=== PATIENT | male | born 1945 | race Caucasian/White ===

== ENCOUNTER 2020-02-16 16:58 | Inpatient (IN) ==
[2020-02-16] MEDS ORDERED: 0.9 % SODIUM CHLORIDE 1,000 ML IV ONE (18:05)
[2020-02-16 18:06] LABS: Basophils # (Auto) 0.07 K/mcL (0.00-0.20); Basophils % (Auto) 0.3 % (0.0-2.0); Eosinophils # (Auto) 0.01 K/mcL (0.00-0.70); Eosinophils % (Auto) 0 % (0.0-7.0); Hematocrit 28.8 % (41.0-55.0); Hemoglobin 9.1 g/dL (13.5-16.5); Lymphocytes # (Auto) 0.69 K/mcL (1.50-4.80); Lymphocytes % (Auto) 2.6 % (15.0-49.0); Mean Cell Volume 87.8 fL (80.0-100.0); Mean Corpuscular HGB Conc 31.6 g/dL (31.0-36.0); Mean Platelet Volume 9.1 fL (7.4-10.4); Monocytes # (Auto) 1.33 K/mcL (0.10-0.90); Neutrophils % (Auto) 92.1 % (38.0-78.0); Platelet Count 455 K/mcL (140-440); RBC 3.28 M/mcL (4.50-5.90); Red Cell Distribution Width 14.2 % (11.5-14.5); WBC 26.4 K/mcL (4.5-11.0)
[2020-02-16] MEDS ORDERED: ACETAMINOPHEN 325 MG TABLET PO ONE (18:09)
[2020-02-16 18:35] LABS: Appearance,Urine CLEAR (Clear); Bilirubin,Urine Negative (Negative); Color,Urine STRAW; Culture Indicated,Urine No; Glucose,Urine (UA) Negative (Negative); Ketones,Urine Negative (Negative); Leukocyte Esterase,Urine Negative /ug (Negative); Mucus,Urine FEW /hpf; Nitrate,Urine Negative (Negative); Protein,Urine Negative (Negative); Specific Gravity,Urine 1.012 (1.000-1.035); Urine Blood 0.03 mg/dL (Negative); Urine RBC < 1 /hpf (0-1); Urine Squamous Epithelial Cell 0 /hpf (0-4); Urine Transitional Epi Cells < 1 /hpf (0-2); Urine WBC 1 /hpf (0-4); Urobilinogen,Urine Negative
--- NOTE | 2020-02-16 18:44 | XRay Report ---
CLINICAL INFORMATION: fever, cough; hx lung ca COMPARISON: 02/03/2020 FINDINGS: Heart size, mediastinum and pulmonary vessels are normal. 11 cm pleural-based mass in the left apex is unchanged underlying COPD noted. IMPRESSION: No change in the 11 cm pleural-based mass left lung apex presumably representing lung cancer. No acute disease Interpreted and Authenticated by: Rocky Wild 02/16/20
[2020-02-16] MEDS ORDERED: cefTRIAXone 1 GM VIAL IV ONE (18:51)
--- NOTE | 2020-02-16 18:52 | Emergency Department Note ---
Weakness HPI General Chief complaint: Weakness Stated complaint: weakness, confusion, dizziness Time Seen by Provider: 02/16/20 17:29 Source: patient and family Mode of arrival: ambulatory Limitations: no limitations History of Present Illness HPI Narrative: Narrative: This pleasant 74-year-old was brought in with family with complaint of him being weak and dizzy at times and seemingly confused. Yesterday he seemed to be doing fine or well and then worsened as time went on. He has a diagnosis of a left upper lobe lung cancer. He has had at least several ER admissions for IV fluids due to dehydration/nausea, etc. He denies current nausea vomiting diarrhea or coughing. For his cancer care he goes to the cancer care [facility] [place] in [place] or [place]. He reports that he has had 5 or 6 Covid test that were negative. His story is including "fuzzy in my head" has been going on and that he has had trouble "cannot stand up" and then refers to possibly cancer in his brain. Reports that he did have an MRI of his brain at [facility]. He is supposed to be starting chemotherapy in the near future but has not had any at this point. He admits to a poor appetite but denies fevers, chills, sweats. Related Data Home Medications Medication Instructions Recorded Confirmed omega-3 fatty acids 500 mg capsule 1,500 mg PO QDAY cap 11/08/15 02/17/20 ibuprofen 200 mg PO Q6 01/07/20 02/17/20 loratadine 10 mg tablet 10 mg PO QDAY 01/07/20 02/17/20 acetaminophen 1,000 mg PO Q6H PRN 02/17/20 02/17/20 Previous Rx's Medication Instructions Recorded hydrocodone 5 mg-acetaminophen 325 1 tab PO BID PRN 30 Days #60 tab 01/25/20 mg tablet potassium chloride 20 meq PO BID #30 tab 02/03/20 Allergies Allergy/AdvReac Type Severity Reaction Status Date / Time No Known Drug Allergies Allergy Verified 02/16/20 17:04 Review of Systems ROS ROS Narrative: Narrative: No blurry vision or double vision No sore throat runny nose No chest pain Has had some cough for 1 week that is worsened. No shortness of breath No abdominal pain nausea vomiting diarrhea constipation hematochezia No dysuria. Does have frequency. No headaches. Does generally feel weak. Denies dizziness Has chronic anxiety. Denies depression Feels sleepy/fatigued No easy bleeding or easy bruising. He is not on any blood thinners. [facility] Narrative Patient History Narrative: Narrative: DENIES: Anticoagulation, myocardial infarction, CVA, TIA. Medical/Surgical/Family History All Active Problems (Updated 02/17/20 @ 01:05 by Ruddy Canales DO) Fever (Acute) Elevated WBC count (Acute) Acute confusion (Acute) Acute renal failure (ARF) (Acute) Hypercalcemia (Acute) Hypercalcemia (Chronic) Lymphedema (Chronic) Chronic hypokalemia (Chronic) Hemorrhoids (Chronic) Diverticulosis (Chronic ~02/02/20) Lung cancer (Chronic) Cavitating mass in left upper lung lobe (Chronic) Urinary hesitancy (Chronic) Cough (Chronic) Acute URI (Chronic) Polyp of colon (Chronic) Diverticulitis large intestine w/o perforation or abscess w/o bleeding (Chronic) Encounter for Health Maintenance Examination in Adult (Chronic) Hx of colonoscopy (Chronic) History of tobacco use (Chronic) Mixed hyperlipidemia (Chronic) Low back pain (Chronic) Keratoderma, acquired (Chronic) Medical History (Updated 02/17/20 @ 01:05 by Ruddy Canales DO) Cavitating mass in left upper lung lobe (Chronic) Chronic hypokalemia (Chronic) Cough (Chronic) Diverticulosis (Chronic ~02/02/20) Encounter for Health Maintenance Examination in Adult (Chronic) Hemorrhoids (Chronic) History of tobacco use (Chronic) ex-smoker, discontinuation 12/2005. Follow ekgs Hypercalcemia (Chronic) Keratoderma, acquired (Chronic) pigmenting keratosis, left mid-back. Derm review 07/26/09-Dr Nunez Low back pain (Chronic) h/o low back pain, h/o ruptured disc, distant past Lung cancer (Chronic) Lymphedema (Chronic) Mixed hyperlipidemia (Chronic) mixed hyperlipidemia, primarily triglycerides. On intermittent fish oil. EKG updated 08/07/11 Urinary hesitancy (Chronic) Surgical History (Updated 02/11/20 @ 09:56 by Elvia Garnett) Hx of colonoscopy (Chronic) 02/02/2020-Dr. Garcia: Hemorrhoids; Diverticulosis, Polyp 12/25/2006-Dr. morgan-transverse adenmoatous polyp; rectum hyperplastic p olyps, 5-year sequence. 01/01/[address] Morgan--Polypoid fragment w/minute submucosal lymphoid aggregate; 3 fragments of hyperplastic polyps. Social History Smoking Status: Former smoker Alcohol Intake Frequency: a few times a month (Denies any intake for 5 months (02/16/2020).) Substance Use: does not use Exam Narrative Narrative: Narrative: General Limitations: no limitations General appearance: Present alert, in no apparent distress and nontoxic Head Head: Present atraumatic and normocephalic Eye Eye: Present normal appearance, PERRL and EOMI ENT ENT: Present normal oropharynx and mucous membranes moist Neck Neck: Present trachea midline; Absent lymphadenopathy and thyromegaly Chest Chest: Present symmetric chest wall rise Respiratory Respiratory: Present normal lung sounds bilaterally; Absent respiratory distress, rales/crackles, wheezes, stridor, accessory muscle use and prolonged expiratory phase Cardiovascular Cardiovascular: Present regular rate, normal rhythm and tachycardia (mild); Absent systolic murmur and diastolic murmur Adbominal Abdominal: Present soft; Absent distention, tenderness, guarding, rebound, rigidity, organomegaly and mass Extremities Extremities: Absent pedal edema, pretibial edema, calf tenderness and cyanosis Back Back: Absent CVA tenderness (R), CVA tenderness (L) and spinous process tenderness Neurological Neurological: Present alert and other (Nursing later found him at the sink with towels and he seemed to be cleaning things. When asked what he was doing he reported "just cleaning up". This seemed out of context for appropriateness of the circumstance since he was in a hospital emergency room that was already quite clean.) Psychiatric Psychiatric: Present normal affect, polite and pleasant; Absent depressed, agitated, anxious and poor eye contact Skin Skin: Present warm (WNL) and dry; Absent cyanosis and pallor Course Vital Signs Vital signs: Vital Signs Temperature 99.3 F H 02/16/20 16:59 Pulse Rate 97 H 02/16/20 16:59 Respiratory Rate 02/16/20 16:59 Blood Pressure 137/73 02/16/20 16:59 Pulse Oximetry (%) 98 02/16/20 16:59 Temperature 98.9 F 02/17/20 04:05 Pulse Rate 98 H 02/17/20 04:05 Respiratory Rate 16 02/17/20 04:05 Blood Pressure 156/88 02/17/20 04:05 Pulse Oximetry (%) 97 02/17/20 04:05 [facility] MDM Narrative Medical decision making narrative: Narrative: 5:44 PM - interviewed and examined. Fever with some cough for a week with a history of lung cancer. We will need to do a general work-up and basic imaging for now. 6:48 PM EKG demonstrates nonspecific ST flattening in the inferior leads. V1-V3 right bundle branch block appearance. 7:00 PM - labs as below with markedly elevated white count at 26.4. Low-grade anemia persists and similar to past. Lactic acid 1.6 Electrolytes unremarkable Except for mildly low or slightly low chloride. Creatinine is mildly elevated again at 1.7 with BUN of 32 demonstrating prerenal azotemia. CRP is 11.0 which is significantly elevated. Urine unremarkable with a specific gravity 1.012. Chest x-ray: "No change in the 11 cm pleural-based mass left lung apex presumably representing lung cancer. No acute disease." 10:40 PM - spoke with hospitalist at [facility], Dr. Bandar Benjamin, who points out the patient's near future catheter placement will be delayed until he has no further infectious major signs or symptoms as they would not want the catheter to get infected. Patient has an appointment at 8:00 in the morning with Dr. Valencia (sp.) As a preop for that catheter placement but this will have to be delayed. Multiple attempts were made to speak with the oncologist, Dr. West or Erik (sp.), With no return call. 12:02 AM - I spoke with the hospitalist, Dr. Olivera, who is willing to accept this patient. He recommends going ahead with the azithromycin for the additional treatment for community-acquired pneumonia, make sure there was a second liter of fluid given, and transition orders. We suggest going ahead and ordering a pro calcitonin, labs in the morning. paint department supervisor, Minerva, was able to find biopsy on 01/12/2020 at [facility] that showed a non-small cell cancer, biopsy done of the left upper lobe mass. Discussion with Dr. Olivera included how to treat his hypercalcemia at this point we will go with fluids only but may need a bisphosphonate in the future. MRI of the brain was also done on 02/15/2020 which was negative for metastatic disease. Lab Data Result diagrams: 02/16/20 17:20 02/16/20 17:20 Labs: Lab Results 02/16/20 02/16/20 02/16/20 Range/Units 17:20 17:20 17:20 WBC 26.4 H (4.5-11.0) K/mcL RBC 3.28 L (4.50-5.90) M/mcL Hgb 9.1 L (13.5-16.5) g/dL Hct 28.8 L (41.0-55.0) % MCV 87.8 (80.0-100.0) fL MCH 27.7 (26.0-34.0) pg MCHC 31.6 (31.0-36.0) g/dL RDW 14.2 (11.5-14.5) % Plt Count 455 H (140-440) K/mcL MPV 9.1 (7.4-10.4) fL Neut % (Auto) 92.1 H (38.0-78.0) % Lymph % (Auto) 2.6 L (15.0-49.0) % [place] % (Auto) 5.0 (1.0-12.0) % Eos % (Auto) 0 (0.0-7.0) % Baso % (Auto) 0.3 (0.0-2.0) % Lymph # (Auto) 0.69 L (1.50-4.80) K/mcL [place] # (Auto) 1.33 H (0.10-0.90) K/mcL Eos # (Auto) 0.01 (0.00-0.70) K/mcL Baso # (Auto) 0.07 (0.00-0.20) K/mcL Absolute Neutrophils 24.25 H (1.80-8.00) K/mcL VBG Lactic Acid 1.6 (0.5-2.0) mmol/L Sodium 133 (133-145) mmol/L Potassium 4.0 (3.3-5.1) mmol/L Chloride 95 L (96-108) mmol/L Carbon Dioxide 25 (22-30) mmol/L Anion Gap 13.0 (8.0-16.0) BUN 32 H (8-23) mg/dL Creatinine 1.7 H (0.7-1.2) mg/dL GFR Calculation 39 Glucose 102 (70-105) mg/dL Calcium 13.3 H* (8.6-10.4) mg/dL Total Bilirubin 0.4 (0.1-1.0) mg/dL AST 17 (<40) U/L ALT 14 (<40) U/L Alkaline Phosphatase 109 (39-117) U/L Troponin T (<0.03) ng/mL C-Reactive Protein (0.03-0.80) mg/dL Total Protein 6.6 (5.9-8.4) gm/dL Albumin 2.9 L (3.2-5.2) gm/dL Globulin 3.7 (2.2-3.7) gm/dL Albumin/Globulin Ratio 0.8 L (1.0-2.3) Procalcitonin (<0.10) ng/mL Urine Color Urine Appearance (Clear) Urine pH (5.0-9.0) Ur Specific [place] (1.000-1.035) Urine Protein (Negative) mg/dL Urine Glucose (UA) (Negative) mg/dL Urine Ketones (Negative) mg/dL Urine Occult Blood (Negative) mg/dL Urine Nitrate (Negative) Urine Bilirubin (Negative) mg/dL Urine Urobilinogen mg/dL Ur Leukocyte Esterase (Negative) /ug Urine RBC (0-1) /hpf Urine WBC (0-4) /hpf Ur Squamous Epith Cells (0-4) /hpf Ur Transition Epith Cell (0-2) /hpf Urine Bacteria (0) /hpf Urine Mucus (None) /hpf Ur Culture Indicated? 02/16/20 02/16/20 02/16/20 Range/Units 17:20 17:20 17:20 WBC (4.5-11.0) K/mcL RBC (4.50-5.90) M/mcL Hgb (13.5-16.5) g/dL Hct (41.0-55.0) % MCV (80.0-100.0) fL MCH (26.0-34.0) pg MCHC (31.0-36.0) g/dL RDW (11.5-14.5) % Plt Count (140-440) K/mcL MPV (7.4-10.4) fL Neut % (Auto) (38.0-78.0) % Lymph % (Auto) (15.0-49.0) % [place] % (Auto) (1.0-12.0) % Eos % (Auto) (0.0-7.0) % Baso % (Auto) (0.0-2.0) % Lymph # (Auto) (1.50-4.80) K/mcL [place] # (Auto) (0.10-0.90) K/mcL Eos # (Auto) (0.00-0.70) K/mcL Baso # (Auto) (0.00-0.20) K/mcL Absolute Neutrophils (1.80-8.00) K/mcL VBG Lactic Acid (0.5-2.0) mmol/L Sodium (133-145) mmol/L Potassium (3.3-5.1) mmol/L Chloride (96-108) mmol/L Carbon Dioxide (22-30) mmol/L Anion Gap (8.0-16.0) BUN (8-23) mg/dL Creatinine (0.7-1.2) mg/dL GFR Calculation Glucose (70-105) mg/dL Calcium (8.6-10.4) mg/dL Total Bilirubin (0.1-1.0) mg/dL AST (<40) U/L ALT (<40) U/L Alkaline Phosphatase (39-117) U/L Troponin T < 0.01 (<0.03) ng/mL C-Reactive Protein 11.00 H (0.03-0.80) mg/dL Total Protein (5.9-8.4) gm/dL Albumin (3.2-5.2) gm/dL Globulin (2.2-3.7) gm/dL Albumin/Globulin Ratio (1.0-2.3) Procalcitonin 0.14 H (<0.10) ng/mL Urine Color Urine Appearance (Clear) Urine pH (5.0-9.0) Ur Specific [place] (1.000-1.035) Urine Protein (Negative) mg/dL Urine Glucose (UA) (Negative) mg/dL Urine Ketones (Negative) mg/dL Urine Occult Blood (Negative) mg/dL Urine Nitrate (Negative) Urine Bilirubin (Negative) mg/dL Urine Urobilinogen mg/dL Ur Leukocyte Esterase (Negative) /ug Urine RBC (0-1) /hpf Urine WBC (0-4) /hpf Ur Squamous Epith Cells (0-4) /hpf Ur Transition Epith Cell (0-2) /hpf Urine Bacteria (0) /hpf Urine Mucus (None) /hpf Ur Culture Indicated? 02/16/20 Range/Units 17:40 WBC (4.5-11.0) K/mcL RBC (4.50-5.90) M/mcL Hgb (13.5-16.5) g/dL Hct (41.0-55.0) % MCV (80.0-100.0) fL MCH (26.0-34.0) pg MCHC (31.0-36.0) g/dL RDW (11.5-14.5) % Plt Count (140-440) K/mcL MPV (7.4-10.4) fL Neut % (Auto) (38.0-78.0) % Lymph % (Auto) (15.0-49.0) % [place] % (Auto) (1.0-12.0) % Eos % (Auto) (0.0-7.0) % Baso % (Auto) (0.0-2.0) % Lymph # (Auto) (1.50-4.80) K/mcL [place] # (Auto) (0.10-0.90) K/mcL Eos # (Auto) (0.00-0.70) K/mcL Baso # (Auto) (0.00-0.20) K/mcL Absolute Neutrophils (1.80-8.00) K/mcL VBG Lactic Acid (0.5-2.0) mmol/L Sodium (133-145) mmol/L Potassium (3.3-5.1) mmol/L Chloride (96-108) mmol/L Carbon Dioxide (22-30) mmol/L Anion Gap (8.0-16.0) BUN (8-23) mg/dL Creatinine (0.7-1.2) mg/dL GFR Calculation Glucose (70-105) mg/dL Calcium (8.6-10.4) mg/dL Total Bilirubin (0.1-1.0) mg/dL AST (<40) U/L ALT (<40) U/L Alkaline Phosphatase (39-117) U/L Troponin T (<0.03) ng/mL C-Reactive Protein (0.03-0.80) mg/dL Total Protein (5.9-8.4) gm/dL Albumin (3.2-5.2) gm/dL Globulin (2.2-3.7) gm/dL Albumin/Globulin Ratio (1.0-2.3) Procalcitonin (<0.10) ng/mL Urine Color Straw Urine Appearance Clear (Clear) Urine pH 6.0 (5.0-9.0) Ur Specific [place] 1.012 (1.000-1.035) Urine Protein Negative (Negative) mg/dL Urine Glucose (UA) Negative (Negative) mg/dL Urine Ketones Negative (Negative) mg/dL Urine Occult Blood 0.03 (Negative) mg/dL Urine Nitrate Negative (Negative) Urine Bilirubin Negative (Negative) mg/dL Urine Urobilinogen Negative mg/dL Ur Leukocyte Esterase Negative (Negative) /ug Urine RBC < 1 (0-1) /hpf Urine WBC 1 (0-4) /hpf Ur Squamous Epith Cells 0 (0-4) /hpf Ur Transition Epith Cell < 1 (0-2) /hpf Urine Bacteria None (0) /hpf Urine Mucus Few A (None) /hpf Ur Culture Indicated? No Discharge Plan Patient/Caregiver Discharge Instructions Pt seen by RANGE SCIENTIST/PA only: No Clinical Impression: Fever, Elevated WBC count, Acute confusion, Acute renal failure (ARF), Lung cancer, Hypercalcemia Patient Disposition: Xfer As Inpt ([facility]) Discharge Date/Time: 02/17/20 01:36
[2020-02-16 18:59] LABS: ALT/SGPT 14 U/L (<40); AST/SGOT 17 U/L (<40); Albumin 2.9 gm/dL (3.2-5.2); Albumin/Globulin Ratio 0.8 (1.0-2.3); Alkaline Phosphatase 109 U/L (39-117); Bilirubin,Total 0.4 mg/dL (0.1-1.0); Blood Urea Nitrogen 32 mg/dL (8-23); Calcium 13.3 mg/dL (8.6-10.4); Carbon Dioxide 25 mmol/L (22-30); Chloride 95 mmol/L (96-108); Globulin 3.7 gm/dL (2.2-3.7); Glomerular Filtration Rate 39; Glucose 102 mg/dL (70-105)
[2020-02-17] MEDS ORDERED: AZITHROMYCIN 500 MG in DEXTROSE 5% IN WATER 250 ML IV ONE (00:15)
[2020-02-17] MEDS ORDERED: ACETAMINOPHEN 325 MG TABLET PO PRN (00:56)
[2020-02-17] MEDS ORDERED: 0.9 % SODIUM CHLORIDE 1,000 ML IV SCH (01:00)
[2020-02-17] MEDS: 0.9 % SODIUM CHLORIDE 1,000 ML IV SCH ×2 (05:46→19:44)
[2020-02-17 06:47] LABS: Parathyroid Hormone Intact-SO < 1.2 pg/mL (15-65)
[2020-02-17 06:57] LABS: Basophils # (Auto) 0.06 K/mcL (0.00-0.20); Basophils % (Auto) 0.3 % (0.0-2.0); Eosinophils # (Auto) 0.01 K/mcL (0.00-0.70); Eosinophils % (Auto) 0 % (0.0-7.0); Hematocrit 27.1 % (41.0-55.0); Hemoglobin 8.5 g/dL (13.5-16.5); Lymphocytes % (Auto) 3.2 % (15.0-49.0); Mean Cell Volume 86.9 fL (80.0-100.0); Mean Corpuscular HGB Conc 31.4 g/dL (31.0-36.0); Mean Platelet Volume 8.9 fL (7.4-10.4); Monocytes # (Auto) 1.36 K/mcL (0.10-0.90); Monocytes % (Auto) 6.3 % (1.0-12.0); Neutrophils % (Auto) 90.2 % (38.0-78.0); Platelet Count 418 K/mcL (140-440); RBC 3.12 M/mcL (4.50-5.90); Red Cell Distribution Width 14.3 % (11.5-14.5); WBC 21.7 K/mcL (4.5-11.0)
[2020-02-17 08:28] LABS: ALT/SGPT 11 U/L (<40); AST/SGOT 15 U/L (<40); Albumin 2.8 gm/dL (3.2-5.2); Albumin/Globulin Ratio 0.9 (1.0-2.3); Alkaline Phosphatase 100 U/L (39-117); Bilirubin,Direct < 0.2 mg/dL (<0.3); Bilirubin,Total 0.4 mg/dL (0.1-1.0); Blood Urea Nitrogen 23 mg/dL (8-23); Carbon Dioxide 27 mmol/L (22-30); Chloride 100 mmol/L (96-108); Globulin 3.2 gm/dL (2.2-3.7); Glomerular Filtration Rate 73; Glucose 101 mg/dL (70-105); Lactate Dehydrogenase 92 U/L (135-225); Phosphorous 2.7 mg/dL (2.5-4.5); Triglycerides 92 mg/dL (<150); Uric Acid 4.6 mg/dL (2.5-8.0)
[2020-02-17] MEDS ORDERED: POTASSIUM CHLORIDE 20 MEQ TABLET PO ONE (09:07)
[2020-02-17] MEDS ORDERED: PAMIDRONATE 90 MG in 0.9 % SODIUM CHLORIDE 500 ML IV ONE (09:12)
[2020-02-17] MEDS ORDERED: ACETAMINOPHEN 500 MG TABLET PO PRN (17:40)
--- NOTE | 2020-02-17 17:43 | Internal Med History&Physical ---
HPI History of Present Illness Patient information: Note initiated : 02/17/20 at 5:42 pm Service Date, if different from initiated Date: [] Patient: Jovan Elizabeth 74 y/o M admitted on 02/17/20 for weakness, confusion, dizziness. Chief Complaint: [] History of present illness: Mr. Elizabeth is a 74 year old male with recently diagnosed lung cancer (reportedly SCC) who presented to the ED for generalized weakness and confusion. He had a fever in the ED prompted a sepsis workup which did not show a clear source of infection however in the setting of significant leukocytosis he was started on treatment for presumed pneumonia. ED workup also showed hypercalcemia which is likely secondary to malignancy. Constitutional Constitutional: Present lethargy and weakness Cardiovascular Cardiovascular: Absent chest pain and dyspnea Gastrointestinal Gastrointestinal: Present constipation; Absent abdominal pain Musculoskeletal Musculoskeletal: Absent muscle cramps Neurological Neurological: Present behavioral changes and dizziness Psychiatric Psychiatric: Absent anxiety PFSH PFSH All Active Problems (Updated 02/17/20 @ 01:05 by Ruddy Canales DO) Fever (Acute) Elevated WBC count (Acute) Acute confusion (Acute) Acute renal failure (ARF) (Acute) Hypercalcemia (Acute) Hypercalcemia (Chronic) Lymphedema (Chronic) Chronic hypokalemia (Chronic) Hemorrhoids (Chronic) Diverticulosis (Chronic ~02/02/20) Lung cancer (Chronic) Cavitating mass in left upper lung lobe (Chronic) Urinary hesitancy (Chronic) Cough (Chronic) Acute URI (Chronic) Polyp of colon (Chronic) Diverticulitis large intestine w/o perforation or abscess w/o bleeding (Chronic) Encounter for Health Maintenance Examination in Adult (Chronic) Hx of colonoscopy (Chronic) History of tobacco use (Chronic) Mixed hyperlipidemia (Chronic) Low back pain (Chronic) Keratoderma, acquired (Chronic) Medical History (Updated 02/17/20 @ 01:05 by Ruddy Canales DO) Cavitating mass in left upper lung lobe (Chronic) Chronic hypokalemia (Chronic) Cough (Chronic) Diverticulosis (Chronic ~02/02/20) Encounter for Health Maintenance Examination in Adult (Chronic) Hemorrhoids (Chronic) History of tobacco use (Chronic) ex-smoker, discontinuation 12/2005. Follow ekgs Hypercalcemia (Chronic) Keratoderma, acquired (Chronic) pigmenting keratosis, left mid-back. Derm review 07/26/09-Dr Nunez Low back pain (Chronic) h/o low back pain, h/o ruptured disc, distant past Lung cancer (Chronic) Lymphedema (Chronic) Mixed hyperlipidemia (Chronic) mixed hyperlipidemia, primarily triglycerides. On intermittent fish oil. EKG updated 08/07/11 Urinary hesitancy (Chronic) Surgical History (Updated 02/11/20 @ 09:56 by Elvia Garnett) Hx of colonoscopy (Chronic) 02/02/2020-Dr. Garcia: Hemorrhoids; Diverticulosis, Polyp 12/25/2006-Dr. morgan-transverse adenmoatous polyp; rectum hyperplastic polyps, 5-year sequence. 01/01/[address] Morgan--Polypoid fragment w/minute submucosal lymphoid aggregate; 3 fragments of hyperplastic polyps. 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 smoking status: Former smoker quit date: 03/04/01 pack-years: 12 alcohol intake frequency: a few times a month (Denies any intake for 5 months (02/16/2020).) substance use type: does not use MEDS/ALLERGIES Home Medications and Allergies Home Medications Medication Instructions Recorded Confirmed Type omega-3 fatty acids 500 mg capsule 1,500 mg PO QDAY cap 11/08/15 02/17/20 History ibuprofen 200 mg PO Q6 01/07/20 02/17/20 History loratadine 10 mg tablet 10 mg PO QDAY 01/07/20 02/17/20 History hydrocodone 5 mg-acetaminophen 325 1 tab PO BID PRN 30 Days #60 tab 01/25/20 02/17/20 Rx mg tablet potassium chloride 20 meq PO BID #30 tab 02/03/20 02/17/20 Rx acetaminophen 1,000 mg PO Q6H PRN 02/17/20 02/17/20 History Allergies Allergy/AdvReac Type Severity Reaction Status Date / Time No Known Drug Allergies Allergy Verified 02/16/20 17:04 EXAM Constitutional Vitals: Temp Pulse Resp BP Pulse Ox 98.6 F 85 16 139/74 94 02/17/20 16:00 02/17/20 16:00 02/17/20 16:00 02/17/20 16:00 02/17/20 16:00 Head Head exam: Present atraumatic and normal inspection Neck Neck exam: Present full ROM; Absent tenderness Respiratory Respiratory exam: Absent accessory muscle use, respiratory distress and wheezes Cardiovascular Cardiovascular exam: Present normal rate and rhythm GI/Abdominal GI/Abdominal exam: Present soft; Absent distended and tenderness Extremities Exam Extremities exam: Present full ROM and normal inspection Neurological Exam Neurological exam: Present CN II-XII intact and oriented X3 Skin Skin exam: Present normal color and warm DATA Data Completed and Pending Labs: Labs from last 24 hours 02/17/20 02/17/20 02/17/20 09:50 05:48 05:48 WBC 21.7 H RBC 3.12 L Hgb 8.5 L Hct 27.1 L MCV 86.9 MCH 27.2 MCHC 31.4 RDW 14.3 Plt Count 418 MPV 8.9 Neut % (Auto) 90.2 H Lymph % (Auto) 3.2 L [place] % (Auto) 6.3 Eos % (Auto) 0 Baso % (Auto) 0.3 Lymph # (Auto) 0.70 L [place] # (Auto) 1.36 H Eos # (Auto) 0.01 Baso # (Auto) 0.06 Absolute Neutrophils 19.54 H VBG Lactic Acid Sodium 138 Potassium 3.1 L Chloride 100 Carbon Dioxide 27 Anion Gap 11.0 BUN 23 Creatinine 1.0 GFR Calculation 73 Glucose 101 Uric Acid 4.6 Calcium 13.0 H* Phosphorus 2.7 Magnesium 1.6 Total Bilirubin 0.4 Direct Bilirubin < 0.2 GGT 74 H AST 15 ALT 11 Alkaline Phosphatase 100 Lactate Dehydrogenase 92 L Troponin T C-Reactive Protein Total Protein 6.0 Albumin 2.8 L Globulin 3.2 Albumin/Globulin Ratio 0.9 L Triglycerides 92 Procalcitonin PTH Intact PTH Related Protein Pending Urine Color Urine Appearance Urine pH Ur Specific [place] Urine Protein Urine Glucose (UA) Urine Ketones Urine Occult Blood Urine Nitrate Urine Bilirubin Urine Urobilinogen Ur Leukocyte Esterase Urine RBC Urine WBC Ur Squamous Epith Cells Ur Transition Epith Cell Urine Bacteria Urine Mucus Ur Culture Indicated? 02/16/20 02/16/20 02/16/20 17:40 17:20 17:20 WBC RBC Hgb Hct MCV MCH MCHC RDW Plt Count MPV Neut % (Auto) Lymph % (Auto) [place] % (Auto) Eos % (Auto) Baso % (Auto) Lymph # (Auto) [place] # (Auto) Eos # (Auto) Baso # (Auto) Absolute Neutrophils VBG Lactic Acid Sodium Potassium Chloride Carbon Dioxide Anion Gap BUN Creatinine GFR Calculation Glucose Uric Acid Calcium Phosphorus Magnesium Total Bilirubin Direct Bilirubin GGT AST ALT Alkaline Phosphatase Lactate Dehydrogenase Troponin T C-Reactive Protein Total Protein Albumin Globulin Albumin/Globulin Ratio Triglycerides Procalcitonin 0.14 H PTH Intact < 1.2 L PTH Related Protein Urine Color Straw Urine Appearance Clear Urine pH 6.0 Ur Specific [place] 1.012 Urine Protein Negative Urine Glucose (UA) Negative Urine Ketones Negative Urine Occult Blood 0.03 Urine Nitrate Negative Urine Bilirubin Negative Urine Urobilinogen Negative Ur Leukocyte Esterase Negative Urine RBC < 1 Urine WBC 1 Ur Squamous Epith Cells 0 Ur Transition Epith Cell < 1 Urine Bacteria None Urine Mucus Few A Ur Culture Indicated? No 02/16/20 02/16/20 02/16/20 17:20 17:20 17:20 WBC RBC Hgb Hct MCV MCH MCHC RDW Plt Count MPV Neut % (Auto) Lymph % (Auto) [place] % (Auto) Eos % (Auto) Baso % (Auto) Lymph # (Auto) [place] # (Auto) Eos # (Auto) Baso # (Auto) Absolute Neutrophils VBG Lactic Acid 1.6 Sodium Potassium Chloride Carbon Dioxide Anion Gap BUN Creatinine GFR Calculation Glucose Uric Acid Calcium Phosphorus Magnesium Total Bilirubin Direct Bilirubin GGT AST ALT Alkaline Phosphatase Lactate Dehydrogenase Troponin T < 0.01 C-Reactive Protein 11.00 H Total Protein Albumin Globulin Albumin/Globulin Ratio Triglycerides Procalcitonin PTH Intact PTH Related Protein Urine Color Urine Appearance Urine pH Ur Specific [place] Urine Protein Urine Glucose (UA) Urine Ketones Urine Occult Blood Urine Nitrate Urine Bilirubin Urine Urobilinogen Ur Leukocyte Esterase Urine RBC Urine WBC Ur Squamous Epith Cells Ur Transition Epith Cell Urine Bacteria Urine Mucus Ur Culture Indicated? 02/16/20 02/16/20 17:20 17:20 WBC 26.4 H RBC 3.28 L Hgb 9.1 L Hct 28.8 L MCV 87.8 MCH 27.7 MCHC 31.6 RDW 14.2 Plt Count 455 H MPV 9.1 Neut % (Auto) 92.1 H Lymph % (Auto) 2.6 L [place] % (Auto) 5.0 Eos % (Auto) 0 Baso % (Auto) 0.3 Lymph # (Auto) 0.69 L [place] # (Auto) 1.33 H Eos # (Auto) 0.01 Baso # (Auto) 0.07 Absolute Neutrophils 24.25 H VBG Lactic Acid Sodium 133 Potassium 4.0 Chloride 95 L Carbon Dioxide 25 Anion Gap 13.0 BUN 32 H Creatinine 1.7 H GFR Calculation 39 Glucose 102 Uric Acid Calcium 13.3 H* Phosphorus Magnesium Total Bilirubin 0.4 Direct Bilirubin GGT AST 17 ALT 14 Alkaline Phosphatase 109 Lactate Dehydrogenase Troponin T C-Reactive Protein Total Protein 6.6 Albumin 2.9 L Globulin 3.7 Albumin/Globulin Ratio 0.8 L Triglycerides Procalcitonin PTH Intact PTH Related Protein Urine Color Urine Appearance Urine pH Ur Specific [place] Urine Protein Urine Glucose (UA) Urine Ketones Urine Occult Blood Urine Nitrate Urine Bilirubin Urine Urobilinogen Ur Leukocyte Esterase Urine RBC Urine WBC Ur Squamous Epith Cells Ur Transition Epith Cell Urine Bacteria Urine Mucus Ur Culture Indicated? A/P Narrative A/P Narrative: Assessment: 74 year old male recently diagnosed with lung cancer presents with generalized weakness and fatigue likely secondary to hypercalcemia of malignancy and possibly pneumonia. Parathyroid hormone was low-this is likely hypercalcemia of malignancy especially if the cancer diagnosis is squamous cell carcinoma. #Hypercalcemia of malignancy #Generalized weakness #Constipation #Fatigue Plan: Continue IV fluid, follow urine output, calcitonin SQ is not formulary, Pamidronate IV given, following calcium levels. Follow PTH-rp. #Possible pneumonia - fever and increased leukocytosis in the ED, chest xray does not show a new infiltrate however with new constitutional changes will treat for community acquired pneumonia. #Lung cancer - reportedly squamous cell carcinoma, the current plan is to start chemotherapy on 02/[address] Matta in [place] then radiation therapy in [place]. #DVT prophylaxis - Lovenox SQ Time Spent With Patient Time: Total time spent is greater than 50% in coordination of care (as documented) at patient's floor/unit and/or counseling patient: Total time spent with greater than 50% in coordination of care (as documented) at patient's floor/unit and/or counseling patient:: Greater than 35 minutes QUALITY VTE Deep Vein Thrombosis/Pulmonary Embolism Present on Admission: No
[2020-02-17] MEDS: POTASSIUM CHLORIDE 20 MEQ TABLET PO SCH (18:27)
[2020-02-17] MEDS: POLYETHYLENE GLYCOL 3350 17 GM PACKET PO SCH (18:27)
[2020-02-17] MEDS: AZITHROMYCIN 500 MG in DEXTROSE 5% IN WATER 250 ML IV SCH (18:27)
[2020-02-17] MEDS: cefTRIAXone 1 GM VIAL IV SCH (18:28)
[2020-02-17] MEDS ORDERED: traMADol 50 MG TABLET PO PRN (19:05)
[2020-02-17] MEDS: ENOXAPARIN 40 MG/0.4 ML SYRINGE SQ SCH (19:44)
[2020-02-17] MEDS ORDERED: CALCITONIN 400 UNIT/2 ML VIAL SC SCH (21:00)
[2020-02-17] MEDS: SENNOSIDES 8.8 MG/5 ML ML PT SCH (22:05)
[2020-02-18] MEDS: 0.9 % SODIUM CHLORIDE 1,000 ML IV SCH ×2 (02:07→04:08)
[2020-02-18 07:42] LABS: ALT/SGPT 12 U/L (<40); AST/SGOT 14 U/L (<40); Albumin 2.7 gm/dL (3.2-5.2); Albumin/Globulin Ratio 0.9 (1.0-2.3); Alkaline Phosphatase 88 U/L (39-117); Bilirubin,Direct < 0.2 mg/dL (<0.3); Bilirubin,Total 0.3 mg/dL (0.1-1.0); Blood Urea Nitrogen 21 mg/dL (8-23); Calcium 12.2 mg/dL (8.6-10.4); Carbon Dioxide 28 mmol/L (22-30); Chloride 103 mmol/L (96-108); Glomerular Filtration Rate 83; Glucose 113 mg/dL (70-105); Lactate Dehydrogenase 94 U/L (135-225); Phosphorous 2.1 mg/dL (2.5-4.5); Triglycerides 80 mg/dL (<150); Uric Acid 4.8 mg/dL (2.5-8.0)
[2020-02-18] MEDS: ENOXAPARIN 40 MG/0.4 ML SYRINGE SQ SCH (08:09)
[2020-02-18] MEDS: POLYETHYLENE GLYCOL 3350 17 GM PACKET PO SCH (08:09)
[2020-02-18] MEDS: POTASSIUM CHLORIDE 20 MEQ TABLET PO SCH ×2 (08:09→16:40)
[2020-02-18] MEDS: SENNOSIDES 8.8 MG/5 ML ML PT SCH ×3 (08:23→21:28)
[2020-02-18 08:56] LABS: Hematocrit 24.7 % (41.0-55.0); Hemoglobin 7.7 g/dL (13.5-16.5); Lymphocytes % 6 % (15-49); Mean Cell Volume 87.9 fL (80.0-100.0); Mean Corpuscular HGB Conc 31.2 g/dL (31.0-36.0); Monocytes % (Manual) 8 % (1-12); Platelet Count 363 K/mcL (140-440); Platelet Estimate NORMAL (Normal); RBC 2.81 M/mcL (4.50-5.90); RBC Morphology NORMAL (Normal); Red Cell Distribution Width 14.2 % (11.5-14.5); Segmented Neutrophils % 86 % (38-78); WBC 19.8 K/mcL (4.5-11.0)
[2020-02-18] MEDS ORDERED: POTASSIUM CHLORIDE 20 MEQ TABLET PO ONE (09:21)
[2020-02-18] MEDS: cefTRIAXone 1 GM VIAL IV SCH (09:36)
[2020-02-18] MEDS: AZITHROMYCIN 500 MG in DEXTROSE 5% IN WATER 250 ML IV SCH (09:37)
[2020-02-18] MEDS ORDERED: 0.9 % SODIUM CHLORIDE 1,000 ML IV SCH ×2 (11:00→11:01)
--- NOTE | 2020-02-18 11:00 | Internal Med Progress Note ---
SUBJECTIVE Subjective Patient information: Note initiated : 02/18/20 at 10:56 am Service Date, if different from initiated Date: [] Patient: Jovan Elizabeth 74 y/o M admitted on 02/17/20 for weakness, confusion, dizziness. Chief Complaint: [weakness, confusion] History of present illness: Mr. Elizabeth is a 74 year old male with recently diagnosed lung cancer (reportedly SCC) who presented to the ED for generalized weakness and confusion. He had a fever in the ED prompted a sepsis workup which did not show a clear source of infection however in the setting of significant leukocytosis he was started on treatment for presumed pneumonia. ED workup also showed hypercalcemia which is likely secondary to malignancy. PT was low lending further evidence this is hypercalcemia of malignancy. The patient was started on IV fluid and given a dose of IV Pamidronate. Calcitonin was not formulary. D iscussed with the patient's oncologist, Dr. Matta. She plans to see the patient in clinic 02/21. 02/17-calcium level improving, continue IV fluid. H/H downtrending, probably dilutional. PT and OT consulted. Constitutional Vitals: Vital Signs Temp Pulse Resp BP Pulse Ox 97.8 F 84 18 129/78 95 02/18/20 07:52 02/18/20 08:00 02/18/20 07:52 02/18/20 07:52 02/18/20 07:52 Period Temp Pulse Resp BP Sys/Nielsen Pulse Ox Last 24 Hr 97.8 F-98.8 F 81-93 16-18 126-145/71-79 94-96 Intake and Output 02/17/20 02/18/20 02/18/20 21:59 05:59 13:59 Intake Total 1250 2040 480 Output Total 330 202 200 Balance 920 1838 280 Weight 80.966 kg Intake & Output: Intake & Output 02/17/20 02/18/20 02/18/20 21:59 05:59 13:59 Intake Total 1250 2040 480 Output Total 330 202 200 Balance 920 1838 280 Weight 80.966 kg Intake: IV 1250 840 Sodium Chloride 0.9% 1,000 ml @ 1000 840 100 mls/hr IV .Q10H [facility] Rx#: [id number] Zithromax 500 mg In Dextrose 5% 250 in Water 250 ml @ 250 mls/hr IV Q24H [facility] Rx#:[id number] Oral 1200 480 Output: Void Amount 325 200 200 # of times incontinent of urine 5 2 Other: Meal Breakfast Percent of Meal Consumed 75% Feeding Ability Independent Urine Appearance Clear Clear Urine Color Bright Yellow Bright Yellow Urine Odor Normal Stool Size Moderate Stool Color Brown Stool Consistency Dry and Hard Formed # Voids 1 3 # Bowel Movements 2 Exam: Malnourished. Head Head exam: Present atraumatic and normal inspection Eye Eye exam: Present normal appearance ENT ENT exam: Present mucous membranes moist, normal exam and normal external ear exam Neck Neck exam: Present normal inspection Respiratory Respiratory exam: Present normal respiratory exam Cardiovascular Cardiovascular exam: Present normal rate and rhythm GI/Abdominal GI/Abdominal exam: Present normal bowel sounds Back Exam Back exam: Present normal inspection Neurological Exam Neurological exam: Present alert and oriented X3 Skin Skin exam: Present intact and warm OBJ DATA Labs CBC & Chem 7: 02/18/20 05:39 02/18/20 05:39 Labs: Abnormal Lab Results 02/18/20 02/18/20 02/17/20 05:39 05:39 05:48 WBC 19.8 H RBC 2.81 L Hgb 7.7 L Hct 24.7 L Plt Count Neut % (Auto) Lymph % (Auto) Lymph # (Auto) [place] # (Auto) Seg Neutrophils % 86 H Lymphocytes % 6 L Absolute Neutrophils Potassium 3.2 L 3.1 L Chloride BUN Creatinine Glucose 113 H Calcium 12.2 H 13.0 H* Phosphorus 2.1 L GGT 64 H 74 H Lactate Dehydrogenase 94 L 92 L C-Reactive Protein Total Protein 5.7 L Albumin 2.7 L 2.8 L Albumin/Globulin Ratio 0.9 L 0.9 L Procalcitonin PTH Intact Urine Mucus 02/17/20 02/16/20 02/16/20 05:48 17:40 17:20 WBC 21.7 H RBC 3.12 L Hgb 8.5 L Hct 27.1 L Plt Count Neut % (Auto) 90.2 H Lymph % (Auto) 3.2 L Lymph # (Auto) 0.70 L [place] # (Auto) 1.36 H Seg Neutrophils % Lymphocytes % Absolute Neutrophils 19.54 H Potassium Chloride BUN Creatinine Glucose Calcium Phosphorus GGT Lactate Dehydrogenase C-Reactive Protein Total Protein Albumin Albumin/Globulin Ratio Procalcitonin PTH Intact < 1.2 L Urine Mucus Few A 02/16/20 02/16/20 02/16/20 17:20 17:20 17:20 WBC RBC Hgb Hct Plt Count Neut % (Auto) Lymph % (Auto) Lymph # (Auto) [place] # (Auto) Seg Neutrophils % Lymphocytes % Absolute Neutrophils Potassium Chloride 95 L BUN 32 H Creatinine 1.7 H Glucose Calcium 13.3 H* Phosphorus GGT Lactate Dehydrogenase C-Reactive Protein 11.00 H Total Protein Albumin 2.9 L Albumin/Globulin Ratio 0.8 L Procalcitonin 0.14 H PTH Intact Urine Mucus 02/16/20 17:20 WBC 26.4 H RBC 3.28 L Hgb 9.1 L Hct 28.8 L Plt Count 455 H Neut % (Auto) 92.1 H Lymph % (Auto) 2.6 L Lymph # (Auto) 0.69 L [place] # (Auto) 1.33 H Seg Neutrophils % Lymphocytes % Absolute Neutrophils 24.25 H Potassium Chloride BUN Creatinine Glucose Calcium Phosphorus GGT Lactate Dehydrogenase C-Reactive Protein Total Protein Albumin Albumin/Globulin Ratio Procalcitonin PTH Intact Urine Mucus Meds: Medications Acetaminophen (Tylenol) 1,000 mg PO Q6HP PRN; Protocol PRN Reason: Pain Ceftriaxone Sodium (Rocephin) 1 gm IV Q24H [facility]; Protocol Last Admin: 02/18/20 09:36 Dose: 1 gm Documented by: Enoxaparin Sodium (Lovenox) 40 mg SQ DAILY [facility] Last Admin: 02/18/20 08:09 Dose: 40 mg Documented by: Sodium Chloride (Sodium Chloride 0.9%) 1,000 mls @ 100 mls/hr IV .Q10H [facility] Last Admin: 02/18/20 04:08 Dose: 100 mls/hr Documented by: Azithromycin 500 mg/ Dextrose 250 mls @ 250 mls/hr IV Q24H [facility]; Protocol Last Admin: 02/18/20 09:37 Dose: 250 mls/hr Documented by: Polyethylene Glycol (Miralax) 17 gm PO DAILY [facility] Last Admin: 02/18/20 08:09 Dose: 17 gm Documented by: Potassium Chloride (Kdur) 20 meq PO BIDCC [facility] Last Admin: 02/18/20 08:09 Dose: 20 meq Documented by: Potassium/Phosphorus/Sodium (Neutra Phos) 2 packet PO BID [facility] Stop: 02/19/20 08:00 Senna (Senna) 17.6 mg PT BID [facility] Last Admin: 02/18/20 08:23 Dose: 17.6 mg Documented by: Tramadol HCl (Ultram) 50 mg PO Q4HP PRN; Protocol PRN Reason: Pain A/P Narrative A/P Narrative: Assessment: 74 year old male recently diagnosed with lung cancer presents with generalized weakness and fatigue likely secondary to hypercalcemia of malignancy and possibly pneumonia. Parathyroid hormone was low-this is likely hypercalcemia of malignancy especially if the cancer diagnosis is squamous cell carcinoma. #Hypercalcemia of malignancy #Generalized weakness #Constipation #Fatigue Plan: Continue IV fluid, follow urine output, calcitonin SQ not in formulary, Pamidronate IV given 02/16, calcium level improving. Parathyroid hormone low, follow pending PTH-rp. #Possible pneumonia - fever and increased leukocytosis in the ED-improving, chest xray did not show a new infiltrate however with new constitutional changes will treat w/ Ceftriaxone and Azithromycin. #Anemia - appears to be acute on chronic, likely dilutional as there is no evidence of bleeding but significantly lower today, will trend hemoglobin today. Guaiac stool. Will need RBC transfusion if hemoglobin trends below 7. #Hypokalemia - replaced PO-follow. #Hypophosphatemia - replaced PO-follow. #Lung cancer - reportedly squamous cell carcinoma, the current plan is to start chemotherapy on 02/[address] Matta in [place] then radiation therapy in [place]. #DVT prophylaxis - Lovenox SQ - hold if hemoglobin trends down. Time Spent With Patient Time: Total time spent is greater than 50% in coordination of care (as documented) at patient's floor/unit and/or counseling patient: QUALITY VTE Deep Vein Thrombosis/Pulmonary Embolism Present on Admission: No
--- NOTE | 2020-02-18 13:29 | Internal Med Progress Note ---
SUBJECTIVE Subjective Patient information: Note initiated : 02/18/20 at 1:25 pm Service Date, if different from initiated Date: [] Patient: Jovan Elizabeth 74 y/o M admitted on 02/17/20 for weakness, confusion, dizziness. Chief Complaint: [] Interval history: History of present illness: Mr. Elizabeth is a 74 year old male with recently diagnosed lung cancer (reportedly SCC) who presented to the ED for generalized weakness and confusion. He had a fever in the ED prompted a sepsis workup which did not show a clear source of infection however in the setting of significant leukocytosis he was started on treatment for presumed pneumonia. ED workup also showed hypercalcemia which is likely secondary to malignancy. PT was low lending further evidence this is hypercalcemia of malignancy. The patient was started on IV fluid and given a dose of IV Pamidronate. Calcitonin was not formulary. Discussed with the patient's oncologist, Dr. Matta. She plans to see the patient in clinic 02/21. 02/17-calcium level improving, continue IV fluid. H/H downtrending, probably dilutional. PT and OT consulted. 02/18 Constitutional Vitals: Vital Signs Temp Pulse Resp BP Pulse Ox 98.7 F 92 H 18 142/73 100 02/18/20 12:00 02/18/20 12:00 02/18/20 12:00 02/18/20 12:00 02/18/20 12:00 Period Temp Pulse Resp BP Sys/Nielsen Pulse Ox Last 24 Hr 97.8 F-98.7 F 84-93 - 126-142/72-79 94-100 Intake and Output 02/17/20 02/18/20 02/18/20 21:59 05:59 13:59 Intake Total 1250 2040 480 Output Total 330 202 200 Balance 920 1838 280 Weight 80.966 kg Intake & Output: Intake & Output 02/17/20 02/18/20 02/18/20 21:59 05:59 13:59 Intake Total 1250 2040 480 Output Total 330 202 200 Balance 920 1838 280 Weight 80.966 kg Intake: IV 1250 840 Sodium Chloride 0.9% 1,000 ml @ 1000 840 100 mls/hr IV .Q10H [facility] Rx#: [id number] Zithromax 500 mg In Dextrose 5% 250 in Water 250 ml @ 250 mls/hr IV Q24H [facility] Rx#:[id number] Oral 1200 480 Output: Void Amount 325 200 200 # of times incontinent of urine 5 2 Other: Meal Breakfast Percent of Meal Consumed 75% Feeding Ability Independent Urine Appearance Clear Clear Urine Color Bright Yellow Bright Yellow Urine Odor Normal Stool Size Moderate Stool Color Brown Stool Consistency Dry and Hard Formed # Voids 1 3 # Bowel Movements 2 Exam: General: Alert, Awake, No acute Distress Eyes/N/T: EOMI, Head/Neck: neck supple, CV: RRR, No murmurs, Pulm: Clear b/l, no wheezing/rhonchi/rales Abd: soft, nontender, +BS x4 Ext: no clubbing/cyanosis/edema Neuro: Alert, no focal deficits, moves all extremities, Skin: warm/dry OBJ DATA Labs CBC & Chem 7: 02/18/20 19:58 02/18/20 05:39 Labs: Abnormal Lab Results 02/18/20 02/18/20 02/17/20 05:39 05:39 05:48 WBC 19.8 H RBC 2.81 L Hgb 7.7 L Hct 24.7 L Plt Count Neut % (Auto) Lymph % (Auto) Lymph # (Auto) [place] # (Auto) Seg Neutrophils % 86 H Lymphocytes % 6 L Absolute Neutrophils Potassium 3.2 L 3.1 L Chloride BUN Creatinine Glucose 113 H Calcium 12.2 H 13.0 H* Phosphorus 2.1 L GGT 64 H 74 H Lactate Dehydrogenase 94 L 92 L C-Reactive Protein Total Protein 5.7 L Albumin 2.7 L 2.8 L Albumin/Globulin Ratio 0.9 L 0.9 L Procalcitonin PTH Intact Urine Mucus 02/17/20 02/16/20 02/16/20 05:48 17:40 17:20 WBC 21.7 H RBC 3.12 L Hgb 8.5 L Hct 27.1 L Plt Count Neut % (Auto) 90.2 H Lymph % (Auto) 3.2 L Lymph # (Auto) 0.70 L [place] # (Auto) 1.36 H Seg Neutrophils % Lymphocytes % Absolute Neutrophils 19.54 H Potassium Chloride BUN Creatinine Glucose Calcium Phosphorus GGT Lactate Dehydrogenase C-Reactive Protein Total Protein Albumin Albumin/Globulin Ratio Procalcitonin PTH Intact < 1.2 L Urine Mucus Few A 02/16/20 02/16/20 02/16/20 17:20 17:20 17:20 WBC RBC Hgb Hct Plt Count Neut % (Auto) Lymph % (Auto) Lymph # (Auto) [place] # (Auto) Seg Neutrophils % Lymphocytes % Absolute Neutrophils Potassium Chloride 95 L BUN 32 H Creatinine 1.7 H Glucose Calcium 13.3 H* Phosphorus GGT Lactate Dehydrogenase C-Reactive Protein 11.00 H Total Protein Albumin 2.9 L Albumin/Globulin Ratio 0.8 L Procalcitonin 0.14 H PTH Intact Urine Mucus 02/16/20 17:20 WBC 26.4 H RBC 3.28 L Hgb 9.1 L Hct 28.8 L Plt Count 455 H Neut % (Auto) 92.1 H Lymph % (Auto) 2.6 L Lymph # (Auto) 0.69 L [place] # (Auto) 1.33 H Seg Neutrophils % Lymphocytes % Absolute Neutrophils 24.25 H Potassium Chloride BUN Creatinine Glucose Calcium Phosphorus GGT Lactate Dehydrogenase C-Reactive Protein Total Protein Albumin Albumin/Globulin Ratio Procalcitonin PTH Intact Urine Mucus Meds: Medications Acetaminophen (Tylenol) 1,000 mg PO Q6HP PRN; Protocol PRN Reason: Pain Ceftriaxone Sodium (Rocephin) 1 gm IV Q24H [facility]; Protocol Stop: 02/22/20 23:59 Last Admin: 02/18/20 09:36 Dose: 1 gm Documented by: Enoxaparin Sodium (Lovenox) 40 mg SQ DAILY [facility] Last Admin: 02/18/20 08:09 Dose: 40 mg Documented by: Azithromycin 500 mg/ Dextrose 250 mls @ 250 mls/hr IV Q24H [facility]; Protocol Stop: 02/20/20 23:59 Last Admin: 02/18/20 09:37 Dose: 250 mls/hr Documented by: Sodium Chloride (Sodium Chloride 0.9%) 1,000 mls @ 100 mls/hr IV .Q10H [facility] Polyethylene Glycol (Miralax) 17 gm PO DAILY [facility] Last Admin: 02/18/20 08:09 Dose: 17 gm Documented by: [facility] Last Admin: 02/18/20 08:09 Dose: 20 meq Documented by: Potassium/Phosphorus/Sodium (Neutra Phos) 2 packet PO BID [facility] Stop: 02/19/20 08:00 Senna (Senna) 17.6 mg PT BID [facility] Last Admin: 02/18/20 08:23 Dose: 17.6 mg Documented by: Tramadol HCl (Ultram) 50 mg PO Q4HP PRN; Protocol PRN Reason: Pain A/P Narrative A/P Narrative: A: *Hypercalcemia of malignancy: *Generalized weakness/fatigue *Constipation *Possible pneumonia - fever and increased leukocytosis in the ED. improving -cxray did not show new infiltrate however with new constitutional changes will treat w/ Ceftriaxone and Azithromycin. *Anemia, acute on chronic: likely dilutional as there is no evidence of bleeding but significantly lower today #Hypokalemia/Hypophosphatemia *Lung cancer (reportedly squamous cell carcinoma): current plan is to start chemotherapy on 02/[address] Matta in [place] then radiation therapy in [place]. Plan: -hold IV fluids for now, prn lasix -calcitonin SQ not in formulary, Pamidronate IV given 02/16 -Parathyroid hormone low, follow pending PTH-rp. -Ceftriaxone and Azithromycin. -will trend hemoglobin today. Guaiac stool. Will need RBC transfusion if hemoglobin trends below 7. -case discussed with hemotologist/oncologist (Dr. Matta). current plan is to start chemotherapy in [place] then radiation therapy in [place]. -pt/to -CM for placement needs -f/u with Dr. Matta -DVT prophylaxis: Lovenox SQ (hold if hemoglobin trends down) full code Time Spent With Patient Time: Total time spent is greater than 50% in coordination of care (as documented) at patient's floor/unit and/or counseling patient: QUALITY VTE Deep Vein Thrombosis/Pulmonary Embolism Present on Admission: No
[2020-02-18] MEDS ORDERED: FUROSEMIDE 40 MG/4 ML VIAL IV ONE (13:45)
[2020-02-18] MEDS ORDERED: NEUTRA PHOS 1 PACKET PO SCH (21:00)
[2020-02-18] MEDS: 0.9 % SODIUM CHLORIDE 10 ML SYRINGE IV SCH (21:18)
--- NOTE | 2020-02-19 07:51 | Internal Med Progress Note ---
SUBJECTIVE Subjective Patient information: Note initiated : 02/19/20 at 7:51 am Service Date, if different from initiated Date: [] Patient: Jovan Elizabeth 74 y/o M admitted on 02/17/20 for weakness, confusion, dizziness. Chief Complaint: [] Interval history: History of present illness: Mr. Elizabeth is a 74 year old male with recently diagnosed lung cancer (reportedly SCC) who presented to the ED for generalized weakness and confusion. He had a fever in the ED prompted a sepsis workup which did not show a clear source of infection however in the setting of significant leukocytosis he was started on treatment for presumed pneumonia. ED workup also showed hypercalcemia which is likely secondary to malignancy. PT was low lending further evidence this is hypercalcemia of malignancy. The patient was started on IV fluid and given a dose of IV Pamidronate. Calcitonin was not formulary. Discussed with the patient's oncologist, Dr. Matta. She plans to see the patient in clinic 02/21. 02/17-calcium level improving, continue IV fluid. H/H downtrending, probably dilutional. PT and OT consulted. 02/18 Restless overnight. No complaints this morning. Waiting follow-up labs. Review of Systems: denies headache/fever/chills/nausea/vomiting/chest or abdominal pain/cough/dyspnea/diarrhea. Otherwise see above. Constitutional Vitals: Vital Signs Temp Pulse Resp BP Pulse Ox 98.2 F 92 H 16 110/63 98 02/19/20 06:55 02/19/20 06:55 02/19/20 06:55 02/19/20 06:55 02/19/20 06:55 Period Temp Pulse Resp BP Sys/Nielsen Pulse Ox Last 24 Hr 97.8 F-100.2 F 84-96 - 99-142/56-82 95-100 Intake and Output 02/18/20 02/19/20 02/19/20 21:59 05:59 13:59 Intake Total 2740 Output Total 450 2 Balance 2290 -2 Weight 80.195 kg Intake & Output: Intake & Output 02/18/20 02/19/20 02/19/20 21:59 05:59 13:59 Intake Total 2740 Output Total 450 2 Balance 2290 -2 Weight 80.195 kg Intake: IV 1000 Sodium Chloride 0.9% 1,000 ml @ 1000 100 mls/hr IV .Q10H [facility] Rx#: [id number] Oral 1740 Output: Void Amount 450 # of times incontinent of urine 2 Other: Meal Dinner Percent of Meal Consumed 100% Feeding Ability Assist with Tray Set Up Urine Appearance Clear Clear Urine Color Bright Yellow Bright Yellow Stool Size Moderate Smear Stool Color Brown Brown Stool Consistency Soft Soft Formed # Voids 1 # Bowel Movements 1 1 Exam: General: Alert, Awake, No acute Distress Eyes/N/T: EOMI, Head/Neck: neck supple, CV: RRR, No murmurs, Pulm: Clear b/l, no wheezing/rhonchi/rales Abd: soft, nontender, +BS x4 Ext: no clubbing/cyanosis/edema Neuro: Alert, no focal deficits, moves all extremities, Skin: warm/dry OBJ DATA Labs CBC & Chem 7: 02/18/20 19:58 02/18/20 05:39 Labs: Abnormal Lab Results 02/18/20 02/18/20 02/18/20 19:58 14:00 05:39 WBC RBC Hgb 8.5 L 8.9 L Hct Plt Count Neut % (Auto) Lymph % (Auto) Lymph # (Auto) [place] # (Auto) Seg Neutrophils % Lymphocytes % Absolute Neutrophils Potassium 3.2 L Chloride BUN Creatinine Glucose 113 H Calcium 12.2 H Phosphorus 2.1 L GGT 64 H Lactate Dehydrogenase 94 L C-Reactive Protein Total Protein 5.7 L Albumin 2.7 L Albumin/Globulin Ratio 0.9 L Procalcitonin PTH Intact Urine Mucus 02/18/20 02/17/20 02/17/20 05:39 05:48 05:48 WBC 19.8 H 21.7 H RBC 2.81 L 3.12 L Hgb 7.7 L 8.5 L Hct 24.7 L 27.1 L Plt Count Neut % (Auto) 90.2 H Lymph % (Auto) 3.2 L Lymph # (Auto) 0.70 L [place] # (Auto) 1.36 H Seg Neutrophils % 86 H Lymphocytes % 6 L Absolute Neutrophils 19.54 H Potassium 3.1 L Chloride BUN Creatinine Glucose Calcium 13.0 H* Phosphorus GGT 74 H Lactate Dehydrogenase 92 L C-Reactive Protein Total Protein Albumin 2.8 L Albumin/Globulin Ratio 0.9 L Procalcitonin PTH Intact Urine Mucus 02/16/20 02/16/20 02/16/20 17:40 17:20 17:20 WBC RBC Hgb Hct Plt Count Neut % (Auto) Lymph % (Auto) Lymph # (Auto) [place] # (Auto) Seg Neutrophils % Lymphocytes % Absolute Neutrophils Potassium Chloride BUN Creatinine Glucose Calcium Phosphorus GGT Lactate Dehydrogenase C-Reactive Protein Total Protein Albumin Albumin/Globulin Ratio Procalcitonin 0.14 H PTH Intact < 1.2 L Urine Mucus Few A 02/16/20 02/16/20 02/16/20 17:20 17:20 17:20 WBC 26.4 H RBC 3.28 L Hgb 9.1 L Hct 28.8 L Plt Count 455 H Neut % (Auto) 92.1 H Lymph % (Auto) 2.6 L Lymph # (Auto) 0.69 L [place] # (Auto) 1.33 H Seg Neutrophils % Lymphocytes % Absolute Neutrophils 24.25 H Potassium Chloride 95 L BUN 32 H Creatinine 1.7 H Glucose Calcium 13.3 H* Phosphorus GGT Lactate Dehydrogenase C-Reactive Protein 11.00 H Total Protein Albumin 2.9 L Albumin/Globulin Ratio 0.8 L Procalcitonin PTH Intact Urine Mucus Meds: Medications Acetaminophen (Tylenol) 1,000 mg PO Q6HP PRN; Protocol PRN Reason: Pain Ceftriaxone Sodium (Rocephin) 1 gm IV Q24H [facility]; Protocol Stop: 02/22/20 23:59 Last Admin: 02/18/20 09:36 Dose: 1 gm Documented by: Enoxaparin Sodium (Lovenox) 40 mg SQ DAILY [facility] Last Admin: 02/18/20 08:09 Dose: 40 mg Documented by: Azithromycin 500 mg/ Dextrose 250 mls @ 250 mls/hr IV Q24H [facility]; Protocol Stop: 02/20/20 23:59 Last Infusion: 02/18/20 10:45 Dose: Infused Documented by: Polyethylene Glycol (Miralax) 17 gm PO DAILY [facility] Last Admin: 02/18/20 08:09 Dose: 17 gm Documented by: Potassium [facility] ([facility]) [facility] Last Admin: 02/18/20 16:40 Dose: 20 meq Documented by: Potassium/Phosphorus/Sodium (Neutra Phos) 2 packet PO BID [facility] Stop: 02/19/20 08:00 Last Admin: 02/18/20 21:18 Dose: 2 packet Documented by: [place] (Senna) 17.6 mg PT BID [facility] Last Admin: 02/18/20 21:28 Dose: Not Given Documented by: Sodium Chloride (Saline Flush) 10 ml IV Q12 [facility] Last Admin: 02/18/20 21:18 Dose: 10 ml Documented by: Tramadol HCl (Ultram) 50 mg PO Q4HP PRN; Protocol PRN Reason: Pain A/P Narrative A/P Narrative: A: *Hypercalcemia of malignancy: *Generalized weakness/fatigue *Constipation *Possible pneumonia - fever and increased leukocytosis in the ED. improving -cxray did not show new infiltrate however with new constitutional changes will treat w/ Ceftriaxone and Azithromycin. *Anemia, acute on chronic: likely dilutional as there is no evidence of bleeding but significantly lower today #Hypokalemia/Hypophosphatemia *Lung cancer (reportedly squamous cell carcinoma): current plan is to start chemotherapy on 02/[address] Matta in [place] then radiation therapy in [place]. Plan: -hold IV fluids for now, prn lasix -calcitonin SQ not in formulary, Pamidronate IV given 02/16 -Parathyroid hormone low, follow pending PTH-rp. -Ceftriaxone and Azithromycin. -will trend hemoglobin today. Guaiac stool. Will need RBC transfusion if hemoglobin trends below 7. -case discussed with hemotologist/oncologist (Dr. Matta). current plan is to start chemotherapy in [place] then radiation therapy in [place]. -pt/to -CM for placement needs -f/u with Dr. Matta -DVT prophylaxis: Lovenox SQ (hold if hemoglobin trends down) full code Time Spent With Patient Time: Total time spent is greater than 50% in coordination of care (as documented) at patient's floor/unit and/or counseling patient: QUALITY VTE Deep Vein Thrombosis/Pulmonary Embolism Present on Admission: No
[2020-02-19] MEDS: POLYETHYLENE GLYCOL 3350 17 GM PACKET PO SCH (08:09)
[2020-02-19] MEDS: ENOXAPARIN 40 MG/0.4 ML SYRINGE SQ SCH (08:09)
[2020-02-19] MEDS: POTASSIUM CHLORIDE 20 MEQ TABLET PO SCH ×2 (08:09→17:34)
[2020-02-19] MEDS: AZITHROMYCIN 500 MG in DEXTROSE 5% IN WATER 250 ML IV SCH (10:10)
[2020-02-19] MEDS: cefTRIAXone 1 GM VIAL IV SCH (10:10)
[2020-02-19] MEDS: 0.9 % SODIUM CHLORIDE 10 ML SYRINGE IV SCH ×2 (10:11→22:37)
[2020-02-19] MEDS: SENNOSIDES 8.8 MG/5 ML ML PT SCH ×2 (10:11→20:12)
--- NOTE | 2020-02-19 10:59 | Discharge Summary ---
Discharge Provider Provider Patient information: Note initiated : 02/19/20 at 10:58 am Service Date, if different from initiated Date: [] Patient: Jovan Elizabeth 74 y/o M admitted on 02/17/20 for weakness, confusion, dizziness. Chief Complaint: [] Date of admission: 02/17/20 01:36 Discharge date: 02/20/20 Primary care physician: Ricky Youssef M.D., F.A.A.F.P. Consults: 02/17/20 Consult to Physician [CONS] Stat Comment: Consulting Provider: Frantz Olivera Reason For Exam: Physician to Consult Discharge Meds Discharge Medications Home Medications omega-3 fatty acids 500 mg capsule 1,500 mg PO QDAY cap 11/08/15 [History Confirmed 02/17/20 Last Taken 01/10/20] loratadine 10 mg tablet 10 mg PO QDAY 01/07/20 [History Confirmed 02/17/20 Last Taken 02/16/20] hydrocodone 5 mg-acetaminophen 325 mg tablet 1 tab PO BID PRN 30 Days #60 tab 01/25/20 [Rx Confirmed 02/17/20 Last Taken Unknown] potassium chloride 20 meq PO BID #30 tab 02/03/20 [Rx Confirmed 02/17/20 Last Taken 02/16/20] acetaminophen 1,000 mg PO Q6H PRN 02/17/20 [History Confirmed 02/17/20 Last Taken 02/16/20] cefdinir 300 mg PO Q12H #8 cap 02/19/20 [Rx Last Taken Unknown] COURSE Hospital Course Hospital course: History of present illness: Mr. Elizabeth is a 74 year old male with recently diagnosed lung cancer (reportedly SCC) who presented to the ED for generalized weakness and confusion. He had a fever in the ED prompted a sepsis workup which did not show a clear source of infection however in the setting of significant leukocytosis he was started on treatment for presumed pneumonia. ED workup also showed hypercalcemia which is likely secondary to malignancy. PT was low lending further evidence this is hypercalcemia of malignancy. The patient was started on IV fluid and given a dose of IV Pamidronate. Calcitonin was not formulary. Discussed with the patient's oncologist, Dr. Matta. She plans to see the patient in clinic 02/21. 02/17-calcium level improving, continue IV fluid. H/H downtrending, probably dilutional. PT and OT consulted. 02/18 Restless overnight. No complaints this morning. Waiting follow-up labs. 02/19 Doing well. Stable for discharge. Calcium within normal limits. Chronic leukocytosis since early January. Follow-up with hematology/oncology closely. A: *Hypercalcemia of malignancy: *Generalized weakness/fatigue *Constipation *Possible pneumonia - fever and increased leukocytosis in the ED. improving -cxray did not show new infiltrate however with new constitutional changes will treat w/ Ceftriaxone and Azithromycin. *Anemia, acute on chronic: likely dilutional as there is no evidence of bleeding but significantly lower today #Hypokalemia/Hypophosphatemia *Lung cancer (reportedly squamous cell carcinoma): current plan is to start chemotherapy on 02/[address] Matta in [place] then radiation therapy in [place]. Discharge diagnosis: Hypercalcemia of malignancy generalized weakness fatigue Secondary discharge diagnosis: Possible pneumonia constipation chronic anemia electrolyte abnormalities lung cancer Time Spent with Patient Time attestation: Total time spent providing and/or coordinating discharge services: Time spent: Greater than 30 minutes EXAM Constitutional Vitals: Temp Pulse Resp BP Pulse Ox 98.2 F 92 H 16 110/63 98 02/19/20 06:55 02/19/20 06:55 02/19/20 06:55 02/19/20 06:55 02/19/20 06:55 Discharge Data Data Completed and Pending Labs on day of discharge: Labs from last 24 hours 02/19/20 02/19/20 02/18/20 05:18 05:18 19:58 WBC Pending RBC Pending Hgb Pending 8.5 L Hct Pending MCV Pending MCH Pending MCHC Pending RDW Pending Plt Count Pending MPV Pending Platelet Estimate Pending RBC Morphology Pending Sodium Pending Potassium Pending Chloride Pending Carbon Dioxide Pending Anion Gap Pending BUN Pending Creatinine Pending GFR Calculation Pending Glucose Pending Uric Acid Pending Calcium Pending Phosphorus Pending Magnesium Pending Total Bilirubin Pending Direct Bilirubin Pending GGT Pending AST Pending ALT Pending Alkaline Phosphatase Pending Lactate Dehydrogenase Pending Total Protein Pending Albumin Pending Globulin Pending Albumin/Globulin Ratio Pending Triglycerides Pending 02/18/20 14:00 WBC RBC Hgb 8.9 L Hct MCV MCH MCHC RDW Plt Count MPV Platelet Estimate RBC Morphology Sodium Potassium Chloride Carbon Dioxide Anion Gap BUN Creatinine GFR Calculation Glucose Uric Acid Calcium Phosphorus Magnesium Total Bilirubin Direct Bilirubin GGT AST ALT Alkaline Phosphatase Lactate Dehydrogenase Total Protein Albumin Globulin Albumin/Globulin Ratio Triglycerides Preliminary micro results at discharge 02/16/20 18:40 Blood Culture - Preliminary Blood 02/16/20 18:37 Blood Culture - Preliminary Blood Discharge Plan Patient/Caregiver Discharge Instructions Activity: increase activity as tolerated Diet: Regular Diet Prescriptions: New cefdinir 300 mg capsule 300 mg PO Q12H Qty: 8 RF: 0 Continued hydrocodone-acetaminophen 5-325 mg tablet 1 tab PO BID PRN (Reason: Cancer pain) 30 Days Qty: 60 RF: 0 omega-3 fatty acids 500 mg capsule 1,500 mg PO QDAY RF: 0 umeclidinium-vilanterol [Anoro Ellipta] 62.5-25 mcg/actuation blister with device 1 inh inhalation RF: 0 loratadine [Allerclear] 10 mg tablet 10 mg PO QDAY RF: 0 potassium chloride 20 mEq tablet extended release 20 meq PO BID Qty: 30 RF: 0 acetaminophen 500 mg Tablet 1,000 mg PO Q6H PRN (Reason: Pain) RF: 0 Discontinued ibuprofen 200 mg PO Q6 RF: 0 Follow Up Plan Follow up with: Ricky Youssef MD, FAAFP [Primary Care Provider] - Shaan Matta MD [Physician] - Patient Disposition: Home, Self-Care Prognosis: Undetermined Overall status at discharge: patient is progressing back to baseline Discharge Orders: Discharge Order (Routine); Ordered 02/20/20 Ordered By: Nathan Snyder [facility] VTE Deep Vein Thrombosis/Pulmonary Embolism Present on Admission: No
[2020-02-19] MEDS: PHOSPHORUS 250 MG TABLET PO SCH ×2 (13:22→20:13)
[2020-02-19 13:46] LABS: ALT/SGPT 15 U/L (<40); AST/SGOT 17 U/L (<40); Albumin 2.6 gm/dL (3.2-5.2); Albumin/Globulin Ratio 0.8 (1.0-2.3); Alkaline Phosphatase 84 U/L (39-117); Bilirubin,Direct 0.2 mg/dL (<0.3); Bilirubin,Total 0.3 mg/dL (0.1-1.0); Blood Urea Nitrogen 19 mg/dL (8-23); Calcium 10.8 mg/dL (8.6-10.4); Carbon Dioxide 27 mmol/L (22-30); Chloride 105 mmol/L (96-108); Globulin 3.2 gm/dL (2.2-3.7); Glomerular Filtration Rate 83; Glucose 108 mg/dL (70-105); Lactate Dehydrogenase 114 U/L (135-225); Phosphorous 1.9 mg/dL (2.5-4.5); Triglycerides 75 mg/dL (<150)
[2020-02-19 14:01] LABS: Hematocrit 25.3 % (41.0-55.0); Hemoglobin 7.9 g/dL (13.5-16.5); Mean Cell Volume 88.5 fL (80.0-100.0); Mean Corpuscular HGB Conc 31.2 g/dL (31.0-36.0); Mean Platelet Volume 9.2 fL (7.4-10.4); Platelet Count 402 K/mcL (140-440); RBC 2.86 M/mcL (4.50-5.90); Red Cell Distribution Width 14.5 % (11.5-14.5); WBC 21.2 K/mcL (4.5-11.0)
[2020-02-20 06:32] LABS: Hematocrit 27.4 % (41.0-55.0); Hemoglobin 8.6 g/dL (13.5-16.5); Mean Cell Volume 88.7 fL (80.0-100.0); Mean Corpuscular HGB Conc 31.4 g/dL (31.0-36.0); Platelet Count 452 K/mcL (140-440); RBC 3.09 M/mcL (4.50-5.90); Red Cell Distribution Width 14.4 % (11.5-14.5); WBC 22.3 K/mcL (4.5-11.0)
[2020-02-20 06:54] LABS: ALT/SGPT 22 U/L (<40); AST/SGOT 24 U/L (<40); Albumin 2.8 gm/dL (3.2-5.2); Albumin/Globulin Ratio 0.9 (1.0-2.3); Alkaline Phosphatase 90 U/L (39-117); Bilirubin,Direct < 0.2 mg/dL (<0.3); Bilirubin,Total 0.3 mg/dL (0.1-1.0); Blood Urea Nitrogen 20 mg/dL (8-23); Calcium 10.3 mg/dL (8.6-10.4); Carbon Dioxide 27 mmol/L (22-30); Chloride 99 mmol/L (96-108); Globulin 3.2 gm/dL (2.2-3.7); Glomerular Filtration Rate 83; Glucose 101 mg/dL (70-105); Lactate Dehydrogenase 104 U/L (135-225); Triglycerides 75 mg/dL (<150); Uric Acid 4.7 mg/dL (2.5-8.0)
[2020-02-20 07:41] LABS: Anisocytosis FEW (None Seen); Band Neutrophils % 2 % (0-10); Lymphocytes % 2 % (15-49); Monocytes % (Manual) 4 % (1-12); Ovalocytes FEW (None Seen); Platelet Estimate NORMAL (Normal); RBC Morphology ABNORMAL (Normal); Reactive Lymphocytes 1 % (0-2); Segmented Neutrophils % 91 % (38-78)
[2020-02-20 07:44] LABS: Lymphocytes % 2 % (15-49); Monocytes % (Manual) 2 % (1-12); Platelet Estimate INCREASED (Normal); RBC Morphology NORMAL (Normal); Segmented Neutrophils % 47 % (38-78)
[2020-02-20] MEDS: 0.9 % SODIUM CHLORIDE 1,000 ML IV SCH (09:00)
[2020-02-20] MEDS: POTASSIUM CHLORIDE 20 MEQ TABLET PO SCH (09:01)
[2020-02-20] MEDS: ENOXAPARIN 40 MG/0.4 ML SYRINGE SQ SCH (09:01)
[2020-02-20] MEDS: SENNOSIDES 8.8 MG/5 ML ML PT SCH (09:02)
[2020-02-20] MEDS: 0.9 % SODIUM CHLORIDE 10 ML SYRINGE IV SCH (09:02)
[2020-02-20] MEDS: POLYETHYLENE GLYCOL 3350 17 GM PACKET PO SCH (09:02)
[2020-02-20] MEDS: AZITHROMYCIN 500 MG in DEXTROSE 5% IN WATER 250 ML IV SCH (09:02)
[2020-02-20] MEDS: cefTRIAXone 1 GM VIAL IV SCH (09:02)
== END 2020-02-20 15:33 | disposition home or self-care (01) | DRG 640 ==
LOC: ED 16:58 → MEDSUR 02-17 01:36
PROVIDERS: ADMIT Internal Medicine; ATTEND Internal Medicine

== ENCOUNTER 2021-01-05 16:50 | Inpatient (IN) ==
[2021-01-05] MEDS ORDERED: 0.9 % SODIUM CHLORIDE 1,000 ML IV ONE (17:17)
[2021-01-05] MEDS ORDERED: CEFEPIME 1 GM VIAL IV ONE (17:17)
[2021-01-05] MEDS ORDERED: AZITHROMYCIN 500 MG in DEXTROSE 5% IN WATER 250 ML IV ONE (17:17)
--- NOTE | 2021-01-05 17:38 | Emergency Department Note ---
HPI General Chief complaint: Recheck/Abnormal Lab/Rx Stated complaint: Needs IV Fluids Time Seen by Provider: 01/05/21 17:04 Source: patient Mode of arrival: ambulatory Limitations: no limitations History of Present Illness HPI Narrative: Narrative: 75-year-old male presents the emergency department for hypercalcemia and possible pneumonia. Patient is a cancer patient he does have history of lung cancer. He did not undergo chemotherapy or radiation treatment digested immunotherapy he actually stopped the immunotherapy about a month ago. He has been following with [facility] and they did a CAT scan they noticed that the mass in his chest was getting little bit larger and they wonder if it is paraneoplastic syndrome they are actually consulting the outpatient setting endocrinology for further plan and treatment. They said that he does quite often need IV fluid rehydration as he is has not been eating and recently and almost having a nearly failure to thrive. They still want to undergo everything at this time. They had labs drawn today and they noticed that the calcium was elevated at 13.6 creatinine was 1.5 he also had more elevated white count than previously where it went from 16-20.9 today with a left shift. Patient status has felt weak and tired. He had a CT scan done 2 days ago that did show a pneumonia as well. Patient just has weakness no pain. Denying any other symp toms otherwise. Said he has felt feverish but they have not actually gotten a fever. Related Data Home Medications Medication Instructions Recorded Confirmed loratadine 10 mg tablet 10 mg PO QDAY 01/07/20 01/03/21 acetaminophen 1,000 mg PO Q6H PRN 02/17/20 01/03/21 aspirin 81 mg tablet,delayed 81 mg PO QDAY 10/07/20 01/03/21 release amlodipine 5 mg tablet 5 mg PO QDAY 10/19/20 01/03/21 atorvastatin 10 mg tablet 10 mg PO QDAY 10/19/20 01/03/21 Previous Rx's Medication Instructions Recorded pregabalin 75 mg capsule 75 mg PO QHS #30 cap 11/18/20 methocarbamol 750 mg tablet 750 mg PO QHS #30 tab 12/05/20 tramadol 50 mg tablet 50 mg PO QHS PRN #30 tab 12/16/20 tramadol 50 mg tablet 50 mg PO BID PRN #60 tab 12/26/20 Allergies Allergy/AdvReac Type Severity Reaction Status Date / Time No Known Drug Allergies Allergy Verified 01/05/21 16:54 Review of Systems ROS ROS Narrative: Narrative: All systems ED: reviewed and negative except as stated. [facility] Narrative Patient History Narrative: Narrative: Medical/Surgical/Family History All Active Problems (Updated 01/05/21 @ 17:48 by Ben Benjamin DO) Community acquired pneumonia (Acute) Hypercalcemia (Acute) Dehydration (Acute) Acute confusion (Acute) Radiculopathy, thoracic region (Acute) Radiculopathy of lumbar region (Acute) Myofascial pain (Acute) Chest pain (Acute) Fever (Acute) Elevated WBC count (Acute) Acute confusion (Acute) Acute renal failure (ARF) (Acute) Hypercalcemia (Acute) Hypercalcemia (Chronic) Lymphedema (Chronic) Chronic hypokalemia (Chronic) Hemorrhoids (Chronic) Diverticulosis (Chronic ~02/02/20) Lung cancer (Chronic) Cavitating mass in left upper lung lobe (Chronic) Urinary hesitancy (Chronic) Cough (Chronic) Acute URI (Chronic) Polyp of colon (Chronic) Diverticulitis large intestine w/o perforation or abscess w/o bleeding (Chronic) Encounter for Health Maintenance Examination in Adult (Chronic) Hx of colonoscopy (Chronic) History of tobacco use (Chronic) Mixed hyperlipidemia (Chronic) Low back pain (Chronic) Keratoderma, acquired (Chronic) Medical History Cavitating mass in left upper lung lobe Chest pain Chronic hypokalemia Cough Diverticulosis (~02/02/20) Encounter for Health Maintenance Examination in Adult Hemorrhoids History of tobacco use ex-smoker, discontinuation 12/2005. Follow ekgs Hypercalcemia Keratoderma, acquired pigmenting keratosis, left mid-back. Derm review 07/26/09-Dr Nunez Low back pain h/o low back pain, h/o ruptured disc, distant past Lung cancer Lymphedema Mixed hyperlipidemia mixed hyperlipidemia, primarily triglycerides. On intermittent fish oil. EKG updated 08/07/11 Radiculopathy, thoracic region Urinary hesitancy Surgical History History of left heart catheterization (10/10/20) Hx of colonoscopy 02/02/2020-Dr. Garcia: Hemorrhoids; Diverticulosis, Polyp 12/25/2006-Dr. morgan-transverse adenmoatous polyp; rectum hyperplastic polyps, 5-year sequence. 01/01/[address] Morgan--Polypoid fragment w/minute submucosal lymphoid aggregate; 3 fragments of hyperplastic polyps. Family History half brother Acute myocardial infarction [place] age 57 Social History Smoking Status: Former smoker Alcohol Intake Frequency: a few times a month (Denies any intake for 5 months (02/16/2020).) Substance Use: does not use Exam Narrative Narrative: Narrative: Vital signs noted General: Awake. Alert. No distress. Skin: Warm. Dry. No rash. HEENT: NCAT. PERRL. EOMI. No conjunctivitis. No nystagmus. No pharyngitis. Membranes moist. Neck: No PTP. Good ROM. No meningeal signs. No stridor. No thyromegaly. No JVD. Cardiovascular: RRR. No murmur. No rubs. No gallops. Respiratory: No respiratory distress. Breath sounds equal. Lungs clear. Gastrointestinal: Abdomen soft. No tenderness. No distention. Normal bowel sounds. No palpable organomegaly or masses. Back: No deformity. No CVAT. Musculoskeletal: No tenderness. No swelling. No erythema. No edema. Good peripheral pulses x 4 Lymphatic: No palpable adenopathy. Neurological: No focal neurological deficits observed. General Limitations: no limitations Course Vital Signs Vital signs: Vital Signs Temperature 97.8 F 01/05/21 16:50 Pulse Rate 94 H 01/05/21 16:50 Respiratory Rate 18 01/05/21 16:50 Blood Pressure 108/65 01/05/21 16:50 Pulse Oximetry (%) 99 01/05/21 16:50 Temperature 97.8 F 01/05/21 16:50 Pulse Rate 94 H 01/05/21 16:50 Respiratory Rate 18 01/05/21 16:50 Blood Pressure 108/65 01/05/21 16:50 Pulse Oximetry (%) 99 01/05/21 16:50 [facility] MDM Narrative Medical decision making narrative: Narrative: Patient looks well on exam he is mildly cachectic. I did review the labs which were done at [facility] at approximately 3:00 this afternoon. His white blood cell count was 20.9, red blood cells 2.67, hemoglobin seven-point crit 23.8, platelets are 458, neutrophil percent is 87.9 lymphocyte percent is 3.3 basophils are 0.3, absolute neutrophil count was 18.35. His CMP shows a random glucose of 98, BUN 33, creatinine 1.5, sodium 13 5, potassium 3.6, chloride 102, bicarb is 25, anion gap 8, calcium 13.6. Based on these patient does have hypercalcemia so I did give him 1 L of IV fluids. Did get an EKG which has no acute findings. This was interpreted by myself. I did review the CAT scan that was done 2 days ago that does show a right lobe pneumonia. I am going to start patient on cefepime and azithromycin for commune acquired pneumonia and also get blood cultures. I spoke with Dr. Snyder this patient does need IV antibiotics for his pneumonia especially with the cancer diagnosis. And he is okay to admit the patient to the hospitalist service. Patient and family are okay with this plan. He is admitted in stable condition. EKG interpretation: EKG done at 1719 interpreted by myself shows sinus rhythm rate 89, [place] 168, QRS 105, QTc 426. There is no acute ST changes no acute T wave changes no other signs of ischemia. No signs of hypertrophy, heart strain, heart block. No WPW/Brugada/HOCM. Impression is normal sinus EKG with no ischemia Discharge Plan Patient/Caregiver Discharge Instructions Pt seen by ENDOSCOPY REGISTERED NURSE/PA only: No Clinical Impression: Community acquired pneumonia, Hypercalcemia Patient Disposition: Xfer As Outpt/Obs ([facility]) Condition: Good Follow up with: Ricky Youssef MD, FAAFP [Primary Care Provider] - Prescriptions: No Action methocarbamol 750 mg tablet 750 mg PO QHS Qty: 30 RF: 2 tramadol 50 mg tablet 50 mg PO QHS PRN (Reason: pain) Qty: 30 RF: 0 aspirin 81 mg tablet,delayed release (DR/EC) 81 mg PO QDAY RF: 0 amlodipine 5 mg tablet 5 mg PO QDAY RF: 0 atorvastatin [Lipitor] 10 mg tablet 10 mg PO QDAY RF: 0 pregabalin [Lyrica] 75 mg capsule 75 mg PO QHS Qty: 30 RF: 2 tramadol 50 mg tablet 50 mg PO BID PRN (Reason: pain) Qty: 60 RF: 0 loratadine [Allerclear] 10 mg tablet 10 mg PO QDAY RF: 0 acetaminophen 500 mg Tablet 1,000 mg PO Q6H PRN (Reason: Pain) RF: 0
--- NOTE | 2021-01-05 18:15 | Internal Med History&Physical ---
HPI History of Present Illness Patient information: Note initiated : 01/05/21 at 6:03 pm Service Date, if different from initiated Date: [] Patient: Jovan Elizabeth a 75 y/o M admitted on for Needs IV Fluids. Chief Complaint: [] History of present illness: Mr. Elizabeth is a 75 year old M Presents the ED sent in by his oncologist for IV fluids and also found to be hypercalcemic. Patient has history of squamous cell lung carcinoma which is shown to to be progressing on recent CT. CT was recently ordered by his oncologist and also labs were ordered which showed a calcium of 13.6. Patient has felt weaker more fatigue lately. CT was also concerning for postobstructive pneumonia. Patient denies overt fevers but feels chills. Denies cough. Has chronic leukocytosis and had a 17 few days ago and now 20. He was diagnosed with cancer last year and received chemo therapy and radiation earlier this year. Has been on immunotherapy since. Review of Systems: Pertinent positives as above. Denies headache/fever/chills/nausea/vomiting/chest or abdominal pain/cough/dyspnea/diarrhea. Main 10 point review of system reviewed negative PFSH PFSH All Active Problems (Updated 01/05/21 @ 17:48 by Ben Benjamin DO) Community acquired pneumonia (Acute) Hypercalcemia (Acute) Dehydration (Acute) Acute confusion (Acute) Radiculopathy, thoracic region (Acute) Radiculopathy of lumbar region (Acute) Myofascial pain (Acute) Chest pain (Acute) Fever (Acute) Elevated WBC count (Acute) Acute confusion (Acute) Acute renal failure (ARF) (Acute) Hypercalcemia (Acute) Hypercalcemia (Chronic) Lymphedema (Chronic) Chronic hypokalemia (Chronic) Hemorrhoids (Chronic) Diverticulosis (Chronic ~02/02/20) Lung cancer (Chronic) Cavitating mass in left upper lung lobe (Chronic) Urinary hesitancy (Chronic) Cough (Chronic) Acute URI (Chronic) Polyp of colon (Chronic) Diverticulitis large intestine w/o perforation or abscess w/o bleeding (Chronic) Encounter for Health Maintenance Examination in Adult (Chronic) Hx of colonoscopy (Chronic) History of tobacco use (Chronic) Mixed hyperlipidemia (Chronic) Low back pain (Chronic) Keratoderma, acquired (Chronic) Medical History Cavitating mass in left upper lung lobe Chest pain Chronic hypokalemia Cough Diverticulosis (~02/02/20) Encounter for Health Maintenance Examination in Adult Hemorrhoids History of tobacco use ex-smoker, discontinuation 12/2005. Follow ekgs Hypercalcemia Keratoderma, acquired pigmenting keratosis, left mid-back. Derm review 07/26/09-Dr Nunez Low back pain h/o low back pain, h/o ruptured disc, distant past Lung cancer Lymphedema Mixed hyperlipidemia mixed hyperlipidemia, primarily triglycerides. On intermittent fish oil. EKG updated 08/07/11 Radiculopathy, thoracic region Urinary hesitancy Surgical History History of left heart catheterization (10/10/20) Hx of colonoscopy 02/02/2020-Dr. Garcia: Hemorrhoids; Diverticulosis, Polyp 12/25/2006-Dr. morgan-transverse adenmoatous polyp; rectum hyperplastic polyps, 5-year sequence. 01/01/[address] Morgan--Polypoid fragment w/minute submucosal lymphoid aggregate; 3 fragments of hyperplastic polyps. 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 alcohol intake frequency: a few times a month (Denies any intake for 5 months (02/16/2020).) substance use type: does not use MEDS/ALLERGIES Home Medications and Allergies Home Medications Medication Instructions Recorded Confirmed Type loratadine 10 mg tablet 10 mg PO QDAY 01/07/20 01/03/21 History acetaminophen 1,000 mg PO Q6H PRN 02/17/20 01/03/21 History aspirin 81 mg tablet,delayed 81 mg PO QDAY 10/07/20 01/03/21 History release amlodipine 5 mg tablet 5 mg PO QDAY 10/19/20 01/03/21 History atorvastatin 10 mg tablet 10 mg PO QDAY 10/19/20 01/03/21 History pregabalin 75 mg capsule 75 mg PO QHS #30 cap 11/18/20 01/03/21 Rx methocarbamol 750 mg tablet 750 mg PO QHS #30 tab 12/05/20 01/03/21 Rx tramadol 50 mg tablet 50 mg PO QHS PRN #30 tab 12/16/20 01/03/21 Rx tramadol 50 mg tablet 50 mg PO BID PRN #60 tab 12/26/20 01/03/21 Rx Allergies Allergy/AdvReac Type Severity Reaction Status Date / Time No Known Drug Allergies Allergy Verified 01/05/21 16:54 EXAM Constitutional Vitals: Temp Pulse Resp BP Pulse Ox 97.8 F 86 18 124/64 98 01/05/21 16:50 01/05/21 17:46 01/05/21 16:50 01/05/21 17:46 01/05/21 17:46 Exam: General: Alert, Awake, No acute Distress Eyes/N/T: EOMI, PERRL, dry MM Head/Neck: neck supple, normocephalic atraumatic CV: RRR, No murmurs, normal s1/s2 Pulm: Diminished b/l, no wheezing/rhonchi/rales Abd: soft, nontender, +BS x4 Ext: no clubbing/cyanosis. trace b/l LE edema Neuro: Alert, no focal deficits, moves all extremities, CN 2-12 grossly intact, symmetrical strength b/l upper/lower, sensations intact b/l upper/lower Skin: warm/dry A/P Narrative A/P Narrative: A: *Hypercalcemia of malignancy: corrected calcium 14.5 *Generalized weakness/fatigue: *Squamous cell lung cancer with progression: follow with cancer center -had chemo-rads beginning of year, now on immunotherapy *Possible pneumonia: per CT and with leukocytosis (although leukocytosis seems chronic) *Anemia, chronic: Received blood transfusion and treatment a week ago for hgb<7. will decrease with IVF. 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 -RBC transfusion if hemoglobin trends below 7 -f/u with oncologist for disease progression -pt/to -bowel regimen -Medication reconciliation -CM for placement needs -DVT prophylaxis: Lovenox SQ (hold if hemoglobin trends down) DNR Time Spent With Patient Time: Total time spent is greater than 50% in coordination of care (as documented) at patient's floor/unit and/or counseling patient:
[2021-01-05 19:27] LABS: Band Neutrophils % 1 % (0-10); Hypochromasia 1+ (None Seen); Lymphocytes % 6 % (15-49); Metamyelocytes % 2 %; Monocytes % (Manual) 7 % (1-12); Platelet Estimate INCREASED (Normal); RBC Morphology ABNORMAL (Normal); Segmented Neutrophils % 84 % (38-78)
[2021-01-05] MEDS ORDERED: POLYETHYLENE GLYCOL 3350 17 GM PACKET PO PRN (20:04)
[2021-01-05] MEDS ORDERED: SENNOSIDES 1 TABLET PO PRN (20:04)
[2021-01-05] MEDS ORDERED: MAGNESIUM SULFATE 2 GM/50 ML BAG IV PRN (20:04)
[2021-01-05] MEDS ORDERED: ACETAMINOPHEN 325 MG TABLET PO PRN (20:04)
[2021-01-05] MEDS ORDERED: IPRATROPIUM/ALBUTEROL 3 ML AMPUL.NEB NEB PRN (20:04)
[2021-01-05] MEDS ORDERED: POTASSIUM CHLORIDE 40 MEQ in DEXTROSE 5% IN WATER 500 ML IV PRN (20:04)
[2021-01-05] MEDS ORDERED: POTASSIUM CHLORIDE 20 MEQ TABLET PO PRN ×2 (20:04)
[2021-01-05] MEDS ORDERED: 0.9 % SODIUM CHLORIDE 1,000 ML IV SCH ×2 (20:04→20:14)
[2021-01-05] MEDS ORDERED: LABETALOL 5 MG/ML ML IV PRN (20:12)
[2021-01-05] MEDS: 0.9 % SODIUM CHLORIDE 10 ML SYRINGE IV SCH (21:11)
[2021-01-05] MEDS: traMADol 50 MG TABLET PO PRN (21:11)
[2021-01-05] MEDS: DOCUSATE SODIUM 100 MG CAPSULE PO SCH (21:11)
[2021-01-05] MEDS: METHOCARBAMOL 750 MG TABLET PO PRN (21:15)
[2021-01-05] MEDS ORDERED: ZOLEDRONIC ACID/WATER 5 MG/100 ML BOTTLE IV ONE (21:15)
[2021-01-06] MEDS: 0.9 % SODIUM CHLORIDE 10 ML SYRINGE IV SCH ×3 (05:26→20:50)
[2021-01-06] MEDS: 0.9 % SODIUM CHLORIDE 1,000 ML IV SCH ×4 (07:02→23:06)
[2021-01-06 07:10] LABS: Hematocrit 28.3 % (40.1-51.0); Hemoglobin 8.5 g/dL (13.7-17.5); Mean Cell Volume 92.8 fL (80.0-100.0); Mean Platelet Volume 8.9 fL (7.4-10.4); Platelet Count 546 K/mcL (140-440); RBC 3.05 M/mcL (4.63-6.08); Red Cell Distribution Width 14.1 % (11.5-14.5); WBC 28.2 K/mcL (4.5-11.0)
[2021-01-06] MEDS: ACETAMINOPHEN 500 MG TABLET PO PRN ×2 (07:29→16:36)
--- NOTE | 2021-01-06 07:50 | Internal Med Progress Note ---
SUBJECTIVE Subjective Patient information: Note initiated : 01/06/21 at 7:46 am Service Date, if different from initiated Date: [] Patient: Jovan Elizabeth a 75 y/o M admitted on 01/05/21 for Needs IV Fluids. Chief Complaint: [] Interval history: History of present illness: Mr. Elizabeth is a 75 year old M Presents the ED sent in by his oncologist for IV fluids and also found to be hypercalcemic. Patient has history of squamous cell lung carcinoma which is shown to to be progressing on recent CT. CT was recently ordered by his oncologist and also labs were ordered which showed a calcium of 13.6. Patient has felt weaker more fatigue lately. CT was also concerning for postobstructive pneumonia. Patient denies overt fevers but feels chills. Denies cough. Has chronic leukocytosis and had a 17 few days ago and now 20. He was diagnosed with cancer last year and received chemo therapy and radiation earlier this year. Has been on immunotherapy since. 01/06 Patient slept all right last night patient states he does feel better today. Ca lcium is higher today but bisphosphonate takes 2 to 4 days. We will try to get calcitonin from another hospital. Aggressive IV fluid and monitor urine output. Review of Systems: denies headache/fever/chills/nausea/vomiting/chest or abdominal pain/cough/dyspnea/diarrhea. Otherwise see above. Constitutional Vitals: Vital Signs Temp Pulse Resp BP Pulse Ox 98.4 F 97 H 14 133/72 95 01/06/21 00:00 01/05/21 20:06 01/06/21 04:57 01/06/21 02:01 01/06/21 02:01 Period Temp Pulse Resp BP Sys/Nielsen Pulse Ox Last 24 Hr 97.8 F-98.5 F 86-97 13-20 101-150/60-78 94-99 Intake and Output 01/05/21 01/06/21 01/06/21 21:59 05:59 13:59 Intake Total 1250 Output Total 1 128 50 Balance -1 1122 -50 Weight 74.571 kg Intake & Output: Intake & Output 01/05/21 01/06/21 01/06/21 21:59 05:59 13:59 Intake Total 1250 Output Total 1 128 50 Balance -1 1122 -50 Weight 74.571 kg Intake: IV 1250 Sodium Chloride 0.9% 1,000 ml @ 1000 Wide Open IV BOLUS ONE Rx#: [id number] Zithromax 500 mg In Dextrose 5% 250 in Water 250 ml @ 250 mls/hr IV ONCE ONE Rx#:[id number] Output: Void Amount 125 50 # of times incontinent of urine 1 3 Other: Urine Appearance Clear Urine Color Pale # Voids 1 Exam: General: Alert, Awake, No acute Distress Eyes/N/T: EOMI, Head/Neck: neck supple, CV: RRR, No murmurs, Pulm: Diminished b/l, no wheezing/rhonchi/rales Abd: soft, nontender, +BS x4 Ext: no clubbing/cyanosis. trace b/l LE edema Neuro: Alert, no focal deficits, moves all extremities, Skin: warm/dry OBJ DATA Labs CBC & Chem 7: 01/06/21 05:20 01/06/21 05:20 Labs: Abnormal Lab Results 01/06/21 01/05/21 01/05/21 05:20 20:15 17:42 WBC 28.2 H RBC 3.05 L Hgb 8.5 L Hct 28.3 L MCHC 30.0 L Plt Count 546 H Seg Neutrophils % Lymphocytes % Platelet Estimate RBC Morphology Hypochromasia C-Reactive Protein 20.10 H Procalcitonin 0.22 H 01/05/21 17:40 WBC RBC Hgb Hct MCHC Plt Count Seg Neutrophils % 84 H Lymphocytes % 6 L Platelet Estimate Increased A RBC Morphology Abnormal A Hypochromasia 1+ A C-Reactive Protein Procalcitonin Meds: Medications Acetaminophen (Acetaminophen 500 Mg Tablet) 1,000 mg PO Q6HP PRN; Protocol PRN Reason: Pain Last Admin: 01/06/21 07:29 Dose: 1,000 mg Documented by: Albuterol/Ipratropium (Ipratropium/Albuterol 3 Ml Ampul.Neb) 3 ml NEB Q4HP PRN PRN Reason: Shortness Of Breath Amlodipine Besylate (Amlodipine 5 Mg Tablet) 5 mg PO QDAY [facility] Atorvastatin Calcium (Atorvastatin 10 Mg Tablet) 10 mg PO QDAY [facility] Cefepime HCl (Cefepime 1 Gm Vial) 1 gm IV Q12H SYLVIA; Protocol Docusate Sodium (Docusate Sodium 100 Mg Capsule) 100 mg PO BID SYLVIA Last Admin: 01/05/21 21:11 Dose: Not Given Documented by: Enoxaparin Sodium (Enoxaparin 40 Mg/0.4 Ml Syringe) 40 mg SQ DAILY [facility] Potassium Chloride 40 meq/ (Dextrose) 520 mls @ 130 mls/hr IV UD PRN PRN Reason: Potassium < 3 Magnesium Sulfate (Magnesium Sulfate) 2 gm in 50 mls @ 50 mls/hr IV UD PRN PRN Reason: Magnesium </= 1.6 Azithromycin 500 mg/ Dextrose 250 mls @ 250 mls/hr IV Q24H [facility]; Protocol Stop: 01/08/21 10:59 Sodium Chloride (Sodium Chloride 0.9%) 1,000 mls @ 100 mls/hr IV .Q10H [facility] Last Admin: 01/06/21 07:02 Dose: Not Given Documented by: Labetalol HCl (Labetalol 5 Mg/Ml Ml) 0 mg IV Q2HP PRN PRN Reason: Hypertension Methocarbamol (Methocarbamol 750 Mg Tablet) 750 mg PO QHS PRN PRN Reason: Muscle Spasm Last Admin: 01/05/21 21:15 Dose: 750 mg Documented by: Ondansetron HCl (Ondansetron 4 Mg/2 Ml Vial) 4 mg IV Q4HP PRN PRN Reason: Nausea And Vomiting Polyethylene Glycol (Polyethylene Glycol 3350 17 Gm Packet) 17 gm PO DAILYP PRN PRN Reason: Constipation Potassium Chloride (Potassium Chloride 20 Meq Tablet) 40 meq PO UD PRN PRN Reason: Potssium is 3-3.5 Potassium Chloride (Potassium Chloride 20 Meq Tablet) 40 meq PO UD PRN PRN Reason: Potassium < 3 Senna (Sennosides 1 Tablet) 2 tab PO DAILYP PRN PRN Reason: Constipation Sodium Chloride (0.9 % Sodium Chloride 10 Ml Syringe) 10 ml IV Q8 [facility] Last Admin: 01/06/21 05:26 Dose: Not Given Documented by: Tramadol HCl (Tramadol 50 Mg Tablet) 50 mg PO BID PRN; Protocol PRN Reason: Pain Last Admin: 01/05/21 21:11 Dose: 50 mg Documented by: A/P Narrative A/P Narrative: A: *Hypercalcemia of malignancy: ZA will take several days to show effectiveness *Generalized weakness/fatigue: *Squamous cell lung cancer with progression: follow with cancer [facility] [place] -had chemo-rads beginning of year, now on immunotherapy *Possible pneumonia: per CT and with leukocytosis (although leukocytosis seems chronic) -leukocytosis chronic likely malignancy related, no bandemia, PCT low *Anemia, chronic: Received blood transfusion and treatment a week ago for hgb<7. will decrease with IVF. 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: *Constipation: Plan: -IV fluids, monitor UOP -calcitonin SQ not in formulary, s/p IV Zoledronic Acid (01/05), will try to get calcitonin from [facility] -Patient will likely need regular bisphosphonate or denosumab outpatient -Cefepime/Azithromycin pending SC/BC -RBC transfusion if hemoglobin trends below 7 -f/u with oncologist for disease progression -pt/to -bowel regimen -CM for placement needs -DVT prophylaxis: Lovenox SQ (hold if hemoglobin trends down) DNR Time Spent With Patient Time: Total time spent is greater than 50% in coordination of care (as documented) at patient's floor/unit and/or counseling patient:
[2021-01-06 08:18] LABS: Eosinophils % (Manual) 2 % (0-7); Lymphocytes % 3 % (15-49); Monocytes % (Manual) 5 % (1-12); Platelet Estimate INCREASED (Normal); RBC Morphology NORMAL (Normal); Segmented Neutrophils % 90 % (38-78)
[2021-01-06 08:26] LABS: ALT/SGPT 9 U/L (<40); AST/SGOT 15 U/L (<40); Albumin 3.2 gm/dL (3.2-5.2); Albumin/Globulin Ratio 0.7 (1.0-2.3); Alkaline Phosphatase 84 U/L (39-117); Bilirubin,Direct < 0.2 mg/dL (0-0.3); Bilirubin,Total 0.2 mg/dL (0.1-1.0); Blood Urea Nitrogen 27 mg/dL (8-23); Calcium 13.4 mg/dL (8.6-10.4); Carbon Dioxide 22 mmol/L (22-30); Chloride 103 mmol/L (96-108); Globulin 4.3 gm/dL (2.2-3.7); Glomerular Filtration Rate 58; Glucose 90 mg/dL (70-105); Lactate Dehydrogenase 189 U/L (135-225); Phosphorous 2.5 mg/dL (2.5-4.5); Triglycerides 117 mg/dL (<150); Uric Acid 5.1 mg/dL (2.5-8.0)
[2021-01-06] MEDS: CEFEPIME 1 GM VIAL IV SCH ×2 (08:51→20:50)
[2021-01-06] MEDS: ENOXAPARIN 40 MG/0.4 ML SYRINGE SQ SCH (08:52)
[2021-01-06] MEDS: ATORVASTATIN 10 MG TABLET PO SCH (08:52)
[2021-01-06] MEDS: amLODIPine 5 MG TABLET PO SCH (08:52)
[2021-01-06] MEDS: DOCUSATE SODIUM 100 MG CAPSULE PO SCH ×2 (08:52→20:49)
[2021-01-06] MEDS ORDERED: POTASSIUM CHLORIDE 20 MEQ TABLET PO ONE (09:04)
[2021-01-06] MEDS ORDERED: FUROSEMIDE 20 MG/2 ML VIAL IV ONE (09:05)
[2021-01-06] MEDS ORDERED: 0.9 % SODIUM CHLORIDE 1,000 ML IV SCH (09:15)
[2021-01-06] MEDS: AZITHROMYCIN 500 MG in DEXTROSE 5% IN WATER 250 ML IV SCH (10:30)
[2021-01-06] MEDS ORDERED: LIDOCAINE 2% URO-JET 10 ML JEL.PF.APP UR ONE (10:41)
[2021-01-06] MEDS ORDERED: CALCITONIN 400 UNIT/2 ML VIAL SC ONE (12:00)
[2021-01-06] MEDS: traMADol 50 MG TABLET PO PRN ×2 (12:25→20:49)
[2021-01-06] MEDS: ONDANSETRON 4 MG/2 ML VIAL IV PRN (13:33)
[2021-01-06 17:19] LABS: Blood Urea Nitrogen 23 mg/dL (8-23); Calcium 11.9 mg/dL (8.6-10.4); Carbon Dioxide 24 mmol/L (22-30); Chloride 103 mmol/L (96-108); Glomerular Filtration Rate 58; Glucose 109 mg/dL (70-105)
[2021-01-06] MEDS ORDERED: POTASSIUM CHLORIDE 20 MEQ/10 ML VIAL IV ONE (17:26)
[2021-01-06] MEDS: METHOCARBAMOL 750 MG TABLET PO PRN (20:49)
[2021-01-06] MEDS: MEGESTROL ACETATE 400 MG/10 ML ORAL.SUSP PO SCH (20:50)
[2021-01-07] MEDS: 0.9 % SODIUM CHLORIDE 1,000 ML IV SCH ×2 (01:35→11:31)
[2021-01-07] MEDS: 0.9 % SODIUM CHLORIDE 10 ML SYRINGE IV SCH ×3 (05:57→21:36)
[2021-01-07 06:50] LABS: Hematocrit 22.4 % (40.1-51.0); Hemoglobin 7.1 g/dL (13.7-17.5); Mean Cell Volume 90.7 fL (80.0-100.0); Mean Corpuscular HGB Conc 31.7 g/dL (31.0-36.0); Mean Platelet Volume 8.6 fL (7.4-10.4); Platelet Count 417 K/mcL (140-440); RBC 2.47 M/mcL (4.63-6.08)
[2021-01-07] MEDS ORDERED: LACTULOSE 20 GM/30 ML ORAL.SOL PO ONE (07:51)
[2021-01-07] MEDS ORDERED: SENNOSIDES 1 TABLET PO ONE (07:52)
--- NOTE | 2021-01-07 07:54 | Internal Med Progress Note ---
SUBJECTIVE Subjective Patient information: Note initiated : 01/07/21 at 7:50 am Service Date, if different from initiated Date: [] Patient: Jovan Elizabeth a 75 y/o M admitted on 01/05/21 for Needs IV Fluids. Chief Complaint: [] Interval history: History of present illness: Mr. Elizabeth is a 75 year old M Presents the ED sent in by his oncologist for IV fluids and also found to be hypercalcemic. Patient has history of squamous cell lung carcinoma which is shown to to be progressing on recent CT. CT was recently ordered by his oncologist and also labs were ordered which showed a calcium of 13.6. Patient has felt weaker more fatigue lately. CT was also concerning for postobstructive pneumonia. Patient denies overt fevers but feels chills. Denies cough. Has chronic leukocytosis and had a 17 few days ago and now 20. He was diagnosed with cancer last year and received chemo therapy and radiation earlier this year. Has been on immunotherapy since. 01/06 Patient slept all right last night patient states he does feel better today. Ca lcium is higher today but bisphosphonate takes 2 to 4 days. We will try to get calcitonin from another hospital. Aggressive IV fluid and monitor urine output. 01/07 No overnight events or new complaints. Calcium much improved. Hypophosphatemia and magnesium. Will replace. Review of Systems: denies headache/fever/chills/nausea/vomiting/chest or abdominal pain/cough/dyspnea/diarrhea. Otherwise see above. Constitutional Vitals: Vital Signs Temp Pulse Resp BP Pulse Ox 98.2 F 86 18 141/83 97 01/07/21 04:00 01/06/21 22:00 01/07/21 04:00 01/07/21 04:00 01/07/21 04:00 Period Temp Pulse Resp BP Sys/Nielsen Pulse Ox Last 24 Hr 97.7 F-98.7 F 86-102 18-20 102-153/60-83 93-99 Intake and Output 01/06/21 01/07/21 01/07/21 21:59 05:59 13:59 Intake Total 988 520 Output Total 3628 1196 190 Balance -935 -676 -190 Weight 76.612 kg Intake & Output: Intake & Output 01/06/21 01/07/21 01/07/21 21:59 05:59 13:59 Intake Total 988 520 Output Total 1923 1196 190 Balance -935 -676 -190 Weight 76.612 kg Intake: IV 868 520 Sodium Chloride 0.9% 1,000 ml @ 868 100 mls/hr IV .Q10H SYLVIA Rx#: [id number] Potassium Chloride 40 Meq In 520 Dextrose 5% in Water 500 ml @ 130 mls/hr IV UD PRN Rx#: [id number] Oral 120 0 Output: Urine Catheter Amount 1922 1070 190 Void Amount 126 Other: Meal Nourishment/Supplement Nourishment/Supplement name ensure enlive Urine Appearance Clear Clear Clear Uretheral (Mello) Clear Clear Urine Color Bright Yellow Pale Pale Uretheral (Mello) Pale Pale Urine Odor Normal Exam: General: Alert, Awake, No acute Distress Eyes/N/T: EOMI, Head/Neck: neck supple, CV: RRR, No murmurs, Pulm: Diminished b/l, no wheezing/rhonchi/rales Abd: soft, nontender, +BS x4 Ext: no clubbing/cyanosis. trace b/l LE edema Neuro: Alert, no focal deficits, moves all extremities, Skin: warm/dry OBJ DATA Labs CBC & Chem 7: 01/07/21 05:39 01/07/21 05:38 Labs: Abnormal Lab Results 01/07/21 01/07/21 01/06/21 05:39 05:38 16:06 WBC 21.0 H RBC 2.47 L Hgb 7.1 L Hct 22.4 L MCHC Plt Count Seg Neutrophils % Lymphocytes % Platelet Estimate RBC Morphology Hypochromasia Potassium 2.9 L* BUN Glucose 109 H Calcium 11.9 H C-Reactive Protein 15.50 H Globulin Albumin/Globulin Ratio Procalcitonin 01/06/21 01/06/21 01/05/21 05:20 05:20 20:15 WBC 28.2 H RBC 3.05 L Hgb 8.5 L Hct 28.3 L MCHC 30.0 L Plt Count 546 H Seg Neutrophils % 90 H Lymphocytes % 3 L Platelet Estimate Increased A RBC Morphology Hypochromasia Potassium 3.0 L BUN 27 H Glucose Calcium 13.4 H* C-Reactive Protein 20.10 H Globulin 4.3 H Albumin/Globulin Ratio 0.7 L Procalcitonin 01/05/21 01/05/21 17:42 17:40 WBC RBC Hgb Hct MCHC Plt Count Seg Neutrophils % 84 H Lymphocytes % 6 L Platelet Estimate Increased A RBC Morphology Abnormal A Hypochromasia 1+ A Potassium BUN Glucose Calcium C-Reactive Protein Globulin Albumin/Globulin Ratio Procalcitonin 0.22 H Meds: Medications Acetaminophen (Acetaminophen 500 Mg Tablet) 1,000 mg PO Q6HP PRN; Protocol PRN Reason: Pain Last Admin: 01/06/21 16:36 Dose: 1,000 mg Documented by: Albuterol/Ipratropium (Ipratropium/Albuterol 3 Ml Ampul.Neb) 3 ml NEB Q4HP PRN PRN Reason: Shortness Of Breath Amlodipine Besylate (Amlodipine 5 Mg Tablet) 5 mg PO QDAY [facility] Last Admin: 01/06/21 08:52 Dose: 5 mg Documented by: Atorvastatin Calcium (Atorvastatin 10 Mg Tablet) 10 mg PO QDAY [facility] Last Admin: 01/06/21 08:52 Dose: 10 mg Documented by: Cefepime HCl (Cefepime 1 Gm Vial) 1 gm IV Q12H [facility]; Protocol Last Admin: 01/06/21 20:50 Dose: 1 gm Documented by: Docusate Sodium (Docusate Sodium 100 Mg Capsule) 100 mg PO BID [facility] Last Admin: 01/06/21 20:49 Dose: 100 mg Documented by: Enoxaparin Sodium (Enoxaparin 40 Mg/0.4 Ml Syringe) 40 mg SQ DAILY [facility] Last Admin: 01/06/21 08:52 Dose: 40 mg Documented by: Potassium Chloride 40 meq/ (Dextrose) 520 mls @ 130 mls/hr IV UD PRN PRN Reason: Potassium < 3 Last Infusion: 01/07/21 01:36 Dose: Infused Documented by: Magnesium Sulfate (Magnesium Sulfate) 2 gm in 50 mls @ 50 mls/hr IV UD PRN PRN Reason: Magnesium </= 1.6 Azithromycin 500 mg/ Dextrose 250 mls @ 250 mls/hr IV Q24H [facility]; Protocol Stop: 01/08/21 10:59 Last Infusion: 01/06/21 11:30 Dose: Infused Documented by: Sodium Chloride (Sodium Chloride 0.9%) 1,000 mls @ 100 mls/hr IV .Q10H [facility] Last Admin: 01/07/21 01:35 Dose: Not Given Documented by: Labetalol HCl (Labetalol 5 Mg/Ml Ml) 0 mg IV Q2HP PRN PRN Reason: Hypertension Lidocaine (Lidocaine Patch) 1 patch TOPICAL DAILY@1000 [facility] Megestrol Acetate (Megestrol Acetate 400 Mg/10 Ml Oral.Susp) 200 mg PO DAILY [facility] Last Admin: 01/06/21 20:50 Dose: 200 mg Documented by: Methocarbamol (Methocarbamol 750 Mg Tablet) 750 mg PO QHS PRN PRN Reason: Muscle Spasm Last Admin: 01/06/21 20:49 Dose: 750 mg Documented by: Ondansetron HCl (Ondansetron 4 Mg/2 Ml Vial) 4 mg IV Q4HP PRN PRN Reason: Nausea And Vomiting Last Admin: 01/06/21 13:33 Dose: 4 mg Documented by: Polyethylene Glycol (Polyethylene Glycol 3350 17 Gm Packet) 17 gm PO DAILYP PRN PRN Reason: Constipation Last Admin: 01/06/21 14:57 Dose: 17 gm Documented by: Potassium Chloride (Potassium Chloride 20 Meq Tablet) 40 meq PO UD PRN PRN Reason: Potssium is 3-3.5 Potassium Chloride (Potassium Chloride 20 Meq Tablet) 40 meq PO UD PRN PRN Reason: Potassium < 3 Last Admin: 01/06/21 17:38 Dose: 40 meq Documented by: Senna (Sennosides 1 Tablet) 2 tab PO DAILYP PRN PRN Reason: Constipation Sodium Chloride (0.9 % Sodium Chloride 10 Ml Syringe) 10 ml IV Q8 [facility] Last Admin: 01/07/21 05:57 Dose: Not Given Documented by: Tramadol HCl (Tramadol 50 Mg Tablet) 50 mg PO BID PRN; Protocol PRN Reason: Pain Last Admin: 01/06/21 20:49 Dose: 50 mg Documented by: A/P Narrative A/P Narrative: A: *Hypercalcemia of malignancy: ZA will take several days to show effectiveness, *Generalized weakness/fatigue: *Squamous cell lung cancer with progression: follow with cancer center -had chemo-rads beginning of year, now on immunotherapy *Possible pneumonia: per CT and with leukocytosis (although leukocytosis appears chronic) -leukocytosis chronic likely malignancy related, no bandemia, PCT low *Anemia, chronic: Received blood transfusion and treatment a week ago for hgb<7. will decrease with IVF. *Volume depletion: improved *SURI on CKD II: resolved *Hypokalemia *Constipation: Plan: -IV fluids d/c later today, monitor UOP -was able to get 1 dose of calcitonin from outside facility (01/06), s/p IV Zoledronic Acid (01/05) -Patient will likely need regular bisphosphonate or denosumab outpatient -Cefepime/Azithromycin pending SC/BC -RBC transfusion if hemoglobin trends below 7, may need especially after IV hydration -f/u with oncologist for disease progression -pt/to -bowel regimen -CM for placement needs -DVT prophylaxis: Lovenox SQ DNR Time Spent With Patient Time: Total time spent is greater than 50% in coordination of care (as documented) at patient's floor/unit and/or counseling patient:
[2021-01-07] MEDS: ONDANSETRON 4 MG/2 ML VIAL IV PRN (08:04)
[2021-01-07 08:19] LABS: ALT/SGPT 9 U/L (<40); AST/SGOT 16 U/L (<40); Albumin 2.6 gm/dL (3.2-5.2); Albumin/Globulin Ratio 0.7 (1.0-2.3); Alkaline Phosphatase 71 U/L (39-117); Bilirubin,Direct < 0.2 mg/dL (0-0.3); Bilirubin,Total 0.2 mg/dL (0.1-1.0); Blood Urea Nitrogen 21 mg/dL (8-23); Calcium 10.8 mg/dL (8.6-10.4); Carbon Dioxide 22 mmol/L (22-30); Chloride 105 mmol/L (96-108); Globulin 3.9 gm/dL (2.2-3.7); Glomerular Filtration Rate 58; Glucose 111 mg/dL (70-105); Lactate Dehydrogenase 193 U/L (135-225); Phosphorous 1.3 mg/dL (2.5-4.5); Triglycerides 89 mg/dL (<150); Uric Acid 4.9 mg/dL (2.5-8.0)
[2021-01-07] MEDS: DOCUSATE SODIUM 100 MG CAPSULE PO SCH ×2 (08:19→21:35)
[2021-01-07] MEDS: ATORVASTATIN 10 MG TABLET PO SCH (08:19)
[2021-01-07] MEDS: ENOXAPARIN 40 MG/0.4 ML SYRINGE SQ SCH (08:20)
[2021-01-07] MEDS: ACETAMINOPHEN 500 MG TABLET PO PRN ×2 (08:20→15:26)
[2021-01-07] MEDS: amLODIPine 5 MG TABLET PO SCH (08:20)
[2021-01-07] MEDS: MEGESTROL ACETATE 400 MG/10 ML ORAL.SUSP PO SCH (08:20)
[2021-01-07] MEDS: traMADol 50 MG TABLET PO PRN ×2 (08:21→21:53)
[2021-01-07] MEDS: CEFEPIME 1 GM VIAL IV SCH ×2 (08:24→21:54)
[2021-01-07 08:25] LABS: Lymphocytes % 3 % (15-49); Monocytes % (Manual) 5 % (1-12); Myelocytes % 1 %; Platelet Estimate NORMAL (Normal); RBC Morphology NORMAL (Normal); Segmented Neutrophils % 91 % (38-78)
[2021-01-07] MEDS ORDERED: MAGNESIUM SULFATE 2 GM/50 ML BAG IV ONE (08:35)
[2021-01-07] MEDS ORDERED: MAGNESIUM SULFATE 2 GM/50 ML BAG IV PRN ×2 (08:41→16:40)
[2021-01-07] MEDS ORDERED: POLYETHYLENE GLYCOL 3350 17 GM PACKET PO SCH (09:00)
[2021-01-07] MEDS ORDERED: NEUTRA PHOS 1 PACKET PO SCH ×2 (09:00→21:00)
[2021-01-07] MEDS ORDERED: POTASSIUM PHOSPHATE 40 MEQ in DEXTROSE 5% IN WATER 500 ML IV ONE (09:00)
--- NOTE | 2021-01-07 09:14 | Discharge Summary ---
Discharge Provider Provider Patient information: Note initiated : 01/07/21 at 9:13 am Service Date, if different from initiated Date: [] Patient: Jovan Elizabeth 75 y/o M admitted on 01/05/21 for Needs IV Fluids. Chief Complaint: [] Date of admission: 01/05/21 20:02 Discharge date: 01/08/21 Primary care physician: Ricky Youssef M.D., F.A.A.F.P. Consults: 01/05/21 Consult to Physician [CONS] Stat Comment: Consulting Provider: Nathan Snyder Reason For Exam: Physician to Consult Discharge Meds Discharge Medications Home Medications loratadine 10 mg tablet 10 mg PO QDAY 01/07/20 [History Confirmed 01/05/21 Last Taken 02/16/20] acetaminophen 1,000 mg PO Q6H PRN 02/17/20 [History Confirmed 01/05/21 Last Taken 02/16/20] aspirin 81 mg tablet,delayed release 81 mg PO QDAY 10/07/20 [History Confirmed 01/05/21 Last Taken Unknown] amlodipine 5 mg tablet 5 mg PO QDAY 10/19/20 [History Confirmed 01/05/21 Last Taken 01/05/21] atorvastatin 10 mg tablet 10 mg PO QDAY 10/19/20 [History Confirmed 01/05/21 Last Taken Unknown] methocarbamol 750 mg tablet 750 mg PO QHS #30 tab 12/05/20 [Rx Confirmed 01/05/21 Last Taken 01/04/21] tramadol 50 mg PO BID PRN 01/05/21 [History Confirmed 01/05/21 Last Taken 01/04/21] cefpodoxime 200 mg PO BID #8 tab 01/07/21 [Rx Last Taken Unknown] COURSE Hospital Course Hospital course: History of present illness: Mr. Elizabeth is a 75 year old M Presents the ED sent in by his oncologist for IV fluids and also found to be hypercalcemic. Patient has history of squamous cell lung carcinoma which is shown to to be progressing on recent CT. CT was recently ordered by his oncologist and also labs were ordered which showed a calcium of 13.6. Patient has felt weaker more fatigue lately. CT was also concerning for postobstructive pneumonia. Patient denies overt fevers but feels chills. Denies cough. Has chronic leukocytosis and had a 17 few days ago and now 20. He was diagnosed with cancer last year and received chemo therapy and radiation earlier this year. Has been on immunotherapy since. 01/06 Patient slept all right last night patient states he does feel better today. Calcium is higher today but bisphosphonate takes 2 to 4 days. We will try to get calcitonin from another hospital. Aggressive IV fluid and monitor urine output. 01/07 No overnight events or new complaints. Calcium much improved. Hypophosphatemia and magnesium. Will replace. 01/08 Hemoglobin stable. Calcium within normal limits now. Phos little bit low will give some supplementation this morning. Patient will go home with home health. Guarded prognosis given progression of cancer Patient extremely high risk for readmission given age and comorbidities specifically progression of cancer, long-term prognosis guarded A: *Hypercalcemia of malignancy: *Generalized weakness/fatigue: *Squamous cell lung cancer with progression: follow with cancer [facility] [place] -had chemo-rads beginning of year, now on immunotherapy *Possible pneumonia: per CT and with leukocytosis (although leukocytosis appears chronic) -leukocytosis chronic likely malignancy related, no bandemia, PCT low *Anemia, chronic: Received blood transfusion and treatment a week ago for hgb<7. will decrease with IVF. *Volume depletion: improved *SURI on CKD II: resolved *Hypokalemia *Constipation: Discharge diagnosis: Hypercalcemia of malignancy generalized weakness fatigue possible pneumonia Secondary discharge diagnosis: Squamous cell lung cancer anemia volume depletion acute kidney injury hypokalemia constipation Time Spent with Patient Time attestation: Total time spent providing and/or coordinating discharge services: Time spent: Greater than 30 minutes EXAM Constitutional Vitals: Temp Pulse Resp BP Pulse Ox 98.4 F 86 16 129/75 98 01/07/21 08:03 01/06/21 22:00 01/07/21 08:03 01/07/21 08:03 01/07/21 08:03 Discharge Data Data Completed and Pending Labs on day of discharge: Labs from last 24 hours 01/07/21 01/07/21 01/06/21 05:39 05:38 16:06 WBC 21.0 H RBC 2.47 L Hgb 7.1 L Hct 22.4 L MCV 90.7 MCH 28.7 MCHC 31.7 RDW 14.0 Plt Count 417 MPV 8.6 Seg Neutrophils % 91 H Lymphocytes % 3 L Monocytes % (Manual) 5 Myelocytes % 1 Platelet Estimate Normal RBC Morphology Normal Sodium 137 138 Potassium 3.6 2.9 L* Chloride 105 103 Carbon Dioxide 22 24 Anion Gap 10.0 11.0 BUN 21 23 Creatinine 1.2 1.2 GFR Calculation 58 58 Glucose 111 H 109 H Uric Acid 4.9 Calcium 10.8 H 11.9 H Phosphorus 1.3 L Magnesium 1.5 L Total Bilirubin 0.2 Direct Bilirubin < 0.2 GGT 41 AST 16 ALT 9 Alkaline Phosphatase 71 Lactate Dehydrogenase 193 C-Reactive Protein 15.50 H Total Protein 6.5 Albumin 2.6 L Globulin 3.9 H Albumin/Globulin Ratio 0.7 L Triglycerides 89 Preliminary micro results at discharge 01/05/21 18:00 Blood Culture - Preliminary Blood 01/05/21 17:49 Blood Culture - Preliminary Blood Discharge Plan Patient/Caregiver Discharge Instructions Activity: increase activity as tolerated Diet: Regular Diet Activity Restrictions/Additional Instructions: Follow-up with oncologist as soon as possible Prescriptions: New cefpodoxime 200 mg tablet 200 mg PO BID Qty: 8 RF: 0 Continued methocarbamol 750 mg tablet 750 mg PO QHS Qty: 30 RF: 2 aspirin 81 mg tablet,delayed release (DR/EC) 81 mg PO QDAY RF: 0 amlodipine 5 mg tablet 5 mg PO QDAY RF: 0 atorvastatin [Lipitor] 10 mg tablet 10 mg PO QDAY RF: 0 loratadine [Allerclear] 10 mg tablet 10 mg PO QDAY RF: 0 acetaminophen 500 mg Tablet 1,000 mg PO Q6H PRN (Reason: Pain) RF: 0 tramadol 50 mg tablet 50 mg PO BID PRN (Reason: pain) RF: 0 Follow Up Plan Follow up with: Ricky Youssef MD, FAAFP [Primary Care Provider] - Patient Disposition: Home, Self-Care Prognosis: Serious Overall status at discharge: patient is progressing back to baseline Discharge Orders: Discharge Order (Routine); Ordered 01/08/21 Ordered By: Nathan Snyder
[2021-01-07] MEDS: AZITHROMYCIN 500 MG in DEXTROSE 5% IN WATER 250 ML IV SCH (09:39)
[2021-01-07] MEDS ORDERED: ONDANSETRON 4 MG/2 ML VIAL IV PRN (16:40)
[2021-01-07] MEDS ORDERED: POTASSIUM CHLORIDE 40 MEQ in DEXTROSE 5% IN WATER 500 ML IV PRN (16:40)
[2021-01-07] MEDS ORDERED: LABETALOL 5 MG/ML ML IV PRN (16:40)
[2021-01-07] MEDS ORDERED: 0.9 % SODIUM CHLORIDE 1,000 ML IV SCH (16:40)
[2021-01-07] MEDS ORDERED: SENNOSIDES 1 TABLET PO PRN (16:40)
[2021-01-07] MEDS ORDERED: POTASSIUM CHLORIDE 20 MEQ TABLET PO PRN ×2 (16:40)
[2021-01-07] MEDS ORDERED: IPRATROPIUM/ALBUTEROL 3 ML AMPUL.NEB NEB PRN (16:40)
[2021-01-07] MEDS ORDERED: LIDOCAINE PATCH TOPICAL SCH (17:27)
[2021-01-07 19:29] LABS: Phosphorous 1.8 mg/dL (2.5-4.5)
[2021-01-07 19:32] LABS: Hematocrit 23.4 % (40.1-51.0); Hemoglobin 7.3 g/dL (13.7-17.5)
[2021-01-07] MEDS ORDERED: PHOSPHORUS 250 MG TABLET PO ONE (19:43)
[2021-01-07] MEDS ORDERED: METHOCARBAMOL 750 MG TABLET PO PRN (21:00)
[2021-01-07] MEDS: LIDOCAINE PATCH TOPICAL SCH (21:34)
[2021-01-08] MEDS: 0.9 % SODIUM CHLORIDE 10 ML SYRINGE IV SCH (05:46)
[2021-01-08 06:35] LABS: Hematocrit 23.9 % (40.1-51.0); Hemoglobin 7.3 g/dL (13.7-17.5)
[2021-01-08 07:16] LABS: ALT/SGPT 10 U/L (<40); AST/SGOT 13 U/L (<40); Albumin 2.5 gm/dL (3.2-5.2); Albumin/Globulin Ratio 0.6 (1.0-2.3); Alkaline Phosphatase 73 U/L (39-117); Bilirubin,Direct < 0.2 mg/dL (0-0.3); Bilirubin,Total 0.2 mg/dL (0.1-1.0); Blood Urea Nitrogen 20 mg/dL (8-23); Calcium 9.9 mg/dL (8.6-10.4); Carbon Dioxide 22 mmol/L (22-30); Chloride 104 mmol/L (96-108); Globulin 4.1 gm/dL (2.2-3.7); Glomerular Filtration Rate 65; Glucose 107 mg/dL (70-105); Lactate Dehydrogenase 156 U/L (135-225); Phosphorous 1.4 mg/dL (2.5-4.5); Triglycerides 93 mg/dL (<150); Uric Acid 3.6 mg/dL (2.5-8.0)
[2021-01-08] MEDS ORDERED: NEUTRA PHOS 1 PACKET PO ONE (07:36)
[2021-01-08] MEDS: ACETAMINOPHEN 500 MG TABLET PO PRN ×2 (08:03→13:47)
[2021-01-08] MEDS: DOCUSATE SODIUM 100 MG CAPSULE PO SCH (08:03)
[2021-01-08] MEDS: traMADol 50 MG TABLET PO PRN (08:04)
[2021-01-08] MEDS: CEFEPIME 1 GM VIAL IV SCH (08:10)
[2021-01-08] MEDS ORDERED: ATORVASTATIN 10 MG TABLET PO SCH (09:00)
[2021-01-08] MEDS ORDERED: ENOXAPARIN 40 MG/0.4 ML SYRINGE SQ SCH (09:00)
[2021-01-08] MEDS ORDERED: POTASSIUM PHOSPHATE 40 MEQ in DEXTROSE 5% IN WATER 500 ML IV ONE (09:00)
[2021-01-08] MEDS ORDERED: amLODIPine 5 MG TABLET PO SCH (09:00)
[2021-01-08] MEDS ORDERED: AZITHROMYCIN 500 MG in DEXTROSE 5% IN WATER 250 ML IV SCH (09:00)
[2021-01-08] MEDS ORDERED: POLYETHYLENE GLYCOL 3350 17 GM PACKET PO SCH (09:00)
[2021-01-08] MEDS ORDERED: MEGESTROL ACETATE 400 MG/10 ML ORAL.SUSP PO SCH (09:00)
[2021-01-08] MEDS: LIDOCAINE PATCH TOPICAL SCH (09:43)
--- NOTE | 2021-01-08 17:04 | EKG ---
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
== END 2021-01-08 14:45 | disposition home or self-care (01) | DRG 640 ==
LOC: ED 16:50 → ICU 20:00
PROVIDERS: ADMIT Internal Medicine; ATTEND Internal Medicine

== ENCOUNTER 2021-02-13 13:45 | Inpatient (IN) ==
--- NOTE | 2021-02-13 14:13 | Emergency Department Note ---
HPI <Jeffrey Barragan PA-C - Last Filed: 02/13/21 19:31> General Chief complaint: Weakness Stated complaint: weakness, low bp, black stools, pale Time Seen by Provider: 02/13/21 13:57 Source: patient Mode of arrival: ambulatory Limitations: no limitations History of Present Illness HPI Narrative: Narrative: 75 y/o male brought to ED by after he was in the lab today for pre-op labs for intrathecal pain pump implantation scheduled for this Saturday when told pre-op staff pt was weak, not eating, and has black stool. Pt dx with Lung CA approx Dec 2019. Had EGD 6 days ago for persistent recurrent anemia requiring transfusion, during EGD found ulcer and dorota infection. After EGD pt started with black tarry stools, evaluated by GI nurse practitioner who advised to observe and call back on Saturday if black stool persisted. Pt and states loose black stool stopped on Sat and appears to now just be yellow loose stool. Per spouse, pt had PET scan Jan 2021 which showed return of multiple nodules in left lung and possible increased activity in stomach consistent with ulcer. Pt with poor oral intake for months, frequently requires blood transfusion for anemia, and has had 70+ lb weight loss in past 6 months. NO fever. No URI sx. No abd pain nausea or vomiting. Pt double vaccinated for covid. Minimally ambulatory at home normally. Related Data Home Medications Medication Instructions Recorded Confirmed loratadine 10 mg tablet 10 mg PO QDAY 01/07/20 02/13/21 (Allerclear) acetaminophen 500 mg tablet 1,000 mg PO Q6H PRN 02/17/20 02/13/21 omeprazole magnesium 20 mg 20 mg PO QDAY 02/09/21 02/13/21 tablet,delayed release (Prilosec OTC) fluconazole 200 mg tablet 200 - 400 mg PO QDAY 02/13/21 02/13/21 Previous Rx's Medication Instructions Recorded megestrol 400 mg/10 mL (10 mL) 200 mg (5 mL) PO QDAY #200 ml 01/08/21 oral suspension methocarbamol 750 mg tablet 750 mg PO QHS #30 tab 02/03/21 tramadol 50 mg tablet 50 mg PO BID PRN #60 tab 02/10/21 Allergies Allergy/AdvReac Type Severity Reaction Status Date / Time No Known Drug Allergies Allergy Verified 02/13/21 13:13 Review of Systems <Jeffrey Barragan PA-C - Last Filed: 02/13/21 19:31> ROS ROS Narrative: Narrative: Constitutional: Denies fever or chills ENT ED: Denies throat pain or congestion Cardiovascular: Denies chest pain, dyspnea on exertion or orthopnea Respiratory: Denies shortness of breath or cough Gastrointestinal: Reports melena; Denies abdominal pain, nausea, vomiting or diarrhea Genitourinary: Denies dysuria Musculoskeletal: Reports back pain (Chronic) Integumentary: Denies rash Neurological: Reports weakness; Denies headache or numbness Psychiatric: Denies anxiety Endocrine: Reports fatigue PFSH <Jeffrey Barragan PA-C - Last Filed: 02/13/21 19:31> Narrative Patient History Narrative: Narrative: Medical/Surgical/Family History All Active Problems (Updated 02/13/21 @ 19:29 by Jeffrey Braragan PA-C) Leukocytosis (Acute) Anemia, normocytic normochromic (Acute) Dorota albicans infection (Acute) Leukocytosis (Acute) Esophageal lesion (Acute) Adenocarcinoma of lung (Acute) Cancer related pain (Acute) Community acquired pneumonia (Acute) Hypercalcemia (Acute) Constipation (Acute) Dehydration (Acute) Acute confusion (Acute) Radiculopathy, thoracic region (Acute) Radiculopathy of lumbar region (Acute) Myofascial pain (Acute) Chest pain (Acute) Fever (Acute) Elevated WBC count (Acute) Acute confusion (Acute) Acute renal failure (ARF) (Acute) Hypercalcemia (Acute) Hypercalcemia (Chronic) Lymphedema (Chronic) Chronic hypokalemia (Chronic) Hemorrhoids (Chronic) Diverticulosis (Chronic ~02/02/20) Lung cancer (Chronic) Cavitating mass in left upper lung lobe (Chronic) Urinary hesitancy (Chronic) Cough (Chronic) Acute URI (Chronic) Polyp of colon (Chronic) Diverticulitis large intestine w/o perforation or abscess w/o bleeding (Chronic) Encounter for Health Maintenance Examination in Adult (Chronic) Hx of colonoscopy (Chronic) History of tobacco use (Chronic) Mixed hyperlipidemia (Chronic) Low back pain (Chronic) Keratoderma, acquired (Chronic) Medical History Adenocarcinoma of lung Cancer related pain Cavitating mass in left upper lung lobe Chest pain Chronic hypokalemia Cough Diverticulosis (~02/02/20) Encounter for Health Maintenance Examination in Adult Esophageal lesion Hemorrhoids History of tobacco use ex-smoker, discontinuation 12/2005. Follow ekgs Hypercalcemia Keratoderma, acquired pigmenting keratosis, left mid-back. Derm review 07/26/09-Dr Nunez Low back pain h/o low back pain, h/o ruptured disc, distant past Lung cancer Lymphedema Mixed hyperlipidemia mixed hyperlipidemia, primarily triglycerides. On intermittent fish oil. EKG updated 08/07/11 Radiculopathy, thoracic region Urinary hesitancy Surgical History History of left heart catheterization (10/10/20) Hx of colonoscopy 02/02/2020-Dr. Garcia: Hemorrhoids; Diverticulosis, Polyp 12/25/2006-Dr. morgan-transverse adenmoatous polyp; rectum hyperplastic polyps, 5-year sequence. 01/01/[address] Morgan--Polypoid fragment w/minute submucosal lymphoid aggregate; 3 fragments of hyperplastic polyps. Family History half brother Acute myocardial infarction [place] age 57 Social History Smoking Status: Former smoker Alcohol Intake Frequency: a few times a month (Denies any intake for 5 months (02/16/2020).) Substance Use: does not use Exam <Jeffrey Barragan PA-C - Last Filed: 02/13/21 19:31> Narrative Narrative: Narrative: General Limitations: no limitations General appearance: Present alert, cachectic and in no apparent distress Head Head: Present atraumatic and normocephalic Eye Eye: Present normal appearance and EOMI ENT ENT: Present normal exam and normal oropharynx Neck Neck: Present normal inspection and full ROM Chest Chest: Present symmetric chest wall rise Respiratory Respiratory: Present decreased breath sounds (left lung); Absent respiratory distress or rales/crackles Cardiovascular Cardiovascular: Present regular rate, normal rhythm and normal heart sounds Adbominal Abdominal: Present soft and normal bowel sounds; Absent distention or tenderness Extremities Extremities: Present normal inspection and full ROM; Absent pedal edema Back Back: Present normal inspection; Absent CVA tenderness (R) or CVA tenderness (L) Neurological Neurological: Present alert and oriented X3 Psychiatric Psychiatric: Present normal affect, normal mood and flat affect Skin Skin: Present warm (WNL) and dry Course <Jeffrey Barragan PA-C - Last Filed: 02/13/21 19:31> Vital Signs Vital signs: Vital Signs Pulse Rate 97 H 02/13/21 13:57 Pulse Oximetry (%) 98 02/13/21 13:57 Temperature 98.8 F 02/14/21 07:24 Pulse Rate 80 02/14/21 07:24 Respiratory Rate 12 02/14/21 07:24 Blood Pressure 117/71 02/14/21 07:24 Pulse Oximetry (%) 100 02/14/21 07:24 MDM <Jeffrey Barragan PA-C - Last Filed: 02/13/21 19:31> MDM Narrative Medical decision making narrative: Narrative: Pt appears chronically ill and pale. Suspect acute anemia requiring transfusion. Will check labs, crossmatch for 2 units[address] Yanez, oncology [phone]. Uncertain if pt has re ceived Neupogen. If pt has received Neupogen then expect elevated WBC. If not, then obtain urine culture, CXR, Blood culture and discharge on broad spectrum abx. 1621 Dr. Yanez called back and stated that he has not received Neupogen and pt should be admitted for observation and covered with broad spectrum abx. [address] Mckeon, hospitalist, will evaluate pt. Requests we contact him with UA results to help guide antibiotic therapy. Medical Records Medical records reviewed: Yes I reviewed the patient's medical records. Medical records narrative: PET scan 01/22 shows 12cm x 9 cm mass left lung Lab Data Result diagrams: 02/14/21 05:26 02/14/21 05:26 Labs: Lab Results 02/13/21 02/13/21 02/13/21 Range/Units 14:27 14:27 14:27 WBC 37.5 H* (4.5-11.0) K/mcL RBC 2.86 L (4.63-6.08) M/mcL Hgb 8.5 L (13.7-17.5) g/dL Hct 25.9 L (40.1-51.0) % POC Hct 25 L (41-55) % MCV 90.6 (80.0-100.0) fL MCH 29.7 (26.0-34.0) pg MCHC 32.8 (31.0-36.0) g/dL RDW 14.8 H (11.5-14.5) % Plt Count 782 H (140-440) K/mcL MPV 8.4 (7.4-10.4) fL Neut % (Auto) 87.3 H (38.0-78.0) % Lymph % (Auto) 1.9 L (15.5-49.0) % [place] % (Auto) 10.3 (1.0-12.0) % Eos % (Auto) 0 (0.0-7.0) % Baso % (Auto) 0.5 (0.0-2.0) % Lymph # (Auto) 0.70 L (1.50-4.80) K/mcL [place] # (Auto) 3.85 H (0.10-0.90) K/mcL Eos # (Auto) 0.01 (0.00-0.70) K/mcL Baso # (Auto) 0.19 (0.00-0.30) K/mcL Absolute Neutrophils 32.70 H (1.80-8.00) K/mcL POC Sodium 139 (133-145) mEq/L POC Potassium 3.1 L (3.3-5.1) mEql/L POC Chloride 104 (96-108) mEq/L POC Total CO2 22 (22-30) mmol/L POC BUN 13 (6-20) mg/dL POC Creatinine 0.8 (0.6-1.2) mg/dL POC Glucose 115 H (70-105) mg/dL POC WB Ioniz Calcium 1.32 (1.16-1.32) mmEq/L Procalcitonin 0.16 H (<0.10) ng/mL Discharge Plan Patient/Caregiver Discharge Instructions Pt seen by JAVA USER INTERFACE DEVELOPER/PA only: Yes Clinical Impression: Leukocytosis, Adenocarcinoma of lung Patient Disposition: Xfer As Inpt ([facility]) Condition: Fair Discharge Date/Time: 02/13/21 20:32
[2021-02-13] MEDS: 0.9 % SODIUM CHLORIDE 1,000 ML IV SCH ×3 (14:42→21:56)
[2021-02-13 14:45] LABS: POC Blood Urea Nitrogen 13 mg/dL (6-20); POC CO2 22 mmol/L (22-30); POC Calcium, Ionized 1.32 mmEq/L (1.16-1.32); POC Chloride 104 mEq/L (96-108); POC Creatinine 0.8 mg/dL (0.6-1.2); POC Glucose, Random 115 mg/dL (70-105); POC Hematocrit 25 % (41-55); POC Potassium 3.1 mEql/L (3.3-5.1); POC Sodium 139 mEq/L (133-145)
[2021-02-13 15:15] LABS: Basophils # (Auto) 0.19 K/mcL (0.00-0.30); Basophils % (Auto) 0.5 % (0.0-2.0); Eosinophils # (Auto) 0.01 K/mcL (0.00-0.70); Eosinophils % (Auto) 0 % (0.0-7.0); Hematocrit 25.9 % (40.1-51.0); Hemoglobin 8.5 g/dL (13.7-17.5); Lymphocytes % (Auto) 1.9 % (15.5-49.0); Mean Cell Volume 90.6 fL (80.0-100.0); Mean Corpuscular HGB Conc 32.8 g/dL (31.0-36.0); Mean Platelet Volume 8.4 fL (7.4-10.4); Monocytes # (Auto) 3.85 K/mcL (0.10-0.90); Monocytes % (Auto) 10.3 % (1.0-12.0); Neutrophils % (Auto) 87.3 % (38.0-78.0); Platelet Count 782 K/mcL (140-440); RBC 2.86 M/mcL (4.63-6.08); Red Cell Distribution Width 14.8 % (11.5-14.5); WBC 37.5 K/mcL (4.5-11.0)
--- NOTE | 2021-02-13 17:51 | XRay Report ---
CLINICAL INFORMATION: Lung cancer COMPARISON: 12/19/2020 TECHNIQUE: PA and Lateral views FINDINGS: The heart size, mediastinum and pulmonary vessels are unremarkable. 12 cm mass in the left upper lobe as increased in size and density since the previous exam. It does partially erode the underlying third and fourth ribs. It also retracts the left hilum superiorly. It results in partial atelectasis of the left upper lobe. Underlying COPD noted. IMPRESSION: 12 cm left upper lobe mass increasing in size and density when compared to the x-ray two months prior. Findings palpable with progression of lung cancer Interpreted and Authenticated by: Rocky Wild 02/13/21
--- NOTE | 2021-02-13 18:40 | Internal Med History&Physical ---
HPI History of Present Illness Patient information: Note initiated : 02/13/21 at 6:37 pm Service Date, if different from initiated Date: [] Patient: Jovan Elizabeth a 75 y/o M admitted on for weakness, low bp, black stools, pale. Chief Complaint: [weakness, leukocytosis] Chief complaint: weakness, leukocytosis History of present illness: Mr. 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 Yanez [phone]. He had EGD 6 days ago for persistent recurrent anemia that required blood transfusion and was being diagnosed with gastric ulcer and michelle infection. He was supposed to received intrathecal pain this coming Saturday02/17/21 by his pain specialist, so this morning he had some pre- procedure lab works, an it indicated leukocytosis with WBC 37.5 with a left shift neutrophile % of 87.3. Did not received any neuprogen recently. H/H 8.5 and 25.9, respectively. Serum lactic acid normal. UA does not reveal any signs of urinary infection. CXR showing 12cm left upper lobe mass increasing in size relative to last study, consistent with the history of lung cancer. Patient is c/o general body weakness, as well as left sided chest pain and back pain. Denies any SOB, cough, sputum production, or respiratory wheezing. Denies any urinary symptoms such as dysuria or change in urinary frequency or urgency. Denies fever, chills, or sweating. Constitutional Constitutional: Present fatigue and weakness; Absent chills, excessive sweating or fever(s) EENT Eyes: Absent blurry vision, change in vision, loss of vision or other visual disturbances Ears: Absent decreased hearing or tinnitus Nose, mouth and throat: Absent abnormal hearing, dry mouth, headache(s), nasal congestion or sore throat Cardiovascular Cardiovascular: Absent chest pain, chest pain at rest, edema, irregular heart rhythm or palpatations Respiratory Respiratory: Absent cough, dyspnea or wheezing Gastrointestinal Gastrointestinal: Absent abdominal pain, constipation, diarrhea, nausea or vomiting Musculoskeletal Musculoskeletal: Absent back pain, deformity, limited range of motion, muscle cramps, muscle weakness or numbness Integumentary Integumentary: Absent lesions, rash or wounds Neurological Neurological: Absent focal weakness, headache(s) or numbness Psychiatric Psychiatric: Absent anxiety, depression or hallucinations PFSH PFSH All Active Problems (Updated 02/13/21 @ 18:55 by Ravi Mckeon MD) Anemia, normocytic normochromic (Acute) Michelle albicans infection (Acute) Leukocytosis (Acute) Esophageal lesion (Acute) Adenocarcinoma of lung (Acute) Cancer related pain (Acute) Community acquired pneumonia (Acute) Hypercalcemia (Acute) Constipation (Acute) Dehydration (Acute) Acute confusion (Acute) Radiculopathy, thoracic region (Acute) Radiculopathy of lumbar region (Acute) Myofascial pain (Acute) Chest pain (Acute) Fever (Acute) Elevated WBC count (Acute) Acute confusion (Acute) Acute renal failure (ARF) (Acute) Hypercalcemia (Acute) Hypercalcemia (Chronic) Lymphedema (Chronic) Chronic hypokalemia (Chronic) Hemorrhoids (Chronic) Diverticulosis (Chronic ~02/02/20) Lung cancer (Chronic) Cavitating mass in left upper lung lobe (Chronic) Urinary hesitancy (Chronic) Cough (Chronic) Acute URI (Chronic) Polyp of colon (Chronic) Diverticulitis large intestine w/o perforation or abscess w/o bleeding (Chronic) Encounter for Health Maintenance Examination in Adult (Chronic) Hx of colonoscopy (Chronic) History of tobacco use (Chronic) Mixed hyperlipidemia (Chronic) Low back pain (Chronic) Keratoderma, acquired (Chronic) Medical History Adenocarcinoma of lung Cancer related pain Cavitating mass in left upper lung lobe Chest pain Chronic hypokalemia Cough Diverticulosis (~02/02/20) Encounter for Health Maintenance Examination in Adult Esophageal lesion Hemorrhoids History of tobacco use ex-smoker, discontinuation 12/2005. Follow ekgs Hypercalcemia Keratoderma, acquired pigmenting keratosis, left mid-back. Derm review 07/26/09-Dr Nunez Low back pain h/o low back pain, h/o ruptured disc, distant past Lung cancer Lymphedema Mixed hyperlipidemia mixed hyperlipidemia, primarily triglycerides. On intermittent fish oil. EKG updated 08/07/11 Radiculopathy, thoracic region Urinary hesitancy Surgical History History of left heart catheterization (10/10/20) Hx of colonoscopy 02/02/2020-Dr. Garcia: Hemorrhoids; Diverticulosis, Polyp 12/25/2006-Dr. morgan-transverse adenmoatous polyp; rectum hyperplastic polyps, 5-year sequence. 01/01/[address] Morgan--Polypoid fragment w/minute submucosal lymphoid aggregate; 3 fragments of hyperplastic polyps. 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 alcohol intake frequency: a few times a month (Denies any intake for 5 months (02/16/2020).) substance use type: does not use MEDS/ALLERGIES Home Medications and Allergies Home Medications Medication Instructions Recorded Confirmed Type loratadine 10 mg tablet 10 mg PO QDAY 01/07/20 02/13/21 History (Allerclear) acetaminophen 500 mg tablet 1,000 mg PO Q6H PRN 02/17/20 02/13/21 History megestrol 400 mg/10 mL (10 mL) 200 mg (5 mL) PO QDAY #200 ml 01/08/21 02/13/21 Rx oral suspension methocarbamol 750 mg tablet 750 mg PO QHS #30 tab 02/03/21 02/13/21 Rx omeprazole magnesium 20 mg 20 mg PO QDAY 02/09/21 02/13/21 History tablet,delayed release (Prilosec OTC) tramadol 50 mg tablet 50 mg PO BID PRN #60 tab 02/10/21 02/13/21 Rx fluconazole 200 mg tablet 200 - 400 mg PO QDAY 02/13/21 02/13/21 History Allergies Allergy/AdvReac Type Severity Reaction Status Date / Time No Known Drug Allergies Allergy Verified 02/13/21 13:13 EXAM Constitutional Vitals: Pulse BP Pulse Ox 85 97/67 99 02/13/21 18:05 02/13/21 18:01 02/13/21 18:05 General appearance: cooperative, disheveled, mild distress and thin Head Head exam: Present atraumatic and normocephalic Eye Eye exam: Present EOMI and PERRL ENT ENT exam: Present mucous membranes moist, normal exam and normal external ear exam Neck Neck exam: Present normal inspection; Absent lymphadenopathy, tenderness or thyromegaly Respiratory Respiratory exam: Present decreased breath sounds; Absent accessory muscle use, respiratory distress or wheezes Cardiovascular Cardiovascular exam: Present normal rate and rhythm; Absent JVD GI/Abdominal GI/Abdominal exam: Present normal bowel sounds and soft; Absent organomegaly or tenderness Rectal Rectal exam: Present deferred Extremities Exam Extremities exam: Present full ROM, normal capillary refill and normal inspection; Absent tenderness Neurological Exam Neurological exam: Present alert, CN II-XII intact and oriented X3; Absent motor sensory deficit Psychiatric Psychiatric exam: Present normal affect and normal mood; Absent anxious or depressed Skin Skin exam: Present dry and intact DATA Data Completed and Pending Labs: Labs from last 24 hours 02/13/21 02/13/21 14:27 14:27 WBC 37.5 H* RBC 2.86 L Hgb 8.5 L Hct 25.9 L POC Hct 25 L MCV 90.6 MCH 29.7 MCHC 32.8 RDW 14.8 H Plt Count 782 H MPV 8.4 Neut % (Auto) 87.3 H Lymph % (Auto) 1.9 L [place] % (Auto) 10.3 Eos % (Auto) 0 Baso % (Auto) 0.5 Lymph # (Auto) 0.70 L [place] # (Auto) 3.85 H Eos # (Auto) 0.01 Baso # (Auto) 0.19 Absolute Neutrophils 32.70 H POC Sodium 139 POC Potassium 3.1 L POC Chloride 104 POC Total CO2 22 POC BUN 13 POC Creatinine 0.8 POC Glucose 115 H POC WB Ioniz Calcium 1.32 A/P Assessment and plan (1) Adenocarcinoma of lung: Status: Acute (2) Chronic hypokalemia: Status: Chronic (3) Leukocytosis: Status: Acute (4) Michelle albicans infection: Status: Acute (5) Anemia, normocytic normochromic: Status: Acute Narrative A/P Narrative: Assessment and Plans: 1. Leukocytosis: DDx: Infectious (bacterial, fungal) vs metastatic cancer to the bone marrow Admit to inpatient med surg Serum lactic acid normal Procalcitonin s/p IV fluid bolus given in the ED, to be followed by NS@100cc/hr Blood culture Urine culture Sputum culture Vancomycin Zosyn Diflucan cbc w/ auto diff in the morning to trend WBC Tylenol PRN fever 2. Adenocarcinoma of the lung, left, with metastasis: Oncologist Dr. Yanez [phone] Tylenol PRN mild pain Tramadol PRN moderate pain Fentanyl IV PRN severe pain Robaxin HS Hold any chemotherapy for now until infectious process is ruled out Pending intrathecal pump for pain control 3. Anemia, normocytic normochromic: cbc w/ auto diff in the morning to trend H/H; transfuse pRBC if hemoglobin<7.0, active bleeding, or symptomatic 4. Esophageal/gastric michelle infection: Diflucan Oral PPI 5. Hypokalemia: Potassium chloride oral replacement therapy CMP in the morning to trend serum potassium level Also check Serum Mg level and replace if needed GI ppx: Oral PPI DVT ppx: Lovenox Code status: DNI Prognosis: GUARDED Disposition: inpatient med surg Time Spent With Patient Time: Total time spent is greater than 50% in coordination of care (as documented) at patient's floor/unit and/or counseling patient: Total time spent with greater than 50% in coordination of care (as documented) at patient's floor/unit and/or counseling patient:: Greater than 35 minutes
[2021-02-13] MEDS ORDERED: POTASSIUM CHLORIDE 20 MEQ TABLET PO SCH (19:00)
[2021-02-13] MEDS ORDERED: ZOLPIDEM 5 MG TABLET PO PRN (20:53)
[2021-02-13] MEDS ORDERED: IPRATROPIUM/ALBUTEROL 3 ML AMPUL.NEB NEB PRN (20:53)
[2021-02-13] MEDS ORDERED: VANCOMYCIN PER PHARMACY IV SCH (20:53)
[2021-02-13] MEDS ORDERED: fentaNYL 100 MCG/2 ML VIAL IV PRN (20:53)
[2021-02-13] MEDS: DOCUSATE SODIUM 100 MG CAPSULE PO SCH (21:22)
[2021-02-13] MEDS: SENNOSIDES 1 TABLET PO SCH (21:22)
[2021-02-13] MEDS: traMADol 50 MG TABLET PO PRN (21:34)
[2021-02-13] MEDS: METHOCARBAMOL 750 MG TABLET PO SCH (21:34)
[2021-02-13] MEDS: 0.9 % SODIUM CHLORIDE 10 ML SYRINGE IV SCH (21:49)
[2021-02-13] MEDS: VANCOMYCIN 1,000 MG in 0.9 % SODIUM CHLORIDE 250 ML IV SCH (22:00)
[2021-02-13] MEDS: PIPERACILLIN SODIUM/TAZOBACTAM 3.375 GM in DEXTROSE 5% IN WATER 50 ML IV SCH (23:24)
[2021-02-14] MEDS: 0.9 % SODIUM CHLORIDE 10 ML SYRINGE IV SCH ×3 (04:02→20:39)
[2021-02-14] MEDS: PIPERACILLIN SODIUM/TAZOBACTAM 3.375 GM in DEXTROSE 5% IN WATER 50 ML IV SCH ×4 (05:05→23:34)
[2021-02-14] MEDS ORDERED: FLUCONAZOLE 100 MG TABLET PO SCH ×2 (07:00→09:00)
[2021-02-14] MEDS: DOCUSATE SODIUM 100 MG CAPSULE PO SCH ×2 (08:20→19:11)
[2021-02-14] MEDS: OMEPRAZOLE 20 MG CAPSULE PO SCH (08:20)
[2021-02-14] MEDS: LORATADINE 10 MG TABLET PO SCH (08:20)
[2021-02-14] MEDS: ENOXAPARIN 40 MG/0.4 ML SYRINGE SQ SCH ×2 (08:20→11:01)
[2021-02-14] MEDS: MEGESTROL ACETATE 400 MG/10 ML ORAL.SUSP PO SCH (08:21)
[2021-02-14] MEDS: VANCOMYCIN 1,000 MG in 0.9 % SODIUM CHLORIDE 250 ML IV SCH ×2 (08:21→20:33)
[2021-02-14] MEDS: 0.9 % SODIUM CHLORIDE 1,000 ML IV SCH ×3 (08:21→17:37)
[2021-02-14] MEDS: traMADol 50 MG TABLET PO PRN ×2 (08:24→19:09)
[2021-02-14] MEDS: ONDANSETRON 4 MG/2 ML VIAL IV PRN (08:38)
[2021-02-14 08:40] LABS: Basophils # (Auto) 0.18 K/mcL (0.00-0.30); Basophils % (Auto) 0.5 % (0.0-2.0); Eosinophils # (Auto) 0.02 K/mcL (0.00-0.70); Eosinophils % (Auto) 0.1 % (0.0-7.0); Hematocrit 23.2 % (40.1-51.0); Hemoglobin 7.4 g/dL (13.7-17.5); Lymphocytes # (Auto) 0.83 K/mcL (1.50-4.80); Lymphocytes % (Auto) 2.5 % (15.5-49.0); Mean Cell Volume 90.3 fL (80.0-100.0); Mean Corpuscular HGB Conc 31.9 g/dL (31.0-36.0); Mean Platelet Volume 8.8 fL (7.4-10.4); Monocytes # (Auto) 3.37 K/mcL (0.10-0.90); Neutrophils % (Auto) 86.9 % (38.0-78.0); Platelet Count 937 K/mcL (140-440); RBC 2.57 M/mcL (4.63-6.08); Red Cell Distribution Width 14.8 % (11.5-14.5); WBC 33.8 K/mcL (4.5-11.0)
[2021-02-14 09:03] LABS: ALT/SGPT 6 U/L (<40); AST/SGOT 16 U/L (<40); Albumin 2.6 gm/dL (3.2-5.2); Albumin/Globulin Ratio 0.7 (1.0-2.3); Alkaline Phosphatase 96 U/L (39-117); Bilirubin,Total 0.2 mg/dL (0.1-1.0); Blood Urea Nitrogen 9 mg/dL (8-23); Calcium 9.4 mg/dL (8.6-10.4); Carbon Dioxide 20 mmol/L (22-30); Chloride 106 mmol/L (96-108); Globulin 3.6 gm/dL (2.2-3.7); Glomerular Filtration Rate 91; Glucose 99 mg/dL (70-105); Phosphorous 2.1 mg/dL (2.5-4.5)
[2021-02-14] MEDS ORDERED: FLUCONAZOLE 100 MG/50 ML BAG IV SCH (10:45)
[2021-02-14] MEDS ORDERED: POTASSIUM CHLORIDE 20 MEQ in DEXTROSE 5% IN WATER 250 ML IV ONE (11:00)
[2021-02-14] MEDS ORDERED: FLUCONAZOLE 100 MG/50 ML BAG IV ONE (11:00)
--- NOTE | 2021-02-14 12:39 | Internal Med Progress Note ---
SUBJECTIVE Subjective Patient information: Note initiated : 02/14/21 at 12:34 pm Service Date, if different from initiated Date: [] Patient: Jovan Elizabeth a 75 y/o M admitted on 02/13/21 for weakness, low bp, black stools, pale. Chief Complaint: [leukocytosis] Interval history: History of present illness: Mr. 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 Yanez [phone]. He had EGD 6 days ago for persistent recurrent anemia that required blood transfusion and was being diagnosed with gastric ulcer and dorota infection. He was supposed to received intrathecal pain this coming Saturday02/17/21 by his pain specialist, so this morning he had some pre- procedure lab works, an it indicated leukocytosis with WBC 37.5 with a left shift neutrophile % of 87.3. Did not received any neuprogen recently. H/H 8.5 and 25.9, respectively. Serum lactic acid normal. UA does not reveal any signs of urinary infection. CXR showing 12cm left upper lobe mass increasing in size relative to last study, consistent with the history of lung cancer. Patient is c/o general body weakness, as well as left sided chest pain and back pain. Denie s any SOB, cough, sputum production, or respiratory wheezing. Denies any urinary symptoms such as dysuria or change in urinary frequency or urgency. Denies fever, chills, or sweating. 02/14: Afebrile overnight. Cultures (blood, urine, sputum) no growth to date. WBC 37.5-->33.8; hemoglobin 8.5-->7.4. Denies any pain currently. Vomited earlier this morning 10min after having Diflucan. Poor appetite. c/o general body weakness. Denies SOB. Still on Diflucan (IV) as well as broad spectrum antibioti cs Vancomycin and Zosyn. Constitutional Vitals: Vital Signs Temp Pulse Resp BP Pulse Ox 37.1 C 80 12 117/71 100 02/14/21 07:24 02/14/21 07:24 02/14/21 07:24 02/14/21 07:24 02/14/21 07:24 Period Temp Pulse Resp BP Sys/Nielsen Pulse Ox Last 24 Hr 36.6 C-37.1 C 80-102 12-12 97-140/57-89 95-100 Intake and Output 02/13/21 02/14/21 02/14/21 21:59 05:59 13:59 Intake Total 5872 735 5236 Output Total 300 Balance 0090 571 6623 Weight 63.775 kg Intake & Output: Intake & Output 02/13/21 02/14/21 02/14/21 21:59 05:59 13:59 Intake Total 1066 227 3286 Output Total 300 Balance 9019 406 0780 Weight 63.775 kg Intake: IV 1539 019 4909 Sodium Chloride 0.9% 1,000 ml @ 1000 1302 100 mls/hr IV .Q10H [facility] Rx#: [id number] Zosyn 3.375 gm In Dextrose 5% 50 50 in Water 50 ml @ 100 mls/hr IV Q6H [facility] Rx#:[id number] Vancomycin 1,000 mg In Sodium 250 Chloride 0.9% 250 ml @ 250 mls/ hr IV Q12H [facility] Rx#:[id number] Oral 200 Output: Void Amount 300 Other: Urine Appearance Straight Clear Urine Color Straight Dark Yellow Stool Size Small Stool Color Black Stool Consistency Soft # of times incontinent of 1 Bowels General appearance: cooperative, disheveled, no acute distress and thin Exam: cachetic Head Head exam: Present atraumatic and normal inspection Eye Eye exam: Present normal appearance ENT ENT exam: Present mucous membranes moist, normal exam and normal external ear exam Neck Neck exam: Present normal inspection Respiratory Respiratory exam: Present normal respiratory exam and decreased breath sounds Cardiovascular Cardiovascular exam: Present normal rate and rhythm GI/Abdominal GI/Abdominal exam: Present normal bowel sounds Back Exam Back exam: Present normal inspection Neurological Exam Neurological exam: Present alert and oriented X3 Skin Skin exam: Present intact and warm OBJ DATA Labs CBC & Chem 7: 02/14/21 05:26 02/14/21 05:26 Labs: Abnormal Lab Results 02/14/21 02/14/21 02/13/21 05:26 05:26 14:27 WBC 33.8 H* RBC 2.57 L Hgb 7.4 L Hct 23.2 L POC Hct RDW 14.8 H Plt Count 937 H* Neut % (Auto) 86.9 H Lymph % (Auto) 2.5 L Lymph # (Auto) 0.83 L [place] # (Auto) 3.37 H Absolute Neutrophils 29.37 H POC Potassium Potassium 3.0 L Carbon Dioxide 20 L POC Glucose Phosphorus 2.1 L Albumin 2.6 L Albumin/Globulin Ratio 0.7 L Procalcitonin 0.16 H 02/13/21 02/13/21 14:27 14:27 WBC 37.5 H* RBC 2.86 L Hgb 8.5 L Hct 25.9 L POC Hct 25 L RDW 14.8 H Plt Count 782 H Neut % (Auto) 87.3 H Lymph % (Auto) 1.9 L Lymph # (Auto) 0.70 L [place] # (Auto) 3.85 H Absolute Neutrophils 32.70 H POC Potassium 3.1 L Potassium Carbon Dioxide POC Glucose 115 H Phosphorus Albumin Albumin/Globulin Ratio Procalcitonin Meds: Medications Acetaminophen (Acetaminophen 500 Mg Tablet) 1,000 mg PO Q6HP PRN; Protocol PRN Reason: Pain Albuterol/Ipratropium (Ipratropium/Albuterol 3 Ml Ampul.Neb) 3 ml NEB Q4HRT PRN PRN Reason: Wheezing Docusate Sodium (Docusate Sodium 100 Mg Capsule) 100 mg PO BID [facility] Last Admin: 02/14/21 08:20 Dose: 100 mg Documented by: Enoxaparin Sodium (Enoxaparin 40 Mg/0.4 Ml Syringe) 40 mg SQ DAILY [facility] Last Admin: 02/14/21 11:01 Dose: 40 mg Documented by: Fentanyl (Fentanyl 100 Mcg/2 Ml Vial) 25 mcg IV Q2HP PRN; Protocol PRN Reason: Per Pain Protocol Sodium Chloride (Sodium Chloride 0.9%) 1,000 mls @ 100 mls/hr IV .Q10H [facility] Last Admin: 02/14/21 11:22 Dose: 100 mls/hr Documented by: Piperacillin Sod/Tazobactam (Sod 3.375 gm/ Dextrose) 50 mls @ 100 mls/hr IV Q6H [facility]; Protocol Last Infusion: 02/14/21 08:46 Dose: Infused Documented by: Vancomycin HCl 1,000 mg/ (Sodium Chloride) 250 mls @ 250 mls/hr IV Q12H [facility] Last Admin: 02/14/21 08:21 Dose: 250 mls/hr Documented by: Potassium Chloride 20 meq/ (Dextrose) 260 mls @ 130 mls/hr IV ONCE ONE Stop: 02/14/21 12:59 Last Admin: 02/14/21 11:01 Dose: 130 mls/hr Documented by: Fluconazole (Diflucan) 200 mg in 100 mls @ 100 mls/hr IV DAILY [facility] Stop: 03/05/21 09:01 Loratadine (Loratadine 10 Mg Tablet) 10 mg PO QDAY [facility] Last Admin: 02/14/21 08:20 Dose: 10 mg Documented by: Megestrol Acetate (Megestrol Acetate 400 Mg/10 Ml Oral.Susp) 200 mg PO QDAY [facility] Last Admin: 02/14/21 08:21 Dose: 200 mg Documented by: Methocarbamol (Methocarbamol 750 Mg Tablet) 750 mg PO QHS [facility] Last Admin: 02/13/21 21:34 Dose: 750 mg Documented by: Omeprazole (Omeprazole 20 Mg Capsule) 20 mg PO ACB [facility] Last Admin: 02/14/21 08:20 Dose: 20 mg Documented by: Ondansetron HCl (Ondansetron 4 Mg/2 Ml Vial) 4 mg IV Q6HP PRN PRN Reason: Nausea And Vomiting Last Admin: 02/14/21 08:38 Dose: 4 mg Documented by: Potassium Chloride (Potassium Chloride 20 Meq Tablet) 20 meq PO UD [facility] Senna (Sennosides 1 Tablet) 2 tab PO [facility] Last Admin: 02/13/21 21:22 Dose: Not Given Documented by: Sodium Chloride (0.9 % Sodium Chloride 10 Ml Syringe) 10 ml IV Q8 [facility] Last Admin: 02/14/21 04:02 Dose: Not Given Documented by: Tramadol HCl (Tramadol 50 Mg Tablet) 50 mg PO BIDP PRN; Protocol PRN Reason: pain Last Admin: 02/14/21 08:24 Dose: 50 mg Documented by: Vancomycin HCl (Vancomycin Per Pharmacy) 1 [place] [facility] Protocol Zolpidem Tartrate (Zolpidem 5 Mg Tablet) 5 mg PO HSP PRN PRN Reason: Insomnia A/P Assessment and plan (1) Adenocarcinoma of lung: Status: Acute (2) Chronic hypokalemia: Status: Chronic (3) Leukocytosis: Status: Acute (4) Dorota albicans infection: Status: Acute (5) Anemia, normocytic normochromic: Status: Acute Narrative A/P Narrative: Assessment and Plans: 1. Leukocytosis: DDx: Infectious (bacterial, fungal) vs metastatic cancer to the bone marrow Stays in inpatient med surg Serum lactic acid normal Procalcitonin s/p IV fluid bolus given in the ED, to be followed by NS@100cc/hr Blood culture, no growth to date Urine culture, no growth to date Sputum culture, no growth to date Vancomycin Zosyn Diflucan, switch to IV due to nausea vomiting cbc w/ auto diff in the morning to trend WBC Tylenol PRN fever 2. Adenocarcinoma of the lung, left, with metastasis: Oncologist Dr. Yanez [phone] Tylenol PRN mild pain Tramadol PRN moderate pain Fentanyl IV PRN severe pain Robaxin HS Hold any chemotherapy for now until infectious process is ruled out Pending intrathecal pump for pain control 3. Anemia, normocytic normochromic: cbc w/ auto diff in the morning to trend H/H; transfuse pRBC if hemoglobin<7.0, active bleeding, or symptomatic 4. Esophageal/gastric dorota infection: Diflucan, switch to IV Oral PPI 5. Hypokalemia: Potassium chloride IV replacement therapy CMP in the morning to trend serum potassium level Also check Serum Mg level and replace if needed GI ppx: Oral PPI DVT ppx: Lovenox Code status: DNI Prognosis: GUARDED Disposition: inpatient med surg Time Spent With Patient Time: Total time spent is greater than 50% in coordination of care (as documented) at patient's floor/unit and/or counseling patient: QUALITY VTE Deep Vein Thrombosis/Pulmonary Embolism Present on Admission: No
[2021-02-14] MEDS: METHOCARBAMOL 750 MG TABLET PO SCH (19:09)
[2021-02-14] MEDS: SENNOSIDES 1 TABLET PO SCH (19:11)
[2021-02-15] MEDS: 0.9 % SODIUM CHLORIDE 1,000 ML IV SCH (03:24)
[2021-02-15] MEDS: 0.9 % SODIUM CHLORIDE 10 ML SYRINGE IV SCH ×4 (04:21→22:00)
[2021-02-15] MEDS: PIPERACILLIN SODIUM/TAZOBACTAM 3.375 GM in DEXTROSE 5% IN WATER 50 ML IV SCH ×3 (05:29→19:29)
[2021-02-15] MEDS: OMEPRAZOLE 20 MG CAPSULE PO SCH (07:29)
[2021-02-15] MEDS: ACETAMINOPHEN 500 MG TABLET PO PRN ×2 (07:42→16:20)
[2021-02-15 08:14] LABS: Basophils # (Auto) 0.05 K/mcL (0.00-0.30); Basophils % (Auto) 0.1 % (0.0-2.0); Eosinophils # (Auto) 0.01 K/mcL (0.00-0.70); Eosinophils % (Auto) 0 % (0.0-7.0); Hematocrit 24.5 % (40.1-51.0); Hemoglobin 7.4 g/dL (13.7-17.5); Lymphocytes # (Auto) 0.85 K/mcL (1.50-4.80); Lymphocytes % (Auto) 2.5 % (15.5-49.0); Mean Cell Volume 95.3 fL (80.0-100.0); Mean Corpuscular HGB Conc 30.2 g/dL (31.0-36.0); Mean Platelet Volume 9.5 fL (7.4-10.4); Monocytes # (Auto) 3.05 K/mcL (0.10-0.90); Monocytes % (Auto) 9.1 % (1.0-12.0); Neutrophils % (Auto) 88.3 % (38.0-78.0); Platelet Count 619 K/mcL (140-440); RBC 2.57 M/mcL (4.63-6.08); Red Cell Distribution Width 15.3 % (11.5-14.5)
[2021-02-15] MEDS: ENOXAPARIN 40 MG/0.4 ML SYRINGE SQ SCH (08:42)
[2021-02-15] MEDS: LORATADINE 10 MG TABLET PO SCH (08:42)
[2021-02-15] MEDS: MEGESTROL ACETATE 400 MG/10 ML ORAL.SUSP PO SCH (08:43)
[2021-02-15] MEDS: FLUCONAZOLE 200 MG/100 ML BAG IV SCH (08:45)
[2021-02-15 08:56] LABS: WBC 33.3 K/mcL (4.5-11.0)
[2021-02-15] MEDS: DOCUSATE SODIUM 100 MG CAPSULE PO SCH ×2 (09:14→20:39)
[2021-02-15 09:36] LABS: ALT/SGPT 10 U/L (<40); AST/SGOT 18 U/L (<40); Albumin 2.4 gm/dL (3.2-5.2); Albumin/Globulin Ratio 0.6 (1.0-2.3); Alkaline Phosphatase 104 U/L (39-117); Bilirubin,Total 0.3 mg/dL (0.1-1.0); Blood Urea Nitrogen 13 mg/dL (8-23); Calcium 9.4 mg/dL (8.6-10.4); Carbon Dioxide 20 mmol/L (22-30); Chloride 107 mmol/L (96-108); Glomerular Filtration Rate 87; Glucose 96 mg/dL (70-105); Phosphorous 1.7 mg/dL (2.5-4.5)
[2021-02-15] MEDS ORDERED: POTASSIUM PHOSPHATE 40 MEQ in DEXTROSE 5% IN WATER 500 ML IV ONE (10:15)
[2021-02-15] MEDS: VANCOMYCIN 1,000 MG in 0.9 % SODIUM CHLORIDE 250 ML IV SCH ×2 (12:10→21:59)
--- NOTE | 2021-02-15 14:08 | Internal Med Progress Note ---
SUBJECTIVE Subjective Patient information: Note initiated : 02/15/21 at 2:05 pm Service Date, if different from initiated Date: [] Patient: Jovan Elizabeth a 75 y/o M admitted on 02/13/21 for weakness, low bp, black stools, pale. Chief Complaint: [leukocytosis] Interval history: History of present illness: Mr. 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 Yanez [phone]. He had EGD 6 days ago for persistent recurrent anemia that required blood transfusion and was being diagnosed with gastric ulcer and dorota infection. He was supposed to received intrathecal pain this coming Saturday02/17/21 by his pain specialist, so this morning he had some pre- procedure lab works, an it indicated leukocytosis with WBC 37.5 with a left shift neutrophile % of 87.3. Did not received any neuprogen recently. H/H 8.5 and 25.9, respectively. Serum lactic acid normal. UA does not reveal any signs of urinary infection. CXR showing 12cm left upper lobe mass increasing in size relative to last study, consistent with the history of lung cancer. Patient is c/o general body weakness, as well as left sided chest pain and back pain. Denies any SOB, cough, sputum production, or respiratory wheezing. Denies any urinary symptoms such as dysuria or change in urinary frequency or urgency. Denies fever, chills, or sweating. 02/14: Afebrile overnight. Cultures (blood, urine, sputum) no growth to date. WBC 37.5-->33.8; hemoglobin 8.5-->7.4. Denies any pain currently. Vomited earlier this morning 10min after having Diflucan. Poor appetite. c/o general body weakness. Denies SOB. Still on Diflucan (IV) as well as broad spectrum antibiotics Vancomycin and Zosyn. 02/15: Afebrile overnight. Cultures (blood, urine, sputum) no growth to date. WBC 33.8-->33.3; hemoglobin 7.4-->7.4. Denies any pain currently. Poor appetite. c/o general body weakness. c/o lethargy.. Denies SOB. Still on Diflucan (IV) as well as broad spectrum antibiotics Vancomycin and Zosyn. Constitutional Vitals: Vital Signs Temp Pulse Resp BP Pulse Ox 36.7 C 83 18 113/66 96 02/15/21 12:00 02/15/21 12:00 02/15/21 12:00 02/15/21 12:00 02/15/21 12:00 Period Temp Pulse Resp BP Sys/Nielsen Pulse Ox Last 24 Hr 36.4 C-36.8 C 73-96 12-18 97-126/58-77 95-100 Intake and Output 02/15/21 02/15/21 02/15/21 05:59 13:59 21:59 Intake Total 50 950 Output Total 2 Balance 48 950 Intake & Output: Intake & Output 02/15/21 02/15/21 02/15/21 05:59 13:59 21:59 Intake Total 50 950 Output Total 2 Balance 48 950 Intake: IV 50 650 Sodium Chloride 0.9% 1,000 ml @ 500 100 mls/hr IV .Q10H [facility] Rx#: [id number] Zosyn 3.375 gm In Dextrose 5% 50 50 in Water 50 ml @ 100 mls/hr IV Q6H [facility] Rx#:[id number] Oral 300 Output: # of times incontinent of urine 2 Other: Meal Breakfast Percent of Meal Consumed 75% Feeding Ability Assist with Tray Set Up Urine Color Dark Yellow # Voids 1 General appearance: cooperative Exam: cachetic sleeping Head Head exam: Present atraumatic and normal inspection Eye Eye exam: Present normal appearance ENT ENT exam: Present mucous membranes moist, normal exam and normal external ear exam Neck Neck exam: Present normal inspection Respiratory Respiratory exam: Present normal respiratory exam Cardiovascular Cardiovascular exam: Present normal rate and rhythm GI/Abdominal GI/Abdominal exam: Present normal bowel sounds Back Exam Back exam: Present normal inspection Neurological Exam Neurological exam: Present alert and oriented X3 Skin Skin exam: Present intact and warm OBJ DATA Labs CBC & Chem 7: 02/15/21 05:47 02/15/21 05:47 Labs: Abnormal Lab Results 02/15/21 02/15/21 02/14/21 05:47 05:47 05:26 WBC 33.3 H* RBC 2.57 L Hgb 7.4 L Hct 24.5 L POC Hct MCHC 30.2 L RDW 15.3 H Plt Count 619 H Neut % (Auto) 88.3 H Lymph % (Auto) 2.5 L Lymph # (Auto) 0.85 L [place] # (Auto) 3.05 H Absolute Neutrophils 29.38 H POC Potassium Potassium 3.2 L 3.0 L Carbon Dioxide 20 L 20 L POC Glucose Phosphorus 1.7 L 2.1 L Albumin 2.4 L 2.6 L Globulin 4.0 H Albumin/Globulin Ratio 0.6 L 0.7 L Procalcitonin 02/14/21 02/13/21 02/13/21 05:26 14:27 14:27 WBC 33.8 H* RBC 2.57 L Hgb 7.4 L Hct 23.2 L POC Hct 25 L MCHC RDW 14.8 H Plt Count 937 H* Neut % (Auto) 86.9 H Lymph % (Auto) 2.5 L Lymph # (Auto) 0.83 L [place] # (Auto) 3.37 H Absolute Neutrophils 29.37 H POC Potassium 3.1 L Potassium Carbon Dioxide POC Glucose 115 H Phosphorus Albumin Globulin Albumin/Globulin Ratio Procalcitonin 0.16 H 02/13/21 14:27 WBC 37.5 H* RBC 2.86 L Hgb 8.5 L Hct 25.9 L POC Hct MCHC RDW 14.8 H Plt Count 782 H Neut % (Auto) 87.3 H Lymph % (Auto) 1.9 L Lymph # (Auto) 0.70 L [place] # (Auto) 3.85 H Absolute Neutrophils 32.70 H POC Potassium Potassium Carbon Dioxide POC Glucose Phosphorus Albumin Globulin Albumin/Globulin Ratio Procalcitonin Meds: Medications Acetaminophen (Acetaminophen 500 Mg Tablet) 1,000 mg PO Q6HP PRN; Protocol PRN Reason: Pain Last Admin: 02/15/21 07:42 Dose: 1,000 mg Documented by: Albuterol/Ipratropium (Ipratropium/Albuterol 3 Ml Ampul.Neb) 3 ml NEB Q4HRT PRN PRN Reason: Wheezing Docusate Sodium (Docusate Sodium 100 Mg Capsule) 100 mg PO BID [facility] Last Admin: 02/15/21 09:14 Dose: Not Given Documented by: Enoxaparin Sodium (Enoxaparin 40 Mg/0.4 Ml Syringe) 40 mg SQ DAILY [facility] Last Admin: 02/15/21 08:42 Dose: 40 mg Documented by: Fentanyl (Fentanyl 100 Mcg/2 Ml Vial) 25 mcg IV Q2HP PRN; Protocol PRN Reason: Per Pain Protocol Heparin Sodium (Porcine) (Heparin Flush 10 Units/Ml 5 Ml Syringe) 2 ml IV Q12 [facility] Sodium Chloride (Sodium Chloride 0.9%) 1,000 mls @ 100 mls/hr IV .Q10H [facility] Last Infusion: 02/15/21 13:36 Dose: 0 mls/hr Documented by: Piperacillin Sod/Tazobactam (Sod 3.375 gm/ Dextrose) 50 mls @ 100 mls/hr IV Q6H [facility]; Protocol Last Infusion: 02/15/21 06:00 Dose: Infused Documented by: Vancomycin HCl 1,000 mg/ (Sodium Chloride) 250 mls @ 250 mls/hr IV Q12H [facility] Last Admin: 02/15/21 12:10 Dose: 250 mls/hr Documented by: Fluconazole (Diflucan) 200 mg in 100 mls @ 100 mls/hr IV DAILY [facility] Stop: 03/05/21 09:01 Last Infusion: 02/15/21 09:45 Dose: Infused Documented by: Potassium Phosphate 40 meq/ (Dextrose) 509.0909 mls @ 127.273 mls/hr IV ONCE ONE Stop: 02/15/21 14:14 Loratadine (Loratadine 10 Mg Tablet) 10 mg PO QDAY [facility] Last Admin: 02/15/21 08:42 Dose: 10 mg Documented by: Megestrol Acetate (Megestrol Acetate 400 Mg/10 Ml Oral.Susp) 200 mg PO QDAY [facility] Last Admin: 02/15/21 08:43 Dose: 200 mg Documented by: Methocarbamol (Methocarbamol 750 Mg Tablet) 750 mg PO QHS [facility] Last Admin: 02/14/21 19:09 Dose: 750 mg Documented by: Omeprazole (Omeprazole 20 Mg Capsule) 20 mg PO ACB [facility] Last Admin: 02/15/21 07:29 Dose: 20 mg Documented by: Ondansetron HCl (Ondansetron 4 Mg/2 Ml Vial) 4 mg IV Q6HP PRN PRN Reason: Nausea And Vomiting Last Admin: 02/14/21 08:38 Dose: 4 mg Documented by: Potassium Chloride (Potassium Chloride 20 Meq Tablet) 20 meq PO UD [facility] Senna (Sennosides 1 Tablet) 2 tab PO HS [facility] Last Admin: 02/14/21 19:11 Dose: Not Given Documented by: Sodium Chloride (0.9 % Sodium Chloride 10 Ml Syringe) 10 ml IV Q8 [facility] Last Admin: 02/15/21 04:21 Dose: Not Given Documented by: Sodium Chloride (0.9 % Sodium Chloride 10 Ml Syringe) 10 ml IV Q12 [facility] Tramadol HCl (Tramadol 50 Mg Tablet) 50 mg PO BIDP PRN; Protocol PRN Reason: pain Last Admin: 02/14/21 19:09 Dose: 50 mg Documented by: Vancomycin HCl (Vancomycin Per Pharmacy) 1 order IV UD [facility]; Protocol Zolpidem Tartrate (Zolpidem 5 Mg Tablet) 5 mg PO HSP PRN PRN Reason: Insomnia A/P Assessment and plan (1) Adenocarcinoma of lung: Status: Acute (2) Chronic hypokalemia: Status: Chronic (3) Leukocytosis: Status: Acute (4) Dorota albicans infection: Status: Acute (5) Anemia, normocytic normochromic: Status: Acute Narrative A/P Narrative: Assessment and Plans: 1. Leukocytosis: DDx: Infectious (bacterial, fungal) vs metastatic cancer to the bone marrow Stays in inpatient med surg Serum lactic acid normal Procalcitonin 0.16 mildly elevated s/p IV fluid bolus given in the ED, to be followed by NS@100cc/hr Blood culture, no growth to date Urine culture, no growth to date Sputum culture, no growth to date Vancomycin Zosyn Diflucan, switch to IV due to nausea vomiting cbc w/ auto diff in the morning to trend WBC Tylenol PRN fever 2. Adenocarcinoma of the lung, left, with metastasis: Oncologist Dr. Yanez [phone] Tylenol PRN mild pain Tramadol PRN moderate pain Fentanyl IV PRN severe pain Robaxin HS Hold any chemotherapy for now until infectious process is ruled out Pending intrathecal pump for pain control 3. Anemia, normocytic normochromic: cbc w/ auto diff in the morning to trend H/H; transfuse pRBC if hemoglobin<7.0, active bleeding, or symptomatic 4. Esophageal/gastric dorota infection: Diflucan, switch to IV Oral PPI 5. Hypokalemia: Potassium phosphate IV replacement therapy CMP in the morning to trend serum potassium level Also check Serum Mg level and replace if needed GI ppx: Oral PPI DVT ppx: Lovenox Code status: DNI Prognosis: GUARDED Disposition: inpatient med surg Time Spent With Patient Time: Total time spent is greater than 50% in coordination of care (as documented) at patient's floor/unit and/or counseling patient: Total time spent with greater than 50% in coordination of care (as documented) at patient's floor/unit and/or counseling patient:: Greater than 35 minutes QUALITY VTE Deep Vein Thrombosis/Pulmonary Embolism Present on Admission: No
[2021-02-15] MEDS: traMADol 50 MG TABLET PO SCH (16:39)
[2021-02-15] MEDS: METHOCARBAMOL 750 MG TABLET PO SCH (20:39)
[2021-02-15] MEDS: SENNOSIDES 1 TABLET PO SCH (20:39)
[2021-02-16] MEDS: PIPERACILLIN SODIUM/TAZOBACTAM 3.375 GM in DEXTROSE 5% IN WATER 50 ML IV SCH ×5 (00:41→23:29)
[2021-02-16] MEDS: 0.9 % SODIUM CHLORIDE 10 ML SYRINGE IV SCH ×5 (05:25→22:59)
[2021-02-16 07:19] LABS: Basophils # (Auto) 0.19 K/mcL (0.00-0.30); Basophils % (Auto) 0.5 % (0.0-2.0); Eosinophils # (Auto) 0.02 K/mcL (0.00-0.70); Eosinophils % (Auto) 0 % (0.0-7.0); Hematocrit 23.9 % (40.1-51.0); Hemoglobin 7.5 g/dL (13.7-17.5); Lymphocytes # (Auto) 0.75 K/mcL (1.50-4.80); Lymphocytes % (Auto) 1.9 % (15.5-49.0); Mean Cell Volume 91.6 fL (80.0-100.0); Mean Corpuscular HGB Conc 31.4 g/dL (31.0-36.0); Mean Platelet Volume 8.8 fL (7.4-10.4); Monocytes # (Auto) 3.59 K/mcL (0.10-0.90); Monocytes % (Auto) 8.9 % (1.0-12.0); Neutrophils % (Auto) 88.7 % (38.0-78.0); Platelet Count 734 K/mcL (140-440); RBC 2.61 M/mcL (4.63-6.08); Red Cell Distribution Width 14.9 % (11.5-14.5); WBC 40.5 K/mcL (4.5-11.0)
[2021-02-16] MEDS: OMEPRAZOLE 20 MG CAPSULE PO SCH (07:52)
[2021-02-16] MEDS: ACETAMINOPHEN 500 MG TABLET PO PRN ×2 (07:52→13:37)
[2021-02-16] MEDS: VANCOMYCIN 1,000 MG in 0.9 % SODIUM CHLORIDE 250 ML IV SCH ×2 (07:53→21:53)
[2021-02-16] MEDS: traMADol 50 MG TABLET PO SCH (07:53)
[2021-02-16] MEDS: DOCUSATE SODIUM 100 MG CAPSULE PO SCH ×2 (07:58→22:59)
[2021-02-16] MEDS: ENOXAPARIN 40 MG/0.4 ML SYRINGE SQ SCH (07:58)
[2021-02-16] MEDS: LORATADINE 10 MG TABLET PO SCH (07:58)
[2021-02-16] MEDS: MEGESTROL ACETATE 400 MG/10 ML ORAL.SUSP PO SCH (07:58)
[2021-02-16 08:28] LABS: ALT/SGPT 14 U/L (<40); AST/SGOT 22 U/L (<40); Albumin 2.2 gm/dL (3.2-5.2); Albumin/Globulin Ratio 0.5 (1.0-2.3); Alkaline Phosphatase 106 U/L (39-117); Bilirubin,Total 0.3 mg/dL (0.1-1.0); Blood Urea Nitrogen 9 mg/dL (8-23); Carbon Dioxide 22 mmol/L (22-30); Chloride 104 mmol/L (96-108); Globulin 4.1 gm/dL (2.2-3.7); Glomerular Filtration Rate 87; Glucose 95 mg/dL (70-105); Phosphorous 2.4 mg/dL (2.5-4.5)
[2021-02-16] MEDS: 0.9 % SODIUM CHLORIDE 1,000 ML IV SCH (08:57)
[2021-02-16] MEDS: FLUCONAZOLE 200 MG/100 ML BAG IV SCH (09:44)
[2021-02-16] MEDS ORDERED: POTASSIUM CHLORIDE 20 MEQ in DEXTROSE 5% IN WATER 250 ML IV ONE (10:30)
--- NOTE | 2021-02-16 14:15 | Internal Med Progress Note ---
SUBJECTIVE Subjective Patient information: Note initiated : 02/16/21 at 2:12 pm Service Date, if different from initiated Date: [] Patient: Jovan Elizabeth a 75 y/o M admitted on 02/13/21 for weakness, low bp, black stools, pale. Chief Complaint: [leukocytosis] Interval history: History of present illness: Mr. 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 Yanez [phone]. He had EGD 6 days ago for persistent recurrent anemia that required blood transfusion and was being diagnosed with gastric ulcer and dorota infection. He was supposed to received intrathecal pain this coming Saturday02/17/21 by his pain specialist, so this morning he had some pre- procedure lab works, an it indicated leukocytosis with WBC 37.5 with a left shift neutrophile % of 87.3. Did not received any neuprogen recently. H/H 8.5 and 25.9, respectively. Serum lactic acid normal. UA does not reveal any signs of urinary infection. CXR showing 12cm left upper lobe mass increasing in size relative to last study, consistent with the history of lung cancer. Patient is c/o general body weakness, as well as left sided chest pain and back pain. Denies any SOB, cough, sputum production, or respiratory wheezing. Denies any urinary symptoms such as dysuria or change in urinary frequency or urgency. Denies fever, chills, or sweating. 02/14: Afebrile overnight. Cultures (blood, urine, sputum) no growth to date. WBC 37.5-->33.8; hemoglobin 8.5-->7.4. Denies any pain currently. Vomited earlier this morning 10min after having Diflucan. Poor appetite. c/o general body weakness. Denies SOB. Still on Diflucan (IV) as well as broad spectrum antibiotics Vancomycin and Zosyn. 02/15: Afebrile overnight. Cultures (blood, urine, sputum) no growth to date. WBC 33.8-->33.3; hemoglobin 7.4-->7.4. Denies any pain currently. Poor appetite. c/o general body weakness. c/o lethargy.. Denies SOB. Still on Diflucan (IV) as well as broad spectrum antibiotics Vancomycin and Zosyn. 02/16: Afebrile overnight. Cultures (blood, urine, sputum) no growth to date. WBC 33.3-->40.5; hemoglobin 7.4-->7.5. Denies any pain currently. Improving appetite. c/o general body weakness. Denies lethargy. Denies SOB. Still on Diflucan (IV) as well as broad spectrum antibiotics Vancomycin and Zosyn. Constitutional Vitals: Vital Signs Temp Pulse Resp BP Pulse Ox 36.6 C 89 18 129/69 100 02/16/21 11:49 02/16/21 11:49 02/16/21 11:49 02/16/21 11:49 02/16/21 11:49 Period Temp Pulse Resp BP Sys/Nielsen Pulse Ox Last 24 Hr 36.5 C-37.1 C 82-95 12-20 123-146/69-84 97-100 Intake and Output 02/16/21 02/16/21 02/16/21 05:59 13:59 21:59 Intake Total 700 1258 Output Total 2 2 Balance 698 1256 Intake & Output: Intake & Output 02/16/21 02/16/21 02/16/21 05:59 13:59 21:59 Intake Total 700 1258 Output Total 2 2 Balance 698 1256 Intake: IV 300 638 Zosyn 3.375 gm In Dextrose 5% 50 50 in Water 50 ml @ 100 mls/hr IV Q6H [facility] Rx#:[id number] Potassium Chloride 20 Meq In 238 Dextrose 5% in Water 250 ml @ 130 mls/hr IV ONCE ONE Rx#: [id number] Vancomycin 1,000 mg In Sodium 250 250 Chloride 0.9% 250 ml @ 250 mls/ hr IV Q12H [facility] Rx#:[id number] Oral 400 620 Output: # of times incontinent of urine 2 2 Other: Meal Lunch Percent of Meal Consumed 50% Feeding Ability Independent Stool Size Moderate Stool Color Brown Stool Consistency Soft # Voids 2 # of times incontinent of 0 Bowels General appearance: cooperative, no acute distress and thin Exam: cachetic lethargic Head Head exam: Present atraumatic and normal inspection Eye Eye exam: Present normal appearance ENT ENT exam: Present mucous membranes moist, normal exam and normal external ear exam Neck Neck exam: Present normal inspection Respiratory Respiratory exam: Present normal respiratory exam Cardiovascular Cardiovascular exam: Present normal rate and rhythm GI/Abdominal GI/Abdominal exam: Present normal bowel sounds Back Exam Back exam: Present normal inspection Neurological Exam Neurological exam: Present alert and oriented X3 Skin Skin exam: Present intact and warm OBJ DATA Labs CBC & Chem 7: 02/16/21 05:37 02/16/21 05:37 Labs: Abnormal Lab Results 02/16/21 02/16/21 02/15/21 05:37 05:37 05:47 WBC 40.5 H* RBC 2.61 L Hgb 7.5 L Hct 23.9 L POC Hct MCHC RDW 14.9 H Plt Count 734 H Neut % (Auto) 88.7 H Lymph % (Auto) 1.9 L Lymph # (Auto) 0.75 L [place] # (Auto) 3.59 H Absolute Neutrophils 35.96 H POC Potassium Potassium 3.1 L 3.2 L Carbon Dioxide 20 L POC Glucose Phosphorus 2.4 L 1.7 L Albumin 2.2 L 2.4 L Globulin 4.1 H 4.0 H Albumin/Globulin Ratio 0.5 L 0.6 L Procalcitonin 02/15/21 02/14/21 02/14/21 05:47 05:26 05:26 WBC 33.3 H* 33.8 H* RBC 2.57 L 2.57 L Hgb 7.4 L 7.4 L Hct 24.5 L 23.2 L POC Hct MCHC 30.2 L RDW 15.3 H 14.8 H Plt Count 619 H 937 H* Neut % (Auto) 88.3 H 86.9 H Lymph % (Auto) 2.5 L 2.5 L Lymph # (Auto) 0.85 L 0.83 L [place] # (Auto) 3.05 H 3.37 H Absolute Neutrophils 29.38 H 29.37 H POC Potassium Potassium 3.0 L Carbon Dioxide 20 L POC Glucose Phosphorus 2.1 L Albumin 2.6 L Globulin Albumin/Globulin Ratio 0.7 L Procalcitonin 02/13/21 02/13/21 02/13/21 14:27 14:27 14:27 WBC 37.5 H* RBC 2.86 L Hgb 8.5 L Hct 25.9 L POC Hct 25 L MCHC RDW 14.8 H Plt Count 782 H Neut % (Auto) 87.3 H Lymph % (Auto) 1.9 L Lymph # (Auto) 0.70 L [place] # (Auto) 3.85 H Absolute Neutrophils 32.70 H POC Potassium 3.1 L Potassium Carbon Dioxide POC Glucose 115 H Phosphorus Albumin Globulin Albumin/Globulin Ratio Procalcitonin 0.16 H Meds: Medications Acetaminophen (Acetaminophen 500 Mg Tablet) 1,000 mg PO Q6HP PRN; Protocol PRN Reason: Pain Last Admin: 02/16/21 13:37 Dose: 1,000 mg Documented by: Albuterol/Ipratropium (Ipratropium/Albuterol 3 Ml Ampul.Neb) 3 ml NEB Q4HRT PRN PRN Reason: Wheezing Docusate Sodium (Docusate Sodium 100 Mg Capsule) 100 mg PO BID [facility] Last Admin: 02/16/21 07:58 Dose: Not Given Documented by: Enoxaparin Sodium (Enoxaparin 40 Mg/0.4 Ml Syringe) 40 mg SQ DAILY [facility] Last Admin: 02/16/21 07:58 Dose: 40 mg Documented by: Fentanyl (Fentanyl 100 Mcg/2 Ml Vial) 25 mcg IV Q2HP PRN; Protocol PRN Reason: Per Pain Protocol Heparin Sodium (Porcine) (Heparin Flush 10 Units/Ml 5 Ml Syringe) 2 ml IV Q12 [facility] Last Admin: 02/16/21 07:58 Dose: Not Given Documented by: Piperacillin Sod/Tazobactam (Sod 3.375 gm/ Dextrose) 50 mls @ 100 mls/hr IV Q6H [facility]; Protocol Last Admin: 02/16/21 13:35 Dose: 100 mls/hr Documented by: Vancomycin HCl 1,000 mg/ (Sodium Chloride) 250 mls @ 250 mls/hr IV Q12H [facility] Last Infusion: 02/16/21 08:56 Dose: Infused Documented by: Fluconazole (Diflucan) 200 mg in 100 mls @ 100 mls/hr IV DAILY [facility] Stop: 03/05/21 09:01 Last Infusion: 02/16/21 13:51 Dose: Infused Documented by: Loratadine (Loratadine 10 Mg Tablet) 10 mg PO QDAY [facility] Last Admin: 02/16/21 07:58 Dose: 10 mg Documented by: Megestrol Acetate (Megestrol Acetate 400 Mg/10 Ml Oral.Susp) 200 mg PO QDAY [facility] Last Admin: 02/16/21 07:58 Dose: 200 mg Documented by: Methocarbamol (Methocarbamol 750 Mg Tablet) 750 mg PO QHS [facility] Last Admin: 02/15/21 20:39 Dose: 750 mg Documented by: Omeprazole (Omeprazole 20 Mg Capsule) 20 mg PO ACB [facility] Last Admin: 02/16/21 07:52 Dose: 20 mg Documented by: Ondansetron HCl (Ondansetron 4 Mg/2 Ml Vial) 4 mg IV Q6HP PRN PRN Reason: Nausea And Vomiting Last Admin: 02/14/21 08:38 Dose: 4 mg Documented by: Potassium Chloride (Potassium Chloride 20 Meq Tablet) 20 meq PO UD [facility] Senna (Sennosides 1 Tablet) 2 tab PO HS [facility] Last Admin: 02/15/21 20:39 Dose: 2 tab Documented by: Sodium Chloride (0.9 % Sodium Chloride 10 Ml Syringe) 10 ml IV Q8 [facility] Last Admin: 02/16/21 13:38 Dose: 10 ml Documented by: Sodium Chloride (0.9 % Sodium Chloride 10 Ml Syringe) 10 ml IV Q12 [facility] Last Admin: 02/16/21 07:54 Dose: 10 ml Documented by: Tramadol HCl (Tramadol 50 Mg Tablet) 50 mg PO BIDP [facility]; Protocol Last Admin: 02/16/21 07:53 Dose: 50 mg Documented by: Vancomycin HCl (Vancomycin Per Pharmacy) 1 order IV UD [facility]; Protocol Zolpidem Tartrate (Zolpidem 5 Mg Tablet) 5 mg PO HSP PRN PRN Reason: Insomnia A/P Assessment and plan (1) Adenocarcinoma of lung: Status: Acute (2) Chronic hypokalemia: Status: Chronic (3) Leukocytosis: Status: Acute (4) Dorota albicans infection: Status: Acute (5) Anemia, normocytic normochromic: Status: Acute Narrative A/P Narrative: Assessment and Plans: 1. Leukocytosis: DDx: Infectious (bacterial, fungal) vs metastatic cancer to the bone marrow Stays in inpatient med surg Serum lactic acid normal Procalcitonin 0.16 mildly elevated Saline lock Blood culture, no growth to date Urine culture, no growth to date Sputum culture, no growth to date Vancomycin Zosyn Diflucan, switch to IV due to nausea vomiting cbc w/ auto diff in the morning to trend WBC Tylenol PRN fever 2. Adenocarcinoma of the lung, left, with metastasis: Oncologist Dr. Yanez [phone] Tylenol PRN mild pain Tramadol PRN moderate pain Fentanyl IV PRN severe pain Robaxin HS Hold any chemotherapy for now until infectious process is ruled out Pending intrathecal pump for pain control 3. Anemia, normocytic normochromic: cbc w/ auto diff in the morning to trend H/H; transfuse pRBC if hemoglobin<7.0, active bleeding, or symptomatic 4. Esophageal/gastric dorota infection: Diflucan, switch to IV Oral PPI 5. Hypokalemia: Potassium chloride IV replacement therapy CMP in the morning to trend serum potassium level Also check Serum Mg level and replace if needed GI ppx: Oral PPI DVT ppx: Lovenox Code status: DNI Prognosis: GUARDED Disposition: inpatient med surg Time Spent With Patient Time: Total time spent is greater than 50% in coordination of care (as documented) at patient's floor/unit and/or counseling patient: Total time spent with greater than 50% in coordination of care (as documented) at patient's floor/unit and/or counseling patient:: Greater than 35 minutes QUALITY VTE Deep Vein Thrombosis/Pulmonary Embolism Present on Admission: No
[2021-02-16] MEDS: METHOCARBAMOL 750 MG TABLET PO SCH (21:54)
[2021-02-16] MEDS: SENNOSIDES 1 TABLET PO SCH (22:59)
[2021-02-17] MEDS: PIPERACILLIN SODIUM/TAZOBACTAM 3.375 GM in DEXTROSE 5% IN WATER 50 ML IV SCH ×4 (05:49→23:20)
[2021-02-17] MEDS: 0.9 % SODIUM CHLORIDE 10 ML SYRINGE IV SCH ×6 (05:49→23:14)
[2021-02-17] MEDS: traMADol 50 MG TABLET PO SCH (06:32)
[2021-02-17] MEDS: OMEPRAZOLE 20 MG CAPSULE PO SCH (06:32)
[2021-02-17 07:35] LABS: Basophils # (Auto) 0.14 K/mcL (0.00-0.30); Basophils % (Auto) 0.4 % (0.0-2.0); Eosinophils # (Auto) 0.01 K/mcL (0.00-0.70); Eosinophils % (Auto) 0 % (0.0-7.0); Hematocrit 22.5 % (40.1-51.0); Hemoglobin 7.1 g/dL (13.7-17.5); Lymphocytes # (Auto) 0.79 K/mcL (1.50-4.80); Lymphocytes % (Auto) 2.1 % (15.5-49.0); Mean Cell Volume 89.6 fL (80.0-100.0); Mean Corpuscular HGB Conc 31.6 g/dL (31.0-36.0); Mean Platelet Volume 8.9 fL (7.4-10.4); Monocytes # (Auto) 2.68 K/mcL (0.10-0.90); Monocytes % (Auto) 7.2 % (1.0-12.0); Neutrophils % (Auto) 90.3 % (38.0-78.0); Platelet Count 763 K/mcL (140-440); RBC 2.51 M/mcL (4.63-6.08); WBC 37.2 K/mcL (4.5-11.0)
[2021-02-17 08:07] LABS: Phosphorous 2.1 mg/dL (2.5-4.5)
[2021-02-17] MEDS: LORATADINE 10 MG TABLET PO SCH (08:30)
[2021-02-17] MEDS: FLUCONAZOLE 200 MG/100 ML BAG IV SCH (08:30)
[2021-02-17 08:31] LABS: ALT/SGPT 11 U/L (<40); AST/SGOT 14 U/L (<40); Albumin/Globulin Ratio 0.5 (1.0-2.3); Alkaline Phosphatase 100 U/L (39-117); Bilirubin,Total 0.2 mg/dL (0.1-1.0); Blood Urea Nitrogen 10 mg/dL (8-23); Carbon Dioxide 21 mmol/L (22-30); Chloride 104 mmol/L (96-108); Glomerular Filtration Rate 91; Glucose 99 mg/dL (70-105)
[2021-02-17] MEDS: DOCUSATE SODIUM 100 MG CAPSULE PO SCH ×2 (08:31→19:56)
[2021-02-17] MEDS: MEGESTROL ACETATE 400 MG/10 ML ORAL.SUSP PO SCH (08:31)
[2021-02-17] MEDS: ENOXAPARIN 40 MG/0.4 ML SYRINGE SQ SCH (08:31)
[2021-02-17] MEDS: VANCOMYCIN 1,000 MG in 0.9 % SODIUM CHLORIDE 250 ML IV SCH ×2 (08:34→19:45)
[2021-02-17] MEDS ORDERED: POTASSIUM CHLORIDE 20 MEQ in DEXTROSE 5% IN WATER 250 ML IV ONE ×2 (10:30→17:06)
--- NOTE | 2021-02-17 12:32 | Internal Med Progress Note ---
SUBJECTIVE Subjective Patient information: Note initiated : 02/17/21 at 12:30 pm Service Date, if different from initiated Date: [] Patient: Jovan Elizabeth a 75 y/o M admitted on 02/13/21 for weakness, low bp, black stools, pale. Chief Complaint: [] Interval history: History of present illness: Mr. 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 Yanez [phone]. He had EGD 6 days ago for persistent recurrent anemia that required blood transfusion and was being diagnosed with gastric ulcer and dorota infection. He was supposed to received intrathecal pain this coming Saturday02/17/21 by his pain specialist, so this morning he had some pre- procedure lab works, an it indicated leukocytosis with WBC 37.5 with a left shift neutrophile % of 87.3. Did not received any neuprogen recently. H/H 8.5 and 25.9, respectively. Serum lactic acid normal. UA does not reveal any signs of urinary infection. CXR showing 12cm left upper lobe mass increasing in size relative to last study, consistent with the history of lung cancer. Patient is c/o general body weakness, as well as left sided chest pain and back pain. Denies any SOB, cough, sputum production, or respiratory wheezing. Denies any urinary symptoms such as dysuria or change in urinary frequency or urgency. Denies fever, chills, or sweating. 02/14: Afebrile overnight. Cultures (blood, urine, sputum) no growth to date. WBC 37.5-->33.8; hemoglobin 8.5-->7.4. Denies any pain currently. Vomited earlier this morning 10min after having Diflucan. Poor appetite. c/o general body weakness. Denies SOB. Still on Diflucan (IV) as well as broad spectrum antibiotics Vancomycin and Zosyn. 02/15: Afebrile overnight. Cultures (blood, urine, sputum) no growth to date. WBC 33 .8-->33.3; hemoglobin 7.4-->7.4. Denies any pain currently. Poor appetite. c/o general body weakness. c/o lethargy.. Denies SOB. Still on Diflucan (IV) as well as broad spectrum antibiotics Vancomycin and Zosyn. 02/16: Afebrile overnight. Cultures (blood, urine, sputum) no growth to date. WBC 33. 3-->40.5; hemoglobin 7.4-->7.5. Denies any pain currently. Improving appetite. c/o general body weakness. Denies lethargy. Denies SOB. Still on Diflucan (IV) as well as broad spectrum antibiotics Vancomycin and Zosyn. 02/16: Afebrile overnight. Cultures (blood, urine, sputum) no growth to date. WBC 40.5-->37.2; hemoglobin 7.5-->7.1. Denies any pain currently. Improving appetite. Improving general body weakness. Denies lethargy. Denies SOB. Still on Diflucan (IV) as well as broad spectrum antibiotics Vancomycin and Zosyn. Constitutional Vitals: Vital Signs Temp Pulse Resp BP Pulse Ox 36.3 C 98 H 19 153/87 96 02/17/21 11:17 02/17/21 11:17 02/17/21 11:17 02/17/21 11:17 02/17/21 11:17 Period Temp Pulse Resp BP Sys/Nielsen Pulse Ox Last 24 Hr 36.3 C-36.9 C 77-103 16-20 110-171/64-87 89-100 Intake and Output 02/16/21 02/17/21 02/17/21 21:59 05:59 13:59 Intake Total 290 650 50 Output Total 201 3 Balance 89 647 50 Weight 69.938 kg Intake & Output: Intake & Output 02/16/21 02/17/21 02/17/21 21:59 05:59 13:59 Intake Total 290 650 50 Output Total 201 3 Balance 89 647 50 Weight 69.938 kg Intake: IV 50 350 50 Zosyn 3.375 gm In Dextrose 5% 50 100 50 in Water 50 ml @ 100 mls/hr IV Q6H [facility] Rx#:[id number] Vancomycin 1,000 mg In Sodium 250 Chloride 0.9% 250 ml @ 250 mls/ hr IV Q12H [facility] Rx#:[id number] Oral 240 300 Output: Void Amount 200 # of times incontinent of urine 1 3 Other: Meal Dinner Percent of Meal Consumed 0% Stool Size Small Stool Color Black Stool Consistency Loose # Bowel Movements 1 1 # of times incontinent of 1 Bowels General appearance: cooperative, no acute distress and thin Exam: cachetic lethargic Head Head exam: Present atraumatic and normal inspection Eye Eye exam: Present normal appearance ENT ENT exam: Present mucous membranes moist, normal exam and normal external ear exam Neck Neck exam: Present normal inspection Respiratory Respiratory exam: Present normal respiratory exam Cardiovascular Cardiovascular exam: Present normal rate and rhythm GI/Abdominal GI/Abdominal exam: Present normal bowel sounds Back Exam Back exam: Present normal inspection Neurological Exam Neurological exam: Present alert and oriented X3 Skin Skin exam: Present intact and warm OBJ DATA Labs CBC & Chem 7: 02/17/21 05:56 02/17/21 05:56 Labs: Abnormal Lab Results 02/17/21 02/17/21 02/16/21 05:56 05:56 05:37 WBC 37.2 H* RBC 2.51 L Hgb 7.1 L Hct 22.5 L MCHC RDW 15.0 H Plt Count 763 H Neut % (Auto) 90.3 H Lymph % (Auto) 2.1 L Lymph # (Auto) 0.79 L [place] # (Auto) 2.68 H Absolute Neutrophils 33.55 H Potassium 2.7 L* 3.1 L Carbon Dioxide 21 L Phosphorus 2.1 L 2.4 L Albumin 2.0 L 2.2 L Globulin 4.0 H 4.1 H Albumin/Globulin Ratio 0.5 L 0.5 L 02/16/21 02/15/21 02/15/21 05:37 05:47 05:47 WBC 40.5 H* 33.3 H* RBC 2.61 L 2.57 L Hgb 7.5 L 7.4 L Hct 23.9 L 24.5 L MCHC 30.2 L RDW 14.9 H 15.3 H Plt Count 734 H 619 H Neut % (Auto) 88.7 H 88.3 H Lymph % (Auto) 1.9 L 2.5 L Lymph # (Auto) 0.75 L 0.85 L [place] # (Auto) 3.59 H 3.05 H Absolute Neutrophils 35.96 H 29.38 H Potassium 3.2 L Carbon Dioxide 20 L Phosphorus 1.7 L Albumin 2.4 L Globulin 4.0 H Albumin/Globulin Ratio 0.6 L Meds: Medications Acetaminophen (Acetaminophen 500 Mg Tablet) 1,000 mg PO Q6HP PRN; Protocol PRN Reason: Pain Last Admin: 02/16/21 13:37 Dose: 1,000 mg Documented by: Albuterol/Ipratropium (Ipratropium/Albuterol 3 Ml Ampul.Neb) 3 ml NEB Q4HRT PRN PRN Reason: Wheezing Docusate Sodium (Docusate Sodium 100 Mg Capsule) 100 mg PO BID [facility] Last Admin: 02/17/21 08:31 Dose: Not Given Documented by: Enoxaparin Sodium (Enoxaparin 40 Mg/0.4 Ml Syringe) 40 mg SQ DAILY [facility] Last Admin: 02/17/21 08:31 Dose: 40 mg Documented by: Fentanyl (Fentanyl 100 Mcg/2 Ml Vial) 25 mcg IV Q2HP PRN; Protocol PRN Reason: Per Pain Protocol Heparin Sodium (Porcine) (Heparin Flush 10 Units/Ml 5 Ml Syringe) 2 ml IV Q12 [facility] Last Admin: 02/17/21 08:31 Dose: Not Given Documented by: Heparin Sodium (Porcine) (Heparin Flush 10 Units/Ml 5 Ml Syringe) 2 ml IV Q12 [facility] Piperacillin Sod/Tazobactam (Sod 3.375 gm/ Dextrose) 50 mls @ 100 mls/hr IV Q6H [facility]; Protocol Last Infusion: 02/17/21 06:20 Dose: Infused Documented by: Vancomycin HCl 1,000 mg/ (Sodium Chloride) 250 mls @ 250 mls/hr IV Q12H [facility] Last Admin: 02/17/21 08:34 Dose: 250 mls/hr Documented by: Fluconazole (Diflucan) 200 mg in 100 mls @ 100 mls/hr IV DAILY [facility] Stop: 03/05/21 09:01 Last Admin: 02/17/21 08:30 Dose: 100 mls/hr Documented by: Loratadine (Loratadine 10 Mg Tablet) 10 mg PO QDAY [facility] Last Admin: 02/17/21 08:30 Dose: 10 mg Documented by: Megestrol Acetate (Megestrol Acetate 400 Mg/10 Ml Oral.Susp) 200 mg PO QDAY [facility] Last Admin: 02/17/21 08:31 Dose: 200 mg Documented by: Methocarbamol (Methocarbamol 750 Mg Tablet) 750 mg PO QHS [facility] Last Admin: 02/16/21 21:54 Dose: 750 mg Documented by: Omeprazole (Omeprazole 20 Mg Capsule) 20 mg PO ACB [facility] Last Admin: 02/17/21 06:32 Dose: 20 mg Documented by: Ondansetron HCl (Ondansetron 4 Mg/2 Ml Vial) 4 mg IV Q6HP PRN PRN Reason: Nausea And Vomiting Last Admin: 02/14/21 08:38 Dose: 4 mg Documented by: Potassium Chloride (Potassium Chloride 20 Meq Tablet) 20 meq PO UD [facility] Senna (Sennosides 1 Tablet) 2 tab PO HS [facility] Last Admin: 02/16/21 22:59 Dose: Not Given Documented by: Sodium Chloride (0.9 % Sodium Chloride 10 Ml Syringe) 10 ml IV Q8 [facility] Last Admin: 02/17/21 05:49 Dose: 10 ml Documented by: Sodium Chloride (0.9 % Sodium Chloride 10 Ml Syringe) 10 ml IV Q12 [facility] Last Admin: 02/17/21 08:31 Dose: 10 ml Documented by: Sodium Chloride (0.9 % Sodium Chloride 10 Ml Syringe) 10 ml IV Q12 [facility] Tramadol HCl (Tramadol 50 Mg Tablet) 50 mg PO BIDP [facility]; Protocol Last Admin: 02/17/21 06:32 Dose: 50 mg Documented by: Vancomycin HCl (Vancomycin Per Pharmacy) 1 order IV UD [facility]; Protocol Zolpidem Tartrate (Zolpidem 5 Mg Tablet) 5 mg PO HSP PRN PRN Reason: Insomnia A/P Assessment and plan (1) Adenocarcinoma of lung: Status: Acute (2) Chronic hypokalemia: Status: Chronic (3) Leukocytosis: Status: Acute (4) Dorota albicans infection: Status: Acute (5) Anemia, normocytic normochromic: Status: Acute Narrative A/P Narrative: Assessment and Plans: 1. Leukocytosis: DDx: Infectious (bacterial, fungal) vs metastatic cancer to the bone marrow Stays in inpatient med surg Serum lactic acid normal Procalcitonin 0.16 mildly elevated Saline lock Blood culture, no growth to date Urine culture, no growth to date Sputum culture, no growth to date Vancomycin Zosyn Diflucan, switch to IV due to nausea vomiting cbc w/ auto diff in the morning to trend WBC Tylenol PRN fever 2. Adenocarcinoma of the lung, left, with metastasis: Oncologist Dr. Yanez [phone] Tylenol PRN mild pain Tramadol PRN moderate pain Fentanyl IV PRN severe pain Robaxin HS Hold any chemotherapy for now until infectious process is ruled out Pending intrathecal pump for pain control 3. Anemia, normocytic normochromic: cbc w/ auto diff in the morning to trend H/H; transfuse pRBC if hemoglobin<7.0, active bleeding, or symptomatic 4. Esophageal/gastric dorota infection: Diflucan, switch to IV Oral PPI 5. Hypokalemia: Potassium chloride IV replacement therapy Repeat serum potassium level at noon, repeat replacement as needed Also check Serum Mg level and replace if needed GI ppx: Oral PPI DVT ppx: Lovenox Code status: DNI Prognosis: GUARDED Disposition: inpatient med surg Time Spent With Patient Time: Total time spent is greater than 50% in coordination of care (as documented) at patient's floor/unit and/or counseling patient: Total time spent with greater than 50% in coordination of care (as documented) at patient's floor/unit and/or counseling patient:: Greater than 35 minutes QUALITY VTE Deep Vein Thrombosis/Pulmonary Embolism Present on Admission: No
[2021-02-17] MEDS ORDERED: POTASSIUM PHOSPHATE 20 MEQ in DEXTROSE 5% IN WATER 250 ML IV ONE (17:08)
[2021-02-17] MEDS ORDERED: POTASSIUM CHLORIDE 20 MEQ/10 ML VIAL IV ONE ×2 (19:25)
[2021-02-17] MEDS ORDERED: POTASSIUM PHOSPHATE 66 MEQ/15 ML VIAL IV ONE (19:26)
[2021-02-17] MEDS: SENNOSIDES 1 TABLET PO SCH (19:58)
[2021-02-17] MEDS: METHOCARBAMOL 750 MG TABLET PO SCH (23:13)
[2021-02-18] MEDS: PIPERACILLIN SODIUM/TAZOBACTAM 3.375 GM in DEXTROSE 5% IN WATER 50 ML IV SCH ×3 (05:58→17:18)
[2021-02-18] MEDS: 0.9 % SODIUM CHLORIDE 10 ML SYRINGE IV SCH ×8 (05:58→20:06)
[2021-02-18 08:07] LABS: Basophils # (Auto) 0.15 K/mcL (0.00-0.30); Basophils % (Auto) 0.4 % (0.0-2.0); Eosinophils # (Auto) 0.04 K/mcL (0.00-0.70); Eosinophils % (Auto) 0.1 % (0.0-7.0); Hematocrit 21.2 % (40.1-51.0); Hemoglobin 6.6 g/dL (13.7-17.5); Lymphocytes # (Auto) 0.65 K/mcL (1.50-4.80); Lymphocytes % (Auto) 1.9 % (15.5-49.0); Mean Cell Volume 91.8 fL (80.0-100.0); Mean Corpuscular HGB Conc 31.1 g/dL (31.0-36.0); Mean Platelet Volume 8.6 fL (7.4-10.4); Monocytes # (Auto) 2.88 K/mcL (0.10-0.90); Monocytes % (Auto) 8.5 % (1.0-12.0); Neutrophils % (Auto) 89.1 % (38.0-78.0); Platelet Count 735 K/mcL (140-440); RBC 2.31 M/mcL (4.63-6.08); Red Cell Distribution Width 15.2 % (11.5-14.5); WBC 33.8 K/mcL (4.5-11.0)
[2021-02-18] MEDS: traMADol 50 MG TABLET PO SCH (08:10)
[2021-02-18] MEDS: OMEPRAZOLE 20 MG CAPSULE PO SCH (08:10)
[2021-02-18 08:11] LABS: Phosphorous 2.2 mg/dL (2.5-4.5)
[2021-02-18] MEDS ORDERED: diphenhydrAMINE 25 MG CAPSULE PO ONE (08:28)
[2021-02-18] MEDS ORDERED: ACETAMINOPHEN 325 MG TABLET PO ONE (08:28)
[2021-02-18] MEDS ORDERED: 0.9 % SODIUM CHLORIDE 250 ML IV SCH (08:30)
[2021-02-18 08:33] LABS: ALT/SGPT 8 U/L (<40); AST/SGOT 11 U/L (<40); Albumin/Globulin Ratio 0.5 (1.0-2.3); Alkaline Phosphatase 89 U/L (39-117); Bilirubin,Total 0.3 mg/dL (0.1-1.0); Blood Urea Nitrogen 9 mg/dL (8-23); Calcium 9.2 mg/dL (8.6-10.4); Carbon Dioxide 21 mmol/L (22-30); Chloride 104 mmol/L (96-108); Globulin 3.7 gm/dL (2.2-3.7); Glomerular Filtration Rate 91; Glucose 114 mg/dL (70-105)
[2021-02-18] MEDS ORDERED: POTASSIUM PHOSPHATE 20 MEQ in DEXTROSE 5% IN WATER 250 ML IV ONE (09:27)
[2021-02-18] MEDS: ENOXAPARIN 40 MG/0.4 ML SYRINGE SQ SCH (09:34)
[2021-02-18] MEDS: DOCUSATE SODIUM 100 MG CAPSULE PO SCH ×2 (09:35→20:04)
[2021-02-18] MEDS: LORATADINE 10 MG TABLET PO SCH (09:35)
[2021-02-18] MEDS: FLUCONAZOLE 200 MG/100 ML BAG IV SCH (09:35)
[2021-02-18] MEDS: MEGESTROL ACETATE 400 MG/10 ML ORAL.SUSP PO SCH (09:36)
--- NOTE | 2021-02-18 10:30 | Internal Med Progress Note ---
SUBJECTIVE Subjective Patient information: Note initiated : 02/18/21 at 10:26 am Service Date, if different from initiated Date: [] Patient: Jovan Elizabeth a 75 y/o M admitted on 02/13/21 for weakness, low bp, black stools, pale. Chief Complaint: [] Interval history: History of present illness: Mr. 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 Yanez [phone]. He had EGD 6 days ago for persistent recurrent anemia that required blood transfusion and was being diagnosed with gastric ulcer and dorota infection. He was supposed to received intrathecal pain this coming Saturday02/17/21 by his pain specialist, so this morning he had some pre- procedure lab works, an it indicated leukocytosis with WBC 37.5 with a left shift neutrophile % of 87.3. Did not received any neuprogen recently. H/H 8.5 and 25.9, respectively. Serum lactic acid normal. UA does not reveal any signs of urinary infection. CXR showing 12cm left upper lobe mass increasing in size relative to last study, consistent with the history of lung cancer. Patient is c/o general body weakness, as well as left sided chest pain and back pain. Denies any SOB, cough, sputum production, or respiratory wheezing. Denies any urinary symptoms such as dysuria or change in urinary frequency or urgency. Denies fever, chills, or sweating. 02/14: Afebrile overnight. Cultures (blood, urine, sputum) no growth to date. WBC 37.5-->33.8; hemoglobin 8.5-->7.4. Denies any pain currently. Vomited earlier this morning 10min after having Diflucan. Poor appetite. c/o general body weakness. Denies SOB. Still on Diflucan (IV) as well as broad spectrum antibiotics Vancomycin and Zosyn. 02/15: Afebrile overnight. Cultures (blood, urine, sputum) no growth to date. WBC 33 .8-->33.3; hemoglobin 7.4-->7.4. Denies any pain currently. Poor appetite. c/o general body weakness. c/o lethargy.. Denies SOB. Still on Diflucan (IV) as well as broad spectrum antibiotics Vancomycin and Zosyn. 02/16: Afebrile overnight. Cultures (blood, urine, sputum) no growth to date. WBC 33. 3-->40.5; hemoglobin 7.4-->7.5. Denies any pain currently. Improving appetite. c/o general body weakness. Denies lethargy. Denies SOB. Still on Diflucan (IV) as well as broad spectrum antibiotics Vancomycin and Zosyn. 02/17: Afebrile overnight. Cultures (blood, urine, sputum) no growth to date. WBC 40.5-->37.2; hemoglobin 7.5-->7.1. Denies any pain currently. Improving appetite. Improving general body weakness. Denies lethargy. Denies SOB. Still on Diflucan (IV) as well as broad spectrum antibiotics Vancomycin and Zosyn. 02/18: Afebrile overnight. Cultures (blood, urine, sputum) no growth to date. WBC 37.2-->33.8; hemoglobin 7.1-->6.6. Denies any pain currently. Improving appetite. Improving general body weakness. Denies lethargy. Denies SOB. Still on Diflucan (IV) as well as broad spectrum antibiotics Vancomycin and Zosyn. Constitutional Vitals: Vital Signs Temp Pulse Resp BP Pulse Ox 36.8 C 68 17 104/78 95 02/18/21 07:19 02/18/21 07:19 02/18/21 07:19 02/18/21 07:19 02/18/21 07:19 Period Temp Pulse Resp BP Sys/Nielsen Pulse Ox Last 24 Hr 36.3 C-37.3 C 68-106 17-20 104-153/67-87 95-98 Intake and Output 02/17/21 02/18/21 02/18/21 21:59 05:59 13:59 Intake Total 393 073.5856 50 Output Total 2 2 2 Balance 832 482.2024 48 Weight 69.989 kg Intake & Output: Intake & Output 02/17/21 02/18/21 02/18/21 21:59 05:59 13:59 Intake Total 855 521.0896 50 Output Total 2 2 2 Balance 144 429.6188 48 Weight 69.989 kg Intake: IV 644 922.0785 50 Zosyn 3.375 gm In Dextrose 5% 50 50 50 in Water 50 ml @ 100 mls/hr IV Q6H [facility] Rx#:[id number] Potassium Chloride 20 Meq In 260 260 Dextrose 5% in Water 250 ml @ 130 mls/hr IV ONCE ONE Rx#: [id number] Potassium Phosphate 20 Meq In 254.5455 Dextrose 5% in Water 250 ml @ 127.273 mls/hr IV ONCE ONE Rx#: [id number] Vancomycin 1,000 mg In Sodium 250 Chloride 0.9% 250 ml @ 250 mls/ hr IV Q12H [facility] Rx#:[id number] Oral 300 Output: # of times incontinent of urine 2 2 2 Other: Urine Appearance Clear Urine Color Bright Yellow Urine Odor Normal Stool Size Small Small Stool Color Brown Black Black Stool Consistency Liquid Loose Loose # Voids 1 1 # Bowel Movements 1 1 1 # of times incontinent of 1 1 Bowels General appearance: cooperative, no acute distress and thin Exam: cachetic lethargic Head Head exam: Present atraumatic and normal inspection Eye Eye exam: Present normal appearance ENT ENT exam: Present mucous membranes moist, normal exam and normal external ear exam Neck Neck exam: Present normal inspection Respiratory Respiratory exam: Present normal respiratory exam Cardiovascular Cardiovascular exam: Present normal rate and rhythm GI/Abdominal GI/Abdominal exam: Present normal bowel sounds Back Exam Back exam: Present normal inspection Neurological Exam Neurological exam: Present alert and oriented X3 Skin Skin exam: Present intact and warm OBJ DATA Labs CBC & Chem 7: 02/18/21 06:36 02/18/21 06:36 Labs: Abnormal Lab Results 02/18/21 02/18/21 02/17/21 06:36 06:36 16:01 WBC 33.8 H* RBC 2.31 L Hgb 6.6 L* Hct 21.2 L RDW 15.2 H Plt Count 735 H Neut % (Auto) 89.1 H Lymph % (Auto) 1.9 L Lymph # (Auto) 0.65 L [place] # (Auto) 2.88 H Absolute Neutrophils 30.09 H Potassium 2.5 L* 2.8 L* Carbon Dioxide 21 L Glucose 114 H Phosphorus 2.2 L Total Protein 5.7 L Albumin 2.0 L Globulin Albumin/Globulin Ratio 0.5 L 02/17/21 02/17/21 02/16/21 05:56 05:56 05:37 WBC 37.2 H* RBC 2.51 L Hgb 7.1 L Hct 22.5 L RDW 15.0 H Plt Count 763 H Neut % (Auto) 90.3 H Lymph % (Auto) 2.1 L Lymph # (Auto) 0.79 L [place] # (Auto) 2.68 H Absolute Neutrophils 33.55 H Potassium 2.7 L* 3.1 L Carbon Dioxide 21 L Glucose Phosphorus 2.1 L 2.4 L Total Protein Albumin 2.0 L 2.2 L Globulin 4.0 H 4.1 H Albumin/Globulin Ratio 0.5 L 0.5 L 02/16/21 05:37 WBC 40.5 H* RBC 2.61 L Hgb 7.5 L Hct 23.9 L RDW 14.9 H Plt Count 734 H Neut % (Auto) 88.7 H Lymph % (Auto) 1.9 L Lymph # (Auto) 0.75 L [place] # (Auto) 3.59 H Absolute Neutrophils 35.96 H Potassium Carbon Dioxide Glucose Phosphorus Total Protein Albumin Globulin Albumin/Globulin Ratio Meds: Medications Acetaminophen (Acetaminophen 500 Mg Tablet) 1,000 mg PO Q6HP PRN; Protocol PRN Reason: Pain Last Admin: 02/16/21 13:37 Dose: 1,000 mg Documented by: Albuterol/Ipratropium (Ipratropium/Albuterol 3 Ml Ampul.Neb) 3 ml NEB Q4HRT PRN PRN Reason: Wheezing Docusate Sodium (Docusate Sodium 100 Mg Capsule) 100 mg PO BID [facility] Last Admin: 02/18/21 09:35 Dose: Not Given Documented by: Enoxaparin Sodium (Enoxaparin 40 Mg/0.4 Ml Syringe) 40 mg SQ DAILY [facility] Last Admin: 02/18/21 09:34 Dose: 40 mg Documented by: Fentanyl (Fentanyl 100 Mcg/2 Ml Vial) 25 mcg IV Q2HP PRN; Protocol PRN Reason: Per Pain Protocol Heparin Sodium (Porcine) (Heparin Flush 10 Units/Ml 5 Ml Syringe) 2 ml IV Q12 [facility] Last Admin: 02/18/21 09:36 Dose: Not Given Documented by: Heparin Sodium (Porcine) (Heparin Flush 10 Units/Ml 5 Ml Syringe) 2 ml IV Q12 [facility] Last Admin: 02/18/21 09:36 Dose: Not Given Documented by: Piperacillin Sod/Tazobactam (Sod 3.375 gm/ Dextrose) 50 mls @ 100 mls/hr IV Q6H [facility]; Protocol Last Infusion: 02/18/21 06:28 Dose: Infused Documented by: Vancomycin HCl 1,000 mg/ (Sodium Chloride) 250 mls @ 250 mls/hr IV Q12H [facility] Last Infusion: 02/17/21 21:21 Dose: Infused Documented by: Fluconazole (Diflucan) 200 mg in 100 mls @ 100 mls/hr IV DAILY [facility] Stop: 03/05/21 09:01 Last Admin: 02/18/21 09:35 Dose: 100 mls/hr Documented by: Sodium Chloride (Sodium Chloride 0.9%) 250 mls @ 20 mls/hr IV .[id number] [facility] Stop: 02/18/21 20:59 Last Admin: 02/18/21 09:46 Dose: 20 mls/hr Documented by: Potassium Phosphate 20 meq/ (Dextrose) 254.5455 mls @ 127.273 mls/hr IV ONCE ONE Stop: 02/18/21 11:26 Loratadine (Loratadine 10 Mg Tablet) 10 mg PO QDAY [facility] Last Admin: 02/18/21 09:35 Dose: 10 mg Documented by: Megestrol Acetate (Megestrol Acetate 400 Mg/10 Ml Oral.Susp) 200 mg PO QDAY [facility] Last Admin: 02/18/21 09:36 Dose: 200 mg Documented by: Methocarbamol (Methocarbamol 750 Mg Tablet) 750 mg PO QHS [facility] Last Admin: 02/17/21 23:13 Dose: 750 mg Documented by: Omeprazole (Omeprazole 20 Mg Capsule) 20 mg PO ACB [facility] Last Admin: 02/18/21 08:10 Dose: 20 mg Documented by: Ondansetron HCl (Ondansetron 4 Mg/2 Ml Vial) 4 mg IV Q6HP PRN PRN Reason: Nausea And Vomiting Last Admin: 02/14/21 08:38 Dose: 4 mg Documented by: Senna (Sennosides 1 Tablet) 2 tab PO HS [facility] Last Admin: 02/17/21 19:58 Dose: Not Given Documented by: Sodium Chloride (0.9 % Sodium Chloride 10 Ml Syringe) 10 ml IV Q8 [facility] Last Admin: 02/18/21 09:36 Dose: 10 ml Documented by: Sodium Chloride (0.9 % Sodium Chloride 10 Ml Syringe) 10 ml IV Q12 [facility] Last Admin: 02/18/21 09:47 Dose: 10 ml Documented by: Sodium Chloride (0.9 % Sodium Chloride 10 Ml Syringe) 10 ml IV Q12 [facility] Last Admin: 02/18/21 09:47 Dose: 10 ml Documented by: Tramadol HCl (Tramadol 50 Mg Tablet) 50 mg PO BIDP [facility]; Protocol Last Admin: 02/18/21 08:10 Dose: 50 mg Documented by: Vancomycin HCl (Vancomycin Per Pharmacy) 1 order IV UD [facility]; Protocol Zolpidem Tartrate (Zolpidem 5 Mg Tablet) 5 mg PO HSP PRN PRN Reason: Insomnia A/P Assessment and plan (1) Adenocarcinoma of lung: Status: Acute (2) Chronic hypokalemia: Status: Chronic (3) Leukocytosis: Status: Acute (4) Dorota albicans infection: Status: Acute (5) Anemia, normocytic normochromic: Status: Acute Narrative A/P Narrative: Assessment and Plans: 1. Leukocytosis: DDx: Infectious (bacterial, fungal) vs metastatic cancer to the bone marrow Stays in inpatient med surg Serum lactic acid normal Procalcitonin 0.16 mildly elevated Saline lock Blood culture, no growth to date Urine culture, no growth to date Sputum culture, no growth to date Vancomycin Zosyn Diflucan, switch to IV due to nausea vomiting cbc w/ auto diff in the morning to trend WBC Tylenol PRN fever MIDLINE placement for blood transfusion and antibiotics administration 2. Adenocarcinoma of the lung, left, with metastasis: Oncologist Dr. Yanez [phone] Tylenol PRN mild pain Tramadol PRN moderate pain Fentanyl IV PRN severe pain Robaxin HS Hold any chemotherapy for now until infectious process is ruled out Pending intrathecal pump for pain control 3. Anemia, normocytic normochromic: Transfuse 2 unit pRBC today Repeat cbc to trend H/H and repeat transfusion if needed to keep hemoglobin>7.0 4. Esophageal/gastric dorota infection: Diflucan, switch to IV Oral PPI 5. Hypokalemia: Potassium phosphate IV replacement therapy Repeat serum potassium level at noon, repeat replacement as needed Also check Serum Mg level and replace if needed GI ppx: Oral PPI DVT ppx: Lovenox Code status: DNI Prognosis: GUARDED Disposition: inpatient med surg Time Spent With Patient Time: Total time spent is greater than 50% in coordination of care (as documented) at patient's floor/unit and/or counseling patient: Total time spent with greater than 50% in coordination of care (as documented) at patient's floor/unit and/or counseling patient:: Greater than 35 minutes QUALITY VTE Deep Vein Thrombosis/Pulmonary Embolism Present on Admission: No
[2021-02-18] MEDS: VANCOMYCIN 1,000 MG in 0.9 % SODIUM CHLORIDE 250 ML IV SCH ×2 (11:02→20:02)
--- NOTE | 2021-02-18 13:21 | Internal Med Progress Note ---
SUBJECTIVE Subjective Patient information: Note initiated : 02/18/21 at 1:08 pm Service Date, if different from initiated Date: [] Patient: Jovan Elizabeth a 75 y/o M admitted on 02/13/21 for weakness, low bp, black stools, pale. Chief Complaint: [] Interval history: History of present illness: Mr. 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 Yanez [phone]. He had EGD 6 days ago for persistent recurrent anemia that required blood transfusion and was being diagnosed with gastric ulcer and michelle infection. He was supposed to received intrathecal pain this coming Saturday02/17/21 by his pain specialist, so this morning he had some pre- procedure lab works, an it indicated leukocytosis with WBC 37.5 with a left shift neutrophile % of 87.3. Did not received any neuprogen recently. H/H 8.5 and 25.9, respectively. Serum lactic acid normal. UA does not reveal any signs of urinary infection. CXR showing 12cm left upper lobe mass increasing in size relative to last study, consistent with the history of lung cancer. Patient is c/o general body weakness, as well as left sided chest pain and back pain. Denies any SOB, cough, sputum production, or respiratory wheezing. Denies any urinary symptoms such as dysuria or change in urinary frequency or urgency. Denies fever, chills, or sweating. 02/14: Afebrile overnight. Cultures (blood, urine, sputum) no growth to date. WBC 37.5-->33.8; hemoglobin 8.5-->7.4. Denies any pain currently. Vomited earlier this morning 10min after having Diflucan. Poor appetite. c/o general body weakness. Denies SOB. Still on Diflucan (IV) as well as broad spectrum antibiotics Vancomycin and Zosyn. 02/15: Afebrile overnight. Cultures (blood, urine, sputum) no growth to date. WBC 33. 8-->33.3; hemoglobin 7.4-->7.4. Denies any pain currently. Poor appetite. c/o general body weakness. c/o lethargy.. Denies SOB. Still on Diflucan (IV) as well as broad spectrum antibiotics Vancomycin and Zosyn. 02/16: Afebrile overnight. Cultures (blood, urine, sputum) no growth to date. WBC 33.3 -->40.5; hemoglobin 7.4-->7.5. Denies any pain currently. Improving appetite. c/o general body weakness. Denies lethargy. Denies SOB. Still on Diflucan (IV) as well as broad spectrum antibiotics Vancomycin and Zosyn. 02/17: Afebrile overnight. Cultures (blood, urine, sputum) no growth to date. WBC 40.5-->37.2; hemoglobin 7.5-->7.1. Denies any pain currently. Improving appetite. Improving general body weakness. Denies lethargy. Denies SOB. Still on Diflucan (IV) as well as broad spectrum antibiotics Vancomycin and Zosyn. 02/18: Afebrile overnight. Cultures (blood, urine, sputum) no growth to date. WBC 37.2-->33.8; hemoglobin 7.1-->6.6. Denies any pain currently. Improving appetite. Improving general body weakness. Denies lethargy. Denies SOB. Still on Diflucan (IV) as well as broad spectrum antibiotics Vancomycin and Zosyn. Constitutional Vitals: Vital Signs Temp Pulse Resp BP Pulse Ox 97.7 F 74 18 116/68 94 02/18/21 12:00 02/18/21 12:00 02/18/21 12:00 02/18/21 12:00 02/18/21 12:00 Period Temp Pulse Resp BP Sys/Nielsen Pulse Ox Last 24 Hr 97.6 F-99.1 F 68-106 17-20 104-151/67-79 94-98 Intake and Output 02/17/21 02/18/21 02/18/21 21:59 05:59 13:59 Intake Total 757 702.2239 150 Output Total 2 2 2 Balance 202 298.4621 148 Weight 69.989 kg 69.989 kg Patient Weight 02/19/21 05:59 Weight 69.989 kg Intake & Output: Intake & Output 02/17/21 02/18/21 02/18/21 21:59 05:59 13:59 Intake Total 631 834.1229 150 Output Total 2 2 2 Balance 089 331.5935 148 Weight 69.989 kg 69.989 kg Intake: IV 473 609.5094 150 Zosyn 3.375 gm In Dextrose 5% 50 50 50 in Water 50 ml @ 100 mls/hr IV Q6H [facility] Rx#:[id number] Potassium Chloride 20 Meq In 260 260 Dextrose 5% in Water 250 ml @ 130 mls/hr IV ONCE ONE Rx#: [id number] Potassium Phosphate 20 Meq In 254.5455 Dextrose 5% in Water 250 ml @ 127.273 mls/hr IV ONCE ONE Rx#: [id number] Vancomycin 1,000 mg In Sodium 250 Chloride 0.9% 250 ml @ 250 mls/ hr IV Q12H [facility] Rx#:[id number] Oral 300 Output: # of times incontinent of urine 2 2 2 Other: Urine Appearance Clear Urine Color Bright Yellow Urine Odor Normal Stool Size Small Small Stool Color Brown Black Black Stool Consistency Liquid Loose Loose # Voids 1 1 # Bowel Movements 1 1 1 # of times incontinent of 1 1 Bowels Exam: General: Alert, Awake, No acute Distress Eyes/N/T: EOMI, Head/Neck: neck supple, CV: RRR, No murmurs, Pulm: Diminished b/l, no wheezing/rhonchi/rales Abd: soft, nontender, +BS x4 Ext: no clubbing/cyanosis. trace b/l LE edema Neuro: Alert, no focal deficits, moves all extremities, Skin: warm/dry OBJ DATA Labs CBC & Chem 7: 02/18/21 06:36 02/18/21 16:48 Labs: Abnormal Lab Results 02/18/21 02/18/21 02/17/21 06:36 06:36 16:01 WBC 33.8 H* RBC 2.31 L Hgb 6.6 L* Hct 21.2 L RDW 15.2 H Plt Count 735 H Neut % (Auto) 89.1 H Lymph % (Auto) 1.9 L Lymph # (Auto) 0.65 L [place] # (Auto) 2.88 H Absolute Neutrophils 30.09 H Potassium 2.5 L* 2.8 L* Carbon Dioxide 21 L Glucose 114 H Phosphorus 2.2 L Total Protein 5.7 L Albumin 2.0 L Globulin Albumin/Globulin Ratio 0.5 L 12/17/21 12/17/21 12/16/21 05:56 05:56 05:37 WBC 37.2 H* RBC 2.51 L Hgb 7.1 L Hct 22.5 L RDW 15.0 H Plt Count 763 H Neut % (Auto) 90.3 H Lymph % (Auto) 2.1 L Lymph # (Auto) 0.79 L [place] # (Auto) 2.68 H Absolute Neutrophils 33.55 H Potassium 2.7 L* 3.1 L Carbon Dioxide 21 L Glucose Phosphorus 2.1 L 2.4 L Total Protein Albumin 2.0 L 2.2 L Globulin 4.0 H 4.1 H Albumin/Globulin Ratio 0.5 L 0.5 L 02/16/21 05:37 WBC 40.5 H* RBC 2.61 L Hgb 7.5 L Hct 23.9 L RDW 14.9 H Plt Count 734 H Neut % (Auto) 88.7 H Lymph % (Auto) 1.9 L Lymph # (Auto) 0.75 L [place] # (Auto) 3.59 H Absolute Neutrophils 35.96 H Potassium Carbon Dioxide Glucose Phosphorus Total Protein Albumin Globulin Albumin/Globulin Ratio Meds: Medications Acetaminophen (Acetaminophen 500 Mg Tablet) 1,000 mg PO Q6HP PRN; Protocol PRN Reason: Pain Last Admin: 02/16/21 13:37 Dose: 1,000 mg Documented by: Albuterol/Ipratropium (Ipratropium/Albuterol 3 Ml Ampul.Neb) 3 ml NEB Q4HRT PRN PRN Reason: Wheezing Docusate Sodium (Docusate Sodium 100 Mg Capsule) 100 mg PO BID [facility] Last Admin: 02/18/21 09:35 Dose: Not Given Documented by: Enoxaparin Sodium (Enoxaparin 40 Mg/0.4 Ml Syringe) 40 mg SQ DAILY [facility] Last Admin: 02/18/21 09:34 Dose: 40 mg Documented by: Fentanyl (Fentanyl 100 Mcg/2 Ml Vial) 25 mcg IV Q2HP PRN; Protocol PRN Reason: Per Pain Protocol Heparin Sodium (Porcine) (Heparin Flush 10 Units/Ml 5 Ml Syringe) 2 ml IV Q12 [facility] Last Admin: 02/18/21 09:36 Dose: Not Given Documented by: Heparin Sodium (Porcine) (Heparin Flush 10 Units/Ml 5 Ml Syringe) 2 ml IV Q12 [facility] Last Admin: 02/18/21 09:36 Dose: Not Given Documented by: Piperacillin Sod/Tazobactam (Sod 3.375 gm/ Dextrose) 50 mls @ 100 mls/hr IV Q6H [facility]; Protocol Last Infusion: 02/18/21 06:28 Dose: Infused Documented by: Vancomycin HCl 1,000 mg/ (Sodium Chloride) 250 mls @ 250 mls/hr IV Q12H [facility] Last Admin: 02/18/21 11:02 Dose: 250 mls/hr Documented by: Fluconazole (Diflucan) 200 mg in 100 mls @ 100 mls/hr IV DAILY [facility] Stop: 03/05/21 09:01 Last Infusion: 02/18/21 11:09 Dose: Infused Documented by: Sodium Chloride (Sodium Chloride 0.9%) 250 mls @ 20 mls/hr IV .[id number] [facility] Stop: 02/18/21 20:59 Last Admin: 02/18/21 09:46 Dose: 20 mls/hr Documented by: Loratadine (Loratadine 10 Mg Tablet) 10 mg PO QDAY [facility] Last Admin: 02/18/21 09:35 Dose: 10 mg Documented by: Megestrol Acetate (Megestrol Acetate 400 Mg/10 Ml Oral.Susp) 200 mg PO QDAY [facility] Last Admin: 02/18/21 09:36 Dose: 200 mg Documented by: Methocarbamol (Methocarbamol 750 Mg Tablet) 750 mg PO QHS [facility] Last Admin: 02/17/21 23:13 Dose: 750 mg Documented by: Omeprazole (Omeprazole 20 Mg Capsule) 20 mg PO ACB [facility] Last Admin: 02/18/21 08:10 Dose: 20 mg Documented by: Ondansetron HCl (Ondansetron 4 Mg/2 Ml Vial) 4 mg IV Q6HP PRN PRN Reason: Nausea And Vomiting Last Admin: 02/14/21 08:38 Dose: 4 mg Documented by: Senna (Sennosides 1 Tablet) 2 tab PO [facility] Last Admin: 02/17/21 19:58 Dose: Not Given Documented by: Sodium Chloride (0.9 % Sodium Chloride 10 Ml Syringe) 10 ml IV Q8 [facility] Last Admin: 02/18/21 09:36 Dose: 10 ml Documented by: Sodium Chloride (0.9 % Sodium Chloride 10 Ml Syringe) 10 ml IV Q12 [facility] Last Admin: 02/18/21 09:47 Dose: 10 ml Documented by: Sodium Chloride (0.9 % Sodium Chloride 10 Ml Syringe) 10 ml IV Q12 [facility] Last Admin: 02/18/21 09:47 Dose: 10 ml Documented by: Tramadol HCl (Tramadol 50 Mg Tablet) 50 mg PO BIDP [facility]; Protocol Last Admin: 02/18/21 08:10 Dose: 50 mg Documented by: Vancomycin HCl (Vancomycin Per Pharmacy) 1 order IV UD [facility]; Protocol Zolpidem Tartrate (Zolpidem 5 Mg Tablet) 5 mg PO HSP PRN PRN Reason: Insomnia A/P Narrative A/P Narrative: A: *Leukocytosis(acute on chronic): DDx: Infectious (bacterial, fungal) vs metas tatic cancer to bone marrow -Blood/Urine/sputum culture no growth to date -pct relatively low *Squamous cell lung cancer with progression: follow with cancer center -had chemo-rads beginning of year, now on immunotherapy, held until infectious process ruled out *Chronic pain: 2/2 above, awaiting intrathecal pain pump *Anemia, acute on chronic: from PUD & occasionally requires blood transfusions otherwise *Esphageal/gastric candidiasis/PUD: has been on diflucan -recent oupt EGD with peptic ulcer and candidiasis *Hypokalemia: *Hypercalcemia of malignancy: ZA will take several days to show effectiveness, *Generalized weakness/fatigue: *Possible pneumonia: per CT and with leukocytosis (although leukocytosis appears chronic) -leukocytosis chronic likely malignancy related, no bandemia, PCT low *CKD II: resolved *Constipation: Plan: -vanc/zosyn, diflucan for recent esophageal candidiasis -peripheral smear -replace potassium prn -prn blood transfusion for <7 -ppi bid -f/u with oncologist for disease progression -pt/to -bowel regimen -CM for placement needs -DVT prophylaxis: Lovenox SQ / ppi DNR Time Spent With Patient Time: Total time spent is greater than 50% in coordination of care (as documented) at patient's floor/unit and/or counseling patient: QUALITY VTE Deep Vein Thrombosis/Pulmonary Embolism Present on Admission: No
[2021-02-18 15:03] LABS: Anisocytosis 1+ (None Seen); Band Neutrophils % 1 % (0-10); Eosinophils % (Manual) 1 % (0-7); Lymphocytes % 5 % (15-49); Microcytosis 2+ (None Seen); Monocytes % (Manual) 8 % (1-12); Platelet Estimate INCREASED (Normal); RBC Morphology ABNORMAL (Normal); Segmented Neutrophils % 85 % (38-78)
[2021-02-18] MEDS: ACETAMINOPHEN 500 MG TABLET PO PRN (17:09)
[2021-02-18] MEDS ORDERED: POTASSIUM CHLORIDE 20 MEQ in DEXTROSE 5% IN WATER 250 ML IV ONE (18:11)
[2021-02-18] MEDS ORDERED: POTASSIUM CHLORIDE 20 MEQ TABLET PO ONE (18:13)
[2021-02-18] MEDS ORDERED: POTASSIUM CHLORIDE 20 MEQ/10 ML VIAL IV ONE (19:58)
[2021-02-18] MEDS: METHOCARBAMOL 750 MG TABLET PO SCH (20:04)
[2021-02-18] MEDS: SENNOSIDES 1 TABLET PO SCH (20:04)
[2021-02-18] MEDS: PANTOPRAZOLE 40 MG PACKET PO SCH (20:05)
[2021-02-18] MEDS ORDERED: PANTOPRAZOLE 40 MG TABLET ONE (20:07)
[2021-02-18 23:19] LABS: Hematocrit 31.2 % (40.1-51.0); Hemoglobin 10.1 g/dL (13.7-17.5)
[2021-02-19] MEDS: ONDANSETRON 4 MG/2 ML VIAL IV PRN (01:13)
[2021-02-19] MEDS: traMADol 50 MG TABLET PO SCH (04:51)
[2021-02-19] MEDS: PIPERACILLIN SODIUM/TAZOBACTAM 3.375 GM in DEXTROSE 5% IN WATER 50 ML IV SCH ×4 (04:52→17:27)
[2021-02-19] MEDS: 0.9 % SODIUM CHLORIDE 10 ML SYRINGE IV SCH ×3 (04:53→21:27)
[2021-02-19] MEDS: PANTOPRAZOLE 40 MG PACKET PO SCH ×2 (07:17→16:46)
[2021-02-19 07:26] LABS: Hematocrit 28.8 % (40.1-51.0); Hemoglobin 9.4 g/dL (13.7-17.5); Mean Cell Volume 89.2 fL (80.0-100.0); Mean Corpuscular HGB Conc 32.6 g/dL (31.0-36.0); Mean Platelet Volume 8.7 fL (7.4-10.4); Platelet Count 640 K/mcL (140-440); RBC 3.23 M/mcL (4.63-6.08); Red Cell Distribution Width 14.9 % (11.5-14.5); WBC 34.4 K/mcL (4.5-11.0)
[2021-02-19 07:58] LABS: ALT/SGPT 7 U/L (<40); AST/SGOT 11 U/L (<40); Albumin/Globulin Ratio 0.5 (1.0-2.3); Alkaline Phosphatase 92 U/L (39-117); Bilirubin,Direct < 0.2 mg/dL (0-0.3); Bilirubin,Total 0.4 mg/dL (0.1-1.0); Blood Urea Nitrogen 8 mg/dL (8-23); Calcium 9.3 mg/dL (8.6-10.4); Carbon Dioxide 18 mmol/L (22-30); Chloride 104 mmol/L (96-108); Globulin 3.7 gm/dL (2.2-3.7); Glomerular Filtration Rate 91; Glucose 99 mg/dL (70-105); Lactate Dehydrogenase 243 U/L (135-225); Phosphorous 2.1 mg/dL (2.5-4.5); Triglycerides 82 mg/dL (<150); Uric Acid 2.3 mg/dL (2.5-8.0)
[2021-02-19] MEDS ORDERED: POTASSIUM CHLORIDE 40 MEQ in DEXTROSE 5% IN WATER 500 ML IV ONE (08:00)
--- NOTE | 2021-02-19 08:03 | Internal Med Progress Note ---
SUBJECTIVE Subjective Patient information: Note initiated : 02/19/21 at 7:57 am Service Date, if different from initiated Date: [] Patient: Jovan Elizabeth a 75 y/o M admitted on 02/13/21 for weakness, low bp, black stools, pale. Chief Complaint: [] Interval history: History of present illness: Mr. 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 Yanez [phone]. He had EGD 6 days ago for persistent recurrent anemia that required blood transfusion and was being diagnosed with gastric ulcer and michelle infection. He was supposed to received intrathecal pain this coming Saturday02/17/21 by his pain specialist, so this morning he had some pre- procedure lab works, an it indicated leukocytosis with WBC 37.5 with a left shift neutrophile % of 87.3. Did not received any neuprogen recently. H/H 8.5 and 25.9, respectively. Serum lactic acid normal. UA does not reveal any signs of urinary infection. CXR showing 12cm left upper lobe mass increasing in size relative to last study, consistent with the history of lung cancer. Patient is c/o general body weakness, as well as left sided chest pain and back pain. Denies any SOB, cough, sputum production, or respiratory wheezing. Denies any urinary symptoms such as dysuria or change in urinary frequency or urgency. Denies fever, chills, or sweating. 02/14: Afebrile overnight. Cultures (blood, urine, sputum) no growth to date. WBC 37.5-->33.8; hemoglobin 8.5-->7.4. Denies any pain currently. Vomited earlier this morning 10min after having Diflucan. Poor appetite. c/o general body weakness. Denies SOB. Still on Diflucan (IV) as well as broad spectrum antibiotics Vancomycin and Zosyn. 02/15: Afebrile overnight. Cultures (blood, urine, sputum) no growth to date. WBC 33. 8-->33.3; hemoglobin 7.4-->7.4. Denies any pain currently. Poor appetite. c/o general body weakness. c/o lethargy.. Denies SOB. Still on Diflucan (IV) as well as broad spectrum antibiotics Vancomycin and Zosyn. 02/16: Afebrile overnight. Cultures (blood, urine, sputum) no growth to date. WBC 33.3 -->40.5; hemoglobin 7.4-->7.5. Denies any pain currently. Improving appetite. c/o general body weakness. Denies lethargy. Denies SOB. Still on Diflucan (IV) as well as broad spectrum antibiotics Vancomycin and Zosyn. 02/17: Afebrile overnight. Cultures (blood, urine, sputum) no growth to date. WBC 40.5-->37.2; hemoglobin 7.5-->7.1. Denies any pain currently. Improving appetite. Improving general body weakness. Denies lethargy. Denies SOB. Still on Diflucan (IV) as well as broad spectrum antibiotics Vancomycin and Zosyn. 02/18: Afebrile overnight. Cultures (blood, urine, sputum) no growth to date. WBC 37.2-->33.8; hemoglobin 7.1-->6.6. Denies any pain currently. Improving appetite. Improving general body weakness. Denies lethargy. Denies SOB. Still on Diflucan (IV) as well as broad spectrum antibiotics Vancomycin and Zosyn. 02/19 Patient seems to feeling his usual self. No overnight event or new complaints. Shortness of breath baseline, denies cough. White blood cell count still high, awaiting peripheral smear. Hypokalemia given this morning. Pending CT chest to evaluate for progression. Review of Systems: denies headache/fever/chills/nausea/vomiting/chest or abdominal pain/diarrhea. Otherwise see above. Constitutional Vitals: Vital Signs Temp Pulse Resp BP Pulse Ox 98 F 87 18 140/90 98 02/19/21 06:57 02/19/21 06:57 02/19/21 06:57 02/19/21 06:57 02/19/21 06:57 Period Temp Pulse Resp BP Sys/Nielsen Pulse Ox Last 24 Hr 97.2 F-98.4 F 74-97 16-18 116-176/59-96 93-100 Intake and Output 02/18/21 02/19/21 02/19/21 21:59 05:59 13:59 Intake Total 1551.5455 1010 Output Total 4 4 1 Balance 1547.5455 1006 -1 Weight 72.167 kg Intake & Output: Intake & Output 02/18/21 02/19/21 02/19/21 21:59 05:59 13:59 Intake Total 1551.5455 1010 Output Total 4 4 1 Balance 1547.5455 1006 -1 Weight 72.167 kg Intake: IV 854.5455 610 Sodium Chloride 0.9% 250 ml @ 250 20 mls/hr IV .[id number] [facility] Rx#: [id number] Zosyn 3.375 gm In Dextrose 5% 100 100 in Water 50 ml @ 100 mls/hr IV Q6H [facility] Rx#:[id number] Potassium Chloride 20 Meq In 260 Dextrose 5% in Water 250 ml @ 130 mls/hr IV ONCE ONE Rx#: [id number] Potassium Phosphate 20 Meq In 254.5455 Dextrose 5% in Water 250 ml @ 127.273 mls/hr IV ONCE ONE Rx#: [id number] Vancomycin 1,000 mg In Sodium 500 Chloride 0.9% 250 ml @ 250 mls/ hr IV Q12H [facility] Rx#:[id number] Oral 400 Blood Product 697 Output: # of times incontinent of urine 4 4 1 Other: Meal Lunch Percent of Meal Consumed 25% Nourishment/Supplement name banana Urine Appearance Clear Urine Color Bright Yellow Stool Size Small Small Small Stool Color Brown Brown Brown Green Green Green Stool Consistency Loose Watery Watery Loose # Voids 1 # Unmeasured Emesis 1 # Bowel Movements 1 1 # of times incontinent of 1 1 Bowels Exam: General: Alert, Awake, No acute Distress Eyes/N/T: EOMI, Head/Neck: neck supple, CV: RRR, No murmurs, Pulm: Diminished mildly b/l, no wheezing/rhonchi/rales Abd: soft, nontender, +BS x4 Ext: no clubbing/cyanosis. trace b/l LE edema Neuro: Alert, no focal deficits, moves all extremities, Skin: warm/dry OBJ DATA Labs CBC & Chem 7: 02/19/21 05:42 02/19/21 05:42 Labs: Abnormal Lab Results 02/19/21 02/18/21 02/18/21 05:42 22:34 16:48 WBC 34.4 H* RBC 3.23 L Hgb 9.4 L 10.1 L Hct 28.8 L 31.2 L RDW 14.9 H Plt Count 640 H Neut % (Auto) Lymph % (Auto) Lymph # (Auto) [place] # (Auto) Seg Neutrophils % Lymphocytes % Absolute Neutrophils Platelet Estimate RBC Morphology Anisocytosis Microcytosis Potassium 2.8 L* Carbon Dioxide Glucose Phosphorus Total Protein Albumin Globulin Albumin/Globulin Ratio 02/18/21 02/18/21 02/18/21 06:36 06:36 06:36 WBC 33.8 H* RBC 2.31 L Hgb 6.6 L* Hct 21.2 L RDW 15.2 H Plt Count 735 H Neut % (Auto) 89.1 H Lymph % (Auto) 1.9 L Lymph # (Auto) 0.65 L [place] # (Auto) 2.88 H Seg Neutrophils % 85 H Lymphocytes % 5 L Absolute Neutrophils 30.09 H Platelet Estimate Increased A RBC Morphology Abnormal A Anisocytosis 1+ A Microcytosis 2+ A Potassium 2.5 L* Carbon Dioxide 21 L Glucose 114 H Phosphorus 2.2 L Total Protein 5.7 L Albumin 2.0 L Globulin Albumin/Globulin Ratio 0.5 L 02/17/21 02/17/21 02/17/21 16:01 05:56 05:56 WBC 37.2 H* RBC 2.51 L Hgb 7.1 L Hct 22.5 L RDW 15.0 H Plt Count 763 H Neut % (Auto) 90.3 H Lymph % (Auto) 2.1 L Lymph # (Auto) 0.79 L [place] # (Auto) 2.68 H Seg Neutrophils % Lymphocytes % Absolute Neutrophils 33.55 H Platelet Estimate RBC Morphology Anisocytosis Microcytosis Potassium 2.8 L* 2.7 L* Carbon Dioxide 21 L Glucose Phosphorus 2.1 L Total Protein Albumin 2.0 L Globulin 4.0 H Albumin/Globulin Ratio 0.5 L 02/16/21 05:37 WBC RBC Hgb Hct RDW Plt Count Neut % (Auto) Lymph % (Auto) Lymph # (Auto) [place] # (Auto) Seg Neutrophils % Lymphocytes % Absolute Neutrophils Platelet Estimate RBC Morphology Anisocytosis Microcytosis Potassium 3.1 L Carbon Dioxide Glucose Phosphorus 2.4 L Total Protein Albumin 2.2 L Globulin 4.1 H Albumin/Globulin Ratio 0.5 L Meds: Medications Acetaminophen (Acetaminophen 500 Mg Tablet) 1,000 mg PO Q6HP PRN; Protocol PRN Reason: Pain Last Admin: 02/18/21 17:09 Dose: 1,000 mg Documented by: Albuterol/Ipratropium (Ipratropium/Albuterol 3 Ml Ampul.Neb) 3 ml NEB Q4HRT PRN PRN Reason: Wheezing Docusate Sodium (Docusate Sodium 100 Mg Capsule) 100 mg PO BID [facility] Last Admin: 02/18/21 20:04 Dose: 100 mg Documented by: Enoxaparin Sodium (Enoxaparin 40 Mg/0.4 Ml Syringe) 40 mg SQ DAILY [facility] Last Admin: 02/18/21 09:34 Dose: 40 mg Documented by: Fentanyl (Fentanyl 100 Mcg/2 Ml Vial) 25 mcg IV Q2HP PRN; Protocol PRN Reason: Per Pain Protocol Heparin Sodium (Porcine) (Heparin Flush 10 Units/Ml 5 Ml Syringe) 2 ml IV Q12 [facility] Last Admin: 02/18/21 20:05 Dose: Not Given Documented by: Piperacillin Sod/Tazobactam (Sod 3.375 gm/ Dextrose) 50 mls @ 100 mls/hr IV Q6H [facility]; Protocol Last Infusion: 02/19/21 05:22 Dose: Infused Documented by: Vancomycin HCl 1,000 mg/ (Sodium Chloride) 250 mls @ 250 mls/hr IV Q12H [facility] Last Infusion: 02/18/21 21:02 Dose: Infused Documented by: Fluconazole (Diflucan) 200 mg in 100 mls @ 100 mls/hr IV DAILY [facility] Stop: 03/05/21 09:01 Last Infusion: 02/18/21 11:09 Dose: Infused Documented by: Loratadine (Loratadine 10 Mg Tablet) 10 mg PO QDAY [facility] Last Admin: 02/18/21 09:35 Dose: 10 mg Documented by: Megestrol Acetate (Megestrol Acetate 400 Mg/10 Ml Oral.Susp) 200 mg PO QDAY [facility] Last Admin: 02/18/21 09:36 Dose: 200 mg Documented by: Methocarbamol (Methocarbamol 750 Mg Tablet) 750 mg PO QHS [facility] Last Admin: 02/18/21 20:04 Dose: 750 mg Documented by: Ondansetron HCl (Ondansetron 4 Mg/2 Ml Vial) 4 mg IV Q6HP PRN PRN Reason: Nausea And Vomiting Last Admin: 02/19/21 01:13 Dose: 4 mg Documented by: Pantoprazole Sodium (Pantoprazole 40 Mg Packet) 40 mg PO BIDAC [facility] Last Admin: 02/19/21 07:17 Dose: 40 mg Documented by: Senna (Sennosides 1 Tablet) 2 tab PO HS [facility] Last Admin: 02/18/21 20:04 Dose: 2 tab Documented by: Sodium Chloride (0.9 % Sodium Chloride 10 Ml Syringe) 10 ml IV Q12 [facility] Last Admin: 02/18/21 20:06 Dose: Not Given Documented by: Tramadol HCl (Tramadol 50 Mg Tablet) 50 mg PO BIDP [facility]; Protocol Last Admin: 02/19/21 04:51 Dose: 50 mg Documented by: Vancomycin HCl (Vancomycin Per Pharmacy) 1 order IV UD [facility]; Protocol Zolpidem Tartrate (Zolpidem 5 Mg Tablet) 5 mg PO HSP PRN PRN Reason: Insomnia A/P Narrative A/P Narrative: A: *Leukocytosis(acute on chronic): DDx: Infectious (bacterial/fungal) vs more likely CA related / metastatic CA to bone marrow -no bandemia, afebrile,pct low, Blood/Urine/sputum culture no growth to date, no coughing - *Squamous cell lung cancer with progression: follow with cancer center -had chemo-rads beginning of year, now on immunotherapy, held until infectious process ruled out -on room air *Chronic pain: 2/2 above, awaiting intrathecal pain pump *Anemia, acute on chronic: from PUD & occasionally requires blood transfusions otherwise -s/p 2prbc (02/18), *Esphageal/gastric candidiasis/PUD: has been on diflucan -recent oupt EGD with peptic ulcer and candidiasis *Hypokalemia/hypophos: *Generalized weakness/fatigue: *CKD II: *Constipation: Plan: -CT chest -vanc/zosyn - deescalate, diflucan for recent esophageal candidiasis, mrsa screen -peripheral smear -replace potassium prn -prn blood transfusion for <7 -ppi bid -f/u with oncologist for disease progression -pt/to -bowel regimen -CM for placement needs -DVT prophylaxis: Lovenox SQ to SCD until GI bleed ruled out / ppi DNR Time Spent With Patient Time: Total time spent is greater than 50% in coordination of care (as documented) at patient's floor/unit and/or counseling patient: QUALITY VTE Deep Vein Thrombosis/Pulmonary Embolism Present on Admission: No
[2021-02-19 08:39] LABS: Anisocytosis 1+ (None Seen); Hypochromasia 3+ (None Seen); Lymphocytes % 3 % (15-49); Monocytes % (Manual) 6 % (1-12); Myelocytes % 1 %; Platelet Estimate INCREASED (Normal); RBC Morphology ABNORMAL (Normal); Segmented Neutrophils % 90 % (38-78)
[2021-02-19] MEDS: FLUCONAZOLE 200 MG/100 ML BAG IV SCH (08:39)
[2021-02-19] MEDS: ENOXAPARIN 40 MG/0.4 ML SYRINGE SQ SCH (08:39)
[2021-02-19] MEDS: NEUTRA PHOS 1 PACKET PO SCH ×2 (08:39→21:27)
[2021-02-19] MEDS: MEGESTROL ACETATE 400 MG/10 ML ORAL.SUSP PO SCH (08:40)
[2021-02-19] MEDS: POTASSIUM CHLORIDE 20 MEQ TABLET PO SCH ×2 (08:40→16:46)
[2021-02-19] MEDS: LORATADINE 10 MG TABLET PO SCH (08:40)
[2021-02-19] MEDS: DOCUSATE SODIUM 100 MG CAPSULE PO SCH ×2 (08:41→21:18)
[2021-02-19] MEDS: ACETAMINOPHEN 500 MG TABLET PO PRN (12:07)
[2021-02-19] MEDS: SENNOSIDES 1 TABLET PO SCH (21:19)
[2021-02-19] MEDS: METHOCARBAMOL 750 MG TABLET PO SCH (21:27)
[2021-02-19] MEDS ORDERED: IOPAMIDOL 100 ML BOTTLE IV ONE (23:26)
[2021-02-20] MEDS: PIPERACILLIN SODIUM/TAZOBACTAM 3.375 GM in DEXTROSE 5% IN WATER 50 ML IV SCH ×5 (00:16→23:34)
[2021-02-20 06:50] LABS: Basophils # (Auto) 0.16 K/mcL (0.00-0.30); Basophils % (Auto) 0.5 % (0.0-2.0); Eosinophils # (Auto) 0.02 K/mcL (0.00-0.70); Eosinophils % (Auto) 0.1 % (0.0-7.0); Hematocrit 29.2 % (40.1-51.0); Hemoglobin 9.4 g/dL (13.7-17.5); Lymphocytes # (Auto) 0.61 K/mcL (1.50-4.80); Lymphocytes % (Auto) 1.8 % (15.5-49.0); Mean Cell Volume 89.6 fL (80.0-100.0); Mean Corpuscular HGB Conc 32.2 g/dL (31.0-36.0); Mean Platelet Volume 8.5 fL (7.4-10.4); Monocytes # (Auto) 2.65 K/mcL (0.10-0.90); Monocytes % (Auto) 7.9 % (1.0-12.0); Neutrophils % (Auto) 89.7 % (38.0-78.0); Platelet Count 642 K/mcL (140-440); RBC 3.26 M/mcL (4.63-6.08); Red Cell Distribution Width 15.4 % (11.5-14.5); WBC 33.3 K/mcL (4.5-11.0)
[2021-02-20 07:05] LABS: Vancomycin,Random 12.1 ug/mL
[2021-02-20 07:12] LABS: ALT/SGPT 8 U/L (<40); AST/SGOT 9 U/L (<40); Albumin 1.9 gm/dL (3.2-5.2); Albumin/Globulin Ratio 0.5 (1.0-2.3); Alkaline Phosphatase 87 U/L (39-117); Bilirubin,Direct < 0.2 mg/dL (0-0.3); Bilirubin,Total 0.3 mg/dL (0.1-1.0); Blood Urea Nitrogen 8 mg/dL (8-23); Calcium 9.6 mg/dL (8.6-10.4); Carbon Dioxide 20 mmol/L (22-30); Chloride 106 mmol/L (96-108); Glomerular Filtration Rate 91; Glucose 101 mg/dL (70-105); Lactate Dehydrogenase 204 U/L (135-225); Phosphorous 1.9 mg/dL (2.5-4.5); Triglycerides 69 mg/dL (<150); Uric Acid 2.6 mg/dL (2.5-8.0)
--- NOTE | 2021-02-20 07:39 | Internal Med Progress Note ---
SUBJECTIVE Subjective Patient information: Note initiated : 02/20/21 at 7:31 am Service Date, if different from initiated Date: [] Patient: Jovan Elizabeth a 75 y/o M admitted on 02/13/21 for weakness, low bp, black stools, pale. Chief Complaint: [] Interval history: History of present illness: Mr. 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 Yanez [phone]. He had EGD 6 days ago for persistent recurrent anemia that required blood transfusion and was being diagnosed with gastric ulcer and michelle infection. He was supposed to received intrathecal pain this coming Saturday02/17/21 by his pain specialist, so this morning he had some pre- procedure lab works, an it indicated leukocytosis with WBC 37.5 with a left shift neutrophile % of 87.3. Did not received any neuprogen recently. H/H 8.5 and 25.9, respectively. Serum lactic acid normal. UA does not reveal any signs of urinary infection. CXR showing 12cm left upper lobe mass increasing in size relative to last study, consistent with the history of lung cancer. Patient is c/o general body weakness, as well as left sided chest pain and back pain. Denies any SOB, cough, sputum production, or respiratory wheezing. Denies any urinary symptoms such as dysuria or change in urinary frequency or urgency. Denies fever, chills, or sweating. 02/14: Afebrile overnight. Cultures (blood, urine, sputum) no growth to date. WBC 37.5-->33.8; hemoglobin 8.5-->7.4. Denies any pain currently. Vomited earlier this morning 10min after having Diflucan. Poor appetite. c/o general body weakness. Denies SOB. Still on Diflucan (IV) as well as broad spectrum antibiotics Vancomycin and Zosyn. 02/15: Afebrile overnight. Cultures (blood, urine, sputum) no growth to date. WBC 33. 8-->33.3; hemoglobin 7.4-->7.4. Denies any pain currently. Poor appetite. c/o general body weakness. c/o lethargy.. Denies SOB. Still on Diflucan (IV) as well as broad spectrum antibiotics Vancomycin and Zosyn. 02/16: Afebrile overnight. Cultures (blood, urine, sputum) no growth to date. WBC 33.3 -->40.5; hemoglobin 7.4-->7.5. Denies any pain currently. Improving appetite. c/o general body weakness. Denies lethargy. Denies SOB. Still on Diflucan (IV) as well as broad spectrum antibiotics Vancomycin and Zosyn. 02/17: Afebrile overnight. Cultures (blood, urine, sputum) no growth to date. WBC 40.5-->37.2; hemoglobin 7.5-->7.1. Denies any pain currently. Improving appetite. Improving general body weakness. Denies lethargy. Denies SOB. Still on Diflucan (IV) as well as broad spectrum antibiotics Vancomycin and Zosyn. 02/18: Afebrile overnight. Cultures (blood, urine, sputum) no growth to date. WBC 37.2-->33.8; hemoglobin 7.1-->6.6. Denies any pain currently. Improving appetite. Improving general body weakness. Denies lethargy. Denies SOB. Still on Diflucan (IV) as well as broad spectrum antibiotics Vancomycin and Zosyn. 02/19 Patient seems to feeling his usual self. No overnight event or new complaints. Shortness of breath baseline, denies cough. White blood cell count still high, awaiting peripheral smear. Hypokalemia given this morning. Pending CT chest to evaluate for progression. Potassium mildly low. Phos low. Replace as needed. 02/20 Patient seem to be feeling well. Leukocytosis persistent. Peripheral smear unrevealing of specific diagnosis but likely from reactive. Hemoglobin stable. Review of Systems: denies headache/fever/chills/nausea/vomiting/chest or abdominal pain/diarrhea. Otherwise see above. Constitutional Vitals: Vital Signs Temp Pulse Resp BP Pulse Ox 97.3 F 100 H 18 143/96 99 02/20/21 06:55 02/20/21 06:55 02/20/21 06:55 02/20/21 06:55 02/20/21 06:55 Period Temp Pulse Resp BP Sys/Nielsen Pulse Ox Last 24 Hr 97.3 F-98.9 F 84-100 18-20 140-158/84-99 97-99 Intake and Output 02/19/21 02/20/21 02/20/21 21:59 05:59 13:59 Intake Total 50 450 50 Output Total 3 3 1 Balance 47 447 49 Weight 70.817 kg Intake & Output: Intake & Output 02/19/21 02/20/21 02/20/21 21:59 05:59 13:59 Intake Total 50 450 50 Output Total 3 3 1 Balance 47 447 49 Weight 70.817 kg Intake: IV 50 50 50 Zosyn 3.375 gm In Dextrose 5% 50 50 50 in Water 50 ml @ 100 mls/hr IV Q6H [facility] Rx#:[id number] Oral 400 Output: # of times incontinent of urine 3 3 1 Other: Urine Appearance Clear Urine Color Pale Stool Size Small Small Small Stool Color Brown Brown Brown Stool Consistency Loose Loose Liquid # Voids 2 2 1 # Bowel Movements 1 2 2 # of times incontinent of 1 1 Bowels Exam: General: Alert, Awake, No acute Distress Eyes/N/T: EOMI, Head/Neck: neck supple, CV: RRR, No murmurs, Pulm: Diminished mildly b/l, no wheezing/rhonchi/rales Abd: soft, nontender, +BS x4 Ext: no clubbing/cyanosis. trace b/l LE edema Neuro: Alert, no focal deficits, moves all extremities, Skin: warm/dry OBJ DATA Labs CBC & Chem 7: 02/20/21 05:34 02/20/21 05:34 Labs: Abnormal Lab Results 02/20/21 02/20/21 02/19/21 05:34 05:34 05:42 WBC 33.3 H* RBC 3.26 L Hgb 9.4 L Hct 29.2 L RDW 15.4 H Plt Count 642 H Neut % (Auto) 89.7 H Lymph % (Auto) 1.8 L Lymph # (Auto) 0.61 L [place] # (Auto) 2.65 H Seg Neutrophils % Lymphocytes % Absolute Neutrophils 29.90 H Platelet Estimate RBC Morphology Hypochromasia Anisocytosis Microcytosis Potassium 3.2 L 2.6 L* Carbon Dioxide 20 L 18 L Glucose Uric Acid 2.3 L Phosphorus 1.9 L 2.1 L Lactate Dehydrogenase 243 H Total Protein 5.7 L Albumin 1.9 L 2.0 L Globulin 4.0 H Albumin/Globulin Ratio 0.5 L 0.5 L Vancomycin Trough 02/19/21 02/19/21 02/18/21 05:42 05:42 22:34 WBC 34.4 H* RBC 3.23 L Hgb 9.4 L 10.1 L Hct 28.8 L 31.2 L RDW 14.9 H Plt Count 640 H Neut % (Auto) Lymph % (Auto) Lymph # (Auto) [place] # (Auto) Seg Neutrophils % 90 H Lymphocytes % 3 L Absolute Neutrophils Platelet Estimate Increased A RBC Morphology Abnormal A Hypochromasia 3+ A Anisocytosis 1+ A Microcytosis Potassium Carbon Dioxide Glucose Uric Acid Phosphorus Lactate Dehydrogenase Total Protein Albumin Globulin Albumin/Globulin Ratio Vancomycin Trough 21.7 H* 02/18/21 02/18/21 02/18/21 16:48 06:36 06:36 WBC RBC Hgb Hct RDW Plt Count Neut % (Auto) Lymph % (Auto) Lymph # (Auto) [place] # (Auto) Seg Neutrophils % 85 H Lymphocytes % 5 L Absolute Neutrophils Platelet Estimate Increased A RBC Morphology Abnormal A Hypochromasia Anisocytosis 1+ A Microcytosis 2+ A Potassium 2.8 L* 2.5 L* Carbon Dioxide 21 L Glucose 114 H Uric Acid Phosphorus 2.2 L Lactate Dehydrogenase Total Protein 5.7 L Albumin 2.0 L Globulin Albumin/Globulin Ratio 0.5 L Vancomycin Trough 02/18/21 02/17/21 02/17/21 06:36 16:01 05:56 WBC 33.8 H* RBC 2.31 L Hgb 6.6 L* Hct 21.2 L RDW 15.2 H Plt Count 735 H Neut % (Auto) 89.1 H Lymph % (Auto) 1.9 L Lymph # (Auto) 0.65 L [place] # (Auto) 2.88 H Seg Neutrophils % Lymphocytes % Absolute Neutrophils 30.09 H Platelet Estimate RBC Morphology Hypochromasia Anisocytosis Microcytosis Potassium 2.8 L* 2.7 L* Carbon Dioxide 21 L Glucose Uric Acid Phosphorus 2.1 L Lactate Dehydrogenase Total Protein Albumin 2.0 L Globulin 4.0 H Albumin/Globulin Ratio 0.5 L Vancomycin Trough 02/17/21 05:56 WBC 37.2 H* RBC 2.51 L Hgb 7.1 L Hct 22.5 L RDW 15.0 H Plt Count 763 H Neut % (Auto) 90.3 H Lymph % (Auto) 2.1 L Lymph # (Auto) 0.79 L [place] # (Auto) 2.68 H Seg Neutrophils % Lymphocytes % Absolute Neutrophils 33.55 H Platelet Estimate RBC Morphology Hypochromasia Anisocytosis Microcytosis Potassium Carbon Dioxide Glucose Uric Acid Phosphorus Lactate Dehydrogenase Total Protein Albumin Globulin Albumin/Globulin Ratio Vancomycin Trough Meds: Medications Acetaminophen (Acetaminophen 500 Mg Tablet) 1,000 mg PO Q6HP PRN; Protocol PRN Reason: Pain Last Admin: 02/19/21 12:07 Dose: 1,000 mg Documented by: Albuterol/Ipratropium (Ipratropium/Albuterol 3 Ml Ampul.Neb) 3 ml NEB Q4HRT PRN PRN Reason: Wheezing Docusate Sodium (Docusate Sodium 100 Mg Capsule) 100 mg PO BID [facility] Last Admin: 02/19/21 21:18 Dose: Not Given Documented by: Fentanyl (Fentanyl 100 Mcg/2 Ml Vial) 25 mcg IV Q2HP PRN; Protocol PRN Reason: Per Pain Protocol Heparin Sodium (Porcine) (Heparin Flush 10 Units/Ml 5 Ml Syringe) 2 ml IV Q12 [facility] Last Admin: 02/19/21 21:20 Dose: Not Given Documented by: Piperacillin Sod/Tazobactam (Sod 3.375 gm/ Dextrose) 50 mls @ 100 mls/hr IV Q6H [facility]; Protocol Last Infusion: 02/20/21 06:11 Dose: Infused Documented by: Fluconazole (Diflucan) 200 mg in 100 mls @ 100 mls/hr IV DAILY [facility] Stop: 03/05/21 09:01 Last Infusion: 02/19/21 10:00 Dose: Infused Documented by: Loratadine (Loratadine 10 Mg Tablet) 10 mg PO QDAY [facility] Last Admin: 02/19/21 08:40 Dose: 10 mg Documented by: Megestrol Acetate (Megestrol Acetate 400 Mg/10 Ml Oral.Susp) 200 mg PO QDAY [facility] Last Admin: 02/19/21 08:40 Dose: 200 mg Documented by: Methocarbamol (Methocarbamol 750 Mg Tablet) 750 mg PO QHS [facility] Last Admin: 02/19/21 21:27 Dose: 750 mg Documented by: Ondansetron HCl (Ondansetron 4 Mg/2 Ml Vial) 4 mg IV Q6HP PRN PRN Reason: Nausea And Vomiting Last Admin: 02/19/21 01:13 Dose: 4 mg Documented by: Pantoprazole Sodium (Pantoprazole 40 Mg Packet) 40 mg PO BIDAC [facility] Last Admin: 02/19/21 16:46 Dose: 40 mg Documented by: Potassium Chloride (Potassium Chloride 20 Meq Tablet) 40 meq PO BIDCC [facility] Last Admin: 02/19/21 16:46 Dose: 40 meq Documented by: Senna (Sennosides 1 Tablet) 2 tab PO HS [facility] Last Admin: 02/19/21 21:19 Dose: Not Given Documented by: Sodium Chloride (0.9 % Sodium Chloride 10 Ml Syringe) 10 ml IV Q12 [facility] Last Admin: 02/19/21 21:27 Dose: 10 ml Documented by: Tramadol HCl (Tramadol 50 Mg Tablet) 50 mg PO BIDP [facility]; Protocol Last Admin: 02/19/21 04:51 Dose: 50 mg Documented by: Vancomycin HCl (Vancomycin Per Pharmacy) 1 order IV UD [facility]; Protocol Zolpidem Tartrate (Zolpidem 5 Mg Tablet) 5 mg PO HSP PRN PRN Reason: Insomnia A/P Narrative A/P Narrative: A: *Leukocytosis(acute on chronic): DDx: suspect likely CA related / metastatic CA to bone marrow vs Infectious (bacterial/fungal) -no bandemia, afebrile,pct low, Blood/Urine/sputum culture no growth to date, no coughing -peripheral smear to specific finding, likely reactive -CT chest stable CHET tumor *Squamous cell lung cancer with progression: follow with [facility] [place] -had chemo-rads beginning of year, now on immunotherapy, held until infectious process ruled out -on room air -CT chest stable CHET tumor *Chronic pain: 2/2 above, awaiting intrathecal pain pump *Anemia, acute on chronic: from PUD & occasionally requires blood transfusions otherwise -s/p 2prbc (02/18), anemia stable -had 1 positive FOBT then 3 negative after, likely from hemorrhoid *thrombocytosis: likely reactive from above *Esphageal/gastric candidiasis/PUD: has been on diflucan -recent oupt EGD with peptic ulcer and candidiasis *Hypokalemia/hypophos: *Generalized weakness/fatigue: *CKD II: *Constipation: Plan: -CT chest -vanc/zosyn - deescalate, diflucan for recent esophageal candidiasis, mrsa screen neg -replace potassium prn -prn blood transfusion for <7 -ppi bid -f/u with oncologist for disease progression -pt/to -bowel regimen -CM for placement needs -DVT prophylaxis: Lovenox SQ to SCD until GI bleed ruled out / ppi DNR Time Spent With Patient Time: Total time spent is greater than 50% in coordination of care (as documented) at patient's floor/unit and/or counseling patient: QUALITY VTE Deep Vein Thrombosis/Pulmonary Embolism Present on Admission: No
--- NOTE | 2021-02-20 08:04 | Cat Scan Report ---
History: Altered mental status, increased weakness, active lung cancer TECHNIQUE: The brain was imaged before and after intravenous contrast at 2.5 mm intervals. Sagittal and coronal reformats were created. The radiation exposure was limited using dose reduction technology. FINDINGS: Along the inferior border of the right globus pallidus there is a 7 x 10 mm CSF filled space which has no mass effect or surrounding edema. This is a chronic finding which was present on prior head CT on 12/19/20 and a brain MRI on 02/05/20. This could be an old lacunar infarct or a large perivascular lacunar space. There is mild generalized cerebral atrophy. Ill-defined zones of decreased attenuation are present in the centrum semiovale in the frontal and parietal lobes. There is no evidence of an acute infarct. No hemorrhage, edema or mass are present. The postcontrast view show no enhancing lesion. Ventricles are prominent but proportionate to the atrophy. There is no abnormal extra-axial fluid collection. Bone windows show no lytic or blastic metastasis. The sinuses are clear. There has been no change from the prior CT or MRI. IMPRESSION: Stable age-related degenerative changes and no acute abnormality or evidence of metastasis Interpreted and Authenticated by: Brenden Wheeler 02/20/21
--- NOTE | 2021-02-20 08:18 | Cat Scan Report ---
History: Follow-up left-sided lung cancer TECHNIQUE: The chest was imaged following injection of intravenous nonionic contrast scanning during the arterial phase. Sagittal, coronal and axial MIPS images were created. The radiation exposure was limited using dose reduction technology. There is a large poorly defined solid tumor in the left upper lobe. This partially encases the left upper hilum. It obstructs the left upper lobe bronchus and there is near complete occlusion of the left upper lobe pulmonary artery and vein. The mass measures approximately 7.0 x 9.1 x 10.7 cm. There has been no appreciable growth since the prior CT done on 01/03/21. The tumor invades the left third fourth and fifth ribs. It also extends across the major fissure involving the superior aspect of the superior segment of the left lower lobe. These are also chronic findings. There is postobstructive atelectasis/pneumonia in the left upper lobe and lingula.26 patient has underlying moderate emphysema, most apparent in the right upper lobe. No pleural or pericardial effusion are present. The heart is normal in size and contour. There are calcified plaques in the coronary arteries. No mediastinal or right hilar adenopathy are present. The adrenals are normal. Visualized portions of the liver and spleen appear normal in size and homogeneous. No new bone lesion has developed. IMPRESSION: Stable large tumor in the left upper lobe invading the left lateral chest wall and extending across the major fissure Interpreted and Authenticated by: Brenden Wheeler 02/20/21
[2021-02-20] MEDS: PANTOPRAZOLE 40 MG PACKET PO SCH ×2 (08:46→17:58)
[2021-02-20] MEDS: LORATADINE 10 MG TABLET PO SCH (08:46)
[2021-02-20] MEDS: PHOSPHORUS 250 MG TABLET PO SCH ×4 (08:46→17:58)
[2021-02-20] MEDS: ACETAMINOPHEN 500 MG TABLET PO PRN (08:46)
[2021-02-20] MEDS: FLUCONAZOLE 200 MG/100 ML BAG IV SCH (08:47)
[2021-02-20] MEDS: POTASSIUM CHLORIDE 20 MEQ TABLET PO SCH ×2 (08:47→17:59)
[2021-02-20] MEDS: DOCUSATE SODIUM 100 MG CAPSULE PO SCH ×2 (08:48→23:23)
[2021-02-20] MEDS: MEGESTROL ACETATE 400 MG/10 ML ORAL.SUSP PO SCH (08:48)
[2021-02-20] MEDS ORDERED: VANCOMYCIN 1,000 MG in 0.9 % SODIUM CHLORIDE 250 ML IV SCH (09:00)
[2021-02-20] MEDS: 0.9 % SODIUM CHLORIDE 10 ML SYRINGE IV SCH ×2 (09:02→23:36)
--- NOTE | 2021-02-20 10:52 | Discharge Summary ---
Discharge Provider Provider Patient information: Note initiated : 02/20/21 at 10:50 am Service Date, if different from initiated Date: [] Patient: Jovan Elizabeth 75 y/o M admitted on 02/13/21 for weakness, low bp, black stools, pale. Chief Complaint: [] Date of admission: 02/13/21 20:32 Discharge date: 02/21/21 Primary care physician: Ricky Youssef M.D., F.A.A.F.P. Consults: 02/13/21 Consult to Physician [CONS] Stat Comment: Consulting Provider: Ravi Mckeon Reason For Exam: Physician to Consult Discharge Meds Discharge Medications Home Medications loratadine 10 mg tablet (Allerclear) 10 mg PO QDAY 01/07/20 [History Confirmed 02/13/21 Last Taken 02/16/20] acetaminophen 500 mg tablet 1,000 mg PO Q6H PRN 02/17/20 [History Confirmed 02/13/21 Last Taken 02/16/20] megestrol 400 mg/10 mL (10 mL) oral suspension 200 mg (5 mL) PO QDAY #200 ml 01/08/21 [Rx Confirmed 02/13/21 Last Taken Unknown] methocarbamol 750 mg tablet 750 mg PO QHS #30 tab 02/03/21 [Rx Confirmed 02/13/21 Last Taken Unknown] omeprazole magnesium 20 mg tablet,delayed release (Prilosec OTC) 20 mg PO QDAY 02/09/21 [History Confirmed 02/13/21 Last Taken Unknown] tramadol 50 mg tablet 50 mg PO BID PRN #60 tab 02/10/21 [Rx Confirmed 02/13/21 Last Taken Unknown] fluconazole 200 mg tablet 200 - 400 mg PO QDAY 02/13/21 [History Confirmed 02/13/21 Last Taken Unknown] potassium chloride 20 mEq tablet,extended release 20 meq PO QDAY #14 tab 02/21/21 [Rx Last Taken Unknown] COURSE Hospital Course Hospital course: nterval history: History of present illness: Mr. 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 Yanez [phone]. He had EGD 6 days ago for persistent recurrent anemia that required blood transfusion and was being diagnosed with gastric ulcer and michelle infection. He was supposed to received intrathecal pain this coming Saturday02/17/21 by his pain specialist, so this morning he had some pre- procedure lab works, an it indicated leukocytosis with WBC 37.5 with a left shift neutrophile % of 87.3. Did not received any neuprogen recently. H/H 8.5 and 25.9, respectively. Serum lactic acid normal. UA does not reveal any signs of urinary infection. CXR showing 12cm left upper lobe mass increasing in size relative to last study, consistent with the history of lung cancer. Patient is c/o general body weakness, as well as left sided chest pain and back pain. Denies any SOB, cough, sputum production, or respiratory wheezing. Denies any urinary symptoms such as dysuria or change in urinary frequency or urgency. Denies fever, chills, or sweating. 02/14: Afebrile overnight. Cultures (blood, urine, sputum) no growth to date. WBC 37.5-->33.8; hemoglobin 8.5-->7.4. Denies any pain currently. Vomited earlier this morning 10min after having Diflucan. Poor appetite. c/o general body weakness. Denies SOB. Still on Diflucan (IV) as well as broad spectrum antibiotics Vancomycin and Zosyn. 02/15: Afebrile overnight. Cultures (blood, urine, sputum) no growth to date. WBC 33.8-->33.3; hemoglobin 7.4-->7.4. Denies any pain currently. Poor appetite. c/o general body weakness. c/o lethargy.. Denies SOB. Still on Diflucan (IV) as well as broad spectrum antibiotics Vancomycin and Zosyn. 02/16: Afebrile overnight. Cultures (blood, urine, sputum) no growth to date. WBC 33.3-->40.5; hemoglobin 7.4-->7.5. Denies any pain currently. Improving appetite. c/o general body weakness. Denies lethargy. Denies SOB. Still on Diflucan (IV) as well as broad spectrum antibiotics Vancomycin and Zosyn. 02/17: Afebrile overnight. Cultures (blood, urine, sputum) no growth to date. WBC 40.5-->37.2; hemoglobin 7.5-->7.1. Denies any pain currently. Improving appetite. Improving general body weakness. Denies lethargy. Denies SOB. Still on Diflucan (IV) as well as broad spectrum antibiotics Vancomycin and Zosyn. 02/18: Afebrile overnight. Cultures (blood, urine, sputum) no growth to date. WBC 37.2-->33.8; hemoglobin 7.1-->6.6. Denies any pain currently. Improving appetite. Improving general body weakness. Denies lethargy. Denies SOB. Still on Diflucan (IV) as well as broad spectrum antibiotics Vancomycin and Zosyn. 02/19 Patient seems to feeling his usual self. No overnight event or new complaints. Shortness of breath baseline, denies cough. White blood cell count still high, awaiting peripheral smear. Hypokalemia given this morning. Pending CT chest to evaluate for progression. Potassium mildly low. Phos low. Replace as needed. 02/20 Patient seem to be feeling well. Leukocytosis persistent. Peripheral smear unrevealing of specific diagnosis but likely from reactive. Hemoglobin stable. 02/21 Patient feeling well. No changes. Electrolytes stable little bit low today stable aggressively replace and order follow-up chemistry outpatient and prescribed potassium supplement daily. A: *Leukocytosis(acute on chronic): DDx: suspect likely CA related / metastatic CA to bone marrow vs Infectious (bacterial/fungal) -no bandemia, afebrile,pct low, Blood/Urine/sputum culture no growth to date, no coughing -peripheral smear to specific finding, likely reactive -CT chest stable CHET tumor *Squamous cell lung cancer with progression: follow with cancer [facility] [place] -had chemo-rads beginning of year, now on immunotherapy, held until infectious process ruled out -on room air -CT chest stable CHET tumor *Chronic pain: 2/2 above, awaiting intrathecal pain pump *Anemia, acute on chronic: from PUD & occasionally requires blood transfusions otherwise -s/p 2prbc (02/18), anemia stable -had 1 positive FOBT then 3 negative after, likely from hemorrhoid *thrombocytosis: likely reactive from above *Esphageal/gastric candidiasis/PUD: has been on diflucan -recent oupt EGD with peptic ulcer and candidiasis *Hypokalemia/hypophos: *Generalized weakness/fatigue: *CKD II: *Constipation: Discharge diagnosis: Leukocytosis likely reactive from cancer, lung cancer, anemia electrolyte i Secondary discharge diagnosis: Chronic pain anemia thrombocytosis peptic ulcer disease electrolyte abnormalities generalized weakness chronic kidney disease Time Spent with Patient Time attestation: Total time spent providing and/or coordinating discharge services: Time spent: Greater than 30 minutes EXAM Constitutional Vitals: Temp Pulse Resp BP Pulse Ox 97.3 F 100 H 18 143/96 99 02/20/21 06:55 02/20/21 06:55 02/20/21 06:55 02/20/21 06:55 02/20/21 06:55 Discharge Data Data Completed and Pending Labs on day of discharge: Labs from last 24 hours 02/20/21 02/20/21 02/20/21 05:35 05:34 05:34 WBC 33.3 H* RBC 3.26 L Hgb 9.4 L Hct 29.2 L MCV 89.6 MCH 28.8 MCHC 32.2 RDW 15.4 H Plt Count 642 H MPV 8.5 Neut % (Auto) 89.7 H Lymph % (Auto) 1.8 L [place] % (Auto) 7.9 Eos % (Auto) 0.1 Baso % (Auto) 0.5 Lymph # (Auto) 0.61 L [place] # (Auto) 2.65 H Eos # (Auto) 0.02 Baso # (Auto) 0.16 Absolute Neutrophils 29.90 H Smear Path Review Sodium 137 Potassium 3.2 L Chloride 106 Carbon Dioxide 20 L Anion Gap 11.0 BUN 8 Creatinine 0.7 GFR Calculation 91 Glucose 101 Uric Acid 2.6 Calcium 9.6 Phosphorus 1.9 L Magnesium 1.8 Total Bilirubin 0.3 Direct Bilirubin < 0.2 GGT 47 AST 9 ALT 8 Alkaline Phosphatase 87 Lactate Dehydrogenase 204 Total Protein 5.9 Albumin 1.9 L Globulin 4.0 H Albumin/Globulin Ratio 0.5 L Triglycerides 69 Random Vancomycin 12.1 02/18/21 06:36 WBC RBC Hgb Hct MCV MCH MCHC RDW Plt Count MPV Neut % (Auto) Lymph % (Auto) [place] % (Auto) Eos % (Auto) Baso % (Auto) Lymph # (Auto) [place] # (Auto) Eos # (Auto) Baso # (Auto) Absolute Neutrophils Smear Path Review See comment Sodium Potassium Chloride Carbon Dioxide Anion Gap BUN Creatinine GFR Calculation Glucose Uric Acid Calcium Phosphorus Magnesium Total Bilirubin Direct Bilirubin GGT AST ALT Alkaline Phosphatase Lactate Dehydrogenase Total Protein Albumin Globulin Albumin/Globulin Ratio Triglycerides Random Vancomycin Discharge Plan Patient/Caregiver Discharge Instructions Activity: increase activity as tolerated Diet: Regular Diet Activity Restrictions/Additional Instructions: Follow-up with oncologist and 3 to 10 days Prescriptions: New potassium chloride 20 mEq tablet extended release 20 meq PO QDAY Qty: 14 0RF Continued methocarbamol 750 mg tablet 750 mg PO QHS Qty: 30 2RF tramadol 50 mg tablet 50 mg PO BID PRN (Reason: pain) Qty: 60 0RF omeprazole magnesium [Prilosec OTC] 20 mg tablet,delayed release (DR/EC) 20 mg PO QDAY 0RF loratadine [Allerclear] 10 mg tablet 10 mg PO QDAY 0RF acetaminophen 500 mg Tablet 1,000 mg PO Q6H PRN (Reason: Pain) 0RF megestrol 400 mg/10 mL (10 mL) suspension 200 mg PO QDAY Qty: 200 0RF fluconazole 200 mg Tablet 200 - 400 mg PO QDAY 0RF Rx Instructions: 400 mg day 1; 200 mg days 2-21 Other Ambulatory Orders: Basic Metabolic Panel (Routine) Timeframe: 3 Days Facility: [facility] - Location: Laboratory Ordered By: Nathan Snyder Follow Up Plan Follow up with: Ricky Youssef MD, [facility] [Primary Care Provider] - Patient Disposition: Home Health Service Prognosis: Undetermined Rehab Potential: Fair I certify that the patient requires SNF services: Yes Overall status at discharge: patient is progressing back to baseline Discharge Orders: Discharge Order (Routine); Ordered 02/21/21 Ordered By: Nathan Snyder QUALITY VTE Deep Vein Thrombosis/Pulmonary Embolism Present on Admission: No
[2021-02-20] MEDS: SENNOSIDES 1 TABLET PO SCH (23:24)
[2021-02-20] MEDS: METHOCARBAMOL 750 MG TABLET PO SCH (23:36)
[2021-02-21] MEDS: PIPERACILLIN SODIUM/TAZOBACTAM 3.375 GM in DEXTROSE 5% IN WATER 50 ML IV SCH (06:09)
[2021-02-21 06:59] LABS: Basophils # (Auto) 0.11 K/mcL (0.00-0.30); Basophils % (Auto) 0.4 % (0.0-2.0); Eosinophils # (Auto) 0.01 K/mcL (0.00-0.70); Eosinophils % (Auto) 0 % (0.0-7.0); Hematocrit 27.8 % (40.1-51.0); Hemoglobin 8.7 g/dL (13.7-17.5); Lymphocytes # (Auto) 0.55 K/mcL (1.50-4.80); Mean Cell Volume 90.6 fL (80.0-100.0); Mean Corpuscular HGB Conc 31.3 g/dL (31.0-36.0); Mean Platelet Volume 8.6 fL (7.4-10.4); Monocytes # (Auto) 2.71 K/mcL (0.10-0.90); Monocytes % (Auto) 9.7 % (1.0-12.0); Neutrophils % (Auto) 87.9 % (38.0-78.0); Platelet Count 516 K/mcL (140-440); RBC 3.07 M/mcL (4.63-6.08); Red Cell Distribution Width 15.4 % (11.5-14.5); WBC 27.8 K/mcL (4.5-11.0)
[2021-02-21] MEDS: PANTOPRAZOLE 40 MG PACKET PO SCH ×2 (07:19→16:27)
[2021-02-21 08:01] LABS: ALT/SGPT 6 U/L (<40); AST/SGOT 11 U/L (<40); Albumin/Globulin Ratio 0.5 (1.0-2.3); Alkaline Phosphatase 87 U/L (39-117); Bilirubin,Direct < 0.2 mg/dL (0-0.3); Bilirubin,Total 0.3 mg/dL (0.1-1.0); Blood Urea Nitrogen 9 mg/dL (8-23); Calcium 9.7 mg/dL (8.6-10.4); Carbon Dioxide 20 mmol/L (22-30); Chloride 106 mmol/L (96-108); Glomerular Filtration Rate 87; Glucose 96 mg/dL (70-105); Lactate Dehydrogenase 246 U/L (135-225); Phosphorous 2.2 mg/dL (2.5-4.5); Triglycerides 61 mg/dL (<150); Uric Acid 2.5 mg/dL (2.5-8.0)
[2021-02-21] MEDS ORDERED: POTASSIUM CHLORIDE 20 MEQ TABLET PO ONE (08:07)
[2021-02-21] MEDS: FLUCONAZOLE 200 MG/100 ML BAG IV SCH (08:21)
[2021-02-21] MEDS: NEUTRA PHOS 1 PACKET PO SCH ×2 (08:32→21:21)
[2021-02-21] MEDS: DOCUSATE SODIUM 100 MG CAPSULE PO SCH ×2 (08:33→21:12)
[2021-02-21] MEDS: POTASSIUM CHLORIDE 20 MEQ TABLET PO SCH ×2 (08:33→16:26)
[2021-02-21] MEDS: LORATADINE 10 MG TABLET PO SCH (08:33)
[2021-02-21] MEDS: PHOSPHORUS 250 MG TABLET PO SCH ×2 (08:33→21:21)
[2021-02-21] MEDS: 0.9 % SODIUM CHLORIDE 10 ML SYRINGE IV SCH ×2 (08:34→21:21)
[2021-02-21] MEDS: MEGESTROL ACETATE 400 MG/10 ML ORAL.SUSP PO SCH (08:34)
[2021-02-21] MEDS ORDERED: POTASSIUM CHLORIDE 40 MEQ in DEXTROSE 5% IN WATER 500 ML IV ONE (09:00)
--- NOTE | 2021-02-21 10:48 | Internal Med Progress Note ---
SUBJECTIVE Subjective Patient information: Note initiated : 02/21/21 at 10:44 am Service Date, if different from initiated Date: [] Patient: Jovan Elizabeth a 75 y/o M admitted on 02/13/21 for weakness, low bp, black stools, pale. Chief Complaint: [] Interval history: Interval history: History of present illness: Mr. 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 Yanez [phone]. He had EGD 6 days ago for persistent recurrent anemia that required blood transfusion and was being diagnosed with gastric ulcer and michelle infection. He was supposed to received intrathecal pain this coming Saturday02/17/21 by his pain specialist, so this morning he had some pre- procedure lab works, an it indicated leukocytosis with WBC 37.5 with a left shift neutrophile % of 87.3. Did not received any neuprogen recently. H/H 8.5 and 25.9, respectively. Serum lactic acid normal. UA does not reveal any signs of urinary infection. CXR showing 12cm left upper lobe mass increasing in size relative to last study, consistent with the history of lung cancer. Patient is c/o general body weakness, as well as left sided chest pain and back pain. Denies any SOB, cough, sputum production, or respiratory wheezing. Denies any urinary symptoms such as dysuria or change in urinary frequency or urgency. Denies fever, chills, or sweating. 02/14: Afebrile overnight. Cultures (blood, urine, sputum) no growth to date. WBC 37.5-->33.8; hemoglobin 8.5-->7.4. Denies any pain currently. Vomited earlier this morning 10min after having Diflucan. Poor appetite. c/o general body weakness. Denies SOB. Still on Diflucan (IV) as well as broad spectrum ant ibiotics Vancomycin and Zosyn. 02/15: Afebrile overnight. Cultures (blood, urine, sputum) no growth to date. WBC 33.8-->33.3; hemoglobin 7.4-->7.4. Denies any pain currently. Poor appetite. c/o general body weakness. c/o lethargy.. Denies SOB. Still on Diflucan (IV) as well as broad spectrum antibiotics Vancomycin and Zosyn. 02/16: Afebrile overnight. Cultures (blood, urine, sputum) no growth to date. WBC 33.3-->40.5; hemoglobin 7.4-->7.5. Denies any pain currently. Improving appetite. c/o general body weakness. Denies lethargy. Denies SOB. Still on Diflucan (IV) as well as broad spectrum antibiotics Vancomycin and Zosyn. 02/17: Afebrile overnight. Cultures (blood, urine, sputum) no growth to date. WBC 40.5-->37.2; hemoglobin 7.5-->7.1. Denies any pain currently. Improving appetite. Improving general body weakness. Denies lethargy. Denies SOB. Still on Diflucan (IV) as well as broad spectrum antibiotics Vancomycin and Zosyn. 02/18: Afebrile overnight. Cultures (blood, urine, sputum) no growth to date. WBC 37.2-->33.8; hemoglobin 7.1-->6.6. Denies any pain currently. Improving rogelio etite. Improving general body weakness. Denies lethargy. Denies SOB. Still on Diflucan (IV) as well as broad spectrum antibiotics Vancomycin and Zosyn. 02/19 Patient seems to feeling his usual self. No overnight event or new complaints. Shortness of breath baseline, denies cough. White blood cell count still high, awaiting peripheral smear. Hypokalemia given this morning. Pending CT chest to evaluate for progression. Potassium mildly low. Phos low. Replace as needed. 02/20 Patient seem to be feeling well. Leukocytosis persistent. Peripheral smear unrevealing of specific diagnosis but likely from reactive. Hemoglobin stable. Constitutional Vitals: Vital Signs Temp Pulse Resp BP Pulse Ox 98.6 F 103 H 20 156/87 96 02/21/21 08:00 02/21/21 08:00 02/21/21 08:00 02/21/21 08:00 02/21/21 08:00 Period Temp Pulse Resp BP Sys/Nielsen Pulse Ox Last 24 Hr 98.1 F-99.6 F 94-111 16-22 123-156/75-87 92-100 Intake and Output 02/20/21 02/21/21 02/21/21 21:59 05:59 13:59 Intake Total 350 400 150 Output Total 5 3 2 Balance 345 397 148 Weight 69.264 kg Intake & Output: Intake & Output 02/20/21 02/21/21 12 21:59 05:59 13:59 Intake Total 350 400 150 Output Total 5 3 2 Balance 345 397 148 Weight 69.264 kg Intake: IV 50 50 150 Zosyn 3.375 gm In Dextrose 5% 50 50 50 in Water 50 ml @ 100 mls/hr IV Q6H [facility] Rx#:[id number] Oral 300 350 Output: # of times incontinent of urine 5 3 2 Other: Urine Color Bright Yellow Urine Odor Strong Normal Stool Size Small # Voids 1 3 # Bowel Movements 1 Exam: General: Alert, Awake, No acute Distress Eyes/N/T: EOMI, Head/Neck: neck supple, CV: RRR, No murmurs, Pulm: Diminished mildly b/l, no wheezing/rhonchi/rales Abd: soft, nontender, +BS x4 Ext: no clubbing/cyanosis. trace b/l LE edema Neuro: Alert, no focal deficits, moves all extremities, Skin: warm/dry OBJ DATA Labs CBC & Chem 7: 02/21/21 05:38 02/21/21 05:40 Labs: Abnormal Lab Results 02/21/21 02/21/21 02/20/21 05:40 05:38 05:34 WBC 27.8 H RBC 3.07 L Hgb 8.7 L Hct 27.8 L RDW 15.4 H Plt Count 516 H Neut % (Auto) 87.9 H Lymph % (Auto) 2.0 L Lymph # (Auto) 0.55 L Page # (Auto) 2.71 H Seg Neutrophils % Lymphocytes % Absolute Neutrophils 24.45 H Platelet Estimate RBC Morphology Hypochromasia Anisocytosis Microcytosis Potassium 2.7 L* 3.2 L Carbon Dioxide 20 L 20 L Uric Acid Phosphorus 2.2 L 1.9 L Lactate Dehydrogenase 246 H Total Protein Albumin 2.0 L 1.9 L Globulin 4.0 H 4.0 H Albumin/Globulin Ratio 0.5 L 0.5 L Vancomycin Trough 02/20/21 02/19/21 02/19/21 05:34 05:42 05:42 WBC 33.3 H* 34.4 H* RBC 3.26 L 3.23 L Hgb 9.4 L 9.4 L Hct 29.2 L 28.8 L RDW 15.4 H 14.9 H Plt Count 642 H 640 H Neut % (Auto) 89.7 H Lymph % (Auto) 1.8 L Lymph # (Auto) 0.61 L Page # (Auto) 2.65 H Seg Neutrophils % 90 H Lymphocytes % 3 L Absolute Neutrophils 29.90 H Platelet Estimate Increased A RBC Morphology Abnormal A Hypochromasia 3+ A Anisocytosis 1+ A Microcytosis Potassium 2.6 L* Carbon Dioxide 18 L Uric Acid 2.3 L Phosphorus 2.1 L Lactate Dehydrogenase 243 H Total Protein 5.7 L Albumin 2.0 L Globulin Albumin/Globulin Ratio 0.5 L Vancomycin Trough 02/19/21 02/18/21 02/18/21 05:42 22:34 16:48 WBC RBC Hgb 10.1 L Hct 31.2 L RDW Plt Count Neut % (Auto) Lymph % (Auto) Lymph # (Auto) Page # (Auto) Seg Neutrophils % Lymphocytes % Absolute Neutrophils Platelet Estimate RBC Morphology Hypochromasia Anisocytosis Microcytosis Potassium 2.8 L* Carbon Dioxide Uric Acid Phosphorus Lactate Dehydrogenase Total Protein Albumin Globulin Albumin/Globulin Ratio Vancomycin Trough 21.7 H* 02/18/21 06:36 WBC RBC Hgb Hct RDW Plt Count Neut % (Auto) Lymph % (Auto) Lymph # (Auto) Page # (Auto) Seg Neutrophils % 85 H Lymphocytes % 5 L Absolute Neutrophils Platelet Estimate Increased A RBC Morphology Abnormal A Hypochromasia Anisocytosis 1+ A Microcytosis 2+ A Potassium Carbon Dioxide Uric Acid Phosphorus Lactate Dehydrogenase Total Protein Albumin Globulin Albumin/Globulin Ratio Vancomycin Trough Meds: Medications Acetaminophen (Acetaminophen 500 Mg Tablet) 1,000 mg PO Q6HP PRN; Protocol PRN Reason: Pain Last Admin: 02/20/21 08:46 Dose: 1,000 mg Documented by: Albuterol/Ipratropium (Ipratropium/Albuterol 3 Ml Ampul.Neb) 3 ml NEB Q4HRT PRN PRN Reason: Wheezing Docusate Sodium (Docusate Sodium 100 Mg Capsule) 100 mg PO BID [facility] Last Admin: 02/21/21 08:33 Dose: Not Given Documented by: Fentanyl (Fentanyl 100 Mcg/2 Ml Vial) 25 mcg IV Q2HP PRN; Protocol PRN Reason: Per Pain Protocol Heparin Sodium (Porcine) (Heparin Flush 10 Units/Ml 5 Ml Syringe) 2 ml IV Q12 [facility] Last Admin: 02/21/21 08:32 Dose: 2 ml Documented by: Piperacillin Sod/Tazobactam (Sod 3.375 gm/ Dextrose) 50 mls @ 100 mls/hr IV Q6H [facility]; Protocol Last Infusion: 02/21/21 06:40 Dose: Infused Documented by: Fluconazole (Diflucan) 200 mg in 100 mls @ 100 mls/hr IV DAILY [facility] Stop: 03/05/21 09:01 Last Infusion: 02/21/21 09:33 Dose: Infused Documented by: Potassium Chloride 40 meq/ (Dextrose) 520 mls @ 130 mls/hr IV ONCE ONE Stop: 02/21/21 12:59 Last Admin: 02/21/21 09:05 Dose: 130 mls/hr Documented by: Loratadine (Loratadine 10 Mg Tablet) 10 mg PO QDAY [facility] Last Admin: 02/21/21 08:33 Dose: 10 mg Documented by: Megestrol Acetate (Megestrol Acetate 400 Mg/10 Ml Oral.Susp) 200 mg PO QDAY [facility] Last Admin: 02/21/21 08:34 Dose: 200 mg Documented by: Methocarbamol (Methocarbamol 750 Mg Tablet) 750 mg PO QHS [facility] Last Admin: 02/20/21 23:36 Dose: 750 mg Documented by: Ondansetron HCl (Ondansetron 4 Mg/2 Ml Vial) 4 mg IV Q6HP PRN PRN Reason: Nausea And Vomiting Last Admin: 02/19/21 01:13 Dose: 4 mg Documented by: Pantoprazole Sodium (Pantoprazole 40 Mg Packet) 40 mg PO BIDAC [facility] Last Admin: 02/21/21 07:19 Dose: 40 mg Documented by: Potassium Chloride (Potassium Chloride 20 Meq Tablet) 40 meq PO BIDCC [facility] Last Admin: 02/21/21 08:33 Dose: Not Given Documented by: Potassium/Phosphorus/Sodium (Neutra Phos 1 Packet) 1 packet PO BID [facility] Last Admin: 02/21/21 08:32 Dose: 1 packet Documented by: Senna (Sennosides 1 Tablet) 2 tab PO HS [facility] Last Admin: 02/20/21 23:24 Dose: Not Given Documented by: Sodium Chloride (0.9 % Sodium Chloride 10 Ml Syringe) 10 ml IV Q12 [facility] Last Admin: 02/21/21 08:34 Dose: 10 ml Documented by: Sodium Phosphate (Phosphorus 250 Mg Tablet) 250 mg PO BID [facility] Last Admin: 02/21/21 08:33 Dose: 250 mg Documented by: Tramadol HCl (Tramadol 50 Mg Tablet) 50 mg PO BIDP [facility]; Protocol Last Admin: 02/19/21 04:51 Dose: 50 mg Documented by: Zolpidem Tartrate (Zolpidem 5 Mg Tablet) 5 mg PO HSP PRN PRN Reason: Insomnia A/P Narrative A/P Narrative: A: *Leukocytosis(acute on chronic): DDx: suspect likely CA related / metastatic CA to bone marrow vs Infectious (bacterial/fungal) -no bandemia, afebrile,pct low, Blood/Urine/sputum culture no growth to date, no coughing -peripheral smear to specific finding, likely reactive -CT chest stable CHET tumor *Squamous cell lung cancer with progression: follow with [facility] [place] -had chemo-rads beginning of year, now on immunotherapy, held until infectious process ruled out -on room air -CT chest stable CHET tumor *Chronic pain: 2/2 above, awaiting intrathecal pain pump *Anemia, acute on chronic: from PUD & occasionally requires blood transfusions otherwise -s/p 2prbc (02/18), anemia stable -had 1 positive FOBT then 3 negative after, likely from hemorrhoid *thrombocytosis: likely reactive from above *Esphageal/gastric candidiasis/PUD: has been on diflucan -recent oupt EGD with peptic ulcer and candidiasis *Hypokalemia/hypophos: *Generalized weakness/fatigue: *CKD II: *Constipation: Plan: -vanc(d/c'd)/zosyn - deescalate, diflucan for recent esophageal candidiasis, mrsa screen neg -replace potassium prn -prn blood transfusion for <7 -ppi bid -f/u with oncologist for disease progression -pt/to -bowel regimen -CM for placement needs -DVT prophylaxis: Lovenox SQ / ppi DNR Time Spent With Patient Time: Total time spent is greater than 50% in coordination of care (as documented) at patient's floor/unit and/or counseling patient: QUALITY VTE Deep Vein Thrombosis/Pulmonary Embolism Present on Admission: No
[2021-02-21] MEDS: cefTRIAXone 2 GM in DEXTROSE 5% IN WATER 50 ML IV SCH (12:55)
[2021-02-21] MEDS: ENOXAPARIN 40 MG/0.4 ML SYRINGE SQ SCH (12:55)
[2021-02-21] MEDS: metroNIDAZOLE 500 MG TABLET PO SCH ×2 (14:51→21:21)
[2021-02-21] MEDS: SENNOSIDES 1 TABLET PO SCH (21:12)
[2021-02-21] MEDS: METHOCARBAMOL 750 MG TABLET PO SCH (21:21)
[2021-02-22] MEDS: metroNIDAZOLE 500 MG TABLET PO SCH ×2 (06:00→13:38)
--- NOTE | 2021-02-22 07:11 | Internal Med Progress Note ---
SUBJECTIVE Subjective Patient information: Note initiated : 02/22/21 at 7:09 am Service Date, if different from initiated Date: [] Patient: Jovan Elizabeth a 75 y/o M admitted on 02/13/21 for weakness, low bp, black stools, pale. Chief Complaint: [] Interval history: Interval history: History of present illness: Mr. 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 Yanez [phone]. He had EGD 6 days ago for persistent recurrent anemia that required blood transfusion and was being diagnosed with gastric ulcer and michelle infection. He was supposed to received intrathecal pain this coming Saturday02/17/21 by his pain specialist, so this morning he had some pre- procedure lab works, an it indicated leukocytosis with WBC 37.5 with a left shift neutrophile % of 87.3. Did not received any neuprogen recently. H/H 8.5 and 25.9, respectively. Serum lactic acid normal. UA does not reveal any signs of urinary infection. CXR showing 12cm left upper lobe mass increasing in size relative to last study, consistent with the history of lung cancer. Patient is c/o general body weakness, as well as left sided chest pain and back pain. Denies any SOB, cough, sputum production, or respiratory wheezing. Denies any urinary symptoms such as dysuria or change in urinary frequency or urgency. Denies fever, chills, or sweating. 02/14: Afebrile overnight. Cultures (blood, urine, sputum) no growth to date. WBC 37.5-->33.8; hemoglobin 8.5-->7.4. Denies any pain currently. Vomited earlier this morning 10min after having Diflucan. Poor appetite. c/o general body weakness. Denies SOB. Still on Diflucan (IV) as well as broad spectrum anti biotics Vancomycin and Zosyn. 02/15: Afebrile overnight. Cultures (blood, urine, sputum) no growth to date. WBC 33.8-->33.3; hemoglobin 7.4-->7.4. Denies any pain currently. Poor appetite. c/o general body weakness. c/o lethargy.. Denies SOB. Still on Diflucan (IV) as well as broad spectrum antibiotics Vancomycin and Zosyn. 02/16: Afebrile overnight. Cultures (blood, urine, sputum) no growth to date. WBC 33.3-->40.5; hemoglobin 7.4-->7.5. Denies any pain currently. Improving appetite. c/o general body weakness. Denies lethargy. Denies SOB. Still on Diflucan (IV) as well as broad spectrum antibiotics Vancomycin and Zosyn. 02/17: Afebrile overnight. Cultures (blood, urine, sputum) no growth to date. WBC 40.5-->37.2; hemoglobin 7.5-->7.1. Denies any pain currently. Improving appetite. Improving general body weakness. Denies lethargy. Denies SOB. Still on Diflucan (IV) as well as broad spectrum antibiotics Vancomycin and Zosyn. 02/18: Afebrile overnight. Cultures (blood, urine, sputum) no growth to date. WBC 37.2-->33.8; hemoglobin 7.1-->6.6. Denies any pain currently. Improving appe tite. Improving general body weakness. Denies lethargy. Denies SOB. Still on Diflucan (IV) as well as broad spectrum antibiotics Vancomycin and Zosyn. 02/19 Patient seems to feeling his usual self. No overnight event or new complaints. Shortness of breath baseline, denies cough. White blood cell count still high, awaiting peripheral smear. Hypokalemia given this morning. Pending CT chest to evaluate for progression. Potassium mildly low. Phos low. Replace as needed. 02/20 Patient seem to be feeling well. Leukocytosis persistent. Peripheral smear unrevealing of specific diagnosis but likely from reactive. Hemoglobin stable. [facility] to go to [facility] but the random Cov[facility] test required from the [facility] facility was positive. Awaiting for the more reliable follow-up test. 02/21 f/u COVID [facility] follow-up test positive unfortunately, patient is asymptomatic. Patient feels the same no changes. Occasional cough. Review of Systems: denies headache/fever/chills/nausea/vomiting/chest or abdominal pain/cough/dyspnea/diarrhea. Otherwise see above. Constitutional Vitals: Vital Signs Temp Pulse Resp BP Pulse Ox 98.1 F 108 H 26 H 157/105 95 02/22/21 04:00 02/22/21 04:00 02/22/21 04:00 02/22/21 04:00 02/22/21 04:00 Period Temp Pulse Resp BP Sys/Nielsen Pulse Ox Last 24 Hr 98.1 F-98.9 F 103-122 20-28 125-160/75-119 94-97 Intake and Output 02/21/21 02/22/21 02/22/21 21:59 05:59 13:59 Intake Total 260 240 Output Total 2 3 Balance 258 237 Weight 69.088 kg Intake & Output: Intake & Output 02/21/21 02/22/21 02/22/21 21:59 05:59 13:59 Intake Total 260 240 Output Total 2 3 Balance 258 237 Weight 69.088 kg Intake: Oral 260 240 Output: # of times incontinent of urine 2 3 Other: Urine Color Bright Yellow Dark Yellow Urine Odor Strong Stool Size Small Moderate Stool Color Brown Brown Stool Consistency Liquid Liquid Loose Loose # of times incontinent of 1 1 Bowels Exam: General: Alert, Awake, No acute Distress Eyes/N/T: EOMI, Head/Neck: neck supple, CV: RRR, No murmurs, Pulm: Diminished mildly b/l more left side, no wheezing/rhonchi/rales Abd: soft, nontender, +BS x4 Ext: no clubbing/cyanosis. trace b/l LE edema Neuro: Alert, no focal deficits, moves all extremities, Skin: warm/dry OBJ DATA Labs CBC & Chem 7: 02/21/21 05:38 02/22/21 07:13 Labs: Abnormal Lab Results 02/21/21 02/21/21 02/20/21 05:40 05:38 05:34 WBC 27.8 H RBC 3.07 L Hgb 8.7 L Hct 27.8 L RDW 15.4 H Plt Count 516 H Neut % (Auto) 87.9 H Lymph % (Auto) 2.0 L Lymph # (Auto) 0.55 L [place] # (Auto) 2.71 H Seg Neutrophils % Lymphocytes % Absolute Neutrophils 24.45 H Platelet Estimate RBC Morphology Hypochromasia Anisocytosis Potassium 2.7 L* 3.2 L Carbon Dioxide 20 L 20 L Uric Acid Phosphorus 2.2 L 1.9 L Lactate Dehydrogenase 246 H Total Protein Albumin 2.0 L 1.9 L Globulin 4.0 H 4.0 H Albumin/Globulin Ratio 0.5 L 0.5 L Vancomycin Trough 02/20/21 02/19/21 02/19/21 05:34 05:42 05:42 WBC 33.3 H* 34.4 H* RBC 3.26 L 3.23 L Hgb 9.4 L 9.4 L Hct 29.2 L 28.8 L RDW 15.4 H 14.9 H Plt Count 642 H 640 H Neut % (Auto) 89.7 H Lymph % (Auto) 1.8 L Lymph # (Auto) 0.61 L [place] # (Auto) 2.65 H Seg Neutrophils % 90 H Lymphocytes % 3 L Absolute Neutrophils 29.90 H Platelet Estimate Increased A RBC Morphology Abnormal A Hypochromasia 3+ A Anisocytosis 1+ A Potassium 2.6 L* Carbon Dioxide 18 L Uric Acid 2.3 L Phosphorus 2.1 L Lactate Dehydrogenase 243 H Total Protein 5.7 L Albumin 2.0 L Globulin Albumin/Globulin Ratio 0.5 L Vancomycin Trough 02/19/21 05:42 WBC RBC Hgb Hct RDW Plt Count Neut % (Auto) Lymph % (Auto) Lymph # (Auto) [place] # (Auto) Seg Neutrophils % Lymphocytes % Absolute Neutrophils Platelet Estimate RBC Morphology Hypochromasia Anisocytosis Potassium Carbon Dioxide Uric Acid Phosphorus Lactate Dehydrogenase Total Protein Albumin Globulin Albumin/Globulin Ratio Vancomycin Trough 21.7 H* Meds: Medications Acetaminophen (Acetaminophen 500 Mg Tablet) 1,000 mg PO Q6HP PRN; Protocol PRN Reason: Pain Last Admin: 02/20/21 08:46 Dose: 1,000 mg Documented by: Albuterol/Ipratropium (Ipratropium/Albuterol 3 Ml Ampul.Neb) 3 ml NEB Q4HRT PRN PRN Reason: Wheezing Docusate Sodium (Docusate Sodium 100 Mg Capsule) 100 mg PO BID [facility] Last Admin: 02/21/21 21:12 Dose: Not Given Documented by: Enoxaparin Sodium (Enoxaparin 40 Mg/0.4 Ml Syringe) 40 mg SQ DAILY [facility] Last Admin: 02/21/21 12:55 Dose: 40 mg Documented by: Fentanyl (Fentanyl 100 Mcg/2 Ml Vial) 25 mcg IV Q2HP PRN; Protocol PRN Reason: Per Pain Protocol Heparin Sodium (Porcine) (Heparin Flush 10 Units/Ml 5 Ml Syringe) 2 ml IV Q12 [facility] Last Admin: 02/21/21 21:14 Dose: Not Given Documented by: Fluconazole (Diflucan) 200 mg in 100 mls @ 100 mls/hr IV DAILY [facility] Stop: 03/05/21 09:01 Last Infusion: 02/21/21 09:33 Dose: Infused Documented by: Ceftriaxone Sodium 2 gm/ (Dextrose) 50 mls @ 100 mls/hr IV DAILY [facility]; Protocol Last Infusion: 02/21/21 13:25 Dose: Infused Documented by: Loratadine (Loratadine 10 Mg Tablet) 10 mg PO QDAY [facility] Last Admin: 02/21/21 08:33 Dose: 10 mg Documented by: Megestrol Acetate (Megestrol Acetate 400 Mg/10 Ml Oral.Susp) 200 mg PO QDAY [facility] Last Admin: 02/21/21 08:34 Dose: 200 mg Documented by: Methocarbamol (Methocarbamol 750 Mg Tablet) 750 mg PO QHS [facility] Last Admin: 02/21/21 21:21 Dose: 750 mg Documented by: Metronidazole (Metronidazole 500 Mg Tablet) 500 mg PO Q8 [facility]; Protocol Last Admin: 02/22/21 06:00 Dose: 500 mg Documented by: Ondansetron HCl (Ondansetron 4 Mg/2 Ml Vial) 4 mg IV Q6HP PRN PRN Reason: Nausea And Vomiting Last Admin: 02/19/21 01:13 Dose: 4 mg Documented by: Pantoprazole Sodium (Pantoprazole 40 Mg Packet) 40 mg PO BIDAC [facility] Last Admin: 02/21/21 16:27 Dose: 40 mg Documented by: Potassium Chloride (Potassium Chloride 20 Meq Tablet) 40 meq PO BIDCC [facility] Last Admin: 02/21/21 16:26 Dose: 40 meq Documented by: Potassium/Phosphorus/Sodium (Neutra Phos 1 Packet) 1 packet PO BID [facility] Last Admin: 02/21/21 21:21 Dose: 1 packet Documented by: Senna (Sennosides 1 Tablet) 2 tab PO HS [facility] Last Admin: 02/21/21 21:12 Dose: Not Given Documented by: Sodium Chloride (0.9 % Sodium Chloride 10 Ml Syringe) 10 ml IV Q12 [facility] Last Admin: 02/21/21 21:21 Dose: 10 ml Documented by: Sodium Phosphate (Phosphorus 250 Mg Tablet) 250 mg PO BID [facility] Last Admin: 02/21/21 21:21 Dose: 250 mg Documented by: Tramadol HCl (Tramadol 50 Mg Tablet) 50 mg PO BIDP [facility]; Protocol Last Admin: 02/19/21 04:51 Dose: 50 mg Documented by: Zolpidem Tartrate (Zolpidem 5 Mg Tablet) 5 mg PO HSP PRN PRN Reason: Insomnia A/P Narrative A/P Narrative: A: *Leukocytosis(acute on chronic): DDx: suspect likely CA related / metastatic CA to bone marrow vs Infectious (bacterial/fungal) -no bandemia, afebrile,pct low, Blood/Urine/sputum culture no growth to date, no coughing -peripheral smear to specific finding, likely reactive -CT chest stable CHET tumor *Squamous cell lung cancer with progression: follow [place] [facility] [place] -had chemo-rads beginning of year, now on immunotherapy, held until infectious process ruled out -on room air -CT chest stable CHET tumor *Chronic pain: 2/2 above, awaiting intrathecal pain pump *Anemia, acute on chronic: from PUD & occasionally requires blood transfusions otherwise -s/p 2prbc (02/18), anemia stable -had 1 positive FOBT then 3 negative after, likely from hemorrhoid *thrombocytosis: likely reactive from above *Esphageal/gastric candidiasis/PUD: has been on diflucan -recent oupt EGD with peptic ulcer and candidiasis *Hypokalemia/hypophos: *Generalized weakness/fatigue: *CKD II: *Constipation: Plan: -d/c abx, diflucan for recent esophageal candidiasis, mrsa screen neg -replace potassium prn -prn blood transfusion for <7 -ppi bid -f/u with oncologist for disease progression -pt/to -bowel regimen -CM for placement, -DVT prophylaxis: Lovenox SQ / ppi DNR Time Spent With Patient Time: Total time spent is greater than 50% in coordination of care (as documented) at patient's floor/unit and/or counseling patient: QUALITY VTE Deep Vein Thrombosis/Pulmonary Embolism Present on Admission: No
[2021-02-22] MEDS: POTASSIUM CHLORIDE 20 MEQ TABLET PO SCH (07:30)
[2021-02-22] MEDS: PANTOPRAZOLE 40 MG PACKET PO SCH (07:30)
[2021-02-22 08:24] LABS: ALT/SGPT 6 U/L (<40); AST/SGOT 11 U/L (<40); Albumin 2.2 gm/dL (3.2-5.2); Albumin/Globulin Ratio 0.6 (1.0-2.3); Alkaline Phosphatase 85 U/L (39-117); Bilirubin,Direct < 0.2 mg/dL (0-0.3); Bilirubin,Total 0.2 mg/dL (0.1-1.0); Blood Urea Nitrogen 9 mg/dL (8-23); Calcium 9.8 mg/dL (8.6-10.4); Carbon Dioxide 21 mmol/L (22-30); Chloride 105 mmol/L (96-108); Glomerular Filtration Rate 91; Glucose 99 mg/dL (70-105); Lactate Dehydrogenase 211 U/L (135-225); Phosphorous 2.3 mg/dL (2.5-4.5); Triglycerides 58 mg/dL (<150); Uric Acid 3.1 mg/dL (2.5-8.0)
[2021-02-22] MEDS ORDERED: POTASSIUM CHLORIDE 20 MEQ TABLET PO SCH (08:40)
[2021-02-22] MEDS ORDERED: FLUCONAZOLE 100 MG TABLET PO SCH (09:00)
[2021-02-22] MEDS ORDERED: POTASSIUM CHLORIDE 40 MEQ in DEXTROSE 5% IN WATER 500 ML IV ONE (09:00)
[2021-02-22] MEDS: ENOXAPARIN 40 MG/0.4 ML SYRINGE SQ SCH (09:15)
[2021-02-22] MEDS: MEGESTROL ACETATE 400 MG/10 ML ORAL.SUSP PO SCH (09:15)
[2021-02-22] MEDS: LORATADINE 10 MG TABLET PO SCH (09:16)
[2021-02-22] MEDS: traMADol 50 MG TABLET PO SCH (09:16)
[2021-02-22] MEDS: 0.9 % SODIUM CHLORIDE 10 ML SYRINGE IV SCH (09:16)
[2021-02-22] MEDS: PHOSPHORUS 250 MG TABLET PO SCH (09:16)
[2021-02-22] MEDS: NEUTRA PHOS 1 PACKET PO SCH (09:16)
[2021-02-22] MEDS: cefTRIAXone 2 GM in DEXTROSE 5% IN WATER 50 ML IV SCH (10:23)
[2021-02-22] MEDS: ACETAMINOPHEN 500 MG TABLET PO PRN (13:38)
== END 2021-02-22 14:15 | disposition home health service (06) | DRG 814 ==
LOC: ED 13:45 → MEDSUR 20:32
PROVIDERS: ADMIT Internal Medicine; ATTEND Internal Medicine

== ENCOUNTER 2021-02-24 07:05 | Inpatient (IN) ==
--- NOTE | 2021-02-24 07:13 | Emergency Department Note ---
Altered Mental Status HPI General Chief Complaint: Altered Mental Status Stated Complaint: Confusion Time Seen by Provider: 02/24/21 07:13 Source: patient (Very limited), family (), EMS and old records reviewed (Prior admission) Mode of arrival: EMS Limitations: altered mental status History of Present Illness HPI Narrative: Narrative: 75-year-old male brought in by ambulance because of altered mental status. This began in the past 12 to 24 hours. The patient was hospitalized for 8 days and was discharged from the hospital 3 days ago. At the time of discharge with the intent to go to nursing home facility a Covid test was performed and this came back positive. Patient was then unable to go to the care facility so went home even though he required a high level of care. At home the spouse did her best to care for the patient but found it somewhat overwhelming. She needed to call 911 at least once and possibly twice because of falls or inability to move. The patient mental status declined in the last 12 hours to where he was confused and unable to communicate normally. Symptoms are constant. Nothing makes it better. Worse with time. Not associated with any head injury. No radiation of the symptoms. Patient also suffers from back pain due to his lung cancer which makes him unable to lie flat. This compounds his problem. Patient has had a 40 to 50 pound weight loss since developing cancer. He had immunotherapy but that was discontinued. He has been going downhill steadily. He has chronic pain and they have been discussing a possible pump for that. He had a visit for that on 13 February. Patient is also suffered from blood loss dehydration leukocytosis for which she was hospitalized recently. The leukocytosis was attributed to his cancer when it was unresponsive to antibiotics and other therapy. states that she has had a conversation with the oncologist who has informed her that his condition is terminal. The oncologist wishes to review this with the patient personally. This has not happened because of Covid and likely will have to happen via Zoom. There has been much discussion about entering hospice but the either the patient or the for both have been unwilling to enter into hospice. The states that she is quite familiar with hospice as she had it for her own parent. Related Data Home Medications Medication Instructions Recorded Confirmed loratadine 10 mg tablet 10 mg PO QDAY 01/07/20 02/24/21 (Allerclear) acetaminophen 500 mg tablet 1,000 mg PO Q6H PRN 02/17/20 02/24/21 omeprazole magnesium 20 mg 20 mg PO QDAY 02/09/21 02/24/21 tablet,delayed release (Prilosec OTC) fluconazole 200 mg tablet 200 - 400 mg PO QDAY 02/13/21 02/24/21 Previous Rx's Medication Instructions Recorded megestrol 400 mg/10 mL (10 mL) 200 mg (5 mL) PO QDAY #200 ml 01/08/21 oral suspension methocarbamol 750 mg tablet 750 mg PO QHS #30 tab 02/03/21 tramadol 50 mg tablet 50 mg PO BID PRN #60 tab 02/10/21 potassium chloride 20 mEq 20 meq PO QDAY #14 tab 02/21/21 tablet,extended release Allergies Allergy/AdvReac Type Severity Reaction Status Date / Time No Known Drug Allergies Allergy Verified 02/24/21 07:06 Review of Systems ROS ROS Narrative: Narrative: Limitations: ROS unobtainable due to patients medical condition PFSH Narrative Patient History Narrative: Narrative: Medical/Surgical/Family History All Active Problems (Updated 02/24/21 @ 17:44 by Lalo Sherman MD) Acute alteration in mental status (Acute) Acute dehydration (Acute) Stage IV squamous cell carcinoma of lung (Acute) Asymptomatic COVID-19 virus infection (Acute) Hypokalemia (Acute) Leukocytosis (Acute) Anemia, normocytic normochromic (Acute) Droota albicans infection (Acute) Leukocytosis (Acute) Esophageal lesion (Acute) Adenocarcinoma of lung (Acute) Cancer related pain (Acute) Community acquired pneumonia (Acute) Hypercalcemia (Acute) Constipation (Acute) Dehydration (Acute) Acute confusion (Acute) Radiculopathy, thoracic region (Acute) Radiculopathy of lumbar region (Acute) Myofascial pain (Acute) Chest pain (Acute) Fever (Acute) Elevated WBC count (Acute) Acute confusion (Acute) Acute renal failure (ARF) (Acute) Hypercalcemia (Acute) Hypercalcemia (Chronic) Lymphedema (Chronic) Chronic hypokalemia (Chronic) Hemorrhoids (Chronic) Diverticulosis (Chronic ~02/02/20) Lung cancer (Chronic) Cavitating mass in left upper lung lobe (Chronic) Urinary hesitancy (Chronic) Cough (Chronic) Acute URI (Chronic) Polyp of colon (Chronic) Diverticulitis large intestine w/o perforation or abscess w/o bleeding (Chronic) Encounter for Health Maintenance Examination in Adult (Chronic) Hx of colonoscopy (Chronic) History of tobacco use (Chronic) Mixed hyperlipidemia (Chronic) Low back pain (Chronic) Keratoderma, acquired (Chronic) Medical History Adenocarcinoma of lung Cancer related pain Cavitating mass in left upper lung lobe Chest pain Chronic hypokalemia Cough Diverticulosis (~02/02/20) Encounter for Health Maintenance Examination in Adult Esophageal lesion Hemorrhoids History of tobacco use ex-smoker, discontinuation 12/2005. Follow ekgs Hypercalcemia Keratoderma, acquired pigmenting keratosis, left mid-back. Derm review 07/26/09-Dr Nunez Low back pain h/o low back pain, h/o ruptured disc, distant past Lung cancer Lymphedema Mixed hyperlipidemia mixed hyperlipidemia, primarily triglycerides. On intermittent fish oil. EKG updated 08/07/11 Radiculopathy, thoracic region Urinary hesitancy Surgical History History of left heart catheterization (10/10/20) Hx of colonoscopy 02/02/2020-Dr. Garcia: Hemorrhoids; Diverticulosis, Polyp 12/25/2006-Dr. morgan-transverse adenmoatous polyp; rectum hyperplastic polyps, 5-year sequence. 01/01/[address] Morgan--Polypoid fragment w/minute submucosal lymphoid aggregate; 3 fragments of hyperplastic polyps. Family History half brother Acute myocardial infarction [place] age 57 Social History Smoking Status: Former smoker Alcohol Intake Frequency: a few times a month (Denies any intake for 5 months (02/16/2020).) Substance Use: does not use Exam Narrative Narrative: Narrative: General Limitations: altered mental status General appearance: Present in distress (When moved or palpated) and sleepy Head Head: Present atraumatic and normocephalic ENT ENT: Present mucous membranes dry Neck Neck: Present trachea midline Chest Chest: Present tenderness (With palpation) Respiratory Respiratory: Present rales/crackles (Few, scattered); Absent respiratory distress Cardiovascular Cardiovascular: Present tachycardia Adbominal Abdominal: Present soft; Absent tenderness Neurological Neurological: Present alert (When he first arrived and was able to answer questions but he was confused) Psychiatric Psychiatric: Present flat affect Skin Skin: Present warm (WNL) and dry Course Vital Signs Vital signs: Vital Signs Temperature 101.8 F H 02/24/21 07:06 Pulse Rate 101 H 02/24/21 07:06 Respiratory Rate 18 02/24/21 07:06 Blood Pressure 133/85 02/24/21 07:06 Pulse Oximetry (%) 93 02/24/21 07:06 Temperature 97.6 F 02/24/21 16:21 Pulse Rate 108 H 02/24/21 16:21 Respiratory Rate 18 02/24/21 16:21 Blood Pressure 165/90 02/24/21 16:21 Pulse Oximetry (%) 94 02/24/21 16:21 MDM MDM Narrative Medical decision making narrative: Narrative: Elderly male with terminal cancer presents to the emergency department with confusion after having been discharged 3 days prior. Patient Covid positive so unable to go to a care facility which was the original intent. Differential diagnosis includes electrolyte abnormalities, dehydration which has proved to be the cause of his confusion in the past, metastases, Covid complication, other Patient was confused. I initially started the patient on normal saline at a rate of 250 but then increase that to a full bolus. Patient seemed to improve mentally after the first liter and a second liter was bolused. White count was noted to be elevated at 23,000 but this was less than the leukocytosis he had during his hospitalization last week. Hemoglobin 10.4. Electrolytes showed a low potassium of 3.1 but the rest of the electrolytes were unremarkable. The low potassium was a chronic condition as well. Significant discussion with the regarding the patient's condition. It became clear that the patient required hospitalization so a call was placed to the hospitalist who accepted the patient for admission. Lab Data Result diagrams: 02/24/21 09:45 02/24/21 09:45 Labs: Lab Results 02/24/21 02/24/21 02/24/21 Range/Units 09:45 09:45 09:45 WBC 23.8 H (4.5-11.0) K/mcL RBC 3.58 L (4.63-6.08) M/mcL Hgb 10.4 L (13.7-17.5) g/dL Hct 32.5 L (40.1-51.0) % MCV 90.8 (80.0-100.0) fL MCH 29.1 (26.0-34.0) pg MCHC 32.0 (31.0-36.0) g/dL RDW 15.2 H (11.5-14.5) % Plt Count 385 (140-440) K/mcL MPV 8.5 (7.4-10.4) fL Neut % (Auto) 92.0 H (38.0-78.0) % Lymph % (Auto) 1.8 L (15.5-49.0) % [place] % (Auto) 5.9 (1.0-12.0) % Eos % (Auto) 0 (0.0-7.0) % Baso % (Auto) 0.3 (0.0-2.0) % Lymph # (Auto) 0.44 L (1.50-4.80) K/mcL [place] # (Auto) 1.41 H (0.10-0.90) K/mcL Eos # (Auto) 0 (0.00-0.70) K/mcL Baso # (Auto) 0.07 (0.00-0.30) K/mcL Absolute Neutrophils 21.92 H (1.80-8.00) K/mcL VBG Lactic Acid 1.4 (0.5-2.0) mmol/L Sodium 137 (133-145) mmol/L Potassium 3.1 L (3.3-5.1) mmol/L Chloride 102 (96-108) mmol/L Carbon Dioxide 20 L (22-30) mmol/L Anion Gap 15.0 (8.0-16.0) BUN 11 (8-23) mg/dL Creatinine 0.7 (0.7-1.2) mg/dL GFR Calculation 91 Glucose 75 (70-105) mg/dL Calcium 9.8 (8.6-10.4) mg/dL Total Bilirubin 0.3 (0.1-1.0) mg/dL AST 21 (<40) U/L ALT 9 (<40) U/L Alkaline Phosphatase 75 (39-117) U/L Total Protein 6.2 (5.9-8.4) gm/dL Albumin 2.2 L (3.2-5.2) gm/dL Globulin 4.0 H (2.2-3.7) gm/dL Albumin/Globulin Ratio 0.6 L (1.0-2.3) Discharge Plan Patient/Caregiver Discharge Instructions Pt seen by MANAGER SPEECH/PA only: No Clinical Impression: Acute alteration in mental status, Acute dehydration, Stage IV squamous cell carcinoma of lung Patient Disposition: Xfer As Inpt ([facility]) Condition: Serious Discharge Date/Time: 02/24/21 14:14
[2021-02-24] MEDS: 0.9 % SODIUM CHLORIDE 1,000 ML IV SCH ×2 (09:48→12:19)
[2021-02-24 10:41] LABS: Basophils # (Auto) 0.07 K/mcL (0.00-0.30); Basophils % (Auto) 0.3 % (0.0-2.0); Eosinophils # (Auto) 0 K/mcL (0.00-0.70); Eosinophils % (Auto) 0 % (0.0-7.0); Hematocrit 32.5 % (40.1-51.0); Hemoglobin 10.4 g/dL (13.7-17.5); Lymphocytes # (Auto) 0.44 K/mcL (1.50-4.80); Lymphocytes % (Auto) 1.8 % (15.5-49.0); Mean Cell Volume 90.8 fL (80.0-100.0); Mean Platelet Volume 8.5 fL (7.4-10.4); Monocytes # (Auto) 1.41 K/mcL (0.10-0.90); Monocytes % (Auto) 5.9 % (1.0-12.0); Platelet Count 385 K/mcL (140-440); RBC 3.58 M/mcL (4.63-6.08); Red Cell Distribution Width 15.2 % (11.5-14.5); WBC 23.8 K/mcL (4.5-11.0)
[2021-02-24 10:47] LABS: ALT/SGPT 9 U/L (<40); AST/SGOT 21 U/L (<40); Albumin 2.2 gm/dL (3.2-5.2); Albumin/Globulin Ratio 0.6 (1.0-2.3); Alkaline Phosphatase 75 U/L (39-117); Bilirubin,Total 0.3 mg/dL (0.1-1.0); Blood Urea Nitrogen 11 mg/dL (8-23); Calcium 9.8 mg/dL (8.6-10.4); Carbon Dioxide 20 mmol/L (22-30); Chloride 102 mmol/L (96-108); Glomerular Filtration Rate 91; Glucose 75 mg/dL (70-105)
[2021-02-24] MEDS ORDERED: 0.9 % SODIUM CHLORIDE 1,000 ML IV ONE (11:38)
[2021-02-24] MEDS ORDERED: ACETAMINOPHEN 500 MG TABLET PO PRN (13:31)
--- NOTE | 2021-02-24 13:53 | Internal Med History&Physical ---
HPI History of Present Illness Patient information: Note initiated : 02/24/21 at 1:35 pm Service Date, if different from initiated Date: [] Patient: Jovan Elizabeth a 75 y/o M admitted on for Confusion. Chief Complaint: [general weakness] Chief complaint: General weakness History of present illness: Mr. 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 He was admitted on 02/13/21 to our facility for leukocytosis. After blood and urine cultures were collected, he was started on broad spectrum antibiotics Vancomycin and Zosyn, while his WBC count was being monitored daily. All his cultures had no growth and his WBC count eventually improved and he was being discharged on 02/22. The original plan was to discharge him to SNF but he tested positive for CoVID on 02/22 so he was instead being discharged to home with home health. However, according to they could not get any home health to help take care of the patient, and family could not take care of him at home either. He spiked a fever of 102 on 02/22. Increasing general body weakness and poor appetite and lethargy. called EMS today to bring patient back to the hospital for continued care. Vital signs at ED presentation all within normal limits. WBC 23.8, down from 27.8 on 02/21. Serum potassium level 3.1., up from 2.8 on 02/22. Review of Systems ROS unobtainable: due to mental status PFSH PFSH All Active Problems (Updated 02/24/21 @ 13:45 by Ravi Mckeon MD) Asymptomatic COVID-19 virus infection (Acute) Hypokalemia (Acute) Leukocytosis (Acute) Anemia, normocytic normochromic (Acute) Dorota albicans infection (Acute) Leukocytosis (Acute) Esophageal lesion (Acute) Adenocarcinoma of lung (Acute) Cancer related pain (Acute) Community acquired pneumonia (Acute) Hypercalcemia (Acute) Constipation (Acute) Dehydration (Acute) Acute confusion (Acute) Radiculopathy, thoracic region (Acute) Radiculopathy of lumbar region (Acute) Myofascial pain (Acute) Chest pain (Acute) Fever (Acute) Elevated WBC count (Acute) Acute confusion (Acute) Acute renal failure (ARF) (Acute) Hypercalcemia (Acute) Hypercalcemia (Chronic) Lymphedema (Chronic) Chronic hypokalemia (Chronic) Hemorrhoids (Chronic) Diverticulosis (Chronic ~02/02/20) Lung cancer (Chronic) Cavitating mass in left upper lung lobe (Chronic) Urinary hesitancy (Chronic) Cough (Chronic) Acute URI (Chronic) Polyp of colon (Chronic) Diverticulitis large intestine w/o perforation or abscess w/o bleeding (Chronic) Encounter for Health Maintenance Examination in Adult (Chronic) Hx of colonoscopy (Chronic) History of tobacco use (Chronic) Mixed hyperlipidemia (Chronic) Low back pain (Chronic) Keratoderma, acquired (Chronic) Medical History Adenocarcinoma of lung Cancer related pain Cavitating mass in left upper lung lobe Chest pain Chronic hypokalemia Cough Diverticulosis (~02/02/20) Encounter for Health Maintenance Examination in Adult Esophageal lesion Hemorrhoids History of tobacco use ex-smoker, discontinuation 12/2005. Follow ekgs Hypercalcemia Keratoderma, acquired pigmenting keratosis, left mid-back. Derm review 07/26/09-Dr Nunez Low back pain h/o low back pain, h/o ruptured disc, distant past Lung cancer Lymphedema Mixed hyperlipidemia mixed hyperlipidemia, primarily triglycerides. On intermittent fish oil. EKG updated 08/07/11 Radiculopathy, thoracic region Urinary hesitancy Surgical History History of left heart catheterization (10/10/20) Hx of colonoscopy 02/02/2020-Dr. Garcia: Hemorrhoids; Diverticulosis, Polyp 12/25/2006-Dr. morgan-transverse adenmoatous polyp; rectum hyperplastic polyps, 5-year sequence. 01/01/[address] Morgan--Polypoid fragment w/minute submucosal lymphoid aggregate; 3 fragments of hyperplastic polyps. 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 alcohol intake frequency: a few times a month (Denies any intake for 5 months (02/16/2020).) substance use type: does not use MEDS/ALLERGIES Home Medications and Allergies Home Medications Medication Instructions Recorded Confirmed Type loratadine 10 mg tablet 10 mg PO QDAY 01/07/20 02/13/21 History (Antonyar) acetaminophen 500 mg tablet 1,000 mg PO Q6H PRN 02/17/20 02/13/21 History megestrol 400 mg/10 mL (10 mL) 200 mg (5 mL) PO QDAY #200 ml 01/08/21 02/13/21 Rx oral suspension methocarbamol 750 mg tablet 750 mg PO QHS #30 tab 02/03/21 02/13/21 Rx omeprazole magnesium 20 mg 20 mg PO QDAY 02/09/21 02/13/21 History tablet,delayed release (Prilosec OTC) tramadol 50 mg tablet 50 mg PO BID PRN #60 tab 02/10/21 02/13/21 Rx fluconazole 200 mg tablet 200 - 400 mg PO QDAY 02/13/21 02/13/21 History potassium chloride 20 mEq 20 meq PO QDAY #14 tab 02/21/21 Rx tablet,extended release Allergies Allergy/AdvReac Type Severity Reaction Status Date / Time No Known Drug Allergies Allergy Verified 02/24/21 07:06 EXAM Constitutional Vitals: Temp Pulse Resp BP Pulse Ox 38.8 C H 96 H 18 160/86 99 02/24/21 07:06 02/24/21 13:18 02/24/21 07:06 02/24/21 13:08 02/24/21 13:18 General appearance: cooperative and no acute distress Exam: lethargic cachetic Head Head exam: Present atraumatic and normocephalic Eye Eye exam: Present EOMI and PERRL ENT ENT exam: Present mucous membranes moist, normal exam and normal external ear ex am Neck Neck exam: Present normal inspection; Absent lymphadenopathy, tenderness or thyromegaly Respiratory Respiratory exam: Absent accessory muscle use, respiratory distress or wheezes Cardiovascular Cardiovascular exam: Present normal rate and rhythm; Absent JVD GI/Abdominal GI/Abdominal exam: Present normal bowel sounds and soft; Absent organomegaly or tenderness Rectal Rectal exam: Present deferred Extremities Exam Extremities exam: Present full ROM, normal capillary refill and normal inspection; Absent tenderness Neurological Exam Neurological exam: Present alert, CN II-XII intact and oriented X3; Absent motor sensory deficit Psychiatric Psychiatric exam: Present normal affect and normal mood; Absent anxious or depressed Skin Skin exam: Present dry and intact DATA Data Completed and Pending Labs: Labs from last 24 hours 02/24/21 02/24/21 02/24/21 09:45 09:45 09:45 WBC 23.8 H RBC 3.58 L Hgb 10.4 L Hct 32.5 L MCV 90.8 MCH 29.1 MCHC 32.0 RDW 15.2 H Plt Count 385 MPV 8.5 Neut % (Auto) 92.0 H Lymph % (Auto) 1.8 L [place] % (Auto) 5.9 Eos % (Auto) 0 Baso % (Auto) 0.3 Lymph # (Auto) 0.44 L [place] # (Auto) 1.41 H Eos # (Auto) 0 Baso # (Auto) 0.07 Absolute Neutrophils 21.92 H VBG Lactic Acid 1.4 Sodium 137 Potassium 3.1 L Chloride 102 Carbon Dioxide 20 L Anion Gap 15.0 BUN 11 Creatinine 0.7 GFR Calculation 91 Glucose 75 Calcium 9.8 Total Bilirubin 0.3 AST 21 ALT 9 Alkaline Phosphatase 75 Total Protein 6.2 Albumin 2.2 L Globulin 4.0 H Albumin/Globulin Ratio 0.6 L A/P Assessment and plan (1) Leukocytosis: Status: Acute (2) Anemia, normocytic normochromic: Status: Acute (3) Adenocarcinoma of lung: Status: Acute (4) Hypokalemia: Status: Acute (5) Dorota albicans infection: Status: Acute (6) Asymptomatic COVID-19 virus infection: Status: Acute Narrative A/P Narrative: Assessment and Plans: 1. Asymptomatic CoVID infection: Currently on room air, no increased work of breathing Inpatient med surg Isolation protocol: airborne or contact No CoVID specific treatment at this point such as Remdesivir or Dexamethasone Placement: either to another SNF that would accept CoVID patient, or wait until patient is no longer contiguous, or if patient clinically improve, will discharge with home health commodities manager consult 2. 2. Adenocarcinoma of the lung, left, with metastasis: Tylenol PRN mild pain Tramadol PRN moderate pain Morphine IV PRN severe pain Robaxin HS Pending intrathecal pump for pain control Placement: either to another SNF that would accept CoVID patient, or wait until patient is no longer contiguous, or if patient clinically improve, will discharge with home health 3. Hypokalemia: Potassium chloride oral replacement therapy CMP in the morning to trend serum potassium level Also check Serum Mg level and replace if needed 4. Anemia, normocytic normochromic: cbc w/ auto diff in the morning to trend H/H; transfuse pRBC if hemoglobin<7.0, active bleeding, or symptomatic 5. Esophageal/gastric candidal infection: Continue Diflucan from home regimen GI ppx: Oral PPI DVT ppx: Lovenox Code status: DNI Prognosis: stable Disposition: inpatient med surg; commodities manager consult Time Spent With Patient Time: Total time spent is greater than 50% in coordination of care (as documented) at patient's floor/unit and/or counseling patient: Total time spent with greater than 50% in coordination of care (as documented) at patient's floor/unit and/or counseling patient:: Greater than 35 minutes
[2021-02-24] MEDS ORDERED: ONDANSETRON 4 MG/2 ML VIAL IV PRN (14:23)
[2021-02-24] MEDS ORDERED: morphine 4 MG/ML VIAL IV PRN (14:23)
[2021-02-24] MEDS ORDERED: IPRATROPIUM/ALBUTEROL 3 ML AMPUL.NEB NEB PRN (14:23)
[2021-02-24] MEDS ORDERED: ACETAMINOPHEN 325 MG TABLET PO PRN (14:23)
[2021-02-24] MEDS ORDERED: traMADol 50 MG TABLET PO PRN (14:42)
[2021-02-24] MEDS: 0.9 % SODIUM CHLORIDE 10 ML SYRINGE IV SCH ×2 (15:48→21:22)
[2021-02-24 15:50] LABS: Appearance,Urine CLEAR (Clear); Bilirubin,Urine Negative (Negative); Color,Urine YELLOW; Culture Indicated,Urine No; Glucose,Urine (UA) Negative (Negative); Ketones,Urine 5 mg/dL (Negative); Leukocyte Esterase,Urine Negative /uL (Negative); Nitrate,Urine Negative (Negative); Protein,Urine 30 mg/dL (Negative); Urine Blood 0.03 mg/dL (Negative); Urine RBC 0 /hpf (0-3); Urine Squamous Epithelial Cell 0 /hpf (0-4); Urine WBC 0 /hpf (0-4); Urobilinogen,Urine Negative
[2021-02-24] MEDS: DOCUSATE SODIUM 100 MG CAPSULE PO SCH (21:21)
[2021-02-24] MEDS: METHOCARBAMOL 750 MG TABLET PO SCH (21:21)
[2021-02-24] MEDS: SENNOSIDES 1 TABLET PO SCH (21:21)
[2021-02-25] MEDS: 0.9 % SODIUM CHLORIDE 10 ML SYRINGE IV SCH ×3 (05:30→21:44)
[2021-02-25 06:53] LABS: Basophils # (Auto) 0.06 K/mcL (0.00-0.30); Basophils % (Auto) 0.3 % (0.0-2.0); Eosinophils # (Auto) 0.01 K/mcL (0.00-0.70); Eosinophils % (Auto) 0 % (0.0-7.0); Hematocrit 28.3 % (40.1-51.0); Hemoglobin 9.1 g/dL (13.7-17.5); Lymphocytes # (Auto) 0.56 K/mcL (1.50-4.80); Lymphocytes % (Auto) 2.4 % (15.5-49.0); Mean Cell Volume 89.6 fL (80.0-100.0); Mean Corpuscular HGB Conc 32.2 g/dL (31.0-36.0); Mean Platelet Volume 8.5 fL (7.4-10.4); Monocytes # (Auto) 1.24 K/mcL (0.10-0.90); Monocytes % (Auto) 5.2 % (1.0-12.0); Neutrophils % (Auto) 92.1 % (38.0-78.0); Platelet Count 354 K/mcL (140-440); RBC 3.16 M/mcL (4.63-6.08); Red Cell Distribution Width 15.2 % (11.5-14.5); WBC 23.7 K/mcL (4.5-11.0)
[2021-02-25 07:00] LABS: Phosphorous 1.9 mg/dL (2.5-4.5)
[2021-02-25 07:21] LABS: ALT/SGPT 8 U/L (<40); AST/SGOT 20 U/L (<40); Albumin 1.8 gm/dL (3.2-5.2); Albumin/Globulin Ratio 0.4 (1.0-2.3); Alkaline Phosphatase 66 U/L (39-117); Bilirubin,Total 0.3 mg/dL (0.1-1.0); Blood Urea Nitrogen 11 mg/dL (8-23); Calcium 9.5 mg/dL (8.6-10.4); Carbon Dioxide 19 mmol/L (22-30); Chloride 104 mmol/L (96-108); Globulin 4.1 gm/dL (2.2-3.7); Glomerular Filtration Rate 97; Glucose 81 mg/dL (70-105)
[2021-02-25] MEDS: OMEPRAZOLE 20 MG CAPSULE PO SCH (07:49)
[2021-02-25] MEDS: ENOXAPARIN 40 MG/0.4 ML SYRINGE SQ SCH (09:19)
[2021-02-25] MEDS: DOCUSATE SODIUM 100 MG CAPSULE PO SCH ×2 (09:20→21:50)
[2021-02-25] MEDS: FLUCONAZOLE 100 MG TABLET PO SCH (09:20)
[2021-02-25] MEDS: POTASSIUM CHLORIDE 20 MEQ TABLET PO SCH (09:20)
[2021-02-25] MEDS: LORATADINE 10 MG TABLET PO SCH (09:20)
[2021-02-25] MEDS: MEGESTROL ACETATE 400 MG/10 ML ORAL.SUSP PO SCH (09:21)
--- NOTE | 2021-02-25 11:35 | Internal Med Progress Note ---
SUBJECTIVE Subjective Patient information: Note initiated : 02/25/21 at 11:32 am Service Date, if different from initiated Date: [] Patient: Jovan Elizabeth 75 y/o M admitted on 02/24/21 for Confusion. Chief Complaint: [general weakness] Interval history: Mr. 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 He was admitted on 02/13/21 to our facility for leukocytosis. After blood and urine cultures were collected, he was started on broad spectrum antibiotics Vancomycin and Zosyn, while his WBC count was being monitored daily. All his cultures had no growth and his WBC count eventually improved and he was being discharged on 02/22. The original plan was to discharge him to SNF but he tested positive for CoVID on 02/22 so he was instead being discharged to home with home health. However, according to they could not get any home health to help take care of the patient, and family could not take care of him at home either. He spiked a fever of 102 on 02/22. Increasing general body weakness and poor appetite and lethargy. called EMS today to bring patient back to the hospital for continued care. Vital signs at ED presentation all within normal limits. WBC 23.8, down from 27.8 on 02/21. Serum potassium level 3.1., up from 2.8 on 02/22. 02/25: Serum potassium 2.8. WBC 23.7. Tmax 38.8 yesterday afternoon. On room air. c/o general body weakness. Poor appetite. Denies any pain. Constitutional Vitals: Vital Signs Temp Pulse Resp BP Pulse Ox 37.3 C H 100 H 16 121/76 96 02/25/21 08:00 02/25/21 08:00 02/25/21 08:00 02/25/21 08:00 02/25/21 08:00 Period Temp Pulse Resp BP Sys/Nielsen Pulse Ox Last 24 Hr 36.4 C-38.8 C 94-108 16-20 119-165/75-90 94-99 Intake and Output 02/24/21 02/25/21 02/25/21 21:59 05:59 13:59 Intake Total 2250 480 Output Total 203 4 1 Balance 7 476 -1 Weight 73.164 kg Intake & Output: Intake & Output 02/24/21 02/25/21 02/25/21 21:59 05:59 13:59 Intake Total 2250 480 Output Total 203 4 1 Balance 2046 476 -1 Weight 73.164 kg Intake: IV 1000 Sodium Chloride 0.9% 1,000 ml @ 1000 Wide Open IV BOLUS ONE Rx#: [id number] Oral 1250 480 Output: Urine Catheter Amount 200 Straight 200 # of times incontinent of urine 3 4 1 Other: Meal Dinner Percent of Meal Consumed 0% Feeding Ability Total Assistance Urine Appearance Straight Clear Urine Color Straight Bright Yellow Urine Odor Straight Normal Stool Size Small Smear Stool Color Brown Brown Stool Consistency Soft Loose # of times incontinent of 1 Bowels General appearance: cooperative, no acute distress and thin Exam: Cachetic Head Head exam: Present atraumatic and normal inspection Eye Eye exam: Present normal appearance ENT ENT exam: Present mucous membranes moist, normal exam and normal external ear exam Neck Neck exam: Present normal inspection Respiratory Respiratory exam: Present normal respiratory exam Cardiovascular Cardiovascular exam: Present normal rate and rhythm GI/Abdominal GI/Abdominal exam: Present normal bowel sounds Back Exam Back exam: Present normal inspection Neurological Exam Neurological exam: Present alert and oriented X3 Skin Skin exam: Present intact and warm OBJ DATA Labs CBC & Chem 7: 02/25/21 05:35 02/25/21 05:35 Labs: Abnormal Lab Results 02/25/21 02/25/21 02/24/21 05:35 05:35 15:00 WBC 23.7 H RBC 3.16 L Hgb 9.1 L Hct 28.3 L RDW 15.2 H Neut % (Auto) 92.1 H Lymph % (Auto) 2.4 L Lymph # (Auto) 0.56 L [place] # (Auto) 1.24 H Absolute Neutrophils 21.82 H Potassium 2.8 L* Carbon Dioxide 19 L Creatinine 0.6 L Phosphorus 1.9 L Albumin 1.8 L Globulin 4.1 H Albumin/Globulin Ratio 0.4 L Urine Protein 30 A Urine Ketones 5 A 02/24/21 02/24/21 09:45 09:45 WBC 23.8 H RBC 3.58 L Hgb 10.4 L Hct 32.5 L RDW 15.2 H Neut % (Auto) 92.0 H Lymph % (Auto) 1.8 L Lymph # (Auto) 0.44 L [place] # (Auto) 1.41 H Absolute Neutrophils 21.92 H Potassium 3.1 L Carbon Dioxide 20 L Creatinine Phosphorus Albumin 2.2 L Globulin 4.0 H Albumin/Globulin Ratio 0.6 L Urine Protein Urine Ketones Meds: Medications Acetaminophen (Acetaminophen 500 Mg Tablet) 1,000 mg PO Q6H PRN; Protocol PRN Reason: Pain Last Admin: 02/25/21 09:22 Dose: 1,000 mg Documented by: Acetaminophen (Acetaminophen 325 Mg Tablet) 650 mg PO Q6HP PRN; Protocol PRN Reason: Per Pain Protocol/Fever > 101 Albuterol/Ipratropium (Ipratropium/Albuterol 3 Ml Ampul.Neb) 3 ml NEB Q4HRT PRN PRN Reason: Wheezing Docusate Sodium (Docusate Sodium 100 Mg Capsule) 100 mg PO BID [facility] Last Admin: 02/25/21 09:20 Dose: Not Given Documented by: Enoxaparin Sodium (Enoxaparin 40 Mg/0.4 Ml Syringe) 40 mg SQ DAILY [facility] Last Admin: 02/25/21 09:19 Dose: 40 mg Documented by: Fluconazole (Fluconazole 100 Mg Tablet) 200 mg PO DAILY [facility] Last Admin: 02/25/21 09:20 Dose: 200 mg Documented by: Potassium Chloride 20 meq/ (Dextrose) 260 mls @ 130 mls/hr IV ONCE ONE Stop: 02/25/21 13:30 Loratadine (Loratadine 10 Mg Tablet) 10 mg PO QDAY [facility] Last Admin: 02/25/21 09:20 Dose: 10 mg Documented by: Megestrol Acetate (Megestrol Acetate 400 Mg/10 Ml Oral.Susp) 200 mg PO DAILY [facility] Last Admin: 02/25/21 09:21 Dose: 200 mg Documented by: Methocarbamol (Methocarbamol 750 Mg Tablet) 750 mg PO QHS [facility] Last Admin: 02/24/21 21:21 Dose: 750 mg Documented by: Morphine Sulfate (Morphine 4 Mg/Ml Vial) 2 mg IV Q4HP PRN; Protocol PRN Reason: Per Pain Protocol Omeprazole (Omeprazole 20 Mg Capsule) 20 mg PO ACB [facility] Last Admin: 02/25/21 07:49 Dose: 20 mg Documented by: Ondansetron HCl (Ondansetron 4 Mg/2 Ml Vial) 4 mg IV Q6HP PRN PRN Reason: Nausea And Vomiting Potassium Chloride (Potassium Chloride 20 Meq Tablet) 20 meq PO QAMCC [facility] Last Admin: 02/25/21 09:20 Dose: 20 meq Documented by: Senna (Sennosides 1 Tablet) 2 tab PO HS [facility] Last Admin: 02/24/21 21:21 Dose: Not Given Documented by: Sodium Chloride (0.9 % Sodium Chloride 10 Ml Syringe) 10 ml IV Q8 [facility] Last Admin: 02/25/21 05:30 Dose: 10 ml Documented by: Tramadol HCl (Tramadol 50 Mg Tablet) 50 mg PO BIDP PRN PRN Reason: Pain A/P Assessment and plan (1) Leukocytosis: Status: Acute (2) Anemia, normocytic normochromic: Status: Acute (3) Adenocarcinoma of lung: Status: Acute (4) Hypokalemia: Status: Acute (5) Dorota albicans infection: Status: Acute (6) Asymptomatic COVID-19 virus infection: Status: Acute Narrative A/P Narrative: Assessment and Plans: 1. Asymptomatic CoVID infection: Currently on room air, no increased work of breathing Inpatient med surg Isolation protocol: airborne or contact No CoVID specific treatment at this point such as Remdesivir or Dexamethasone Placement: either to another SNF that would accept CoVID patient, or wait until patient is no longer contiguous, or if patient clinically improve, will discharge with home health agile project manager consult 2. 2. Adenocarcinoma of the lung, left, with metastasis: Tylenol PRN mild pain Tramadol PRN moderate pain Morphine IV PRN severe pain Robaxin HS Pending intrathecal pump for pain control Placement: either to another SNF that would accept CoVID patient, or wait until patient is no longer contiguous, or if patient clinically improve, will discharge with home health 3. Hypokalemia: Potassium chloride oral replacement therapy KCl 20mEq IV once in addition CMP in the morning to trend serum potassium level Also check Serum Mg level and replace if needed 4. Anemia, normocytic normochromic: cbc w/ auto diff in the morning to trend H/H; transfuse pRBC if hemoglobin<7.0, active bleeding, or symptomatic 5. Esophageal/gastric candidal infection: Continue Diflucan from home regimen GI ppx: Oral PPI DVT ppx: Lovenox Code status: DNI Prognosis: stable Disposition: inpatient med surg; agile project manager consult Time Spent With Patient Time: Total time spent is greater than 50% in coordination of care (as documented) at patient's floor/unit and/or counseling patient: Total time spent with greater than 50% in coordination of care (as documented) at patient's floor/unit and/or counseling patient:: Greater than 35 minutes QUALITY VTE Deep Vein Thrombosis/Pulmonary Embolism Present on Admission: No
[2021-02-25] MEDS ORDERED: POTASSIUM CHLORIDE 20 MEQ in DEXTROSE 5% IN WATER 250 ML IV ONE (12:00)
[2021-02-25] MEDS ORDERED: fentaNYL 12 MCG PATCH TOPICAL SCH (12:00)
[2021-02-25] MEDS: METHOCARBAMOL 750 MG TABLET PO SCH ×2 (21:43→21:49)
[2021-02-25] MEDS: SENNOSIDES 1 TABLET PO SCH (21:49)
[2021-02-26] MEDS: 0.9 % SODIUM CHLORIDE 10 ML SYRINGE IV SCH ×5 (04:17→21:05)
[2021-02-26 07:15] LABS: Basophils # (Auto) 0.05 K/mcL (0.00-0.30); Basophils % (Auto) 0.2 % (0.0-2.0); Eosinophils # (Auto) 0.01 K/mcL (0.00-0.70); Eosinophils % (Auto) 0 % (0.0-7.0); Hemoglobin 8.9 g/dL (13.7-17.5); Lymphocytes % (Auto) 2.5 % (15.5-49.0); Mean Cell Volume 88.8 fL (80.0-100.0); Mean Platelet Volume 8.6 fL (7.4-10.4); Monocytes # (Auto) 1.23 K/mcL (0.10-0.90); Monocytes % (Auto) 5.2 % (1.0-12.0); Neutrophils % (Auto) 92.1 % (38.0-78.0); Platelet Count 356 K/mcL (140-440); RBC 3.04 M/mcL (4.63-6.08); Red Cell Distribution Width 15.2 % (11.5-14.5); WBC 23.8 K/mcL (4.5-11.0)
[2021-02-26 07:22] LABS: ALT/SGPT 7 U/L (<40); AST/SGOT 17 U/L (<40); Albumin 1.9 gm/dL (3.2-5.2); Albumin/Globulin Ratio 0.5 (1.0-2.3); Alkaline Phosphatase 65 U/L (39-117); Bilirubin,Total 0.2 mg/dL (0.1-1.0); Blood Urea Nitrogen 11 mg/dL (8-23); Calcium 10.2 mg/dL (8.6-10.4); Carbon Dioxide 20 mmol/L (22-30); Chloride 107 mmol/L (96-108); Globulin 3.8 gm/dL (2.2-3.7); Glomerular Filtration Rate 97; Glucose 97 mg/dL (70-105)
[2021-02-26] MEDS: POTASSIUM CHLORIDE 20 MEQ TABLET PO SCH (07:34)
[2021-02-26] MEDS: FLUCONAZOLE 100 MG TABLET PO SCH (09:33)
[2021-02-26] MEDS: ENOXAPARIN 40 MG/0.4 ML SYRINGE SQ SCH (09:33)
[2021-02-26] MEDS: OMEPRAZOLE 20 MG CAPSULE PO SCH (09:34)
[2021-02-26] MEDS: DOCUSATE SODIUM 100 MG CAPSULE PO SCH ×2 (09:34→21:05)
[2021-02-26] MEDS: LORATADINE 10 MG TABLET PO SCH (09:35)
[2021-02-26] MEDS: MEGESTROL ACETATE 400 MG/10 ML ORAL.SUSP PO SCH (09:44)
--- NOTE | 2021-02-26 13:48 | Internal Med Progress Note ---
SUBJECTIVE Subjective Patient information: Note initiated : 02/26/21 at 1:46 pm Service Date, if different from initiated Date: [] Patient: Jovan Elizabeth a 75 y/o M admitted on 02/24/21 for Confusion. Chief Complaint: [] Interval history: Mr. 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 He was admitted on 02/13/21 to our facility for leukocytosis. After blood and urine cultures were collected, he was started on broad spectrum antibiotics Vancomycin and Zosyn, while his WBC count was being monitored daily. All his cultures had no growth and his WBC count eventually improved and he was being discharged on 02/22. The original plan was to discharge him to SNF but he tested positive for CoVID on 02/22 so he was instead being discharged to home with home health. However, according to they could not get any home health to help take care of the patient, and family could not take care of him at home either. He spiked a fever of 102 on 02/22. Increasing general body weakness and poor appetite and lethargy. called EMS today to bring patient back to the hospital for continued care. Vital signs at ED presentation all within normal limits. WBC 23.8, down from 27.8 on 02/21. Serum potassium level 3.1., up from 2.8 on 02/22. 02/25: Serum potassium 2.8. WBC 23.7. Tmax 38.8 yesterday afternoon. On room air. c/o general body weakness. Poor appetite. Denies any pain. 02/26: Switched to comfort care only as per wish. Pending home hospice placement on 02/27. Constitutional Vitals: Vital Signs Temp Pulse Resp BP Pulse Ox 37.4 C H 100 H 28 H 125/64 94 02/26/21 12:00 02/26/21 12:00 02/26/21 04:00 02/26/21 12:00 02/26/21 12:00 Period Temp Pulse Resp BP Sys/Nielsen Pulse Ox Last 24 Hr 36.6 C-37.5 C 89-108 16-30 112-125/63-74 93-97 Intake and Output 12/25/21 12/26/21 12/26/21 21:59 05:59 13:59 Intake Total 880 0 240 Output Total 1 4 1 Balance 879 -4 239 Weight 73.113 kg Intake & Output: Intake & Output 02/25/21 02/26/21 02/26/21 21:59 05:59 13:59 Intake Total 880 0 240 Output Total 1 4 1 Balance 879 -4 239 Weight 73.113 kg Intake: IV 260 Potassium Chloride 20 Meq In 260 Dextrose 5% in Water 250 ml @ 130 mls/hr IV ONCE ONE Rx#: [id number] Oral 620 0 240 Output: # of times incontinent of urine 1 4 1 Other: Stool Size Smear Moderate Stool Color Brown Brown Stool Consistency Loose Loose # of times incontinent of 2 Bowels General appearance: cooperative, no acute distress and thin Exam: Cachetic Head Head exam: Present atraumatic and normal inspection Eye Eye exam: Present normal appearance ENT ENT exam: Present mucous membranes moist, normal exam and normal external ear exam Neck Neck exam: Present normal inspection Respiratory Respiratory exam: Present normal respiratory exam Cardiovascular Cardiovascular exam: Present irregular rhythm GI/Abdominal GI/Abdominal exam: Present normal bowel sounds Back Exam Back exam: Present normal inspection Neurological Exam Neurological exam: Present alert and oriented X3 Skin Skin exam: Present intact and warm OBJ DATA Labs CBC & Chem 7: 02/26/21 06:19 02/26/21 06:19 Labs: Abnormal Lab Results 02/26/21 02/26/21 02/25/21 06:19 06:19 05:35 WBC 23.8 H RBC 3.04 L Hgb 8.9 L Hct 27.0 L RDW 15.2 H Neut % (Auto) 92.1 H Lymph % (Auto) 2.5 L Lymph # (Auto) 0.60 L [place] # (Auto) 1.23 H Absolute Neutrophils 21.90 H Potassium 3.0 L 2.8 L* Carbon Dioxide 20 L 19 L Creatinine 0.6 L 0.6 L Phosphorus 2.0 L 1.9 L Total Protein 5.7 L Albumin 1.9 L 1.8 L Globulin 3.8 H 4.1 H Albumin/Globulin Ratio 0.5 L 0.4 L Urine Protein Urine Ketones 02/25/21 02/24/21 02/24/21 05:35 15:00 09:45 WBC 23.7 H RBC 3.16 L Hgb 9.1 L Hct 28.3 L RDW 15.2 H Neut % (Auto) 92.1 H Lymph % (Auto) 2.4 L Lymph # (Auto) 0.56 L [place] # (Auto) 1.24 H Absolute Neutrophils 21.82 H Potassium 3.1 L Carbon Dioxide 20 L Creatinine Phosphorus Total Protein Albumin 2.2 L Globulin 4.0 H Albumin/Globulin Ratio 0.6 L Urine Protein 30 A Urine Ketones 5 A 02/24/21 09:45 WBC 23.8 H RBC 3.58 L Hgb 10.4 L Hct 32.5 L RDW 15.2 H Neut % (Auto) 92.0 H Lymph % (Auto) 1.8 L Lymph # (Auto) 0.44 L [place] # (Auto) 1.41 H Absolute Neutrophils 21.92 H Potassium Carbon Dioxide Creatinine Phosphorus Total Protein Albumin Globulin Albumin/Globulin Ratio Urine Protein Urine Ketones Meds: Medications Acetaminophen (Acetaminophen 500 Mg Tablet) 1,000 mg PO Q6H PRN; Protocol PRN Reason: Pain Last Admin: 02/25/21 09:22 Dose: 1,000 mg Documented by: Acetaminophen (Acetaminophen 325 Mg Tablet) 650 mg PO Q6HP PRN; Protocol PRN Reason: Per Pain Protocol/Fever > 101 Albuterol/Ipratropium (Ipratropium/Albuterol 3 Ml Ampul.Neb) 3 ml NEB Q4HRT PRN PRN Reason: Wheezing Docusate Sodium (Docusate Sodium 100 Mg Capsule) 100 mg PO BID [facility] Last Admin: 02/26/21 09:34 Dose: 100 mg Documented by: Fentanyl (Fentanyl 12 Mcg Patch) 12 mcg TOPICAL Q72H [facility] Last Admin: 02/25/21 13:05 Dose: 12 mcg Documented by: Loratadine (Loratadine 10 Mg Tablet) 10 mg PO QDAY [facility] Last Admin: 02/26/21 09:35 Dose: 10 mg Documented by: Megestrol Acetate (Megestrol Acetate 400 Mg/10 Ml Oral.Susp) 200 mg PO DAILY [facility] Last Admin: 02/26/21 09:44 Dose: Not Given Documented by: Methocarbamol (Methocarbamol 750 Mg Tablet) 750 mg PO QHS [facility] Last Admin: 02/25/21 21:49 Dose: Not Given Documented by: Morphine Sulfate (Morphine 4 Mg/Ml Vial) 2 mg IV Q4HP PRN; Protocol PRN Reason: Per Pain Protocol Last Admin: 02/26/21 04:20 Dose: 2 mg Documented by: Ondansetron HCl (Ondansetron 4 Mg/2 Ml Vial) 4 mg IV Q6HP PRN PRN Reason: Nausea And Vomiting Senna (Sennosides 1 Tablet) 2 tab PO HS [facility] Last Admin: 02/25/21 21:49 Dose: Not Given Documented by: Sodium Chloride (0.9 % Sodium Chloride 10 Ml Syringe) 10 ml IV Q8 [facility] Last Admin: 02/26/21 04:17 Dose: 10 ml Documented by: Tramadol HCl (Tramadol 50 Mg Tablet) 50 mg PO BIDP PRN PRN Reason: Pain A/P Assessment and plan (1) Leukocytosis: Status: Acute (2) Anemia, normocytic normochromic: Status: Acute (3) Adenocarcinoma of lung: Status: Acute (4) Hypokalemia: Status: Acute (5) Dorota albicans infection: Status: Acute (6) Asymptomatic COVID-19 virus infection: Status: Acute Narrative A/P Narrative: Assessment and Plans: Metastatic lung cancer: Switched to comfort care only as per wish. Pending home hospice placement on 02/27. GI ppx: not currently indicated DVT ppx: not currently indicated Code status: DNI DNR Prognosis: Poor Disposition: inpatient med surg; pending home hospice placement, Saturday? Time Spent With Patient Time: Total time spent is greater than 50% in coordination of care (as documented) at patient's floor/unit and/or counseling patient: Total time spent with greater than 50% in coordination of care (as documented) at patient's floor/unit and/or counseling patient:: 25 - 35 minutes QUALITY VTE Deep Vein Thrombosis/Pulmonary Embolism Present on Admission: No
[2021-02-26] MEDS: METHOCARBAMOL 750 MG TABLET PO SCH (21:05)
[2021-02-26] MEDS: SENNOSIDES 1 TABLET PO SCH (21:05)
[2021-02-26] MEDS: LORazepam 2 MG/ML VIAL IV PRN (21:29)
[2021-02-27] MEDS: 0.9 % SODIUM CHLORIDE 10 ML SYRINGE IV SCH ×5 (05:40→22:16)
[2021-02-27] MEDS: LORazepam 2 MG/ML VIAL IV PRN (05:43)
[2021-02-27] MEDS: MEGESTROL ACETATE 400 MG/10 ML ORAL.SUSP PO SCH (08:39)
[2021-02-27] MEDS: LORATADINE 10 MG TABLET PO SCH (08:39)
[2021-02-27] MEDS: DOCUSATE SODIUM 100 MG CAPSULE PO SCH ×2 (08:40→22:16)
[2021-02-27] MEDS ORDERED: fentaNYL 25 MCG PATCH TOPICAL SCH (11:00)
[2021-02-27] MEDS ORDERED: LORazepam 2 MG/ML VIAL IV PRN (16:33)
--- NOTE | 2021-02-27 16:37 | Internal Med Progress Note ---
SUBJECTIVE Subjective Patient information: Note initiated : 02/27/21 at 4:34 pm Service Date, if different from initiated Date: [] Patient: Jovan Elizabeth a 75 y/o M admitted on 02/24/21 for Confusion. Chief Complaint: [] Interval history: Mr. 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 He was admitted on 02/13/21 to our facility for leukocytosis. After blood and urine cultures were collected, he was started on broad spectrum antibiotics Vancomycin and Zosyn, while his WBC count was being monitored daily. All his cultures had no growth and his WBC count eventually improved and he was being discharged on 02/22. The original plan was to discharge him to SNF but he tested positive for CoVID on 02/22 so he was instead being discharged to home with home health. However, according to they could not get any home health to help take care of the patient, and family could not take care of him at home either. He spiked a fever of 102 on 02/22. Increasing general body weakness and poor appetite and lethargy. called EMS today to bring patient back to the hospital for continued care. Vital signs at ED presentation all within normal limits. WBC 23.8, down from 27.8 on 02/21. Serum potassium level 3.1., up from 2.8 on 02/22. 02/25: Serum potassium 2.8. WBC 23.7. Tmax 38.8 yesterday afternoon. On room air. c/o general body weakness. Poor appetite. Denies any pain. 02/26: Switched to comfort care only as per wish. Pending home hospice placement on 02/27. 02/27: Comfort care. Patient becomes lethargic/obtunded. Pending home hospice on Saturday. Subjective not obtained due to clinical situations. Pertinent ROS: Not obtained due to clinical situations. Constitutional Vitals: Vital Signs Temp Pulse Resp BP Pulse Ox 37.9 C H 113 H 30 H 147/81 94 02/27/21 08:00 02/27/21 08:00 02/27/21 08:00 02/27/21 08:00 02/27/21 08:00 Period Temp Pulse Resp BP Sys/Nielsen Pulse Ox Last 24 Hr 37.9 C-37.9 C 104-113 28-30 135-147/73-81 92-94 Intake and Output 02/27/21 02/27/21 02/27/21 05:59 13:59 21:59 Output Total 2 1 Balance -2 -1 Intake & Output: Intake & Output 02/27/21 02/27/21 02/27/21 05:59 13:59 21:59 Output Total 2 1 Balance -2 -1 Output: # of times incontinent of urine 2 1 Other: Urine Odor Normal Exam: Cachetic Obtunded Head Head exam: Present atraumatic and normal inspection Eye Eye exam: Present normal appearance ENT ENT exam: Present mucous membranes moist, normal exam and normal external ear exam Neck Neck exam: Present normal inspection Respiratory Respiratory exam: Present normal respiratory exam Cardiovascular Cardiovascular exam: Present normal rate and rhythm GI/Abdominal GI/Abdominal exam: Present normal bowel sounds Back Exam Back exam: Present normal inspection Neurological Exam Neurological exam: Present altered; Absent alert or oriented X3 Additional comments: obtunded Skin Skin exam: Present intact and warm OBJ DATA Labs CBC & Chem 7: 02/26/21 06:19 02/26/21 06:19 Labs: Abnormal Lab Results 02/26/21 02/26/21 02/25/21 06:19 06:19 05:35 WBC 23.8 H RBC 3.04 L Hgb 8.9 L Hct 27.0 L RDW 15.2 H Neut % (Auto) 92.1 H Lymph % (Auto) 2.5 L Lymph # (Auto) 0.60 L [place] # (Auto) 1.23 H Absolute Neutrophils 21.90 H Potassium 3.0 L 2.8 L* Carbon Dioxide 20 L 19 L Creatinine 0.6 L 0.6 L Phosphorus 2.0 L 1.9 L Total Protein 5.7 L Albumin 1.9 L 1.8 L Globulin 3.8 H 4.1 H Albumin/Globulin Ratio 0.5 L 0.4 L 02/25/21 05:35 WBC 23.7 H RBC 3.16 L Hgb 9.1 L Hct 28.3 L RDW 15.2 H Neut % (Auto) 92.1 H Lymph % (Auto) 2.4 L Lymph # (Auto) 0.56 L [place] # (Auto) 1.24 H Absolute Neutrophils 21.82 H Potassium Carbon Dioxide Creatinine Phosphorus Total Protein Albumin Globulin Albumin/Globulin Ratio Meds: Medications Acetaminophen (Acetaminophen 325 Mg Tablet) 650 mg PO Q6HP PRN; Protocol PRN Reason: Per Pain Protocol/Fever > 101 Albuterol/Ipratropium (Ipratropium/Albuterol 3 Ml Ampul.Neb) 3 ml NEB Q4HRT PRN PRN Reason: Wheezing Docusate Sodium (Docusate Sodium 100 Mg Capsule) 100 mg PO BID [facility] Last Admin: 02/27/21 08:40 Dose: Not Given Documented by: Fentanyl (Fentanyl 25 Mcg Patch) 25 mcg TOPICAL Q72H [facility] Last Admin: 02/27/21 10:45 Dose: 25 mcg Documented by: Loratadine (Loratadine 10 Mg Tablet) 10 mg PO QDAY [facility] Last Admin: 02/27/21 08:39 Dose: Not Given Documented by: Lorazepam (Lorazepam 2 Mg/Ml Vial) 0 mg IV Q1HP PRN; Protocol PRN Reason: ANXIETY/SEDATION Last Admin: 02/27/21 05:43 Dose: 1 mg Documented by: Lorazepam (Lorazepam 2 Mg/Ml Vial) 0 mg IV Q1HP PRN; Protocol PRN Reason: ANXIETY/SEDATION Megestrol Acetate (Megestrol Acetate 400 Mg/10 Ml Oral.Susp) 200 mg PO DAILY [facility] Last Admin: 02/27/21 08:39 Dose: Not Given Documented by: Methocarbamol (Methocarbamol 750 Mg Tablet) 750 mg PO QHS [facility] Last Admin: 02/26/21 21:05 Dose: Not Given Documented by: Morphine Sulfate (Morphine 4 Mg/Ml Vial) 2 mg IV Q4HP PRN; Protocol PRN Reason: Per Pain Protocol Last Admin: 02/26/21 04:20 Dose: 2 mg Documented by: Ondansetron HCl (Ondansetron 4 Mg/2 Ml Vial) 4 mg IV Q6HP PRN PRN Reason: Nausea And Vomiting Senna (Sennosides 1 Tablet) 2 tab PO HS [facility] Last Admin: 02/26/21 21:05 Dose: Not Given Documented by: Sodium Chloride (0.9 % Sodium Chloride 10 Ml Syringe) 10 ml IV Q8 [facility] Last Admin: 02/27/21 13:52 Dose: 10 ml Documented by: Sodium Chloride (0.9 % Sodium Chloride 10 Ml Syringe) 10 ml IV Q8 [facility] Last Admin: 02/27/21 13:52 Dose: Not Given Documented by: Sodium Chloride (0.9 % Sodium Chloride 10 Ml Syringe) 10 ml IV Q8 [facility] Tramadol HCl (Tramadol 50 Mg Tablet) 50 mg PO BIDP PRN PRN Reason: Pain A/P Assessment and plan (1) Leukocytosis: Status: Acute (2) Anemia, normocytic normochromic: Status: Acute (3) Adenocarcinoma of lung: Status: Acute (4) Hypokalemia: Status: Acute (5) Dorota albicans infection: Status: Acute (6) Asymptomatic COVID-19 virus infection: Status: Acute Narrative A/P Narrative: Assessment and Plans: Metastatic lung cancer: Switched to comfort care only as per wish. Pending home hospice placement on Thursday 03/01 GI ppx: not currently indicated DVT ppx: not currently indicated Code status: DNI DNR Prognosis: Poor Disposition: inpatient med surg; pending home hospice placement on Thursday 03/01 Time Spent With Patient Time: Total time spent is greater than 50% in coordination of care (as documented) at patient's floor/unit and/or counseling patient: Total time spent with greater than 50% in coordination of care (as documented) at patient's floor/unit and/or counseling patient:: 25 - 35 minutes QUALITY VTE Deep Vein Thrombosis/Pulmonary Embolism Present on Admission: No
[2021-02-27] MEDS: SENNOSIDES 1 TABLET PO SCH (22:16)
[2021-02-27] MEDS: METHOCARBAMOL 750 MG TABLET PO SCH (22:16)
[2021-02-28] MEDS: 0.9 % SODIUM CHLORIDE 10 ML SYRINGE IV SCH ×7 (00:17→20:31)
[2021-02-28] MEDS: LORATADINE 10 MG TABLET PO SCH (08:11)
[2021-02-28] MEDS: DOCUSATE SODIUM 100 MG CAPSULE PO SCH ×2 (08:11→20:31)
[2021-02-28] MEDS: MEGESTROL ACETATE 400 MG/10 ML ORAL.SUSP PO SCH (08:11)
--- NOTE | 2021-02-28 10:47 | Internal Med Progress Note ---
SUBJECTIVE Subjective Patient information: Note initiated : 02/28/21 at 10:46 am Service Date, if different from initiated Date: [] Patient: Jovan Elizabeth a 75 y/o M admitted on 02/24/21 for Confusion. Chief Complaint: [] Interval history: Mr. 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 He was admitted on 02/13/21 to our facility for leukocytosis. After blood and urine cultures were collected, he was started on broad spectrum antibiotics Vancomycin and Zosyn, while his WBC count was being monitored daily. All his cultures had no growth and his WBC count eventually improved and he was being discharged on 02/22. The original plan was to discharge him to SNF but he tested positive for CoVID on 02/22 so he was instead being discharged to home with home health. However, according to they could not get any home health to help take care of the patient, and family could not take care of him at home either. He spiked a fever of 102 on 02/22. Increasing general body weakness and poor appetite and lethargy. called EMS today to bring patient back to the hospital for continued care. Vital signs at ED presentation all within normal limits. WBC 23.8, down from 27.8 on 02/21. Serum potassium level 3.1., up from 2.8 on 02/22. 02/25: Serum potassium 2.8. WBC 23.7. Tmax 38.8 yesterday afternoon. On room air. c/o general body weakness. Poor appetite. Denies any pain. 02/26: Switched to comfort care only as per wish. Pending home hospice placement on 02/27. 02/27: Comfort care. Patient becomes lethargic/obtunded. Pending home hospice on Saturday. Subjective not obtained due to clinical situations. 02/28: Comfort care. Patient becomes lethargic/obtunded. Pending home hospice on Saturday. Subjective not obtained due to clinical situations. Constitutional Vitals: Vital Signs Temp Pulse Resp BP Pulse Ox 37.7 C H 107 H 28 H 136/72 93 02/28/21 08:00 02/28/21 08:00 02/28/21 08:00 02/28/21 08:00 02/28/21 08:00 Period Temp Pulse Resp BP Sys/Nielsen Pulse Ox Last 24 Hr 36.6 C-37.7 C 97-107 - 136-139/72-88 93-94 Intake and Output 02/27/21 02/28/21 02/28/21 21:59 05:59 13:59 Intake Total 50 375 Output Total 2 0 Balance 48 375 Weight 69.354 kg Intake & Output: Intake & Output 02/27/21 02/28/21 02/28/21 21:59 05:59 13:59 Intake Total 50 375 Output Total 2 0 Balance 48 375 Weight 69.354 kg Intake: Oral 50 375 Output: Void Amount 0 # of times incontinent of urine 2 0 Other: Urine Color Dark Yellow # of times incontinent of 0 Bowels General appearance: no acute distress and thin Exam: Cachetic Obtunded Head Head exam: Present atraumatic and normal inspection Eye Eye exam: Present normal appearance ENT ENT exam: Present mucous membranes moist, normal exam and normal external ear exam Neck Neck exam: Present normal inspection Respiratory Respiratory exam: Present normal respiratory exam Cardiovascular Cardiovascular exam: Present normal rate and rhythm GI/Abdominal GI/Abdominal exam: Present normal bowel sounds Back Exam Back exam: Present normal inspection Neurological Exam Neurological exam: Present alert and oriented X3 Skin Skin exam: Present intact and warm OBJ DATA Labs CBC & Chem 7: 02/26/21 06:19 02/26/21 06:19 Labs: Abnormal Lab Results 02/26/21 02/26/21 06:19 06:19 WBC 23.8 H RBC 3.04 L Hgb 8.9 L Hct 27.0 L RDW 15.2 H Neut % (Auto) 92.1 H Lymph % (Auto) 2.5 L Lymph # (Auto) 0.60 L [place] # (Auto) 1.23 H Absolute Neutrophils 21.90 H Potassium 3.0 L Carbon Dioxide 20 L Creatinine 0.6 L Phosphorus 2.0 L Total Protein 5.7 L Albumin 1.9 L Globulin 3.8 H Albumin/Globulin Ratio 0.5 L Meds: Medications Acetaminophen (Acetaminophen 325 Mg Tablet) 650 mg PO Q6HP PRN; Protocol PRN Reason: Per Pain Protocol/Fever > 101 Albuterol/Ipratropium (Ipratropium/Albuterol 3 Ml Ampul.Neb) 3 ml NEB Q4HRT PRN PRN Reason: Wheezing Docusate Sodium (Docusate Sodium 100 Mg Capsule) 100 mg PO BID [facility] Last Admin: 02/28/21 08:11 Dose: Not Given Documented by: Fentanyl (Fentanyl 25 Mcg Patch) 25 mcg TOPICAL Q72H [facility] Last Admin: 02/27/21 10:45 Dose: 25 mcg Documented by: Loratadine (Loratadine 10 Mg Tablet) 10 mg PO QDAY [facility] Last Admin: 02/28/21 08:11 Dose: Not Given Documented by: Lorazepam (Lorazepam 2 Mg/Ml Vial) 0 mg IV Q1HP PRN; Protocol PRN Reason: ANXIETY/SEDATION Last Admin: 02/27/21 05:43 Dose: 1 mg Documented by: Megestrol Acetate (Megestrol Acetate 400 Mg/10 Ml Oral.Susp) 200 mg PO DAILY [facility] Last Admin: 02/28/21 08:11 Dose: Not Given Documented by: Methocarbamol (Methocarbamol 750 Mg Tablet) 750 mg PO QHS [facility] Last Admin: 02/27/21 22:16 Dose: Not Given Documented by: Morphine Sulfate (Morphine 4 Mg/Ml Vial) 2 mg IV Q4HP PRN; Protocol PRN Reason: Per Pain Protocol Last Admin: 02/26/21 04:20 Dose: 2 mg Documented by: Ondansetron HCl (Ondansetron 4 Mg/2 Ml Vial) 4 mg IV Q6HP PRN PRN Reason: Nausea And Vomiting Senna (Sennosides 1 Tablet) 2 tab PO HS [facility] Last Admin: 02/27/21 22:16 Dose: Not Given Documented by: Sodium Chloride (0.9 % Sodium Chloride 10 Ml Syringe) 10 ml IV Q8 [facility] Last Admin: 02/28/21 05:55 Dose: Not Given Documented by: Tramadol HCl (Tramadol 50 Mg Tablet) 50 mg PO BIDP PRN PRN Reason: Pain A/P Assessment and plan (1) Leukocytosis: Status: Acute (2) Anemia, normocytic normochromic: Status: Acute (3) Adenocarcinoma of lung: Status: Acute (4) Hypokalemia: Status: Acute (5) Dorota albicans infection: Status: Acute (6) Asymptomatic COVID-19 virus infection: Status: Acute Narrative A/P Narrative: Assessment and Plans: Metastatic lung cancer: Switched to comfort care only as per wish. Pending home hospice placement on Thursday 03/01 GI ppx: not currently indicated DVT ppx: not currently indicated Code status: DNI DNR Prognosis: Poor Disposition: inpatient med surg; pending home hospice placement on Thursday 03/01 Time Spent With Patient Time: Total time spent is greater than 50% in coordination of care (as documented) at patient's floor/unit and/or counseling patient: Total time spent with greater than 50% in coordination of care (as documented) at patient's floor/unit and/or counseling patient:: 25 - 35 minutes QUALITY VTE Deep Vein Thrombosis/Pulmonary Embolism Present on Admission: No
[2021-02-28] MEDS: LORazepam 2 MG/ML VIAL IV PRN ×2 (13:15→19:47)
[2021-02-28] MEDS: SENNOSIDES 1 TABLET PO SCH (20:31)
[2021-02-28] MEDS: METHOCARBAMOL 750 MG TABLET PO SCH (20:31)
[2021-02-28] MEDS: LORazepam 2 MG/ML ORAL.SOL PO PRN (20:31)
[2021-02-28] MEDS: morphine 20 MG/ML ORAL.CONC SL PRN (20:32)
[2021-03-01] MEDS: morphine 20 MG/ML ORAL.CONC SL PRN ×4 (02:38→15:15)
[2021-03-01] MEDS: LORazepam 2 MG/ML ORAL.SOL PO PRN (02:38)
[2021-03-01] MEDS: 0.9 % SODIUM CHLORIDE 10 ML SYRINGE IV SCH ×2 (05:31→14:27)
[2021-03-01] MEDS: DOCUSATE SODIUM 100 MG CAPSULE PO SCH (09:19)
[2021-03-01] MEDS: LORATADINE 10 MG TABLET PO SCH (09:19)
[2021-03-01] MEDS: MEGESTROL ACETATE 400 MG/10 ML ORAL.SUSP PO SCH (09:19)
--- NOTE | 2021-03-01 12:03 | Discharge Summary ---
Discharge Provider Provider Patient information: Note initiated : 03/01/21 at 12:00 pm Service Date, if different from initiated Date: [] Patient: Jovan Elizabeth 75 y/o M admitted on 02/24/21 for Confusion. Chief Complaint: [] Date of admission: 02/24/21 14:14 Discharge date: 03/01/21 Primary care physician: Ricky Youssef M.D., F.A.A.F.P. Attending physician on admission: Ravi Mckeon Consults: 02/24/21 Consult to Physician [CONS] Stat Comment: Consulting Provider: Ravi Mckeon Reason For Exam: Physician to Consult Attending physician on discharge: Ravi Ruelas Pui Discharge Meds Discharge Medications Home Medications loratadine 10 mg tablet (Allerclear) 10 mg PO QDAY 01/07/20 [History Confirmed 02/24/21 Last Taken 02/16/20] acetaminophen 500 mg tablet 1,000 mg PO Q6H PRN 02/17/20 [History Confirmed 02/24/21 Last Taken 02/16/20] megestrol 400 mg/10 mL (10 mL) oral suspension 200 mg (5 mL) PO QDAY #200 ml 01/08/21 [Rx Confirmed 02/24/21 Last Taken Unknown] fentanyl 25 mcg/hr transdermal patch 25 mcg TOPICAL Q72H #10 ea 03/01/21 [Rx Last Taken Unknown] lorazepam 2 mg/mL oral concentrate (Lorazepam Intensol) 1 mg (0.5 mL) PO Q4HP PRN 10 Days ml 03/01/21 [Rx Last Taken Unknown] methocarbamol 750 mg tablet 750 mg PO QHS #30 tab 03/01/21 [Rx Last Taken Unknown] morphine concentrate 100 mg/5 mL (20 mg/mL) oral solution 10 mg (0.5 mL) SL Q4HP PRN 10 Days ml 03/01/21 [Rx Last Taken Unknown] tramadol 50 mg tablet 50 mg PO BID PRN #20 tab 03/01/21 [Rx Last Taken Unknown] COURSE Hospital Course Hospital course: Mr. 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 He was admitted on 02/13/21 to our facility for leukocytosis. After blood and urine cultures were collected, he was started on broad spectrum antibiotics Vancomycin and Zosyn, while his WBC count was being monitored daily. All his cultures had no growth and his WBC count eventually improved and he was being discharged on 02/22. The original plan was to discharge him to SNF but he tested positive for CoVID on 02/22 so he was instead being discharged to home with home health. However, according to they could not get any home health to help take care of the patient, and family could not take care of him at home either. He spiked a fever of 102 on 02/22. Increasing general body weakness and poor appetite and lethargy. called EMS today to bring patient back to the hospital for marcelino nued care. Vital signs at ED presentation all within normal limits. WBC 23.8, down from 27.8 on 02/21. Serum potassium level 3.1., up from 2.8 on 02/22. 02/25: Serum potassium 2.8. WBC 23.7. Tmax 38.8 yesterday afternoon. On room air. c/o general body weakness. Poor appetite. Denies any pain. 02/26: Switched to comfort care only as per wish. Pending home hospice placement on 02/27. 02/27: Comfort care. Patient becomes lethargic/obtunded. Pending home hospice on Saturday. Subjective not obtained due to clinical situations. 02/28: Comfort care. Patient becomes lethargic/obtunded. Pending home hospice on Saturday. Subjective not obtained due to clinical situations. 03/01: Discharged to home with home hospice. Discharge diagnosis: stage 4 lung cancer Time Spent with Patient Time attestation: Total time spent providing and/or coordinating discharge services: Time spent: Greater than 30 minutes EXAM Constitutional Vitals: Temp Pulse Resp BP Pulse Ox 36.4 C 99 H 20 136/72 91 03/01/21 08:00 03/01/21 08:00 03/01/21 08:00 02/28/21 08:00 03/01/21 08:00 General appearance: disheveled, no acute distress and thin; no cooperative Exam: cachetic Head Head exam: Present atraumatic and normocephalic Eye Eye exam: Present EOMI and PERRL ENT ENT exam: Present mucous membranes moist, normal exam and normal external ear exam Neck Neck exam: Present normal inspection; Absent lymphadenopathy, tenderness or thyromegaly Respiratory Respiratory exam: Absent accessory muscle use, respiratory distress or wheezes Cardiovascular Cardiovascular exam: Present normal rate and rhythm; Absent JVD GI/Abdominal GI/Abdominal exam: Present normal bowel sounds and soft; Absent organomegaly or tenderness Rectal Rectal exam: Present deferred Extremities Exam Extremities exam: Present full ROM, normal capillary refill and normal inspection; Absent tenderness Neurological Exam Neurological exam: Present altered and CN II-XII intact; Absent alert, motor sensory deficit or oriented X3 Psychiatric Psychiatric exam: Present normal affect and normal mood; Absent anxious or depressed Skin Skin exam: Present dry and intact Discharge Plan Patient/Caregiver Discharge Instructions Activity: increase activity as tolerated Diet: Dysphagia Level 7 Easy to Chew Foods Prescriptions: New morphine concentrate 100 mg/5 mL (20 mg/mL) Solution 10 mg SL Q4HP PRN (Reason: Per Pain Protocol) 10 Days 0RF fentanyl 25 mcg/hr Patch 72 Hour 25 mcg topical Q72H Qty: 10 0RF lorazepam [Lorazepam Intensol] 2 mg/mL Concentrate 1 mg PO Q4HP PRN (Reason: Anxiety/Sedation) 10 Days 0RF Continued loratadine [Allerclear] 10 mg tablet 10 mg PO QDAY 0RF acetaminophen 500 mg Tablet 1,000 mg PO Q6H PRN (Reason: Pain) 0RF megestrol 400 mg/10 mL (10 mL) suspension 200 mg PO QDAY Qty: 200 0RF tramadol 50 mg tablet 50 mg PO BID PRN (Reason: pain) Qty: 20 0RF methocarbamol 750 mg tablet 750 mg PO QHS Qty: 30 2RF Discontinued omeprazole magnesium [Prilosec OTC] 20 mg tablet,delayed release (DR/EC) 20 mg PO QDAY 0RF fluconazole 200 mg Tablet 200 - 400 mg PO QDAY 0RF Rx Instructions: 400 mg day 1; 200 mg days 2-21 potassium chloride 20 mEq tablet extended release 20 meq PO QDAY Qty: 14 0RF Follow Up Plan Follow up with: Ricky Youssef MD, FAAFP [Primary Care Provider] - Patient Disposition: Hospice - Home Prognosis: Serious Rehab Potential: Undetermined I certify that the patient requires SNF services: No Overall status at discharge: patient is not back to baseline Discharge Orders: Discharge Order (Routine); Ordered 03/01/21 Ordered By: Chi Suraj Pui QUALITY VTE Deep Vein Thrombosis/Pulmonary Embolism Present on Admission: No
== END 2021-03-01 16:04 | disposition hospice, home (50) | DRG 181 ==
LOC: ED 07:05 → MEDSUR 14:14
PROVIDERS: ADMIT Internal Medicine; ATTEND Internal Medicine